=== PATIENT | female | born 1960 | race Caucasian/White ===

== ENCOUNTER 2020-03-24 05:52 | Emergency (ER) | payer BC, SELFPAY ==
--- NOTE | 2020-03-24 05:54 | ED.GENADUL_ITS ---
Discharge Plan Disposition Patient Disposition: HOME Condition: Good Discharge Details Clinical Impression: Multiple rib fractures, Contusion of pelvic region, Fall from horse Primary Care Provider: Melanie Abrams ED Provider: Raymond Mcgee [place]on Meds and New Rx's Prescriptions: New lidocaine 5 % adhesive patch,medicated 1 patch topical DAILY Qty: 15 RF: 0 ibuprofen 600 mg tablet 600 mg PO Q8H PRNQty: 15 RF: 0 Continued venlafaxine 75 MG tablet 150 mg PO QAM RF: 0 sumatriptan succinate 100 MG tablet 100 mg PO PRN PRNRF: 0 trazodone 100 MG tablet 75 mg PO HS RF: 0 levothyroxine [Synthroid] 50 MCG tablet 50 mcg PO DAILY RF: 0 polyethylene glycol 3350 [Miralax] 17 gram/dose Powder 17 g PO DAILY PRNRF: 0 lansoprazole 15 MG capsule,delayed release(DR/EC) 15 mg PO DAILY RF: 0 vitamin B complex 1 EACH capsule 1 ea PO DAILY RF: 0 Discharge Instructions Instructions: How to Use an Incentive Spirometer (ED), Rib Fracture (ED) Additional Instructions: You have 3 rib fractures on the right which should heal without consequences. Your biggest risk will be pneumonia. Be sure to use incentive spirometer 10 times every hour while awake. Lidoderm patch should be worn for 12 hours during the day and off at night. Alternate ibuprofen 600 mg with acetaminophen 1 g every 4 hours. Contact primary care if pain not controlled. Return to ED for increasing shortness of breath, fever, abdominal pain, neurologic changes. Referrals: Melanie Abrams [Primary Care Provider] - Medical Decision Making Patient status post fall from horse yesterday. Significant right chest pain and tenderness. No shortness of breath. Some right upper quadrant tenderness. Given normal heart rate and saturation doubt significant injury but possibility of capsular hematoma or liver contusion needs to be investigated. Will place IV and check trauma labs and obtain CT of chest abdomen pelvis. Spine is cleared clinically. GCS is 15 with no loss of consciousness and normal neurologic exam. 7:30 AM: Patient laboratory studies unremarkable. Urinalysis negative. CT scan of chest abdomen pelvis shows nondisplaced fractures of the fifth, sixth and seventh rib on the right. No contusion or pneumothorax. Soft tissue contusion right hip area. Findings discussed with the patient. Will attempt pain control with Lidoderm patch alternating with acetaminophen and ibuprofen. We will also teach her how to use incentive spirometer. If pain uncontrolled she will contact primary care for stronger medication if needed. We discussed risk of pneumonia and necessity for deep breathing. Return to ED for increasing shortness of breath, fever, mental status changes, other concerns. Lab Data Lab results reviewed: Yes I reviewed the patient's lab results. HPI General Mode of arrival: ambulatory . Date/Time Provider Initiated Documentation: 03/24/20 05:53 . Limitations to Documentation: no limitations . Information obtained by: patient and RN notes reviewed . HPI Narrative: Patient presenting with right-sided rib pain. Patient fell off horse yesterday. She was helmeted and did not have loss of consciousness. She landed on her right side and has mostly right lateral rib pain. She has difficulty taking a deep breath but does not necessarily feel short of breath. She has bruising on her right hip but is able to ambulate. She has nausea but no vomiting or abdominal pain. She has no hematuria. She has not slight headache but has chronic headaches but does not feel any different than a normal headache for her. She has no neurologic changes. She took Tylenol about 4 hours ago but is still in significant discomfort. Related Data Home Medications Medication Instructions Recorded Confirmed levothyroxine [Synthroid] 50 mcg PO DAILY 08/17/14 03/24/20 sumatriptan succinate 100 mg PO PRN PRN 08/17/14 03/24/20 trazodone 75 mg PO HS 08/17/14 03/24/20 venlafaxine 150 mg PO QAM 08/17/14 03/24/20 lansoprazole 15 mg PO DAILY 12/04/16 03/24/20 vitamin B complex 1 ea PO DAILY 12/04/16 03/24/20 ibuprofen 600 mg PO Q8H PRN #15 tab 03/24/20 lidocaine 1 patch TOPICAL DAILY #15 ea 03/24/20 polyethylene glycol 3350 [Miralax] 17 g PO DAILY PRN 03/24/20 03/24/20 Previous Rx's Medication Instructions Recorded ibuprofen 600 mg PO Q8H PRN #15 tab 03/24/20 lidocaine 1 patch TOPICAL DAILY #15 ea 03/24/20 Allergies Allergy/AdvReac Type Severity Reaction Status Date / Time Penicillins Allergy Intermediate Skin Rash Unverified 03/24/20 06:02 anesthesia-general AdvReac hard to Uncoded 03/24/20 06:02 wake up Review of Systems Narrative: As documented in HPI otherwise negative as below. Const: no fever, chills, weakness Resp: no cough, SOB CV: no diaphoresis, edema, syncope GI: no abdominal pain, vomiting, diarrhea Neuro: no numbness, focal weakness, confusion PFSH Medical History GERD (gastroesophageal reflux disease) Hypothyroid Migraine Surgical History S/P cholecystectomy S/P hysterectomy Social History Smoking/Tobacco Use Status: Never Drug use: Never Substance use type: does not use Do you feel safe at home: Yes Do you feel safe in your relationship?: Yes Exam Narrative Exam Narrative: Vitals: Afebrile. Elevated blood pressure otherwise normal vitals and normal O2 saturation. Const: WDWN female in NAD. HEENT: NC/AT. Normal facial exam. Eyes: PERRL and EOMI Neck: Supple. Trachea midline. No midline tenderness. Lungs: Normal respiratory effort. Lungs are clear. marked tenderness right chest wall. Cor: RRR without murmur/gallop. Good radial pulses. GI: Soft and ND. Tender RUQ. Back: No midline tenderness. Neuro: A+O x 3. Normal speech, mentation, gait. Cranial nerves II - XII grossly intact. No gross motor or sensory deficit. Ext: No C/C/E. No deformity or decreased ROM. Some tenderness right hip area.
[2020-03-24 05:56] VITALS: BP 147/90; PULSE 78; RESP 16; TEMP 36.5; O2SAT 99
--- NOTE | 2020-03-24 06:15 | DI.CT_ITS ---
EXAM: CT CHEST/ABD/PEL W TECHNIQUE: CT examination of the chest, abdomen, and pelvis was performed with bolus infusion of 100 cc of Omnipaque 350. COMPARISON: CT ABD PELVIS WITH CONTRAST from 12/04/2016 FINDINGS: There is no evidence of a thoracic vascular injury. The lungs are clear except for scattered linear radiodensities in dependent portions of the lungs consistent with atelectasis or scarring. No pneumo thorax or pleural effusion. No mediastinal hematoma. No adenopathy in the chest. Tracheobronchial theresa e appears intact. There are apparent nondisplaced fractures of the right 5th through 7th ribs anterolaterally. The liver, spleen, and pancreas appear normal. Gallbladder has been surgically removed. No biliary dilatation. Adrenals and kidneys are unremarkable with tiny apparent incidental bilateral renal cysts noted. No evidence of urinary tract injury or obstruction. No abdominal or pelvic vascular injury seen. No abdominal or pelvic adenopathy. No significant abdomi nal wall hernia or hematoma. No evidence of bowel injury. No fracture identified in the abdomen or pelvic region.. IMPRESSION: No evidence of acute visceral injury of the chest, abdomen, or pelvis. Nondisplaced right anterolateral 5th through 7th rib fractures noted. RADIATION DOSE DELIVERED: 1,213.41mGy.cm Total DLP 1,213.41mGy.cm Total DLP DATA REPOSITORY: All CT scans at this facility are submitted to the National Radiology Data Registry (NRDR) Dose Index Registry (DIR) with the [employer] ([employer]). RADIATION OPTIMIZATION: All CT scans at this facility use at least one of these dose optimization te chniques: automated exposure control; mA and/or kV adjustment per patient size (includes targeted exa ms where dose is matched to clinical indication); or iterative reconstruction.
[2020-03-24 06:33] LABS: Abs Immature Grans 0.01 10^3/uL (0.0-0.06); Absolute Basophil Count 0.03 10^3/uL (0.0-0.2); Absolute Eosinophil Count 0.17 10^3/uL (0.0-0.7); Absolute Lymphocyte Count 0.96 10^3/uL (1.2-3.4); Absolute Neutrophil Count 3.66 10^3/uL (1.2-6.7); Basophils % 0.6; Eosinophils % 3.1; HCT 42.9 % (36.0-46.0); HGB 14.2 g/dL (11.2-15.7); Immature Grans % 0.2; Lymphocytes % 17.7; MCH 29.9 pg (27.0-33.0); MCHC 33.1 % (32.0-36.0); MCV 90.3 fL (80-95); MPV 10.1 fL (8.0-11.0); Neutrophils % 67.4; Nucleated RBC 0 %; Platelet Count 203 10^3/uL (130-400); RBC 4.75 10^6/uL (3.93-5.22); RDW 12.8 % (11.7-14.6); RDW-SD 42.5 fL; WBC 5.43 10^3/uL (4.4-10.8)
[2020-03-24 06:48] LABS: ALT 48 U/L (14-59); AST 28 U/L (15-37); Albumin 3.6 g/dL (3.4-5.0); Alkaline Phosphatase 114 U/L (46-116); Anion Gap 7.3 mmol/L (3-11); BUN 16 mg/dL (7-18); Bilirubin, Total 0.3 mg/dL (0.2-1.0); CO2 27.7 mmol/L (21.0-32.0); Calcium 9.2 mg/dL (8.5-10.1); Chloride 104 mmol/L (98-107); Glucose 108 mg/dL (74-106); Potassium 3.9 mmol/L (3.5-5.1); Sodium 139 mmol/L (136-145); Total Protein 6.8 g/dL (6.4-8.2)
[2020-03-24] MEDS: Normal Saline - Diluent 50 ML VIAL IV (06:57)
[2020-03-24] MEDS: Omnipaque 350 MG/ML 100 ML BTL IJ (06:57)
[2020-03-24] MEDS: Normal Saline Flush 10 ML SYR IVP (06:58)
[2020-03-24 07:06] LABS: Bilirubin Negative (Negative); Blood Negative (Negative); Clarity Clear (Clear); Glucose Negative (Negative); Ketones Negative (Negative); Leukocyte Esterase Negative (Negative); Nitrite Negative (Negative); Specific Gravity 1.015 (1.005-1.025); Urobilinogen 0.2 EU/dL (Up TO 0.2); pH 7.5 (5-8)
[2020-03-24] MEDS: Lactated Ringers 1,000 ML 1000 ML IV (07:07)
--- NOTE | 2020-03-24 07:21 | DI.VRAD_ITS ---
PROCEDURE INFORMATION: Exam: CT Chest With Contrast Exam date and time: 03/24/2020 6:21 AM Age: 59 years old Clinical indication: Injury or trauma; Other: Fell off horse; Blunt trauma (contusions or hematomas); Injury date: 03/23/20; Injury details: Fell of a horse yesterday, R rib pain, ruq pain; Prior surgery; Surgery date: 6+ months; Surgery type: Hysterectomy cholecystectomy; Patient HX: Right sib pain and ruq pain TECHNIQUE: Imaging protocol: Computed tomography of the chest with intravenous contrast. Radiation optimization: All CT scans at this facility use at least one of these dose optimization techniques: automated exposure control; mA and/or kV adjustment per patient size (includes targeted exams where dose is matched to clinical indication); or iterative reconstruction. Contrast material: OMNIPAQUE 350; Contrast volume: 100 ml; Contrast route: INTRAVENOUS (IV); COMPARISON: CT ABD PELVIS WITH CONTRAST 12/04/2016 2:10 PM FINDINGS: Lungs: Mild bibasilar dependent and subsegmental atelectasis. No consolidative pneumonia or pulmonary edema. No contusion or laceration. Pleural space: No pleural effusions. No pneumothorax. Heart: Cardiac size normal. No pericardial effusion. No right heart strain. Mediastinal space: Patulous distal esophagus. Pulmonary arteries: No saddle embolus or large central emboli. Aorta: Aorta normal caliber without aneurysm, dissection or disruption. Lymph nodes: Unremarkable. No enlarged lymph nodes. Bones/joints: Nondisplaced fractures suspected lateral 5th, 6th and 7th ribs. No obviously displaced rib fractures on either side. No spinal fracture. No sternal fracture. Soft tissues: Unremarkable. IMPRESSION: 1. Nondisplaced fractures suspected lateral 5th, 6th and 7th ribs. 2. No associated pneumothorax, pulmonary contusion or pleural effusion. PROCEDURE INFORMATION: Exam: CT Abdomen And Pelvis With Contrast Exam date and time: 03/24/2020 6:21 AM Age: 59 years old Clinical indication: Injury or trauma; Other: Fell off horse; Blunt trauma (contusions or hematomas); Injury date: 03/23/20; Injury details: Fell of a horse yesterday, R rib pain, ruq pain; Prior surgery; Surgery date: 6+ months; Surgery type: Hysterectomy cholecystectomy; Patient HX: Right sib pain and ruq pain TECHNIQUE: Imaging protocol: Computed tomography of the abdomen and pelvis with intravenous contrast. Radiation optimization: All CT scans at this facility use at least one of these dose optimization techniques: automated exposure control; mA and/or kV adjustment per patient size (includes targeted exams where dose is matched to clinical indication); or iterative reconstruction. Contrast material: OMNIPAQUE 350; Contrast volume: 100 ml; Contrast route: INTRAVENOUS (IV); COMPARISON: CT ABD PELVIS WITH CONTRAST 12/04/2016 2:10 PM FINDINGS: Mediastinal space: Patulous distal esophagus. Liver: No enlargement or mass. No contusion or laceration. Gallbladder and bile ducts: Surgical clips from prior cholecystectomy. Pancreas: No enlargement. No mass. No ductal dilatation. No contusion or laceration. Spleen: Normal size. No mass. No contusion or laceration. Adrenals: No mass. No enlargement. No hemorrhage. Kidneys and ureters: No mass. No hydronephrosis. No contusion or laceration. No hydroureter or ureterolithiasis. Stomach and bowel: Large fecal load throughout the majority of the colon suggests constipation. No diverticulosis or diverticulitis. No colitis. Small bowel normal caliber without mechanical obstruction. No pneumatosis. Borderline gastric and proximal duodenal wall thickening, lack of distention versus gastritis/duodenitis. No outlet obstruction. Appendix: No evidence of appendicitis. Intraperitoneal space: No significant free fluid demonstrated. No free intraperitoneal air demonstrated. Vasculature: Aorta normal caliber with mild atherosclerotic calcification. No aneurysm, dissection or disruption. Soft tissue contusion lateral to the right iliac crest. Lymph nodes: No significant lymphadenopathy demonstrated. Urinary bladder: No wall thickening, mass or calculus. Reproductive: Hysterectomy. No adnexal masses or fluid collections. Bones/joints: No acute spinal fracture. Grade 1 spondylolisthesis L4 on 5 and L5 on S1 secondary to degenerative facet disease. Spondylolysis on the left at L5. No linear or depressed pelvic fracture. No hip fracture. No fracture of the sacrum or coccyx. Soft tissues: Unremarkable. IMPRESSION: 1. No significant posttraumatic abnormalities within the abdomen or pelvis. Specifically no solid organ, vascular, bowel or osseous injuries. 2. Soft tissue contusion lateral to the right iliac crest. 3. Additional nonemergent findings as described above. Dictated and Authenticated by: Rony Hodges MD. Ordering:ZEN Andrade MD
[2020-03-24 07:28] VITALS: BP 115/76; PULSE 85; RESP 20; TEMP 36.5; O2SAT 99
[2020-03-24] MEDS: Lidocaine 5% Patch 1 PATCH TP (07:47)
[2020-03-24] MEDS: Ketorolac 15 MG/ML VIAL IVP (07:47)
== END 2020-03-24 08:00 | disposition home or self-care (01) ==
PROVIDERS: Emergency Provider Emergency Medicine; PCP Family Medicine
DX: S22.41XA Multiple fractures of ribs, right side, initial encounter for closed fracture (principal); S70.01XA Contusion of right hip, initial encounter; V80.010A Animal-rider injured by fall from or being thrown from horse in noncollision accident, initial encounter; Y93.52 Activity, horseback riding
CPT/HCPCS: 36415; 74177; 80053; 96361; 96374; 99285; 71260; 81003; 85025; 99284; J1885; J3490

== ENCOUNTER 2022-02-06 14:03 | Outpatient (REF) | payer BC, SELFPAY ==
--- OUTSIDE RECORDS SUMMARY | 2022-02-06 14:10 | XMS_ITS | Encounter Summary ---
:1960 Author Organization [place] [address] Care Team Providers Name Role Phone Melanie Abrams MD Primary Care Provider Reason for Visit Auth/Cert Specialty Diagnoses / Procedures Referred By Contact Refer red To Contact Diagnoses Hiatal hernia Gastro-esophageal reflux disease without esophagitis eval for hiatal hernia worsening, H pylori, GERD not responding to PPI Kendy Sommer MD [facility] Procedures PRO UPPER GI ENDOSCOPY, DIAGNOSTIC PRO UPPER GI ENDOSCOPY, BIOPSY PRO UP GI ENDOSCOPY, REMV TUMOR, SNARE EGD, UPPER GI ENDOS[place] [address] Referral ID Status Reason Start Date Expiration Date Visits Requ ested Visits Authorized [id number] 1 1 Encounter Details Date Type Department Care Team Description 01/19/2022 Surgery Gastroenterology at [facility] Kendy Sommer, EGD, UPPER GI [facility] Vanessa [place] [address] [facility] [phone] [address] [place] [address] Social History Tobacco Use Types Packs/Day Years Used Date Never Smoker Smokeless Tobacco: Never Used Alcohol Use Standard Drinks/Week Comments Yes 1 (1 standard drink = 0.6 oz pure alcoho l) Physical Activity Answer Date Recorded On average, how many days per week do you engage in moderate to 2 days 05/25/2021 strenuous exercise (like walking fast, running, jogging, dancing, swimming, biking, or other activities that cause a light or heavy sweat)? On average, how many minutes do you engage in exercise at th is 40 min 05/25/2021 level? Financial Resource Strain Answer Date Recorded How hard is it for you to pay for the very basics like Not h gabriel at all 05/25/2021 food, housing, medical care, and heating? Food Insecurity Answer Date Recorded Within the past 12 months, you worried that your food would Never true 05/25/2021 run out before you got money to buy more. Within the past 12 months, the food you bought just didn't N ot asked last and you didn't have money to get more. Transportation Needs Answer Date Recorded In the past 12 months, has lack of transportation kept you f rom No 05/25/2021 medical appointments or from getting medications? In the past 12 months, has lack of transportation kept you f rom No 05/25/2021 meetings, work, or getting things needed for daily living? Housing Stability Answer Date Recorded In the last 12 months, was there a time when you were not ab le No 05/25/2021 to pay the mortgage or rent on time? In the last 12 months, how many places have you lived? 1 05/25/2021 In the last 12 months, was there a time when you did not hav e a No 05/25/[address] or slept in a assisted (including now)? Sex Assigned at Date Recorded Female 08/01/2020 8:27 AM EST documented as of this encounter Last Filed Vital Signs Vital Sign Reading Time Taken Comments Blood Pressure 146/90 01/19/2022 2:15 PM EDT Pulse 84 01/19/2022 2:15 PM EDT Temperature 36.2 ??C (97.2 ??F) 01/19/2022 1:39 PM EDT Respiratory Rate 12 01/19/2022 2:15 PM EDT Oxygen Saturation 99% 01/19/2022 2:15 PM EDT Inhaled Oxygen Concentration - - Weight 74.8 kg (165 lb) 01/19/2022 1:39 PM EDT Height 170.2 cm (5' 7) 01/19/2022 1:39 PM EDT Body Mass Index 25.84 01/19/2022 1:39 PM EDT documented in this encounter Discharge Instructions Discharge Otilia Preciado RN - 01/19/2022 2:35 PM EDT Upper GI Endoscopy: What to Expect at Home Your Recovery You will be able to go home after your doctor or nurse checks to make sure you are not having any problems. You may have to stay overnight if you had treatment during the test. You may have a sore throat for a day or two after the test. This care sheet gives you a general idea about what to expect after the test. How can you care for yourself at home? Activity Rest when you feel tired. You can do your normal activities when it feels okay to do so. Diet Follow your doctor's directions for eating. Unless your doctor has told you not to, drink plenty of fluids. This helps to replace the fluids that were lost during the prep. Do not drink alcohol. Medicines Your doctor will tell you if and when you can restart your medicines. He or she will also give you instructions about taking any new medicines. If you take blood thinners, such as warfarin (Coumadin), clopidogrel (Plavix), or aspirin, be sure to talk to your doctor. He or she will tell you if and when to start taking those medicines again. Make sure that you understand exactly what your doctor wants you to do. If polyps were removed or a biopsy was done during the test, your doctor may tell you not to take aspirin or other anti-inflammatory medicines for a few days. These include ibuprofen (Advil, Motrin) and naproxen (Aleve). If you have a sore throat the day after the procedure, use an rxsm-yjz-[id number] spray to numb your throat. Sucking on throat lozenges and gargling with warm salt water may also help relieve your symptoms. Other instructions For your safety, do not drive or operate machinery until the medicine wears off and you can think clearly. Your doctor may tell you not to drive or operate machinery until the day after your test. Do not sign legal documents or make major decisions until the medicine wears off and you can think clearly. The anesthesia can make it hard for you to fully understand what you are agreeing to. Additional Information for Sedation Patients For patients who received sedation: You may have received medications before and/or during your procedure which effects your judgement and reaction time. Do not drive, operate machinery, drink alcoholic beverages or make important decisions for 24 hours. Be careful on stairs as you may be unsteady on your feet. You may eat a regular diet as tolerated. Do not smoke if you are alone. IV site: Slight redness or tenderness is normal, you can use a warm compress if you would like. If tenderness and/or redness increase or if foul drainage occurs, please contact your Doctor. Please call [phone] before 8pm Mon-Fri with problems, questions or concerns. If you call after 8pm or on weekends, call the Hospital at [phone] and ask to speak to the Head Automatic Sawyer new vehicle sales consultant and the jig operator will contact that person for you. When should you call for help? Call 129 anytime you think you may need emergency care. For example, call if: You passed out (lost consciousness). You pass maroon or bloody stools. You have trouble breathing. Call your doctor now or seek immediate medical care if: You have pain that does not get better after you take pain medicine. You are sick to your stomach or cannot drink fluids. You have new or worse belly pain. You have blood in your stools. You have a fever. You cannot pass stools or gas. Watch closely for changes in your health, and be sure to contact your doctor if you have any problems. Where can you learn more? [facility] View your After Visit Summary and more online at [email or web address] If you would like to provide feedback about your hospital experience, please call the Office of Patient and Family Relations at . If you have received this After Visit Summary in error, please immediately return it in person to the department, or notify the [facility] Privacy Office by calling toll free at between the hours of 8AM and 5PM to arrange for our retrieval of the documents at no cost to you. Content Version: 12.2 ?? 7889-9923 1bib. Care instructions adapted under license by [facility]. If you have questions about a medical condition or this instruction, always ask your healthcare professional. 1[employer] disclaims any warranty or liability for your use of this information. documented in this encounter Medications at Time of Discharge Medication Sig Dispensed Refills Start Date End Date cholecalciferol, Vitamin Take by mouth. 0 D3, 50 mcg (2,000 unit) Capsule levothyroxine (Synthroid) Take 1 tablet by 90 tablet 3 11/19 50 mcg TabletIndications: mouth daily. Acquired hypothyroidism busPIRone (Buspar) 10 mg Take 2 tablets by 360 tablet 3 10/19 Tablet mouth 2 times daily. venlafaxine XR (Effexor-XR) Take 3 capsules by 270 capsule 3 05/25/2021 75 mg Capsule, Sust. mouth every Release 24 hrIndications: morning. Anxiety traZODone (Desyrel) 50 mg TAKE 1 AND 1/2 135 tablet 3 2020 TabletIndications: TABLETS BY MOUTH Insomnia, unspecified type EVERY NIGHT omeprazole (PriLOSEC) 40 mg Take 1 capsule by 30 capsule 3 0 12/23/2020 Capsule, Delayed mouth daily. Release(E.C.)Indications: Laryngopharyngeal reflux documented as of this encounter H&P Notes Kendy Sommer MD - 01/19/2022 2:09 PM EDT Patient Name: Korin Posada Patient Age: 61 y.o. Birthdate: 1960 Admit date: 01/19/2022 Attending Physician: Kendy Sommer MD Gastroenterology and Hepatology Pre-Procedure History and Physical Exam Procedure: EGD: Indication: GERD Patient Active Problem List Diagnosis Code ??? Major depressive disorder, recurrent episode F33.9 ??? Migraine without aura G43.009 ??? Anxiety F41.9 ??? Hypothyroidism E03.9 ??? Gastroesophageal reflux K21.9 ??? S/P arthroscopy of shoulder, right Dr. Hernandez. biceps tenotomy, DCE and SAD DOS: 07/12/2016 Z98.890 ??? Contusion of pelvic region S30.0XXA EXAM: HEENT: Airway examined, oropharynx clear Mallampati Score: II (soft palate, uvula, fauces visible) LUNGS: Clear to auscultation HEART: Regular rate and rhythm, normal S1, S2 ABDOMEN: Normal bowel sounds, soft, non tender, non distended, A/P Proceed with the planned endoscopic procedure. ASA 2 - Patient with mild systemic disease with no functional limitations Sedation Plan: moderate (conscious sedation) Risks and benefits of the procedure explained to the patient. Consent signed. documented in this encounter Plan of Treatment Upcoming Encounters Date Type Specialty Care Team Description 02/06/2023 Hospital Encounter Gastroenterology Cony Tavera MD [facility] GASTROENTEROLOGY DEPT. [place], [place] [address] (Wo rk) Scheduled Procedures Name Priority Associated Diagnoses Date/Time COLONOSCOPY, DIAGNOSTIC 10 yr surv documented as of this encounter Procedures Procedure Name Priority Date/Time Associated Diagnosis Comme nts EGD, UPPER GI 01/19/2022 2:12 PM eval for hiatal ENDOSCOPY EDT hernia worsening, H pylori, GERD not responding to PPI UPPER GI ENDOSCOPY Routine 01/19/2022 2:05 PM Res ults for this EDT procedure are i n the results section. documented in this encounter Results UPPER GI ENDOSCOPY (01/19/2022 2:05 PM EDT) Component Value Ref Test Analysis Performed At [facility] gist Range Method Time Signature UPPER GI [facility] ENDOSCOPY Endoscopy Procedure Date: 01/19/2022 2:05 PM ? Patient Name: Korin Posada ? Date of : 1960 ? Age: 61 ? Order #: [id number] ? Instrument Name: [id number] ? Procedure: ? Upper GI endoscopy Indications: ? Heartburn Providers: ? Kendy Sommer MD, Dallas Watkins ? AMANDA Ruiz, Abebe Rivero her Referring MD: ?Melanie Abrams MD Medicines: ? Midazolam 5 mg IV, Fentanyl 150 ? micrograms IV, Benzocaine spray Complications: ? No immediate complications. Procedure: ? Pre-Anesthesia Assessment: ? - Prior to the procedure, a History ? and Physical was performed , and ? patient medications and al lergies ? were reviewed. The patient 's ? tolerance of previous anes thesia ? was also reviewed. The ris ks and ? benefits of the procedure and the ? sedation options and risks were ? discussed with the patient . All ? questions were answered, a nd ? informed consent was obtai murray. ? Prior Anticoagulants: The patient ? has taken no anticoagulant or ? antiplatelet agents. ASA G rade ? Assessment: II - A patient with ? mild systemic disease. Aft er ? reviewing the risks and be nefits, ? the patient was deemed in ? satisfactory condition to undergo ? the procedure. ? The procedure, indications , ? benefits, risks and altern atives ? were explained to the rodrigo ent. ? Specifically discussed wer e ? potential complications in cluding, ? but not limited to, evelyne crabtree, ? perforation, infection, mi ssing a ? cancer, and adverse medica tion ? reactions. The Endoscope w as ? introduced through the jabari th, and ? advanced to the second par t of ? duodenum The upper GI endo scopy was ? accomplished without diffi culty. ? The patient tolerated the procedure ? well. ? Findings: ? Esophagogastric landmarks were identified: the Z-line ? was found at 36 cm, the upper extent of the gastric ? folds was found at 36 cm and the site of hiatal ? narrowing was found at 40 cm from the incisors. ? The examined esophagus was normal. ? A 4 cm hiatal hernia was present. ? The entire examined stomach was normal. ? The examined duodenum was normal. ? Moderate Sedation: ? I was present during the intraservice time as ? documented by the sedation RN. Impression: ?- Esophagogastric landmarks ? identified. ? - Normal esophagus. ? - 4 cm hiatal hernia. ? - Normal stomach. ? - Normal examined duodenum . ? - No specimens collected. Recommendation: ?- Refer to a chainstitch sewing machine operator. ? - Return to referring phys ician. ? Procedure Code(s): ? --- Professional --- ? 94497, Esophagogastroduode noscopy, ? flexible, transoral; diagn ostic, ? including collection of sp ecimen(s) ? by brushing or washing, wh en ? performed (separate proced ure) CPT copyright 2020 [employer]. All rights reserved. The codes documented in this report are preliminary and upon lawyer review may be revised to meet current compliance requirements. Attending Participation: ? I personally performed the entire procedure. ? Kendy Sommer MD Kendy Sommer MD 01/19/2022 2:28:55 PM This report has been signed electronically. Number of Addenda: 0 Note Initiated On: 01/19/2022 2:05 PM Specimen (Source) Anatomical Collection Method Collection Time Re ceived Time Location / / Volume Laterality 01/19/2022 2:05 PM EDT Melanie Abrams MD GENERAL SURGICAL ORDERABLES Performing Organization Address City/State/ZIP Code Phon e Number [employer]ATION documented in this encounter Visit Diagnoses Not on filedocumented in this encounter Administered Medications Inactive Administered Medications - up to 3 most recent administrations Medication Order MAR Action Action Date Dose Rate Site benzocaine (Hurricane One) 20% Given 01/19/2022 2:14 PM EDT 1 ea ch spray (restricted to irina-procedural use) ONCE PRN, Starting on Tue01/19/22 at 1442, Until Tue01/19/22 at 1712, Intra-Operative (Intra-Procedure) fentaNYL (pf) (50 mcg/mL) multi-dose Given 01/19/2022 2:23 PM ED T 25 mcg injection ONCE PRN, Starting on Tue01/19/22 at 1414, Until Tue01/19/22 at 1712, Intra-Operative (Intra-Procedure), Routine Given 01/19/2022 2:20 PM EDT 25 mcg Given 01/19/2022 2:17 PM EDT 50 mcg lactated ringers infusion New Bag 01/19/2022 1:52 PM EDT 100 mL/hr 100 mL/hr 100 mL/hr, Intravenous, CONTINUOUS, Starting on Tue01/19/22 at 1400, Until Tue01/19/22 at 1506, Endoscopy (Day of Procedure) midazolam (pf) (Versed) (1 mg/mL) multi-dose Given 01/19/2022 2: 23 PM EDT 1 mg injection ONCE PRN, Starting on Tue01/19/22 at 1414, Until Tue01/19/22 at 1712, Intra-Operative (Intra-Procedure), Routine Given 01/19/2022 2:20 PM EDT 1 mg Given 01/19/2022 2:17 PM EDT 1 mg documented in this encounter Active and Recently Administered Medications Times are shown in EDT. Continuous Medication Order 01/17/2022 01/18/2022 01/19/2022 lactated ringers infusion (CANCELED) 1352 (New Bag - Provider: Ara Aviles RN) 100 mL/hr, Intravenous, CONTINUOUS, Star ting on Tue01/19/22 at 1400, Until Tue01/19/22 at 1506, Endoscopy (Day of Procedure) PRN Medication Order 01/17/2022 01/18/2022 01/19/2022 benzocaine (Hurricane One) 20% spray (re stricted to irina-procedural use) (CANCELED) 1414 (Given - Provid er: Dallas Ruiz RN) ONCE PRN, Starting on Tue01/19/22 at 1442 , Until Tue01/19/22 at 1712, Intra- Operative (Intra-Procedure) fentaNYL (pf) (50 mcg/mL) multi-dose injection (CANCELED) 1414 (Given - Provider: Dallas Ruiz RN)1417 (Given - Provider: Dallas Ruiz RN)1420 (Given - Provider: Dallas Ruiz RN)1423 (Given - Provider: Dallas Ruiz RN) ONCE PRN, Starting on Tue01/19/22 at 1414 , Until Tue01/19/22 at 1712, Intra- Operative (Intra-Procedure), Routine midazolam (pf) (Versed) (1 mg/mL) multi-dose injection (CANCELED ) 1414 (Given - Provider: Dallas Ruiz RN)1417 (Given - Provider: Dallas Ruiz RN)1420 (Given - Provider: Dallas Ruiz RN)1423 (Given - Provider: Dallas Ruiz RN) ONCE PRN, Starting on Tue01/19/22 at 1414 , Until Tue01/19/22 at 1712, Intra- Operative (Intra-Procedure), Routine documented in this encounter Care Teams Commercial Illustrator Relationship Specialty Start Date End Date Melanie Abrams MD PCP - General 05/12/[address] [facility] [place] [address] documented as of this encounter
--- OUTSIDE RECORDS SUMMARY | 2022-02-06 14:10 | XMS_ITS | Encounter Summary ---
:1960 Author Organization [facility] [place] [address] Care Team Providers Name Role Phone Melanie Abrams MD Primary Care Provider Reason for Visit Reason Comments Medication Refill Encounter Details Date Type Department Care Team Description 01/17/2021 Refill Family Medicine at Melanie Johnson MD [facility] [address] [facility] [place] [address] [place] [address] [phone] (Wo rk) Social History Tobacco Use Types Packs/Day Years Used Date Never Smoker Smokeless Tobacco: Never Used Alcohol Use Standard Drinks/Week Comments Yes 0 (1 standard drink = 0.6 oz pure alcoho l) Rare 1-2x month Alcohol Habits Answer Date Recorded How often do you have a drink containing alcohol? Not asked How many drinks containing alcohol do you have on a Not aske d typical day when you are drinking? How often do you have six or more drinks on one Not asked occasion? Comment: Rare 1-2x month 12/10/2019 Physical Activity Answer Date Recorded On average, how many days per week do you engage in moderate to 2 days 05/25/2021 strenuous exercise (like walking fast, running, jogging, dancing, swimming, biking, or other activities that cause a light or heavy sweat)? On average, how many minutes do you engage in exercise at is 40 min 05/25/2021 level? Financial Resource [...] place to sleep or slept in a jail (including now)? Sex Assigned at Date Recorded Female 08/01/2020 8:27 AM EST documented as of this encounter Plan of Treatment Upcoming Encounters Date Type Specialty Care Team Description 02/06/2023 Hospital Encounter Gastroenterology Cony Tavera MD [facility] GASTROENTEROLOGY DEPT. [place], [place] [address] (Wo rk) Scheduled Procedures Name Priority Associated Diagnoses Date/Time COLONOSCOPY, DIAGNOSTIC 10 yr surv documented as of this encounter Visit Diagnoses Diagnosis Anxiety Anxiety state, unspecified documented in this encounter Care Teams Etl Informatica Architect Relationship Specialty Start Date End Date Melanie Abrams MD PCP - General 05/12/[address] [facility] [address] PRIMARY C[facility] [place], [place] [id number] documented as of this encounter
--- OUTSIDE RECORDS SUMMARY | 2022-02-06 14:10 | XMS_ITS | Encounter Summary ---
:1960 Author Organization [facility] [place] [address] Care Team Providers Name Role Phone Melanie Abrams MD Primary Care Provider Reason for Visit Reason Comments Medication Refill Encounter Details Date Type Department Care Team Description 01/28/2020 Refill Family Medicine at Melanie Abrams M oderate episode of [facility] recurrent major [address] [facility] [place] [address] [facility] [phone] [place] [address] (Wo rk) Social History Tobacco Use Types [...] place to sleep or slept in a retirement (including now)? Sex Assigned at Date Recorded Female 08/01/2020 8:27 AM EST documented as of this encounter Miscellaneous Notes Telephone Encounter - Denise Canela - 01/29/2020 10:52 AM EDT Sent Lab[employer] message documented in this encounter Plan of Treatment Upcoming Encounters Date Type Specialty Care Team Description 02/06/2023 Hospital Encounter Gastroenterology Cony Tavera MD [facility] GASTROENTEROLOGY DEPT. [place], [place] [address] (Wo rk) Scheduled Procedures Name Priority Associated Diagnoses Date/Time COLONOSCOPY, DIAGNOSTIC 10 yr surv documented as of this encounter Visit Diagnoses Diagnosis Moderate episode of recurrent major depr essive disorder documented in this encounter Care Teams Cleaning Custodian Relationship Specialty Start Date End Date Melanie Abrams MD PCP - General 05/12/[address] [facility] [place] [address] documented as of this encounter
--- OUTSIDE RECORDS SUMMARY | 2022-02-06 14:10 | XMS_ITS | Encounter Summary ---
:1960 Author Organization [facility] [address] Care Team Providers Name Role Phone Melanie Abrams MD Primary Care Provider Reason for Visit Reason Onset Date Comments Medication Refill 11/13/2021 Encounter Details Date Type Department Care Team Description 11/13/2021 Refill Family Medicine at Melanie Johnson MD [facility] [address] [facility] [place] [address] [place] [address] [phone] (Wo rk) Social History Tobacco Use Types [...] place to sleep or slept in a alf (including now)? Sex Assigned at Date Recorded Female 08/01/2020 8:27 AM EST documented as of this encounter Miscellaneous Notes Telephone Encounter - Ibis Cueva MA - 11/13/2021 11:43 AM EDT Prescription Refill Request Prescription(s) Requested: Requested Prescriptions Pending Prescriptions Disp Refills ??? busPIRone (Buspar) 10 mg Tablet 90 tablet 1 Sig: Take 1 tablet by mouth 2 times daily. Increase by 10 mg every 2-4 weeks to max 60 mg total daily Date of Encounter last in This Dept (If over a year and no apt scheduled send to secretaries to schedule): 10/08/2021 Next Encounter in This Dept: Visit date not found Date of Last Refill (for each medication): 10/13/2021 Medication category req. lab studies documented in this encounter Plan of Treatment Upcoming Encounters Date Type Specialty Care Team Description 02/06/2023 Hospital Encounter Gastroenterology Cony Tavera MD [facility] GASTROENTEROLOGY DEPT. [place], [place] [address] (Wo rk) Scheduled Procedures Name Priority Associated Diagnoses Date/Time COLONOSCOPY, DIAGNOSTIC 10 yr surv documented as of this encounter Visit Diagnoses Not on filedocumented in this encounter Care Teams Crop Farm Helper Relationship Specialty Start Date End Date Melanie Abrams MD PCP - General 05/12/[address] [facility] [address] [place] [address] documented as of this encounter
--- OUTSIDE RECORDS SUMMARY | 2022-02-06 14:10 | XMS_ITS | Encounter Summary ---
:1960 Author Organization [facility] [place] [address] Care Team Providers Name Role Phone Melanie Abrams MD Primary Care Provider Encounter Details Date Type Department Care Team Description 03/16/2020 Public Health Public [facility] [place]Note 2] [place] [address] Social History Tobacco Use Types Packs/Day Years [...] place to sleep or slept in a longterm (including now)? Sex Assigned at Date Recorded Female 08/01/2020 8:27 AM EST documented as of this encounter Plan of Treatment Upcoming Encounters Date Type Specialty Care Team Description 02/06/2023 Hospital Encounter Gastroenterology Cony aTvera MD [facility] GASTROENTEROLOGY DEPT. [place], [place] [address] (Wo rk) Scheduled Procedures Name Priority Associated Diagnoses Date/Time COLONOSCOPY, DIAGNOSTIC 10 yr surv documented as of this encounter Procedures Procedure Name Priority Date/Time Associated Diagnosis Comme nts COVID-19 PCR STAT 03/16/2020 1:08 PM COVID-19 ruled out Res ults for this EDT procedure are i n the results section . documented in this encounter Results COVID-19 PCR (03/16/2020 1:08 PM EDT) [facility] Method Time Signature SARS-CoV-2 Not Detected Not Detected [facility] Comment: This result should be interpreted in com bination with the clinical observations, patient history and epidem iological information in making a final diagnosis. For testing of asymptomatic i ndividuals, assay performance characteristics and clinical utility hav e not been evaluated. Testing for SARS-CoV-2 (Severe acute respiratory syn drome coronavirus 2, formerly known as 2019 novel coronavirus or 2019-nCoV) to aid in the diagnosis of COVID-19 is performed using the [employer] Elijah LAWRENCE S-CoV-2 Assay as authorized by the FDA Emergency Use Authorization (EUA). This EUA assay is intended for In-vitro Diagnostic (IVD) use with respiratory sp ecimens such as nasopharyngeal swabs collected from individuals during the ac leonel phase of infection. This assay is performed based on the instructions for use provided by [employer] and additional guidance provided by CDC and FDA. Testing is performed in the [facility]omics and [facility] y Laboratory within the Department of Pathology and Laboratory Medicine at [facility], certified under the Clinical Laboratory Improvement Amendments of 1988 (CLIA), 42 U.S.C. 263a, to perform high complexi ty tests. Assay performance has been verified according to clinical laborator y regulatory requirements for use with specimens collected from individuals venita pected of COVID-19. Test results are provided above. A result of ? Not Detected? indicates that the viral RNA target is not present above the limit of detect ion, but does not preclude SARS-CoV-2 infection. False negative results may oc cur if a specimen is improperly collected, transported or handled; if am plification inhibitors are present; or if inadequate numbers of viral particles are present in the specimen. When a diagnostic test is negative, the possibi lity of a false negative result should be considered in the context of a patien t? s recent exposures and the presence of clinical signs and symptoms consisten t with COVID-19. A result of ? Detected? indicates that RNA from SARS-CoV-2 was d etected and the patient is infected. As required or requested by public health a uthorities, positive specimens may be sent for additional testing. Positive an d negative predictive values for this test are highly dependent on disease pre valence. A result of ? Invalid? indicates that neither the viral RNA tar gets nor the internal control target was detected. An invalid result suggests the presence of inhibitors. Recollection and re-testing is recommend ed in the case of an invalid result. CDC COVID-19 criteria for testing on hum an specimens and clinical management guidance information are available at th e CDC Coronavirus Disease 2019 (COVID-19) webpage under ? Information for Healthcare Professionals? (https://www.cdc.gov/coronavirus/2019-nc ov/hcp/index.html) Additional information about this and ot her EUA tests can be found in provider and patient fact sheets at the following FDA website: https://www.fda.gov/medical-devices/iydaiblomyx-bgfmeki-2384-yvoac-71-yjhsbmecq- hsv-fhrvwpdvtjkbts-kfwzaln-devices/beaoi-wnbvlexghnz-dkwm SARS-Cov-2 RNA Source LICENSE ISSUER Swab [facility] Specimen (Source) Anatomical Collection Method Collection Time Re ceived Time Location / / Volume Laterality Nasopharyngeal swab 03/16/2020 1:08 03/16 (specimen) PM EDT 1:08 PM EDT Comment: Symptoms->Fever / Respiratory S ymptoms Resulting Agency Comment Spec In Lab Melanie Abrams MD MICROBIOLOGY - GENERAL ORDER ILDEFONSO Performing Organization Address City/State/[place] [address] documented in this encounter Visit Diagnoses Diagnosis COVID-19 ruled out documented in this encounter Care Teams Process Inspector Relationship Specialty Start Date End Date Melanie Abrams MD PCP - General 05/12/10 [facility] [address] [facility] [place] [address] documented as of this encounter
--- OUTSIDE RECORDS SUMMARY | 2022-02-06 14:10 | XMS_ITS | Encounter Summary ---
:1960 Author Organization [facility] [place] [address] Care Team Providers Name Role Phone Melanie Abrams MD Primary Care Provider Reason for Visit Auth/Cert Specialty Diagnoses / Procedures Referred By Contact Refer red To Contact Diagnoses Choledocholithiasis Choledocholithiasis Procedures PRO ERCP,DIAGNOSTIC PRO ANESTH, UGI ENDOSCOPY ERCP ERCP Referral ID Status Reason Start Date Expiration Date Visits Requ ested Visits Authorized [id number] 1 1 Encounter Details Date Type Department Care Team Description 12/10/2019 Anesthesia Event Gastroenterology at [facility] Tito Urias MD [facility] [address] [facility] Deidra Cid CRNA [facility] [address] [place] [address] Anesthesia Record Procedure Summary Procedure Name Responsible Anesthesia Start Anesthesia Stop Time Anesthesiologist Time ERCP Ttio Urias MD 12/10/19 1636 12/10/19 172 3 W/SPHINCTEROTOMY/PA PILLOTOMY (N/A Trunk) Events Date Time Event Comment 12/10/2019 1437 1636 AN Verify 1636 Start 1636 An Start Data 1640 An Induction 1643 An Intubation 1651 Anesthesia Ready 1723 Extubation/LMA Out 1723 an stop data 1723 Recovery or ICU Handoff Patient care was transferred to the destination unit staff after review of the patient's medica l history, current anesthetic/surgi zoie status and plan, according to the Provider Handoff Checklist. 1723 Stop Name Total Propofol 350 mg Succinylcholine 80 mg Propofol INF 463.98 mg lactated ringers infusion 0 mL Agents Name O2 Air N2O Blood No blood administrations on file. Lines, Drains, and Airways Type Details Placement Removal Incision 07/12/16; 0745; shoulder; 07/12/16 0745 by (arthroscopic punctures) Magali Bauer RN PIV 12/10/19; 1448; cephalic 12/10/19 1448 by 1853 by Kaley vein (lateral side of arm), Zahra Garcia RN Elizabeth R, RN right; cehn-blc-ojkltu catheter system; 22 gauge, 1 in length; Tr Levy RN; distraction, tolerated well, appears comfortable; 0; no longer indicated, removed per policy/procedure; 12/10/19; 185 ETT Mask Ventilation: Easy (1); 12/10/19 1652 by Megha eavns, 12/10/19 1723 by Bridgett, ETT Type: Cuffed; ETT Size: DOMINIC Marshall MD 7.5 mm; Mac Blade: 3; Notes: Asleep, Pre-O2, Stylette; Attempts: 1; Laryngoscopy Grade: 1; ETT Placement Verified By: Auscultation, Capnometry, Visual; Secured at Teeth: 21 cm; Inserted by: Jody ALFARO documented in this encounter Social History Tobacco Use Types Packs/Day Years [...] AM EST documented as of this encounter OR Notes Anesthesia Postprocedure Evaluation - Tito Urias MD - 12/10/2019 6:21 PM EDT Department of Anesthesiology Post-procedure Note Patient: Korin Posada Procedure Summary Date: 12/10/19 Room / Location: [facility] / [facility] Anesthesia Start: 163 Anesthesia Stop: 172 Procedures: ERCP W/SPHINCTEROTOMY/PAPILLOTOMY (N/A Trunk) ERCP W/REMOVAL CALCULI/DEBRIS FROM BILARY/PANCREATIC DUCT(S) Diagnosis: (Choledocholithiasis) Surgeon: Cedric Witt MD Responsible Provider: Tito Urias MD Anesthesia Type: MAC ASA Status: 3 All Anesthesia Providers: Anesthesiologist: Tito Urias MD WATER INSPECTOR: Deidra Gannon CRNA Vitals Value Taken Time BP 140/103 12/10/2019 6:00 PM Temp Pulse Resp 16 12/10/2019 5:50 PM SpO2 99 % 12/10/2019 6:00 PM Pain Level 0 12/10/2019 5:50 PM Vitals shown include unvalidated device data. Patient Location: PACU/[facility] Level of Consciousness: Awake and Alert Pain Management: Satisfactory Analgesia PONV: None Cardiovascular Status: At Baseline and Hemodynamically Stable Respiratory Status: At Baseline and Room Air Postoperative Fluid Status: Intravascular EUvolemia Possible Anesthetic Complications: NONE apparent at time of evaluation Final Primary Anesthesia Type: General (The anesthetic type performed was the same as planned.) Comments: TITO URIAS MD Anesthesia Preprocedure Evaluation - Tito Urias MD - 12/10/2019 2:35 PM EDT Pre-Anesthesia Evaluation for: Korin Posada a 59 y.o. female. Procedure(s): ERCP Patient Active Problem List Diagnosis ??? S/P arthroscopy of shoulder, right Dr. Hernandez. biceps tenotomy, DCE and SAD DOS: 07/12/2016 ??? Gastroesophageal reflux ??? Anxiety ??? Hypothyroidism ??? Migraine without aura, without mention of intractable migraine without mention of status migrainosus ??? Major depressive disorder, recurrent episode Past Medical History: Diagnosis Date ??? Arthritis ??? Depression ??? Hiatal hernia ??? Insomnia ??? Uterine fibroid Past Surgical History: Procedure Laterality Date ??? BREAST BIOPSY Right 2002 B9 needle bx FCD, calcs ??? CREATED BY INTERFACE cholecystectomy Procedure Date: 1996 ??? CREATED BY INTERFACE LAPAROSCOPY,TOT.HYST,UTERUS>250GM,ROBOT ASSIST / WIRA Procedure Date: 11/18/2009 ??? HYSTERECTOMY ??? PRO COLONOSCOPY, DIAGNOSTIC 02/06/2013 COLONOSCOPY, DIAGNOSTIC performed by Ashanti Tavera MD at [facility] ??? PRO SHLDR ARTHROSCOP, EXTEN DEBRIDE Right 07/12/2016 ARTHROSCOPY SHOULDER DEBRIDEMENT EXTENSIVE (WRVU 8.36) performed by Sukh Hernandez MD at [facility] ??? PRO SHLDR ARTHROSCOP, PART ACROMIOPLAS Right 07/12/2016 ARTHROSCOPY SHOULDER, SUBACROMIAL DECOMPRESSION (WRVU 3) performed by Jonas Hernandez MD at [facility] ??? PRO SHLDR ARTHROSCOP, SURG, DIS CLAVICULECTOMY Right 07/12/2016 ARTHROSCOPY SHOULDER, DISTAL CLAVICLE RESECTION (WRVU 8.98) performed by Jonas Hernandez MD at [facility] ??? PRO UNLISTED PROCEDURE ARTHROSCOPY Right 07/12/2016 ARTHROSCOPY, LONG HEAD BICEPS TENOTOMY (WRVU 12.47) performed by Sukh Hernandez MD at [facility] ??? PRO UPPER GI ENDOSCOPY, BIOPSY N/A 11/28/2017 EGD WITH BIOPSY (WRVU 2.49) performed by Mello Stanotn MD at [facility] Social History Tobacco Use ??? Smoking status: Never Smoker ??? Smokeless tobacco: Never Used Substance Use Topics ??? Alcohol use: Yes Comment: Rare Social History Substance and Sexual Activity Drug Use No Allergies Allergen Reactions ??? Oxycodone Rash Facial rash ??? Penicillins Hives ??? Vecuronium [place] Took a really long time to come out of the anesthesia. ??? Zolmitriptan Diarrhea and Nausea And Vomiting ??? Sumatriptan Hives, Diarrhea and Nausea Only STAT PEN ONLY! Pt had a reaction at the site of injection. Medications: MAR and/or home medications have been reviewed. Physical Exam: There were no vitals filed for this visit. There is no height or weight on file to calculate BMI. Airway Assessment: Mallampati: II TM distance: >3 FB Neck ROM: full Cardiovascular Assessment: Rhythm: regular Pulmonary Assessment: breath sounds clear to auscultation Dental Assessment: Misc Assessment: IV access: Peripheral line Anesthesia Plan: ASA 3 MAC, with a(n) intravenous induction ETT for ERCP Region - Other Informed Consent: Anesthetic plan and risks discussed with patient. Plan discussed with WATER INSPECTOR. PAT Clinic Note documented in this encounter Plan of Treatment Upcoming Encounters Date Type Specialty Care Team Description 02/06/2023 Hospital Encounter Gastroenterology Cony Tavera MD [facility] GASTROENTEROLOGY DEPT. [place], [place] [address] (Wo rk) Scheduled Procedures Name Priority Associated Diagnoses Date/Time COLONOSCOPY, DIAGNOSTIC 10 yr surv documented as of this encounter Visit Diagnoses Not on filedocumented in this encounter Administered Medications Inactive Administered Medications - up to 3 most recent administrations Medication Order MAR Action Action Date Dose Rate Site propofol (DIPRIVAN) 10 mg/mL bolus Given 12/10/2019 5:03 PM EDT 50 mg injection (Anesthesia) PRN, Starting on Tue12/10/19 at 1640, Until Tue12/10/19 at 1723, Anesthesia Intra-op Given 12/10/2019 4:49 PM EDT 100 mg Given 12/10/2019 4:40 PM EDT 200 mg propofol (DIPRIVAN) infusion New Bag 12/10/2019 4:50 PM 200 mcg/kg/min 84.4 mL/hr CONTINUOUS PRN, Starting on EDT Tue12/10/19 at 1650, Until Tue12/10/19 at 1723, Anesthesia Intra-op, Routine succinylcholine chloride (Quelicin) inje ction Given 12/10/2019 4:40 PM EDT 80 mg PRN, Starting on Tue12/10/19 at 1640, Until Tue12/10/19 at 1723, Anesthesia Intra-op, Routine documented in this encounter Care Teams Internal Communications Manager Relationship Specialty Start Date End Date Melanie Abrams MD PCP - General 05/12/10 [facility] [address] [place] [address] documented as of this encounter
--- OUTSIDE RECORDS SUMMARY | 2022-02-06 14:10 | XMS_ITS | Encounter Summary ---
:1960 Author Organization [facility] [place] [address] Care Team Providers Name Role Phone Melanie Abrams MD Primary Care Provider Reason for Visit Reason Onset Date Comments Referral 11/18/2020 Encounter Details Date Type Department Care Team Description 11/18/2020 Telephone Family Medicine at [facility] Mae Avila Referral [address] [place] [address] Social History Tobacco Use Types Packs/Day Years [...] place to sleep or slept in a penitentiary (including now)? Sex Assigned at Date Recorded Female 08/01/2020 8:27 AM EST documented as of this encounter Miscellaneous Notes Telephone Encounter - Dea Maldonado RN - 11/19/2020 8:45 AM EDT Caller: Korin Sanchezurn Patient identified by name and Chief complaint: chronic need to clear throat Onset: x~2months Description of symptoms: 'feels like something is stuck'. 1-2x/week she will have some difficulty swallowing. Denies any difficulty breathing. Takes pepcid on 'most mornings.' Pt requests appt next week Alleviating factors: none Pertinent hx: GERD, hiatal hernia Telehealth screen: [x] Established patient [] Has access to Internet smart phone or computer with camera [] Would need phone visit Plan: [] Will review with PCP/COS and call patient back [x] Appointment scheduled date:11/27 With: Ameya Patient reports any of the following NEW symptoms and is in need of urgent eval instruct to wear a mask [] Advised to seek urgent care [] Advised to seek emergent care [] Call 911. Home quarantine: Not indicated Home Care Instructions provided per: [x] [place] Telephone Triage Protocols for Nurses 6th edition. [] Orta: Pediatric Telephone protocols 16th edition Recommendations for worsening condition: Return zoie to clinic if symptoms worsen between now and appt Does the Patient agree and understand the instructions provided: yes Note routed to: ameya For review. Telephone Encounter - Mae Avila - 11/18/2020 4:17 PM EDT Patient is requesting a referral for what kind of services/treatment: ENT Reason for this referral request: Issues clearing throat/ swallowing Specific office or provider: [facility] Address/Phone/Fax: Has the patient been seen for this symptom: yes, just unsure which appointment she had discussed this with PCP in Who: Melanie Abrams MD When: n/a Caller and Relationship (if other than patient): patient Best time to call back: any Ok to leave a message: yes Ok to send my- message: yes documented in this encounter Plan of Treatment Upcoming Encounters Date Type Specialty Care Team Description 02/06/2023 Hospital Encounter Gastroenterology Cony Tavera MD [facility] GASTROENTEROLOGY DEPT. [place], [place] [address] (Wo rk) Scheduled Procedures Name Priority Associated Diagnoses Date/Time COLONOSCOPY, DIAGNOSTIC 10 yr surv documented as of this encounter Visit Diagnoses Not on filedocumented in this encounter Care Teams Examining Chair Assembler Relationship Specialty Start Date End Date Melanie Abrams MD PCP - General 05/12/[address] [facility] [address] [facility] [place] [address] documented as of this encounter
--- OUTSIDE RECORDS SUMMARY | 2022-02-06 14:10 | XMS_ITS | Encounter Summary ---
:1960 Author Organization [facility] [place] [address] Care Team Providers Name Role Phone Melanie Abrams MD Primary Care Provider Encounter Details Date Type Department Care Team Description 04/10/2020 [facility]phone [facility] Denise Byrd RN [address] [place] [address] Social History Tobacco Use Types Packs/Day Years [...] place to sleep or slept in a [place] (including now)? Sex Assigned at Date Recorded Female 08/01/2020 8:27 AM EST documented as of this encounter Miscellaneous Notes Telephone Encounter - Olga De Leon RN - 04/10/2020 9:26 AM EDT T/C to patient at work. Confirmed last name and . Was just sitting and typing on computer last night when she felt a pop. Since then she has experienced more of a sharp pain, feels like she is breathing more shallowly again but denies shortness of breath. No new visible swelling/bruising/discoloration. Feels like pain has worsened a bit since last night but attributes this to moving around more Taking tylenol for pain management - not really taking the edge off. After initial injury had been alternating tylenol and motrin - recommended patient return to that, also discussed splinting, OTC lidocaine patch. Patient agreeable to monitor at home - if pain worsens or persists, she will call for an appointment. Telephone Encounter - Lydia Farias - 04/10/2020 9:18 AM EDT Patient is calling the office back to speak with a nurse. Patient states that the call was dropped. Please call patient back on her work phone to discuss further. Telephone Encounter - Denise Byrd RN - 04/10/2020 9:08 AM EDT Patient called regarding rib pain. PSC hug up on patient as call attempted to transfer. Left three message on patient's identified VM asking her to call back three times documented in this encounter Plan of Treatment Upcoming Encounters Date Type Specialty Care Team Description 02/06/2023 Hospital Encounter Gastroenterology Cony Tavera MD [facility] GASTROENTEROLOGY DEPT. [place], [place] [address] (Wo rk) Scheduled Procedures Name Priority Associated Diagnoses Date/Time COLONOSCOPY, DIAGNOSTIC 10 yr surv documented as of this encounter Visit Diagnoses Not on filedocumented in this encounter Care Teams Case Specialist Relationship Specialty Start Date End Date Melanie Abrams MD PCP - General 05/12/[address] [facility] [address] [facility] [place] [address] documented as of this encounter
--- OUTSIDE RECORDS SUMMARY | 2022-02-06 14:10 | XMS_ITS | Encounter Summary ---
:1960 Author Organization [facility] [place] [address] Care Team Providers Name Role Phone Melanie Abrams MD Primary Care Provider Encounter Details Date Type Department Care Team Description 01/20/2021 Refill Family Medicine at Melanie Johnson MD [facility] [address] [facility] [place] [address] [place] [address] [phone] (Wo rk) Social History Tobacco Use Types [...] 02/06/2023 Hospital Encounter Gastroenterology Cony Tavera MD [facility] GASTROENTEROLOGY DEPT. [place], [place] [address] (Wo rk) Scheduled Procedures Name Priority Associated Diagnoses Date/Time COLONOSCOPY, DIAGNOSTIC 10 yr surv documented as of this encounter Visit Diagnoses Not on filedocumented in this encounter Care Teams Butting Saw Operator Relationship Specialty Start Date End Date Melanie Abrams MD PCP - General 05/12/10 [facility] [address] [facility] [place], [place] [id number] documented as of this encounter
--- OUTSIDE RECORDS SUMMARY | 2022-02-06 14:10 | XMS_ITS | Encounter Summary ---
:1960 Author Organization [facility] [place] [address] Care Team Providers Name Role Phone Melanie Abrams MD Primary Care Provider Reason for Visit Reason Onset Date Comments Medication Refill 01/17/2021 Encounter Details Date Type Department Care Team Description 01/17/2021 Refill Family Medicine at [facility] Melanie Saldana MD [facility] [address] [facility] [place] [address] [place] [address] [phone] (Wo rk) Social History Tobacco Use Types [...] place to sleep or slept in a fdc (including now)? Sex Assigned at Date Recorded Female 08/01/2020 8:27 AM EST documented as of this encounter Miscellaneous Notes Telephone Encounter - Meli Lozada, A - 01/20/2021 1:30 PM EDT Prescription Refill Request Prescription(s) Requested: Requested Prescriptions Pending Prescriptions Disp Refills ??? venlafaxine XR (Effexor-XR) 75 mg Capsule, Sust. Release 24 hr 270 capsule 3 Sig: Take 2 capsules by mouth every morning. Date of Last Encounter in This Dept: 11/27/2020 w/Rodrigo Reddy Jr., HECTOR Last Labs: Lab Results Component Value Date WBC 5.2 11/23/2019 HGB 14.9 11/23/2019 HCT 46.2 (H) 11/23/2019 PLATELET 247 11/23/2019 CHLPL 173 02/22/2020 TRIG 61 10/02/2012 HDL 63 02/22/2020 LDLCHOL 78 10/02/2012 ALT 118 (H) 11/23/2019 AST 51 (H) 11/23/2019 NA 137 12/05/2016 K 3.7 12/05/2016 CL 97 (L) 12/05/2016 CREATININE 0.79 12/05/2016 BUN 13 12/05/2016 CO2 24 12/05/2016 TSH 1.65 11/27/2020 GLUCFASTING 93 10/02/2012 Date of Last Refill: 01/14/21 #270 w/3RF Date of Next Encounter in This Dept: Visit date not found documented in this encounter Plan of Treatment Upcoming Encounters Date Type Specialty Care Team Description 02/06/2023 Hospital Encounter Gastroenterology Cony Tavera MD [facility] GASTROENTEROLOGY DEPT. [place], [place] [address] (Wo rk) Scheduled Procedures Name Priority Associated Diagnoses Date/Time COLONOSCOPY, DIAGNOSTIC 10 yr surv documented as of this encounter Visit Diagnoses Diagnosis Anxiety Anxiety state, unspecified documented in this encounter Care Teams Nutritional Services Host Relationship Specialty Start Date End Date Melanie Abrams MD PCP - General 05/12/[address] [facility] [address] [facility] [facility] [address] documented as of this encounter
--- OUTSIDE RECORDS SUMMARY | 2022-02-06 14:10 | XMS_ITS | Encounter Summary ---
:1960 Author Organization [facility] [place] [address] Care Team Providers Name Role Phone Melanie Abrams MD Primary Care Provider Reason for Visit Auth/Cert Specialty Diagnoses / Procedures Referred By Contact Refer red To Contact Diagnoses Choledocholithiasis Choledocholithiasis Procedures PRO ERCP,DIAGNOSTIC PRO ANESTH, UGI ENDOSCOPY ERCP ERCP Referral ID Status Reason Start Date Expiration Date Visits Requ ested Visits Authorized [id number] 1 1 Encounter Details Date Type Department Care Team Description 12/10/2019 Ancillary [place] [address] Social History Tobacco Use Types Packs/Day [...] Encounter Gastroenterology Cony Tavera MD [facility] GASTROENTEROLOGY DEPT. [place], [place] [address] (Wo rk) Scheduled Procedures Name Priority Associated Diagnoses Date/Time COLONOSCOPY, DIAGNOSTIC 10 yr surv documented as of this encounter Procedures Procedure Name Priority Date/Time Associated Diagnosis Comme nts XR ERCP Routine 12/10/2019 5:21 PM Results f or this EDT procedure are i n the results section . documented in this encounter Results XR ERCP (12/10/2019 5:21 PM EDT) Specimen (Source) Anatomical Location Collection Method / Collectio n Time Received Time / Laterality Volume Narrative [facility] - 12/10/2019 5:22 PM EDT See PACS for result report. Cedric Witt MD IMG FILM LIBRARY ORDERABLES Performing Organization Address City/State/ZIP Code Phon e Number [facility] DH [place], [place] documented in this encounter Visit Diagnoses Not on filedocumented in this encounter Care Teams Driller Portable Relationship Specialty Start Date End Date Melanie Abrams MD PCP - General 05/12/[address] [facility] [address] [facility] [place] [address] documented as of this encounter
--- OUTSIDE RECORDS SUMMARY | 2022-02-06 14:10 | XMS_ITS | Encounter Summary ---
:1960 Author Organization [facility] [place] [address] Care Team Providers Name Role Phone Melanie Abrams MD Primary Care Provider Reason for Visit Reason Comments Medication Refill Encounter Details Date Type Department Care Team Description 01/22/2021 Refill Family Medicine at Melanie Abrams M oderate episode of [facility] recurrent major [address] [facility] [place] [address] [facility] PRIMARY [phone] [place] [address] (Wo rk) Social History Tobacco Use Types [...] place to sleep or slept in a chcf (including now)? Sex Assigned at Date Recorded Female 08/01/2020 8:27 AM EST documented as of this encounter Miscellaneous Notes Telephone Encounter - Meli Lozada RMA - 01/23/2021 2:04 PM EDT Prescription Refill Request Prescription(s) Requested: Requested Prescriptions Pending Prescriptions Disp Refills ??? buPROPion XL (Wellbutrin XL) 150 mg Tablet Extended Release 24 hr [Pharmacy Med Name: BUPROPION XL 150MG TABLETS (24 H)] 90 tablet 3 Sig: TAKE ONE TABLET BY MOUTH EVERY MORNING Date of Last Encounter in This Dept: 11/27/2020 w/Rodrigo Reddy Jr. PA Last Labs: N/A Date of Last Refill: 01/29/20 #90 w/3RF Date of Next Encounter in This Dept: Visit date not found documented in this encounter Plan of Treatment Upcoming Encounters Date Type Specialty Care Team Description 02/06/2023 Hospital Encounter Gastroenterology Cony Tavera MD [facility] GASTROENTEROLOGY DEPT. 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
--- OUTSIDE RECORDS SUMMARY | 2022-02-06 14:10 | XMS_ITS | Encounter Summary ---
:1960 Author Organization [facility] [place] [address] Care Team Providers Name Role Phone Melanie Abrams MD Primary Care Provider Encounter Details Date Type Department Care Team Description 06/09/2021 Hospital Encounter Mammography/DXA at [facility] Encounter for [facility] MD [place] screening mammogram [facility] DR neoplasm of breast [facility] [id number] PRIMARY CARE [phone] [place] [id number] Social History Tobacco Use Types Packs/Day Years [...] place to sleep or slept in a residential (including now)? Sex Assigned at Date Recorded Female 08/01/2020 8:27 AM EST documented as of this encounter Medications at Time of Discharge Medication Sig Dispensed Refills Start Date End Date venlafaxine XR Take 3 capsules by 270 capsule 3 05/25/2021 (Effexor-XR) 75 mg mouth every morning. Capsule, Sust. Release 24 hrIndications: Anxiety traZODone (Desyrel) 50 TAKE 1 AND 1/2 135 tablet 3 1 mg TabletIndications: TABLETS BY MOUTH Insomnia, unspecified EVERY NIGHT type omeprazole (PriLOSEC) 40 Take 1 capsule by 30 capsule 3 11/2020 mg Capsule, Delayed mouth daily. Release(E.C.)Indications : Laryngopharyngeal reflux buPROPion XL (Wellbutrin TAKE ONE TABLET BY 90 tablet 3 11/202009/16/2021 XL) 150 mg Tablet MOUTH EVERY MORNING Extended Release 24 hrIndications: Moderate episode of recurrent major depressive disorder levothyroxine TAKE 1 TABLET BY 90 tablet 3 12/11/202012/13 (Synthroid) 50 mcg MOUTH DAILY FOR TabletIndications: HYPOTHYROIDISM Acquired hypothyroidism meclizine (Antivert) Take 2 tablets by 20 tablet 1 08/01/19 21 12/04/2021 12.5 mg mouth 3 times daily TabletIndications: as needed Intractable migraine (migraine). without aura and without status migrainosus cyproheptadine Take 1 tablet by 30 tablet 1 08/01/202011/18 (Periactin) 4 mg mouth 3 times daily TabletIndications: as needed Intractable migraine (migraine). without aura and without status migrainosus SUMAtriptan (Imitrex) Take 1 tablet by 10 tablet 11 02/22/20 20 12/04/2021 100 mg mouth 2 times daily TabletIndications: as needed for Migraine without aura Migraine. and without status migrainosus, not intractable famotidine (PEPCID) 20 Take 20 mg by mouth 0 12/04/2021 mg Tablet daily. fish oil-omega-3 fatty Take by mouth 3 0 12/04/2021 acids 300 mg Capsule times daily (after meals). documented as of this encounter Plan of Treatment Upcoming Encounters Date Type Specialty Care Team Description 02/06/2023 Hospital Encounter Gastroenterology Cony Tavera MD [facility] GASTROENTEROLOGY DEPT. [place], [place] [address] (Wo rk) Scheduled Procedures Name Priority Associated Diagnoses Date/Time COLONOSCOPY, DIAGNOSTIC 10 yr surv documented as of this encounter Procedures Procedure Name Priority Date/Time Associated Diagnosis Comme nts MAMMO SCREENING CAD Routine 06/09/2021 8:48 AM Encounter for R esults for this AND TAM BILATERAL EST screening mammogram pr ocedure are in for malignant the results neoplasm of breast section. documented in this encounter Results Mammo Screening Cad and Tam Bilateral (06/09/2021 8:48 AM EST) Anatomical Region Laterality Modality Breast Bilateral Mammography Specimen (Source) Anatomical Location Collection Method / Collectio n Time Received Time / Laterality Volume Narrative 06/09/2021 9:08 AM EST BILATERAL MAMMOGRAPHY REASON FOR EXAM: Screening TECHNIQUE: CC and MLO views were obtaine d of each breast using standard 2-D mammography as well as 3-D tomosynth esis. Computer aided detection was used. This is compared with prior images . FINDINGS: There are scattered areas of f ibroglandular density. There are no suspicious microcalcifications, hannah s, or areas of distortion. The pattern is stable. CONCLUSION: No mammographic evidence of malignancy. RECOMMENDATION: Regular screening mammograms starting be tween age 40 and 50 reduces the risk of from breast cancer. All screening tests have both risks and benefits. These risks and benefits should be assessed for each individual p atient through discussion with their provider to determine their prefer red breast cancer screening schedule. Women should report any breast changes t o a health care provider right away. Some women, because of their family hist ory, a genetic tendency, or other factors, should be screened with annual breast MRI as well as with mammograms. (The number of women who fal l into this category is very small). Patients and health care provide rs should discuss each patient? s history to decide if earlier screening a nd/or breast MRI are appropriate. Screening should continue as long as a chriss slaughter is in good health and is expected to live 10 years or longer. Screening mammography may not detect 10- 15% of breast cancers. A result letter has been sent to this pa elei by [facility]. BIRADS CATEGORY 1: NEGATIVE Electronically signed by: MARKUS CONTEH MD Melanie Abrams MD IMG MAMMO ORDERABLES documented in this encounter Visit Diagnoses Diagnosis Encounter for screening mammogram for ma lignant neoplasm of breast Other screening mammogram documented in this encounter Care Teams Hotel Office Manager Relationship Specialty Start Date End Date Melanie Abrams MD PCP - General 05/12/[address] [facility] [address] [place] [address] documented as of this encounter
--- OUTSIDE RECORDS SUMMARY | 2022-02-06 14:10 | XMS_ITS | Encounter Summary ---
:1960 Author Organization [facility] [place] [address] Care Team Providers Name Role Phone Melanie Abrams MD Primary Care Provider Encounter Details Date Type Department Care Team Description 01/19/2022 Orders Only Gastroenterology at [facility] Kendy Sommer MD [facility] [place] [address] [place], [place] [address] (Wo rk) Social History Tobacco Use Types [...] place to sleep or slept in a fci (including now)? Sex Assigned at Date Recorded Female 08/01/2020 8:27 AM EST documented as of this encounter Plan of Treatment Upcoming Encounters Date Type Specialty Care Team Description 02/06/2023 Hospital Encounter Gastroenterology Cony Tavera MD [facility] GASTROENTEROLOGY DEPT. [place] [phone] (Wo rk) Scheduled Procedures Name Priority Associated Diagnoses Date/Time COLONOSCOPY, DIAGNOSTIC 10 yr surv documented as of this encounter Visit Diagnoses Not on filedocumented in this encounter Care Teams Paper Mill Manager Relationship Specialty Start Date End Date Melanie Abrams MD PCP - General 05/12/[address] [facility] [address] [facility] [place] [address] documented as of this encounter
--- OUTSIDE RECORDS SUMMARY | 2022-02-06 14:10 | XMS_ITS | Encounter Summary ---
:1960 Author Organization [facility] [place] [address] Care Team Providers Name Role Phone Melanie Abrams MD Primary Care Provider Reason for Visit Reason Onset Date Comments Triage 07/31/2020 headaches Encounter Details Date Type Department Care Team Description 07/31/2020 Telephone Family Medicine at [facility] Jessica Rutherford Triage (headaches) [address] [place] [address] Social History Tobacco Use Types Packs/Day [...] this encounter Miscellaneous Notes Telephone Encounter - Jamarcus Medeiros RN - 08/01/2020 12:00 PM EST Reached out to patient Korin to discuss today's appointment. Patient identity confirmed by full name and . Patient states she was able to connect with Dr. Mckeon this morning who wrote her a couple scripts for medication to assist with her migraines. Patient had no further questions or concerns regarding care for this RN. Telephone Encounter - Jamarcus Medeiros RN - 08/01/2020 9:02 AM EST Attempted to reach out to patient Korin to let her know we need to switch patient's office visit to a telehealth visit and we recommend for patient to get a COVID Test. Left message on identified voicemail to call back. Telephone Encounter - Ponce Mckeon MD - 08/01/2020 8:56 AM EST Headache, nausea, dizziness is COVID until ruled out. Please schedule telehealth and direct her for COVID testing. Thanks Prateek Telephone Encounter - Jamarcus Medeiros RN - 07/31/2020 2:25 PM EST Chief Complaint: Headache Patient Korin Posada identified by full name and Onset: 07/10/20 Patient Report: Patient reports a dull aching headache behind eyes beginning on the 07/10/20. Patientalso reports intermittent dizziness and light nausea. Patient reports trying exederine and tylenol. Patient states she has been keeping herself well hydrated. Patient denies all urgent signs and symptoms at this time. HTI NEGATIVE. Appointment scheduled with Dr. Mckeon on 08/01/20 @ 1020. Patient reported understanding and agrees to plan of care. Patient had no further questions or concerns regardingcare for this RN. Plan of care []Emergency Patient denies sudden severe pain, worst headache so far, sudden onset of weakness, new unsteady gait, new numbness/tingling, confusion, new difficulty speaking or slurred speech, stiff neck and fever,purple or blood colored spots on skin, blurred or double vision, child with diabetes and high glucose []Medical Care with 2-4 hours Patient denies persistent vomiting, history of high BP, fever > 103F and unresponsive to fever reducing methods, eye pain with redness and decreased vision, recent tick bite and flulike symptoms, change in ability to walk, new onset severe persistent pain [x]Medical Care within 24 hours Persistent migraine unresponsive to normal migraine treatment, migraine intensity or characteristicsdifferent from previous migraines, persistent headache > 12 hours with no other symptoms, pain inthe temporal areas and age > 50 years []Home Care Instructions and Follow up if patient does not improve Congestion, fever and sore throat, muscle and joint aches, recent stressful events, history of allergies, dull and constant pain with tender and tight neck muscles, recently (stopped drinking coffee, eating chocolate, smoking), severe dieting and weight loss, dental problems []Home Care Instructions given to patient: Apply cool compress or ice pack with cloth barrier to forehead every 2 hours, rest in a quiet darkened room, take usual pain medication, try to identify triggers and keep a migraine/headache journal. Home Care Instructions provided per: [x] [place] Telephone Triage Protocols for Nurses / edition. [] Orta: Pediatric Telephone protocols edition Plan: [] Will review with PCP/COS and call patient back [x] Appointment scheduled date: 08/01/20 @ 1020 With: Linda NESBITT Patient reports any of the following NEW symptoms and is in need of urgent eval instruct to wear a mask [] Cough (non-productive) [] Shortness of breath or difficulty breathing [] Fatigue [] Fever/chills [] Muscle or body aches [] Sore throat [] Congestion or runny nose [] Headache [] New loss of sense of smell [] Nausea or vomiting [] Diarrhea [] Advised to seek urgent care [] Advised to seek emergent care [] Call 911. Patient is advised to seek care based upon the development of plan of care related signs and symptoms Does the Patient agree and understand the instructions provided: Yes Note routed to: Linda NESBITT For review. Telephone Encounter - Jessica Rutherford - 07/31/2020 2:15 PM EST Message: Patient states she has headaches for going on three weeks, some pressure with pain. Had covid test yesterday. Please call Ask caller their first and last name and relationship to the patient: self Best time to call back:any Ok to leave a message: y Ok to send my- message: n Offered Appointment: janusz FORD/Nurse/Bacon Stringer contacted via: Message: y Call: y Pager: n documented in this encounter Plan of Treatment Upcoming Encounters Date Type Specialty Care Team Description 02/06/2023 Hospital Encounter Gastroenterology Cony Taevra MD [facility] GASTROENTEROLOGY DEPT. [place], [place] [address] (Wo rk) Scheduled Procedures Name Priority Associated Diagnoses Date/Time COLONOSCOPY, DIAGNOSTIC 10 yr surv documented as of this encounter Visit Diagnoses Not on filedocumented in this encounter Care Teams Lockstitch Zipper Setter Relationship Specialty Start Date End Date Melanie Abrams MD PCP - General 05/12/[address] [facility] [address] [facility] [place] [address] documented as of this encounter
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
--- OUTSIDE RECORDS SUMMARY | 2022-02-06 14:10 | XMS_ITS | Encounter Summary ---
:1960 Author Organization [facility] Address [facility] [place] [address] Care Team Providers Name Role Phone Melanie Abrams MD Primary Care Provider Reason for Visit Reason Comments Annual Exam Encounter Details Date Type Department Care Team Description 05/25/2021 Office Visit Family Medicine at Melanie Abrams physical exam; Rahel Whaley MD Anxiety; [address] [facility] Depression, unspecified [place] [address] [facility] PRIMARY [phone] CARE [place], [place] [address] (Wo rk) Social History Tobacco [...] place to sleep or slept in a group home (including now)? Sex Assigned at Date Recorded Female 08/01/2020 8:27 AM EST documented as of this encounter Last Filed Vital Signs Vital Sign Reading Time Taken Comments Blood Pressure 150/88 05/25/2021 11:03 AM EST Pulse 89 05/25/2021 11:03 AM EST Temperature - - Respiratory Rate 16 05/25/2021 11:03 AM EST Oxygen Saturation 99% 05/25/2021 11:03 AM EST Inhaled Oxygen Concentration - - Weight 73.9 kg (163 lb) 05/25/2021 11:03 AM EST Height 168.2 cm (5' 6.22) 05/25/2021 11:03 AM EST Body Mass Index 26.13 05/25/2021 11:03 AM EST documented in this encounter Patient Instructions Patient InstructionsMelanie Abrams MD - 05/25/2021 11:20 AM EST Antacids - Lowest level is Tums Middle level is Pepcid High level is Prilosec, Prevacid, Protonix, Nexium documented in this encounter Progress Notes Melanie Abrams MD - 05/25/2021 11:20 AM EST Patient presents for annual health review. She reports that she is mostly okay. 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 She finds her self with headaches on many days. She has gained some weight. She is having more issues with reflux. Specific to the reflux, she had been seen in ENT to take a look at her airway and they suggested that she resume her omeprazole. She decided that Prevacid was similar to Pepcid and is now on Pepcid. She was unaware that the ears are different drugs in different drug categories. She has had some weight gain, though her weight is not above where she was 2 years ago. This is weight gain since pandemic however. She reports her headache to be not present in the mornings. She knows that she is tight in her neck.She has difficulty trying to relax to do things such as yoga. She believes that her venlafaxine is still working for her. She has been on a higher dose some yearsin the winter and is not opposed to trying a higher dose. Problem list surgeries family social history medications and allergies are reviewed and updated in her chart today as needed. CATCHER HELPER: Having hot flashes fairly frequently. Review of systems: All others negative. Objective: Patient Vitals for the past 24 hrs: Pulse Resp BP SpO2 05/25/21 1103 89 16 150/88 99 % Skin: No suspicious lesions. HEENT: TMs clear, nose and throat deferred due to COVID-19. Neck: No nodes or thyromegaly. Heart regular rate and rhythm. No murmurs. Breasts no masses nipple discharge oraxillary nodes. Lungs clear. Abdomen soft, nondistended, nontender. Entry Level Financial Analyst deferred. Extremities within normal limits. A/P: 1. Healthcare maintenance. She is up-to-date. Due to no family history of diabetes we decided to postpone the diabetes screening. 2. Anxiety and depression. We discussed that she may benefit from increasing her venlafaxine, which she will go ahead and do. Could also increase her bupropion but that would be more specific to depression rather than anxiety. We discussed the potential for a medication change, but decided against that for now. 3. Reflux. She will go back on a PPI. Discussed the difference between PPI and H2 zane. If still not controlling her symptoms, consider testing for H. pylori. 4. Headache. We discussed a posterior glide neck stretch. Follow-up is otherwise 1 year or as needed. documented in this encounter Plan of Treatment Upcoming Encounters Date Type Specialty Care Team Description 02/06/2023 Hospital Encounter Gastroenterology Cony Tavera MD [facility] GASTROENTEROLOGY DEPT. [place], [place] [address] (Wo rk) Scheduled Procedures Name Priority Associated Diagnoses Date/Time COLONOSCOPY, DIAGNOSTIC 10 yr surv documented as of this encounter Visit Diagnoses Diagnosis Annual physical exam Routine general medical examination at a health care facility Anxiety Anxiety state, unspecified Depression, unspecified depression type documented in this encounter Care Teams Buffing Machine Tender Relationship Specialty Start Date End Date Melanie Abrams MD PCP - General 05/12/[address] [facility] [address] [facility] [place] [address] documented as of this encounter
--- OUTSIDE RECORDS SUMMARY | 2022-02-06 14:10 | XMS_ITS | Encounter Summary ---
:1960 Author Organization [facility] [place] [address] Care Team Providers Name Role Phone Melanie Abrams MD Primary Care Provider Reason for Visit Reason Onset Date Comments Medication Refill 02/01/2020 Encounter Details Date Type Department Care Team Description 02/01/2020 Refill Family Medicine at Melanie Abrams M oderate episode of [facility] recurrent major [address] [facility] [place] [address] [facility] PRIMARY [phone] CARE [place] [address] (Wo rk) Social History Tobacco Use Types [...] 02/06/2023 Hospital Encounter Gastroenterology Cony Tavera MD [facility] DR GASTROENTEROLOGY DEPT. 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
--- OUTSIDE RECORDS SUMMARY | 2022-02-06 14:10 | XMS_ITS | Encounter Summary ---
:1960 Author Organization [facility] [place] [address] Care Team Providers Name Role Phone Melanie Abrams MD Primary Care Provider Reason for Visit Reason Comments Dysphagia Has had the feeling of havin g to clear throat for some time, recently has started having difficulty sw allowing. Has feeling that there is something always there. Denies Pain. Encounter Details Date Type Department Care Team Description 11/27/2020 Office Visit Family Medicine at [facility], Laryngoph aryngeal reflux; [facility] Rodrigo Javier Jr., Thyroid enlargement [address] [facility] [address] [place] [phone] [facility] [place] [address] Social History Tobacco Use Types Packs/Day Years [...] Sign Reading Time Taken Comments Blood Pressure 140/89 11/27/2020 8:05 AM EDT Pulse 91 11/27/2020 8:05 AM EDT Temperature - - Respiratory Rate 16 11/27/2020 8:05 AM EDT Oxygen Saturation 100% 11/27/2020 8:05 AM EDT Inhaled Oxygen Concentration - - Weight 71.3 kg (157 lb 3.2 oz) 11/27/2020 8:05 AM EDT Height 168.5 cm (5' 6.34) 11/27/2020 8:05 AM EDT Body Mass Index 25.11 11/27/2020 8:05 AM EDT documented in this encounter Patient Instructions Patient InstructionsSchaeRodrigo fernandes Jr., PA - 11/27/2020 8:00 AM EDT 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 Let us know in 2-4 weeks how it is going. Treatment may need to extend beyond this. Here are some dietary and lifestyle modifications to consider: Dietary modifications??--??Foods and beverages containing caffeine (coffee, tea, sodas, etc), alcohol, chocolate, and peppermints weaken the protective esophageal sphincters that normally hold stomach contents in the stomach and esophagus. There are caffeine-like substances within chocolates and peppermint that stimulate acid production and weaken the upper esophageal sphincter. It should be noted that decaffeinated teas and coffees still contain enough caffeine to cause problems with the sphincters. It is best to choose drinks that were never caffeinated. Most foods have a pH range between 2.5 and 6.0 [50]. Low acid foods, with a pH above 4.6, include meat, poultry, seafood, milk, and fresh vegetables (except tomatoes). Acid foods (pH <4.6) include most fruits (especially citrus), tomatoes, jams and jellies, barbecue sauces, and most salad dressings. Acid foods and spicy foods (hot mustards, valdez, hot peppers) directly irritate the throat lining and can cause inflammation. Pepsin is a stable molecule and can be reactivated whenever the pH drops into the proper zone. While many of these foods are otherwise healthy, they can exacerbate reflux at the level of the larynx and it is best to find less-acidic alternatives in patients with severe symptoms. Carbonated beverages should be avoided. Many contain caffeine and loosen the sphincters, causing stomach contents to come up with each burp. Carbonated drinks with alcohol have similar effects. Even noncaffeinated carbonated beverages such as seltzer water will cause belching and can lead to stomach acid and enzymes coming into the laryngopharynx with each burp. Behavior modifications??--??Common sense can limit the detrimental effects that LPR can have on the voice. Cigarette smoking (nicotine) stimulates acid production and should be avoided. The more the stomach is distended, the more chance there is that its contents will spill into the esophagus. When pressure is applied to the abdomen by bending over, performing exercise, lifting heavy objects, or singing, the probability of reflux increases dramatically. ?It is best to eat smaller meals throughout the day rather than large lunches and dinners. ?Vigorous exercise should be avoided for at least two hours after eating. Patients should also avoidoverdistending the stomach with fluids during or soon before exercise, but will need to ingest adequate fluids as appropriate for the exercise. ?Patients should avoid eating or drinking for three hours prior to going to sleep. Although LPR doesnot routinely occur supine, some patients (particularly those who eat closer to bedtime) may also benefit from raising the head of the bed to allow gravity to help prevent reflux of stomach contents. documented in this encounter Progress Notes Rodrigo Reddy Jr., PA - 11/27/2020 8:00 AM EDT Korin Posada is here for Chief Complaint Patient presents with ??? Dysphagia Has had the feeling of having to clear throat for some time, recently has started having difficultyswallowing. Has feeling that there is something always there. Denies Pain. Subjective Patient is here for c/o dysphagia. Throat clearing forever, feeling like something stuck in back of throat. Sometimes wakes at night feels lots of drainage and mucus is blocking airway. She states that thoat clearing is worst in the AMs, but folks at work have commented on it so thinks it persists despite her not being aware of frequency. Dysphagia is with solids only. Not with liquids. She tries to be mindful about bite size and thinking about her swallowing. Can cause panic if feeling that food is getting stuck. No regurgitation. Has hiatial hernia and acid reflux, takes pepcid QAM to combat this, feels that this controls her heartburn sx fairly well. Objective BP 140/89 (BP Location (NBP): Left arm, Patient Position: Sitting, BP Cuff Sizes: Adult (25-34 cm)) Pulse 91 Resp 16 Ht 168.5 cm (5' 6.34) Wt 71.3 kg (157 lb 3.2 oz) LMP 02/04/2010 SpO2 100% BMI 25.11 kg/m?? Physical Exam No acute distress, not ill-appearing, pleasant, sitting in chair comfortably. Awake, alert, oriented, no facial asymmetry, normal gait. Mouth - mucous membranes moist, pharynx normal without lesions, tonsils normal, dental hygiene good and tongue normal Neck - supple, no significant adenopathy, thyroid exam: thyroid enlarged, smooth, nontender, no nodules Lymphatics - no palpable lymphadenopathy Assessment/Plan Korin was seen today for dysphagia. Diagnoses and all orders for this visit: Laryngopharyngeal reflux Patient with sx c/w laryngopharyngeal reflux with well controlled heartburn sx on [id number] (pepcid). Trial of initiating PPI, patient recs for lifestyle management. RTC if not improved. Thyroid enlargement - TSH; Future; Expected date: 11/27/2020 Some sl enlargement of thyroid gland, obtaining TSH to ensure this is not causing some of patient sx. documented in this encounter Plan of Treatment Upcoming Encounters Date Type Specialty Care Team Description 02/06/2023 Hospital Encounter Gastroenterology Cony Tavera MD [facility] DR GASTROENTEROLOGY DEPT. [place], [place] [address] (Wo rk) Scheduled Procedures Name Priority Associated Diagnoses Date/Time COLONOSCOPY, DIAGNOSTIC 10 yr surv documented as of this encounter Procedures Procedure Name Priority Date/Time Associated Diagnosis Comme nts THYROID Routine 11/27/2020 8:40 AM Thyroid enlargement Re sults for this STIMULATING HORMONE, EDT procedu re are in SERUM the results section. documented in this encounter Results TSH (11/27/2020 8:40 AM EDT) athologist Signature TSH 1.65 0.27 - 4.20 [facility] mcIU/mL [facility] Specimen Anatomical Collection Method Collection Time Receive d Time (Source) Location / / Volume Laterality Blood 11/27/2020 8:40 AM EDT 11:05 AM EDT Resulting Agency Comment Spec In Lab Melanie Abrams MD CHEMISTRY ORDERABLES Performing Organization Address City/State/[place] [address] documented in this encounter Visit Diagnoses Diagnosis Laryngopharyngeal reflux Esophageal reflux Thyroid enlargement Goiter, unspecified documented in this encounter Care Teams Branch Sales And Service Representative Relationship Specialty Start Date End Date Melanie Abrams MD PCP - General 05/12/[address] [facility] [address] [place] [place] [address] documented as of this encounter
--- OUTSIDE RECORDS SUMMARY | 2022-02-06 14:10 | XMS_ITS | Encounter Summary ---
:1960 Author Organization [facility] [address] Care Team Providers Name Role Phone Melanie Abrams MD Primary Care Provider Reason for Referral Physical Therapy (Routine) - Closed Specialty Diagnoses / Procedures Referred By Contact Refer red To Contact Physical Therapy Diagnoses S/P arthroscopy of shoulder Chronic pain in right shoulder Melanie Abrams, Physical Therapy, Tavares NESBITT [facility] [address] [place], [place]ARE [address] [place] [address] Referral ID Status Reason Start Date Expiration Date Visits V isits Requested Authorized [id number] Closed Evaluate and 02/22/2020 08/20/2020 12 12 Treat PCP Updated and/or Approved Reason for Visit Reason Comments Annual Exam Encounter Details Date Type Department Care Team Description 02/22/2020 Office Visit Family Medicine at Melanie Abrams physical exam; Rahel Whaley MD Anxiety; [address] [facility] Hypothyroidism, unspecified type; [place], [place] S/P arthroscopy of shoulder, right Dr. Jina donahue. biceps tenotomy, DCE and SAD DOS: 07/12/2016; [id number] [facility] Chronic pain in right should er; [phone] CARE Insomnia, unspecified type; [place], [place] [address] Acquired hypothyroidism; [phone] (Wo rk) Migraine without aura and without status migrainosus, not intractable Social History Tobacco Use Types Packs/Day Years [...] place to sleep or slept in a prison (including now)? Sex Assigned at Date Recorded Female 08/01/2020 8:27 AM EST documented as of this encounter Last Filed Vital Signs Vital Sign Reading Time Taken Comments Blood Pressure 132/82 02/22/2020 3:07 PM EDT Pulse 83 02/22/2020 3:07 PM EDT Temperature 36.2 ??C (97.2 ??F) 02/22/2020 3:07 PM EDT Respiratory Rate 17 02/22/2020 3:07 PM EDT Oxygen Saturation 99% 02/22/2020 3:07 PM EDT Inhaled Oxygen Concentration - - Weight 71.7 kg (158 lb 2 oz) 02/22/2020 3:07 PM EDT Height 169.6 cm (5' 6.77) 02/22/2020 3:07 PM EDT Body Mass Index 24.94 02/22/2020 3:07 PM EDT documented in this encounter Progress Notes Melanie Abrams MD - 02/22/2020 3:20 PM EDT Patient presents for annual health review. School starts next week and that is the cause of concern for her. She believes that her school district has a good plan however. She has had some on and off dizziness and ear pressure. Initially she thought this is mostly on the right but was on the left yesterday. She does not consider herself as someone who has allergies in general. Her right surgical shoulder is sore. She gets some crepitus when she moves it around. She finds thisdisconcerting. Has tried some topicals. Has not returned to PT in the recent past. She is worried that she has dementia. She forgets names. She has trouble keeping a thought. She sometimes mixes words and has difficulty with word retrieval. She says she was evaluated by neurology at some point in the past and they said something about white matter on her MRI, she would like to review that again as well. Admits to being rather anxious about the start of school. She believes that her thyroid is correct. Some slight weight gain but not significant. Problem list surgeries family social history medications and allergies are reviewed and updated in her chart today as needed. MANAGER TITLE: No complaints. Review of systems: All others negative. O: Vitals as per chart. Skin: No suspicious lesions. HEENT: TMs clear, nose and throat deferred due to COVID-19. Neck: No nodes or thyromegaly. Heart regular rate and rhythm. No murmurs. Breasts no masses nipple discharge or axillary nodes. Lungs clear. Abdomen soft, nondistended, nontender. Renewable Energy Consultant deferred. Extremities within normal limits. A/P: 1. Healthcare maintenance. We will do a lipid panel today. She will get a flu shot when available. Otherwise up-to-date. 2. Anxiety likely accounts for her memory issues. We reviewed her MRI which showed no change [id number] and 2010, which is reassuring. She is not necessarily describing dementia so much as distractibility. We decided to increase her venlafaxine earlier this year than usual. She will let me know if she is having ongoing issues with anxiety. 3. Shoulder pain. Her crepitus does appear to be coming from the shoulder joint proper and not from the trapezius muscles. We agreed to have her return to PT. Referral is written. 4. Dizziness and ear pressure probably go together with some sinus congestion. She may benefit from an OTC nonsedating antihistamine, which was recommended today. 5. Hypothyroidism. We believe that her thyroid is correct, TSH is checked today. 6. Migraines were discussed. She has just come off having a headache for the last 3 weeks. She is relatively sparing however in her use of sumatriptan. Follow-up is otherwise 1 year or as needed. documented in this encounter Plan of Treatment Upcoming Encounters Date Type Specialty Care Team Description 02/06/2023 Hospital Encounter Gastroenterology Cony Tavera MD [facility] GASTROENTEROLOGY DEPT. [place], [place] [address] (Wo rk) Scheduled Procedures Name Priority Associated Diagnoses Date/Time COLONOSCOPY, DIAGNOSTIC 10 yr surv Scheduled Referrals Name Type Priority Associated Diagnoses Order S chedule Referral to Outpatient Referral Routine S/P arthroscopy of Or dered: Physical Therapy shoulder, right DrCortes 09/2019 Hernandez. biceps tenotomy, DCE and SAD DOS: 07/12/2016 Chronic pain in right shoulder documented as of this encounter Procedures Procedure Name Priority Date/Time Associated Diagnosis Comme nts HC THYROID Routine 02/22/2020 3:56 PM Hypothyroidism, Result s for this STIMULATING HORMONE, EDT unspecified type pro cedure are in SERUM the results section. HC CHOLESTEROL Routine 02/22/2020 3:56 PM Annual physical exam Results for this EDT procedure are i n the results section. documented in this encounter Results HDL/Cholesterol Profile (02/22/2020 3:56 PM EDT) athologist Signature Chol, Total 173 mg/dL [facility] Comment: Lower Risk: <200 mg/dL Average Risk: 200-239 mg/dL Higher Risk: >tl=530 mg/dL HDL 63 mg/dL [facility] Comment: Males: ?? Higher Risk: <40 mg/dL Females: ?? HIgher Risk: <50 mg/dL Chol/HDL Ratio 2.7 ratio [facility] Chol/HDL Interpretation See Note [facility] Comment: Lipid management should be guided by a p atient? s ASCVD risk, goals and preferences. ACC/AHA Guidelines recommend high intens ity statin if clinical ASCVD or LDL greater than or equal to 190 mg/dL. [email or web address] [email or web address]-TCN-[email or web address] Measure LDL if Total Cholesterol minus H DL Cholesterol is greater than 220 mg/dL. Adults aged 40-75 with LDL 70-189 mg/dL should have their 10 year ASCVD risk estimated with the ACC/AHA ASCVD risk es timator http://tools.acc.org/ZXZRX-Ebcv-Lmefuily r/ Statin should be discussed if risk great er than or equal to 7.5% in non-diabetics. With diabetes, moderate i ntensity statin is recommended if risk less than 7.5%, high intensity if risk g reater than or equal to 7.5%. Annual lipid monitoring on statins is no t necessary. Lifestyle modification is a critical com ponent of ASCVD risk reduction. Specimen Anatomical Collection Method Collection Time Receive d Time (Source) Location / / Volume Laterality Blood specimen 02/22/2020 3:56 PM 020 6:55 (specimen) EDT PM EDT Resulting Agency Comment Spec In Lab Melanie Abrams MD CHEMISTRY ORDERABLES Performing Organization Address City/State/[place] [address] TSH (02/22/2020 3:56 PM EDT) P athologist Signature TSH 1.67 0.27 - 4.20 [place] mcIU/mL [facility] Specimen Anatomical Collection Method Collection Time Receive d Time (Source) Location / / Volume Laterality Blood specimen 02/22/2020 3:56 PM 020 6:55 (specimen) EDT PM EDT Resulting Agency Comment Spec In Lab Melanie Abrams MD CHEMISTRY ORDERABLES Performing Organization Address City/[facility]/[place] [address] documented in this encounter Visit Diagnoses Diagnosis Annual physical exam Routine general medical examination at a health care facility Anxiety Anxiety state, unspecified Hypothyroidism, unspecified type S/P arthroscopy of shoulder, right Dr. Jina donahue. biceps tenotomy, DCE and SAD DOS: 07/12/2016 Other postprocedural status Chronic pain in right shoulder Pain in joint, shoulder region Insomnia, unspecified type Acquired hypothyroidism Unspecified hypothyroidism Migraine without aura and without status migrainosus, not intractable Migraine without aura, without mention o f intractable migraine without mention of status migrainosus documented in this encounter Care Teams School Business Administrator Relationship Specialty Start Date End Date Melanie Abrams MD PCP - General 05/12/10 [facility] [address] [place] [place] [address] documented as of this encounter
--- OUTSIDE RECORDS SUMMARY | 2022-02-06 14:10 | XMS_ITS | Encounter Summary ---
:1960 Author Organization [facility] [place] [address] Care Team Providers Name Role Phone Melanie Abrams MD Primary Care Provider Encounter Details Date Type Department Care Team Description 01/25/2020 Hospital Encounter Mammography/DXA at Angelic Abrams Encounter for [facility] MD [place] screening mammogram [facility] cancer [facility] [address] [place] [address] PRIMARY CARE [phone] [place] [address] Social History Tobacco Use Types Packs/Day Years [...] place to sleep or slept in a skilled nursing (including now)? Sex Assigned at Date Recorded Female 08/01/2020 8:27 AM EST documented as of this encounter Medications at Time of Discharge Medication Sig Dispensed Refills Start Date End Date venlafaxine XR Take 2 capsules by 270 capsule 3 11/26/2019 0 01/14/2021 (Effexor-XR) 75 mg mouth every morning. Capsule, Sust. Release 24 hrIndications: Anxiety traZODone (Desyrel) 50 Take 1.5 tablets by 45 tablet 11 08/201902/22/2020 mg TabletIndications: mouth nightly. Insomnia, unspecified type SUMAtriptan (IMITREX) Take 1 tablet by 12 tablet 11 04/13/20 19 02/22/2020 100 mg mouth 2 times daily TabletIndications: as needed for Migraine without aura Migraine. and without status migrainosus, not intractable levothyroxine Take 1 tablet by 90 tablet 3 04/13/201902/21 (SYNTHROID) 50 mcg mouth daily. TabletIndications: Indications: hypothyroidism hypothyroidism buPROPion (WELLBUTRIN Take 1 tablet by 90 tablet 3 02/10/20 19 01/29/2020 XL) 150 mg Tablet mouth every morning. Extended Release 24 hrIndications: Moderate episode of recurrent major depressive disorder famotidine (PEPCID) 20 Take 20 mg by mouth 0 12/04/2021 mg Tablet daily. fish oil-omega-3 fatty Take by mouth 3 times 0 12/04/2021 acids 300 mg Capsule daily (after meals). documented as of this encounter Plan of Treatment Upcoming Encounters Date Type Specialty Care Team Description 02/06/2023 Hospital Encounter Gastroenterology Cony Tavera MD [facility] ER DR GASTROENTEROLOGY DEPT. [place], [place] [address] (Wo rk) Scheduled Procedures Name Priority Associated Diagnoses Date/Time COLONOSCOPY, DIAGNOSTIC 10 yr surv documented as of this encounter Procedures Procedure Name Priority Date/Time Associated Diagnosis Comme nts MAMMO SCREENING CAD Routine 01/25/2020 7:23 AM Encounter for R esults for this AND TAM BILATERAL EDT screening mammogram pr ocedure are in for breast cancer the result s section. documented in this encounter Results Mammo Screening Cad and Tam Bilateral (01/25/2020 7:23 AM EDT) Anatomical Region Laterality Modality Breast Bilateral Mammography Specimen (Source) Anatomical Location Collection Method / Collectio n Time Received Time / Laterality Volume Narrative 01/25/2020 8:04 AM EDT BILATERAL MAMMOGRAPHY REASON FOR EXAM: Screening TECHNIQUE: CC and MLO views were obtaine d of each breast using standard 2-D mammography as well as 3-D tomosynth esis. Computer aided detection was used. This is compared with prior images . FINDINGS: ??The breasts are heterogeneou sly dense, which may obscure small masses. There are no suspicious microcal cifications, masses, or areas of distortion. The pattern is [...] letter has been sent to this pa tient by the [facility]. BIRADS CATEGORY 1: NEGATIVE Melanie Abrams MD IMG MAMMO ORDERABLES documented in this encounter Visit Diagnoses Diagnosis Encounter for screening mammogram for [facility] cancer documented in this encounter Care Teams Classifying Machine Operator Relationship Specialty Start Date End Date Melanie Abrams MD PCP - General 05/12/[address] [facility] [address] [place] [place] [address] documented as of this encounter
--- OUTSIDE RECORDS SUMMARY | 2022-02-06 14:10 | XMS_ITS | Encounter Summary ---
:1960 Author Organization [place] [address] Care Team Providers Name Role Phone Melanie Abrams MD Primary Care Provider Reason for Visit Reason Onset Date Comments Triage 06/25/2021 test Encounter Details Date Type Department Care Team Description 06/25/2021 Telephone Public Health at [facility] Rachel Evangelista wire border assembler (test) [place] [address] Social History Tobacco Use Types Packs/Day [...] place to sleep or slept in a mcc (including now)? Sex Assigned at Date Recorded Female 08/01/2020 8:27 AM EST documented as of this encounter Miscellaneous Notes Telephone Encounter - Rachel Arce RN - 06/25/2021 3:39 PM EST High Threat Infection Intake Questions Nurse Triage Assessment Review of Pertinent Systems & Pertinent positive/negative findings (e.g. Skin, Neurological, Respiratory, Cardiac, GI, , and Musculoskeletal): Yes Chief Complaint: Headache, When did your symptoms start? 06/24/21 Are symptoms within 48 hours of receiving Covid 19 Vaccine? No If yes, the following symptoms would be considered a side effect: Fatigue, Headache, Sore injection site, Chills, Muscle pain, Joint pain, Fever. Do not test for Covid 19 unless symptoms persist past 48 hours. People with any of these acute symptoms may have COVID-19: Detail of symptoms: Cough: No Shortness of Breath: No Fever: No New Loss of Taste or Smell: No Check all that apply: [x] Fatigue [] Muscle or Body Aches [x] Headache [] Sore Throat [] Congestion or runny nose [x] Nausea or vomiting [] Diarrhea Pediatrics: [] Retractions/belly breathing [] Skin/Lip color changes [] Wheezing [] Stridor [] Eating/Drinking normally [] Voiding normally Additional details: Is patient a household member of employee: No If yes, please state name of employee living with HH member: Have you been in contact with anyone suspected or confirmed to have COVID-19 in the past 14 days? Yes Plan/Disposition: If ordering test, ordering PCP: Wilfredo Arana Date, time and location of test: 06/28/21 0925 [place] If sending for testing ask the following: Have you been diagnosed with Covid 19 in the past 90 days? No Are you fully vaccinated for Covid 19? Yes Employed in healthcare: no Symptomatic as defined by CDC: yes Resides in congregate care setting: no : no Name of Triage Guideline/Protocol used: Utilized High Threat Infection Screening for Covid 19 Hotline as directed by incident [employer] and infectious disease based on CDC guidelines, [facility] of Health and Human Services, and [facility] policy. Patient/Responsible green party voices an understanding of advice: yes Patient/Responsible green party intends to comply with actions/disposition: yes TESTING CRITERIA: Asymptomatic patients: Criteria for testing- member of or healthcare worker at a long-term/mcc, detention facility or intermediate care facility (LTCF), and all first responders. Pre procedural patients requiring admission or determined high risk by provider. * patient/ employee returning to college/boarding school, returning to work requirement, or travel requirement. Exposure as determined by State, School, or Occupational Medicine at . Symptomatic Patients: People with COVID-19 have had a wide range of symptoms reported - ranging from mild symptoms to severe illness. Symptoms may appear 2-14 days after exposure to the virus. Consider testing if these symptoms cannot otherwise be explained. All Patients - If YES to exposure and NO to symptoms - Proceed with Quarantine Instructions. [facility], [facility], or Occupational Medicine may request testing. If NO to symptoms/exposure - Proceed with Nurse Triage - Proceed with appropriate instructions based on Triage protocol If YES to symptoms - Proceed with testing protocol - Proceed with Isolation instructions Name of Triage Guideline/Protocol used: Utilized High Threat Infection Screening for Covid 19 Hotline as directed by [employer] and infectious disease based on CDC guidelines, [place] Department of Health and Human Services, and [facility] policy. Important instructions for patient when scheduling for testing: -No dogs allowed in car unless in kennel or behind gated section, due to risk to the clinical staff. -Follow quarantine/isolation instructions (pamphlets available to hand out at testing location Education/Instructions: Isolation Instructions: 1. Stay home from work, school, and away from other public places. If you must go out, avoid using any kind of public transportation, ridesharing, or taxis. 2. Monitor your symptoms carefully. If your symptoms get worse, call your healthcare provider immediately. 3. Get rest and stay hydrated. 4. If you have a medical appointment, call the healthcare provider ahead of time and tell them that you have or may have COVID-19. 5. For medical emergencies, call 911 and notify the dispatch personnel that you have or may have COVID-19. 6. Cover your cough and sneezes. 7. Wash your hands often with soap and water for at least 20 seconds or clean your hands with an alcohol-based hand sr. strategic sourcing manager that contains at least 60% alcohol. 8. As much as possible, stay in a specific room and away from other people in your home. Also, you should use a separate bathroom, if available. If you need to be around other people in or outside of the home, wear a facemask. 9. Avoid sharing personal items with other people in your household, like dishes, towels, and bedding 10. Clean all surfaces that are touched often, like counters, tabletops, and doorknobs. Use household cleaning sprays or wipes according to the label instructions. 11. You can use acetaminophen or ibuprofen as directed for fever. Emergency Warning Signs: If you develop emergency warning signs for COVID-19 get medical attention immediately. Emergency warning signs include: ??? Difficulty breathing or shortness of breath ??? Persistent pain or pressure in the chest ??? New confusion or inability to arouse ??? Bluish lips or face This list is not all inclusive. Please consult your medical provider for any other symptoms that aresevere or concerning. Helpful definitions Close contact is described as: Being within approximately 6 feet (2 meters) of a COVID-19 case for a prolonged period of time; close contact can occur while caring for, living with, visiting, or sharing healthcare waiting area or room with a COVID-19 case. OR Having direct Contact with infectious secretions of a COVID-19 case (e.g., being coughed on) Fever Definition: 100.0 F or higher Additional information: ??? Recommend CDC website for helpful information on self-care and quarantine at home o https://www.cdc.gov/ and choose more information on Covid-19 *May test at [place] only. documented in this encounter Plan of Treatment Upcoming Encounters Date Type Specialty Care Team Description 02/06/2023 Hospital Encounter Gastroenterology Cony Tavera MD [facility] ER GASTROENTEROLOGY DEPT. [place], [place] [address] (Wo rk) Scheduled Procedures Name Priority Associated Diagnoses Date/Time COLONOSCOPY, DIAGNOSTIC 10 yr surv documented as of this encounter Visit Diagnoses Not on filedocumented in this encounter Care Teams Home Improvement Advisor Relationship Specialty Start Date End Date Melanie Abrams MD PCP - General 05/12/[address] [facility] [address] [place] [address] documented as of this encounter
--- OUTSIDE RECORDS SUMMARY | 2022-02-06 14:10 | XMS_ITS | Encounter Summary ---
:1960 Author Organization [facility] [place] [address] Care Team Providers Name Role Phone Melanie Abrams MD Primary Care Provider Reason for Visit Reason Onset Date Comments Public Health Screening 03/16/2020 triage Encounter Details Date Type Department Care Team Description 03/16/2020 Telephone Public Health Josy Quiroz [facility] Health Screening [facility] RN (triage) [place] [address] Social History Tobacco Use Types Packs/Day [...] place to sleep or slept in a senior living (including now)? Sex Assigned at Date Recorded Female 08/01/2020 8:27 AM EST documented as of this encounter Miscellaneous Notes Telephone Encounter - Josy Pettit RN - 03/16/2020 10:03 AM EDT High Threat Infection Intake Questions Nurse Triage Assessment Review of Pertinent Systems & Pertinent positive/negative findings (e.g. Skin, Neurological, Respiratory, Cardiac, GI, , and Musculoskeletal): When did your symptoms start? 03/15/2020 People with any of these acute symptoms may have COVID-19: Detail of symptoms: Cough: No Shortness of Breath: No Fever: No Check all that apply: [] Fatigue [x] Muscle or Body Aches [] Headache [x] New loss of taste or smell [] Sore Throat [] Congestion or runny nose [] Nausea or vomiting [] Diarrhea Pediatrics: [] Retractions/belly breathing [] Skin/Lip color changes [] Wheezing [] Stridor [] Eating/Drinking normally [] Voiding normally Employee or household member at [employer]? No If yes, please state whether employee or household member: Have you been in contact with anyone suspected or confirmed to have COVID-19 in the past 14 days? No Any travel in the past 14 days? No TESTING CRITERIA: Asymptomatic patients: Criteria for testing- member of or healthcare worker at a shelter/senior living, half-way facility or halfway care facility (LTCF), and all first responders. Pre procedural DH patients requiring admission or determined high risk by provider. * patient or employee returning to college/boarding school, airline travel requirement, or camp participation. Symptomatic Patients: People with COVID-19 have had a wide range of symptoms reported - ranging from mild symptoms to severe illness. Symptoms may appear 2-14 days after exposure to the virus. Consider testing if these symptoms cannot otherwise be explained. Plan/Disposition: If ordering test, ordering PCP: Melanie Abrams Date, time and location of test: 03/16/20 11:45 a [place] If sending for testing ask the following: First test for Covid-19: no If not first covid test: date of previous test, type of test (molecular, antigen, antibody, or unknown), and result of previous test: neg 01/02/20 [facility] Employed in healthcare: no Symptomatic as defined by CDC: yes Resides in congregate care setting: no : no Name of Triage Guideline/Protocol used: Utilized High Threat Infection Screening for Covid 19 Hotline as directed by incident command and infectious disease based on CDC guidelines, [place] Department of Health and Human Services, and [facility] policy. Patient/Responsible constitution party voices an understanding of advice: yes Patient/Responsible constitution party intends to comply with actions/disposition: yes All Patients - If YES to exposure and NO to symptoms - Proceed with Quarantine Instructions If NO to symptoms/exposure - Proceed with Nurse Triage - Proceed with appropriate instructions based on Triage protocol If YES to symptoms - Proceed with testing protocol - Proceed with Isolation instructions Important instructions for patient when scheduling for [...] clean your hands with an alcohol-based hand transonic engineer that contains at least 60% alcohol. 8. [...] more information on Covid-19 *May test at [place] only. documented in this encounter Plan of Treatment Upcoming Encounters Date Type Specialty Care Team Description 02/06/2023 Hospital Encounter Gastroenterology Cony Tavera MD [facility] ER GASTROENTEROLOGY DEPT. [place], [place] [address] (Wo rk) Scheduled Procedures Name Priority Associated Diagnoses Date/Time COLONOSCOPY, DIAGNOSTIC 10 yr surv documented as of this encounter Visit Diagnoses Not on filedocumented in this encounter Care Teams Rehab Nurse Relationship Specialty Start Date End Date Melanie Abrams MD PCP - General 05/12/[address] [facility] [address] [facility] [place] [address] documented as of this encounter
--- OUTSIDE RECORDS SUMMARY | 2022-02-06 14:10 | XMS_ITS | Encounter Summary ---
:1960 Author Organization [facility] [place] [address] Care Team Providers Name Role Phone Melanie Abrams MD Primary Care Provider Reason for Visit Reason Onset Date Comments Medication Refill 03/14/2021 Encounter Details Date Type Department Care Team Description 03/14/2021 [facility] [address] [place] [address] [facility] [place] [address] (Wo rk) Social History Tobacco Use Types [...] 02/06/2023 Hospital Encounter Gastroenterology Cony Tavera MD [facility] DR GASTROENTEROLOGY DEPT. [place], [place] [address] (Wo rk) Scheduled Procedures Name Priority Associated Diagnoses Date/Time COLONOSCOPY, DIAGNOSTIC 10 yr surv documented as of this encounter Visit Diagnoses Diagnosis Acquired hypothyroidism Unspecified hypothyroidism documented in this encounter Care Teams Hand Violin Maker Relationship Specialty Start Date End Date Melanie Abrams MD PCP - General 05/12/[address] [facility] [address] [place] [address] documented as of this encounter
--- OUTSIDE RECORDS SUMMARY | 2022-02-06 14:10 | XMS_ITS | Encounter Summary ---
:1960 Author Organization [facility] [place] [address] Care Team Providers Name Role Phone Melanie Abrams MD Primary Care Provider Reason for Visit Reason Onset Date Comments Medication Refill 12/13/2021 Encounter Details Date Type Department Care Team Description 12/13/2021 Refill [facility] [address] [place] [address] [facility] PRIMARY CARE [place] [address] (Wo rk) Social History Tobacco Use Types [...] place to sleep or slept in a long term (including now)? Sex Assigned at Date Recorded Female 08/01/2020 8:27 AM EST documented as of this encounter Miscellaneous Notes Telephone Encounter - Danica León RN - 12/14/2021 7:47 PM EDT Prescription Refill Request Prescription(s) Requested: Requested Prescriptions Pending Prescriptions Disp Refills ??? levothyroxine (Synthroid) 50 mcg Tablet 90 tablet 3 Date of Encounter last in This Dept (If over a year and no apt scheduled send to secretaries to schedule): 12/04/21 Next Encounter in This Dept: Visit date not found Date of Last Refill (for each medication): 12/11/20 Medication category req. lab studies Thyroid (yearly, pend if over a year) .LASTTSH Anti-hypertensive (yearly, pend if over a year) .LASTBMP Lab Results Component Value Date TSH 2.69 12/04/2021 documented in this encounter Plan of Treatment Upcoming Encounters Date Type Specialty Care Team Description 02/06/2023 Hospital Encounter Gastroenterology Cony Tavera MD [facility] ER GASTROENTEROLOGY DEPT. [place], [place] [address] (Wo rk) Scheduled Procedures Name Priority Associated Diagnoses Date/Time COLONOSCOPY, DIAGNOSTIC 10 yr surv documented as of this encounter Visit Diagnoses Diagnosis Acquired hypothyroidism Unspecified hypothyroidism documented in this encounter Care Teams Machine Printer Hose Relationship Specialty Start Date End Date Melanie Abrams MD PCP - General 05/12/10 [facility] [address] [facility] [place] [address] documented as of this encounter
--- OUTSIDE RECORDS SUMMARY | 2022-02-06 14:10 | XMS_ITS | Encounter Summary ---
:1960 Author Organization [facility] [place] [address] Care Team Providers Name Role Phone Melanie Abrams MD Primary Care Provider Reason for Visit Reason Comments Medication Refill Encounter Details Date Type Department Care Team Description 05/19/2021 Refill Family Medicine at Melanie Abrams I nsomnia, unspecified [address] type [address] [facility] [place] [address] [facility]IMARY [phone] [place] [phone] (Wo rk) Social History Tobacco Use Types [...] Telephone Encounter - Meli Lozada RMA - 05/20/2021 10:26 AM EST Prescription Refill Request Prescription(s) Requested: Requested Prescriptions Pending Prescriptions Disp Refills ??? traZODone (Desyrel) 50 mg Tablet [Pharmacy Med Name: TRAZODONE 50MG TABLETS] 135 tablet 3 Sig: TAKE 1 AND 1/2 TABLETS BY MOUTH EVERY NIGHT Date of Encounter last in This Dept (If over a year and no apt scheduled send to secretaries to schedule): 11/27/20 w/Rodrigo Reddy Jr., PA Next Encounter in This Dept: 05/25/2021 w/ pcp Date of Last Refill (for each medication): 02/22/20 #135 w/3RF documented in this encounter Plan of Treatment Upcoming Encounters Date Type Specialty Care Team Description 02/06/2023 Hospital Encounter Gastroenterology Cony Tavera MD [facility] DR GASTROENTEROLOGY DEPT. [place], [place] [address] (Wo rk) Scheduled Procedures Name Priority Associated Diagnoses Date/Time COLONOSCOPY, DIAGNOSTIC 10 yr surv documented as of this encounter Visit Diagnoses Diagnosis Insomnia, unspecified type documented in this encounter Care Teams College Specialist Relationship Specialty Start Date End Date Melanie Abrams MD PCP - General 05/12/[address] [facility] [address] [facility] [place] [address] documented as of this encounter
--- OUTSIDE RECORDS SUMMARY | 2022-02-06 14:10 | XMS_ITS | Encounter Summary ---
:1960 Author Organization [facility] [place] [address] Care Team Providers Name Role Phone Melanie Abrams MD Primary Care Provider Reason for Visit Reason Comments Medication Refill Encounter Details Date Type Department Care Team Description 12/10/2020 Refill Family Medicine at Melanie Abrams A cquired [facility] [address] [place] [address] [facility] PRIMARY CARE [place] [id number] (Wo rk) Social History Tobacco Use Types [...] for the very basics like Not h gabirel at all 05/25/2021 food, housing, medical care, [...] place to sleep or slept in a correction (including now)? Sex Assigned at Date Recorded Female 08/01/2020 8:27 AM EST documented as of this encounter Plan of Treatment Upcoming Encounters Date Type Specialty Care Team Description 02/06/2023 Hospital Encounter Gastroenterology Cony Tavera MD [facility] GASTROENTEROLOGY DEPT. [place], [place] [address] (Wo rk) Scheduled Procedures Name Priority Associated Diagnoses Date/Time COLONOSCOPY, DIAGNOSTIC 10 yr surv documented as of this encounter Visit Diagnoses Diagnosis Acquired hypothyroidism Unspecified hypothyroidism documented in this encounter Care Teams Can Slider Relationship Specialty Start Date End Date Melanie Abrams MD PCP - General 05/12/[address] [facility] [address] [place] [address] documented as of this encounter
--- OUTSIDE RECORDS SUMMARY | 2022-02-06 14:10 | XMS_ITS | Encounter Summary ---
:1960 Author Organization [facility] [place] [address] Care Team Providers Name Role Phone Melanie Abrams MD Primary Care Provider Reason for Visit Reason Onset Date Comments Medication Refill 08/16/2020 Encounter Details Date Type Department Care Team Description 08/16/2020 Refill Family Medicine at Melanie Abrams I nsomnia, unspecified [address] type [address] [facility] [place] [address] [facility] PRIMARY [phone] [place] [phone] (Wo rk) Social History Tobacco Use Types [...] Hospital Encounter Gastroenterology Cony Tavera MD [facility] DR GASTROENTEROLOGY DEPT. [place], [place] [address] (Wo rk) Scheduled Procedures Name Priority Associated Diagnoses Date/Time COLONOSCOPY, DIAGNOSTIC 10 yr surv documented as of this encounter Visit Diagnoses Diagnosis Insomnia, unspecified type documented in this encounter Care Teams Forestry Adviser Relationship Specialty Start Date End Date Melanie Abrams MD PCP - General 05/12/[address] [facility] [address] [facility] [place] [address] documented as of this encounter
--- OUTSIDE RECORDS SUMMARY | 2022-02-06 14:10 | XMS_ITS | Encounter Summary ---
:1960 Author Organization [facility] [place] [address] Care Team Providers Name Role Phone Melanie Abrams MD Primary Care Provider Encounter Details Date Type Department Care Team Description 03/16/2020 Telephone Family Medicine at Melanie Johnson MD [facility] [address] [facility] [place] [address] [place] [address] [phone] (Wo rk) Social History Tobacco Use Types [...] AM EST documented as of this encounter Progress Notes Melanie Abrams MD - 03/16/2020 8:54 AM EDT Patient called in marketing operations associate Tuesday morning with concern that she cannot smell. She made a number of dishes while cooking yesterday and cannot smell anything. She has concern regarding COVID-19. She has no other symptoms. She has no fever or shortness of breath. 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 Tried an antihistamine without result. Not particularly congested. Recommend that she be tested for COVID-19. She will call [facility] hotline and potentially the [facility]. She will stay home from work tomorrow and until she has test results. documented in this encounter Plan of Treatment Upcoming Encounters Date Type Specialty Care Team Description 02/06/2023 Hospital Encounter Gastroenterology Cony Tavera MD [facility] GASTROENTEROLOGY DEPT. [place], [place] [address] (Wo rk) Scheduled Procedures Name Priority Associated Diagnoses Date/Time COLONOSCOPY, DIAGNOSTIC 10 yr surv documented as of this encounter Visit Diagnoses Not on filedocumented in this encounter Care Teams Residential Sales Representative Relationship Specialty Start Date End Date Melanie Abrams MD PCP - General 05/12/[address] [facility] [address] [facility] [place] [address] documented as of this encounter
--- OUTSIDE RECORDS SUMMARY | 2022-02-06 14:10 | XMS_ITS | Encounter Summary ---
:1960 Author Organization [facility] [place] [address] Care Team Providers Name Role Phone Melanie Abrams MD Primary Care Provider Reason for Visit Reason Onset Date Comments Medication Refill 09/16/2021 Encounter Details Date Type Department Care Team Description 09/16/2021 Refill Family Medicine at Melanie Abrams M oderate episode of [facility] recurrent major [address] [facility] [place] [address] [facility] [phone] [place] [address] (Wo rk) Social History Tobacco Use Types [...] this encounter Miscellaneous Notes Telephone Encounter - Mae Chaidez CMA - 09/16/2021 11:38 AM EDT Prescription Refill Request Prescription(s) Requested: Requested Prescriptions Pending Prescriptions Disp Refills ??? buPROPion XL (Wellbutrin XL) 150 mg Tablet Extended Release 24 hr 180 tablet 0 Sig: Take 2 tablets by mouth every morning. Date of Encounter last in This Dept: 05/25/21 w/ PCP Next Encounter in This Dept: None Date of Last Refill: 01/23/21 #90 w/ 3 rf Has been increased documented in this encounter Plan of Treatment Upcoming Encounters Date Type Specialty Care Team Description 02/06/2023 Hospital Encounter Gastroenterology Cony Tavera MD [facility] DEPT. 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
--- OUTSIDE RECORDS SUMMARY | 2022-02-06 14:10 | XMS_ITS | Encounter Summary ---
:1960 Author Organization [facility] [place] [address] Care Team Providers Name Role Phone Melanie Abrams MD Primary Care Provider Reason for Visit Reason Onset Date Comments Other 08/01/2020 Encounter Details Date Type Department Care Team Description 08/01/2020 Telephone Family Medicine at [facility] Columba Hernandez Other [address] [place] [address] Social History Tobacco Use Types Packs/Day [...] Telephone Encounter - Dea Maldonado RN - 08/01/2020 4:01 PM EST Call to pt. Identified by name and . Reviewed M-Files. No interaction btwn Antivert and Periactin noted. Pt informed of same. Advised toalso check with her pharmacist. Pt plans to try these new meds as opposed to taking Imitrex today. Telephone Encounter - Columba Hernandez - 08/01/2020 3:34 PM EST Message: Patient called and asking if it's ok to take these medications at the same time. cyproheptadine (Periactin) 4 mg Tablet meclizine (Antivert) 12.5 mg Tablet Ask caller their first and last name and relationship to the patient: self Best time to call back: today Ok to leave a message: y Ok to send [facility] message: y Offered Appointment: n MA/Nurse/[place] contacted via: Message: y Call: n Pager: n documented in this encounter Plan of Treatment Upcoming Encounters Date Type Specialty Care Team Description 02/06/2023 Hospital Encounter Gastroenterology Cony Tavera MD [facility] DR GASTROENTEROLOGY DEPT. [place], [place] [address] (Wo rk) Scheduled Procedures Name Priority Associated Diagnoses Date/Time COLONOSCOPY, DIAGNOSTIC 10 yr surv documented as of this encounter Visit Diagnoses Not on filedocumented in this encounter Care Teams Operations Intelligence Superintendent Relationship Specialty Start Date End Date Melanie Abrams MD PCP - General 05/12/[address] [facility] [address] [facility] [place] [address] documented as of this encounter
--- OUTSIDE RECORDS SUMMARY | 2022-02-06 14:10 | XMS_ITS | Encounter Summary ---
:1960 Author Organization [facility] [address] Care Team Providers Name Role Phone Melanie Abrams MD Primary Care Provider Encounter Details Date Type Department Care Team Description 12/16/2021 Telephone G[facility]enterology [place] [facility] [place] [address] Social History Tobacco Use Types Packs/Day [...] this encounter Miscellaneous Notes Telephone Encounter - Jessica Gee - 12/16/2021 8:32 AM EDT Korin Posada [id number] Diagnosis/Indication: eval for hiatal hernia worsening, H pylori, GERD not responding to PPI 1. Have you ever had a/an Upper Endoscopy before? Yes: Date 11/28/2017 If yes, did you have any problems with the procedure? No What type of sedation was used: IV Conscious Sedation 2. Do you take any blood thinners or have you been diagnosed with a bleeding disorder that increasesyour risk of bleeding with procedures? No 3. Do you have a Pacemaker or Defibrillator device? No 4. Are you a diabetic? No 5. Do you have any Allergies to Eggs, Latex or Medications? Yes: E-DH 6. Do you take any Oral Iron Supplements (Including multi-vitamins)? No 7. Do you have a history of three or more abdominal surgeries? No 8. Have you had a problem with sedation or anesthesia? Yes troubles waking up 9. Do you use a c-pap machine or oxygen tank? Neither 10. Do you take prescription narcotic pain medications, including suboxone or methodone? No 11. Do you have a preference regarding the gender of your provider? No Preference 12. Is there any other information you would like to us to note for the provider and nursing team who will perform your case? Yes: review allergy list 13. Say to patient: You must have a responsible democrat who will drive you to your procedure, stay on campus for the entire duration of your procedure, and drive you home from your procedure? *Please Verify the height and weight, and adjust if height and/or weight have changed* Estimated body mass index is 25.69 kg/m?? as calculated from the following: Height as of 12/04/21: 170.2 cm (5' 7). Weight as of 12/04/21: 74.4 kg (164 lb). Age:61 y.o. documented in this encounter Plan of Treatment Upcoming Encounters Date Type Specialty Care Team Description 02/06/2023 Hospital Encounter Gastroenterology Cony Tavera MD [facility] DR GASTROENTEROLOGY DEPT. [place] [id number] (Wo rk) Scheduled Procedures Name Priority Associated Diagnoses Date/Time COLONOSCOPY, DIAGNOSTIC 10 yr surv documented as of this encounter Visit Diagnoses Not on filedocumented in this encounter Care Teams Auto Fleet Maintenance Manager Relationship Specialty Start Date End Date Melanie Abrams MD PCP - General 05/12/[address] [facility] [address] [facility] [place], [place] [id number] documented as of this encounter
--- OUTSIDE RECORDS SUMMARY | 2022-02-06 14:10 | XMS_ITS | Encounter Summary ---
:1960 Author Organization [facility] [place] [address] Care Team Providers Name Role Phone Melanie Abrams MD Primary Care Provider Reason for Visit Reason Comments Medication Refill Encounter Details Date Type Department Care Team Description [facility]/14[facility] [address] [facility] [place] [address] [place] [address] [phone] (Wo rk) Social History Tobacco Use Types [...] Telephone Encounter - Meli Lozada RMA - 01/14/2021 11:17 AM EDT Prescription Refill Request Prescription(s) Requested: Requested Prescriptions Pending Prescriptions Disp Refills ??? venlafaxine XR (Effexor-XR) 75 mg Capsule, Sust. Release 24 hr [Pharmacy Med Name: VENLAFAXINE ER 75MG CAPSULES] 270 capsule 3 Sig: TAKE 2 CAPSULES BY MOUTH EVERY MORNING Date of Last Encounter in This Dept: 11/27/2020 w/Rodrigo Reddy Jr., PA Last Labs: N/A Date of Last Refill: 11/26/19 #270 w/3RF Date of Next Encounter in This Dept: Visit date not found documented in this encounter Plan of Treatment Upcoming Encounters Date Type Specialty Care Team Description 02/06/2023 Hospital Encounter Gastroenterology Cony Tavera MD [facility] GASTROENTEROLOGY DEPT. [place], [place] [address] (Wo rk) Scheduled Procedures Name Priority Associated Diagnoses Date/Time COLONOSCOPY, DIAGNOSTIC 10 yr surv documented as of this encounter Visit Diagnoses Diagnosis Anxiety Anxiety state, unspecified documented in this encounter Care Teams Landscape Photographer Relationship Specialty Start Date End Date Melanie Abrams MD PCP - General 05/12/[address] [facility] [address] [facility] [place] [address] documented as of this encounter
--- OUTSIDE RECORDS SUMMARY | 2022-02-06 14:11 | XMS_ITS | Encounter Summary ---
:1960 Author Organization [facility] Address [address] [place] [address] Care Team Providers Name Role Phone Melanie Abrams MD Primary Care Provider Encounter Details Date Type Department Care Team Description 01/19/2018 Hospital Encounter [facility]amm[facility] [place] [facility] [place] Encounter for [facility] MD Judd screening mammogram Drive [facility] for breast cancer [facility] [phone] [facility] [phone] PRIMARY CARE [place], [place] [address] Social History Tobacco Use Types Packs/Day Years Used Date Never Smoker Smokeless Tobacco: Never Used Alcohol Use Standard Drinks/Week Comments Yes 0 (1 standard drink = 0.6 oz pure alcoho l) Rare Alcohol Habits Answer Date Recorded How often do you have a drink containing alcohol? Not asked How many drinks containing alcohol do you have on a typical Not asked day when you are drinking? How often do you have six or more drinks on one occasion? No t asked Comment: Rare 08/10/2011 Physical Activity Answer Date Recorded On average, [...] for the very basics like Not h gabrile at all 05/25/2021 food, housing, medical care, [...] place to sleep or slept in a care home (including now)? Sex Assigned at Date Recorded Female 08/01/2020 8:27 AM EST documented as of this encounter Medications at Time of Discharge Medication Sig Dispensed Refills Start Date End Date sucralfate (CARAFATE) 1 Take 1 tablet by 20 tablet 3 201709/11/2018 gram Tablet mouth 4 times daily as needed (epigastric pain). venlafaxine (EFFEXOR-XR) Take 1 capsule by 90 capsule 3 10/201706/07/2018 75 mg Capsule, Sust. mouth every Release 24 hrIndications: morning. Anxiety venlafaxine (EFFEXOR-XR) Take 1 capsule by 90 capsule 3 05/2106/07/2018 37.5 mg Capsule, Sust. mouth nightly. Release 24 hr magnesium citrate Solution Take by mouth. 0 11/27/2019 traZODone (DESYREL) 100 mg take 1 tablet by 90 tablet 3 05/08/2018 Tablet mouth every evening levothyroxine (SYNTHROID) Take 1 tablet by 90 tablet 3 04/2105/21/2018 50 mcg TabletIndications: mouth daily. Acquired hypothyroidism Patient needs labs drawn before next refill. SUMAtriptan (IMITREX) 100 Take 1 tablet by 12 tablet 11 02/1902/08/2018 mg TabletIndications: mouth 2 times Migraine without aura and daily as needed without status for Migraine. migrainosus, not intractable fish oil-omega-3 fatty Take by mouth 3 0 12/04/2021 acids 300 mg Capsule times daily (after meals). riboflavin, vitamin B2, Take by mouth 4 0 09/11/2018 100 mg Tablet times daily. lansoprazole (PREVACID Take 1 tablet by 90 tablet 3 015 09/11/2018 SOLUTAB) 15 mg mouth daily. Tablet,Rapid DR Alexi documented as of this encounter Plan of Treatment Upcoming Encounters Date Type Specialty Care Team Description 02/06/2023 Hospital Encounter Gastroenterology Cony Tavera MD [facility] GASTROENTER[facility]Y DEPT. [place], [place] [address] (Wo rk) Scheduled Procedures Name Priority Associated Diagnoses Date/Time COLONOSCOPY, DIAGNOSTIC 10 yr surv documented as of this encounter Procedures Procedure Name Priority Date/Time Associated Diagnosis Comme nts MAMMO SCREENING CAD Routine 01/19/2018 8:59 AM Encounter for R esults for this AND TAM BILATERAL EDT screening mammogram pr ocedure are in for breast cancer the result s section. documented in this encounter Results Mammo Screening Cad and Tam Bilateral (01/19/2018 8:59 AM EDT) Anatomical Region Laterality Modality Breast Bilateral Mammography Specimen (Source) Anatomical Location Collection Method / Collectio n Time Received Time / Laterality Volume Narrative 01/19/2018 9:36 AM EDT BILATERAL MAMMOGRAPHY REASON FOR EXAM: [...] CONCLUSION: No mammographic evidence of malignancy. RECOMMENDATION: The [employer] and The Society of Breast Imaging recommend annual screenin g beginning at age 40 for the general female population. Screening lucian uld continue as long as a woman is in good health and is expected to live 1 0 more years or longer. All women should be familiar with the known benefi ts, limitations, and potential harms linked to breast cancer screening. They should also know how their breasts normally look and feel and repor t any breast changes to a health care provider right away. Some women - b ecause of their family history, a genetic tendency, or certain other facto rs - should be screened with MRIs along with mammograms. (The number of wo men who fall into this category is very small.) The patient and health care provider should discuss the patient history and decide if earlier sc reening and breast MRI are appropriate. A result letter has been sent to this narda delgadillo by the [facility]. BIRADS CATEGORY 1: NEGATIVE Melanie Abrams MD IMG MAMMO ORDERABLES documented in this encounter Visit Diagnoses Diagnosis Encounter for screening mammogram for br east cancer documented in this encounter Care Teams Creative Services Writer Relationship Specialty Start Date End Date Melanie Abrams MD PCP - General 05/12/[address] [facility] [address] [place] [address] documented as of this encounter
--- OUTSIDE RECORDS SUMMARY | 2022-02-06 14:11 | XMS_ITS | Encounter Summary ---
:1960 Author Organization [facility] [place] [address] Care Team Providers Name Role Phone Melanie Abrams MD Primary Care Provider Encounter Details Date Type Department Care Team Description 10/10/2017 External Results Internal Medicine Yris Beyer Mandeep roesophageal reflux at [facility] M, SENIOR ACCOUNTANT CPA disease, esophagitis [address] [place] [phone] Social History Tobacco Use Types Packs/Day Years [...] Encounter Gastroenterology Cony Tavera MD [facility] GASTRO[facility] DEPT. [place], [place] [address] (Wo rk) Scheduled Procedures Name Priority Associated Diagnoses Date/Time COLONOSCOPY, DIAGNOSTIC 10 yr surv documented as of this encounter Procedures Procedure Name Priority Date/Time Associated Diagnosis Comme nts HELICOBACTER PYLORI Routine 10/05/2017 6:00 Gastroesophageal r eflux Results for this ANTIGEN STOOL PM EDT disease, esophagitis proced ure are in presence not specified the r esults section. documented in this encounter Results (ABNORMAL) Helicobacter pylori Antigen Stool (10/05/2017 6:00 PM EDT) [facility] gist Method Time Signature H pylori Stool negative EXTERNAL LAB Ag (External Lab) Specimen (Source) Anatomical Collection Method Collection Time Re ceived Time Location / / Volume Laterality Stool specimen 10/05/2017 6:00 PM (specimen) EDT Narrative This result has an attachment that is no t available. Melanie Abrams MD MICROBIOLOGY - GENERAL ORDER ILDEFONSO Performing Organization Address City/State/ZIP Code Phon e Number EXTERNAL FACILITY EXTERNAL LAB documented in this encounter Visit Diagnoses Diagnosis Gastroesophageal reflux disease, esophag itis presence not specified documented in this encounter Care Teams Deputy Sheriff Civil Division Relationship Specialty Start Date End Date Melanie Abrams MD PCP - General 05/12/[address] [facility] [address] [facility] [place] [address] documented as of this encounter
--- OUTSIDE RECORDS SUMMARY | 2022-02-06 14:11 | XMS_ITS | Encounter Summary ---
:1960 Author Organization [facility] [place] [address] Care Team Providers Name Role Phone Melanie Abrams MD Primary Care Provider Reason for Visit Reason Onset Date Comments Medication Problem 02/08/2018 Encounter Details Date Type Department Care Team Description 02/08/2018 [facility] [address] and without status [address] migrainosus, [place] [address] intractable [phone] Social History Tobacco Use Types Packs/Day Years [...] place to sleep or slept in a nursing home (including now)? Sex Assigned at Date Recorded Female 08/01/2020 8:27 AM EST documented as of this encounter Miscellaneous Notes Telephone Encounter - Susana Nunez - 02/08/2018 9:56 AM EDT Pharmacy or caller: [phone] Phone Number:[phone] Medication:SUMAtriptan (IMITREX) 100 mg Tablet Message: Beronica at the pharmacy is calling she states that Maryam Peters doesn't have a [place] license so they need to have someone else write this prescription documented in this encounter Plan of Treatment Upcoming Encounters Date Type Specialty Care Team Description 02/06/2023 Hospital Encounter Gastroenterology Cony Tavera MD [facility] GASTROENTEROLOGY DEPT. [place], [place] [address] (Wo rk) Scheduled Procedures Name Priority Associated Diagnoses Date/Time COLONOSCOPY, DIAGNOSTIC 10 yr surv documented as of this encounter Visit Diagnoses Diagnosis Migraine without aura and without status migrainosus, not intractable Migraine without aura, without mention o f intractable migraine without mention of status migrainosus documented in this encounter Care Teams Clinic Business Manager Relationship Specialty Start Date End Date Melanie Abrams MD PCP - General 05/12/10 [facility] [address] [facility] [place] [address] documented as of this encounter
--- OUTSIDE RECORDS SUMMARY | 2022-02-06 14:11 | XMS_ITS | Encounter Summary ---
:1960 Author Organization [facility] [address] Care Team Providers Name Role Phone Melanie Abrams MD Primary Care Provider Reason for Referral Diagnostic Test (Routine) - Closed Specialty Diagnoses / Procedures Referred By Contact Refer red To Contact Radiology Diagnoses RUQ abdominal pain Simon, Tana A, [facility] Rad Mri Procedures MRI Cholangiopancreatography [facility] [address] [place] GASTROENTEROLOGY [phone] [place] [address] Referral ID Status Reason Start Date Expiration Date Visits V isits Requested Authorized [id number] Closed Specialty 11/27/2019 05/24/2020 1 1 Service Requested Reason for Visit Diagnostic Test (Routine) - Closed Specialty Diagnoses / Procedures Referred By Contact Refer red To Contact Radiology Diagnoses RUQ abdominal pain SimonTana A, [facility] Rad Mri Procedures MRI Cholangiopancreatography [facility] [address] [place], [place] GASTROENTEROLOGY [phone] [place] [address] Referral ID Status Reason Start Date Expiration Date Visits V isits Requested Authorized [id number] Closed Specialty 11/27/2019 05/24/2020 1 1 Service Requested Encounter Details Date Type Department Care Team Description 11/28/2019 Hospital En[place] [facility] [place] Calderon abdominal pain [facility] MD Loc [place], [place] CENTER [phone] GASTROENTEROLOGY [phone] [place] [address] Social History Tobacco Use Types Packs/Day Years [...] Cony Tavera MD [facility] GASTROENTEROLOGY DEPT. [place], [place] 0375 (Wo rk) Scheduled Procedures Name Priority Associated Diagnoses Date/Time COLONOSCOPY, DIAGNOSTIC 10 yr surv documented as of this encounter Procedures Procedure Name Priority Date/Time Associated Comments Diagnosis MRI CHOLANGIOPANCREATOGRAPHY Routine 11/28/2019 7:12 RUQ abdom inal Results for AM EDT pain this procedure are in the results section. documented in this encounter Results MRI Cholangiopancreatography (11/28/2019 7:12 AM EDT) Anatomical Region Laterality Modality Magnetic Resonance Specimen (Source) Anatomical Location Collection Method / Collectio n Time Received Time / Laterality Volume Impressions 11/28/2019 11:37 AM EDT Choledocholithiasis. Very mild dilatation of the intra and extrahepatic ducts may indicate current or intermittent obs truction or alternatively postcholecystectomy ectasia. Recommend c orrelation with pattern of LFT abnormality. I have personally reviewed the image(s) and the resident's interpretation and agree with the findings, Hanna pemberton 11/28/2019 11:37 AM Thank you for letting us participate in the care of this patient. For questions regarding this report, please contact [facility] number below. ? Narrative 11/28/2019 11:37 AM EDT EXAMINATION: MRI CHOLANGIOPANCREATOGRAPHY CLINICAL HISTORY: RUQ pain, elevated LFT hx of agata-assess for choledocholithiasis TECHNIQUE: 3D-MRCP, axial and coronal 2D MRCP, axial T2 fast (turbo) spin-echo with fat saturation, axial 2D T1 weighte d in/out phase. 3D MIPS were created. COMPARISON: CT of abdomen and pelvis on 12/04/2016 FINDINGS: Liver: Normal size and signal intensity. Bile ducts: There is mild intrahepatic b iliary ductal dilation. The common hepatic duct measures 7 mm, and the comm on bile duct 10 mm. There is a 4 mm filling defect in the distal common bile duct at the level of the ampulla. A second questionable filling defect on e T2 axial images superior to this (series 4 image 27) is visualized on any additional pulse sequences, and may represent a flow void. Gallbladder: Status post cholecystectomy . A tubular shaped fluid signal intensity structure paralleling the comm on bile duct is likely a remnant cystic duct. Pancreas: Normal signal intensity. Pancreatic duct: Normal caliber and conf iguration. Spleen: Normal size and signal intensity . Adrenal glands: Normal. Kidneys: No collecting system dilatation or calculi. Several punctate T2 hyperintense left renal cortical lesions are too small to characterize but possibly cysts. No right renal lesions. Bowel and mesentery: No wall thickening. Mild colon distention. No inflammatory changes. Lymph nodes: No adenopathy. Osseous structures: No focal marrow sign al abnormality. Procedure Note Hanna Brito MD - 11/28/2019Formatt ing of this note might be different from the original. EXAMINATION: MRI CHOLANGIOPANCREATOGRAPH Y CLINICAL HISTORY: RUQ pain, elevated LFT hx of agata-assess for choledocholithiasis TECHNIQUE: 3D-MRCP, axial and coronal 2D MRCP, axial T2 fast (turbo) spin-echo with fat saturation, axial 2D T1 weighte d in/out phase. 3D MIPS were created. COMPARISON: CT of abdomen and pelvis on 12/04/2016 FINDINGS: Liver: Normal size and signal intensity. Bile ducts: There is mild intrahepatic b iliary ductal dilation. The common hepatic duct measures 7 mm, and the comm on bile duct 10 mm. There is a 4 mm filling defect in the distal common bile duct at the level of the ampulla. A second questionable filling defect on th e T2 axial images superior to this (series 4 image 27) is visualized on any additional pulse sequences, and may represent a flow void. Gallbladder: Status post cholecystectomy . A tubular shaped fluid signal intensity structure paralleling the comm on bile duct is likely a remnant cystic duct. Pancreas: Normal signal intensity. Pancreatic duct: Normal caliber and conf iguration. Spleen: Normal size and signal intensity . Adrenal glands: Normal. Kidneys: No collecting system dilatation or calculi. Several punctate T2 hyperintense left renal cortical lesions are too small to characterize but possibly cysts. No right renal lesions. Bowel and mesentery: No wall thickening. Mild colon distention. No inflammatory changes. Lymph nodes: No adenopathy. Osseous structures: No focal marrow sign al abnormality. IMPRESSION Choledocholithiasis. Very mild dilatatio n of the intra and extrahepatic ducts may indicate current or intermittent obs truction or alternatively postcholecystectomy ectasia. Recommend c orrelation with pattern of LFT abnormality. I have personally reviewed the image(s) and the resident's interpretation and agree with the findings, Hanna pemberton 11/28/2019 11:37 AM Thank you for letting us participate in the care of this patient. For questions regarding this report, please contact e number below. Ponce Calderon MD IMG MRI ORDERABLES documented in this encounter Visit Diagnoses Diagnosis RUQ abdominal pain Abdominal pain, right upper quadrant documented in this encounter Care Teams Strip Stamp Straightener Relationship Specialty Start Date End Date Melanie Abrams MD PCP - General 05/12/10 [facility] [address] [facility] [place] [address] documented as of this encounter
--- OUTSIDE RECORDS SUMMARY | 2022-02-06 14:11 | XMS_ITS | Encounter Summary ---
:1960 Author Organization [facility] [place] [address] Care Team Providers Name Role Phone Melanie Abrams MD Primary Care Provider Reason for Referral Diagnostic Test (Routine) - Closed Specialty Diagnoses / Procedures Referred By Contact Refer red To Contact Radiology Diagnoses RUQ abdominal pain Tana Montes, [facility] Rad Mri Procedures MRI Cholangiopancreatography [facility] [address] [place], [place] GASTR[place]ENTEROLOGY [phone] [place] [address] Referral ID Status Reason Start Date Expiration Date Visits V isits Requested Authorized [id number] Closed Specialty 11/27/2019 05/24/2020 1 1 Service Requested Reason for Visit Consultation (Routine) - Closed Specialty Diagnoses / Procedures Referred By Contact Refer red To Contact Gastroenterology Diagnoses Upper abdominal pain Peter Torres, ASP DEVELOPER [facility] [address] [place] [address] [place] [address] Referral ID Status Reason Start Date Expiration Date Visits V isits Requested Authorized [id number] Closed Specialty 11/23/2019 11/22/2020 1 1 Service Requested Encounter Details Date Type Department Care Team Description 11/27/2019 TH Visit Gastroenterology at [facility] Tana Montes abdominal pain (TeleHealth) [facility] [place] [phone] [facility] [phone] [place] [address] Social History Tobacco Use Types Packs/Day Years [...] place to sleep or slept in a detention (including now)? Sex Assigned at Date Recorded Female 08/01/2020 8:27 AM EST documented as of this encounter Progress Notes Tana Montes PA - 11/27/2019 2:30 PM EDT GASTROENTEROLOGY TELEHEALTH PROGRAM - NEW PATIENT VISIT Chief Complaint: Korin Posada is a 59 y.o. patient referred for consultation by Dr. Torres for RUQ abdominal pain History of Present Illness: 59 y.o. female with abdominal pain Ms. Posada is 'seen' in consultation for abdominal pain. Her pain has been occurring intermittently for 2 years typically located in her right upper quadrant or epigastrium, radiating to her back. Recently, her pain has been coming more frequent, occurring on a daily or twice per day basis. Her pain lasts upwards of 20 minutes No specific correlation between eating aside from chocolate or wine. She has since discontinued eating these foods but unfortunately continues to have pain. She endorses nausea but no vomiting. She has tried Pepcid AC without relief. No change in bowel pattern. Takes miralax on a regular basis given history of constipation. Typically moves bowels 1-2 times per day She does not take significant amounts of NSAIDs. Her PCP recently increased her PPI from 20 mg to 40mg this past Tuesday No classic heartburn or reflux. No regurgitation She is status post cholecystectomy many years ago for history of cholelithiasis. She feels her pain is similar to her gallbladder attacks. Labs in 2018 revealed normal transaminases. These were repeated on Tuesday revealing elevations of her AST, ALT and alkaline phosphatase. She does not consume alcohol. Review of systems: 14-point review of systems reviewed and negative except as above. Medications: Outpatient Medications Prior to Visit Medication Sig Dispense Refill ??? traZODone (Desyrel) 50 mg Tablet Take 1.5 tablets by mouth nightly. 45 tablet 11 ??? SUMAtriptan (IMITREX) 100 mg Tablet Take 1 tablet by mouth 2 times daily as needed for Migraine.12 tablet 11 ??? levothyroxine (SYNTHROID) 50 mcg Tablet Take 1 tablet by mouth daily. Indications: hypothyroidism 90 tablet 3 ??? buPROPion (WELLBUTRIN XL) 150 mg Tablet Extended Release 24 hr Take 1 tablet by mouth every morning. 90 tablet 3 ??? venlafaxine (EFFEXOR-XR) 75 mg Capsule, Sust. Release 24 hr Take 2 capsules by mouth every morning. 270 capsule 3 ??? famotidine (PEPCID) 20 mg Tablet Take 20 mg by mouth daily. ??? magnesium citrate Solution Take by mouth. ??? fish oil-omega-3 fatty acids 300 mg Capsule Take by mouth 3 times daily (after meals). No facility-administered medications prior to visit. Allergies: is allergic to oxycodone; penicillins; vecuronium bromide; zolmitriptan; and sumatriptan. Past Medical History: has a past medical history of Arthritis, Depression, Hiatal hernia, Insomnia, and Uterine fibroid. Past Surgical History: has a past surgical history that includes created by interface; created by interface; Colonoscopy, Diagnostic (65714) (02/06/2013); ldr Arthroscop, Part Acromioplas (04104) (Right, 07/12/2016); Shldr Arthroscop, Surg, Dis Claviculectomy (94527) (Right, 07/12/2016); Unlisted Procedure Arthroscopy (21135) (Right, 07/12/2016); Shldr Arthroscop, Exten Debride (05440) (Right, 07/12/2016); Upper Gi Endoscopy, Biopsy (95047) (N/A, 11/28/2017); Hysterectomy; and Breast biopsy (Right, 2002). Cholecystectomy, more than 10 years Family History: family history includes Breast Cancer in her paternal aunt and paternal grandmother;Heart Surgery in her mother; Hypertension in her brother and father; Myocardial Infarction in her maternal grandmother; Type 2 Diabetes in her mother and paternal grandfather. Social History: reports that she has never smoked. She has never used smokeless tobacco. She reportscurrent alcohol use. She reports that she does not use drugs. 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 - Normal esophagus. - Z-line irregular, 34 cm from the incisors. Biopsied. - Medium-sized hiatal hernia. - Gastritis. Biopsied. likely NSAID induced - Normal examined duodenum. Biopsied. 12/05/2016 Shingles inf 10/26/2017 11/23/2019 14:30 AST 225 (H) 19 51 (H) ALT 165 (H) 21 118 (H) Assessment/Plan: Ms. Posada is a 59 y.o. patient with epigastric/right upper quadrant abdominal pain typically radiating to her back. Symptoms have been occurring intermittently for several years but have recently worsened and has since become a daily occurrence. It is associated with nausea but no vomiting. She feelsher pain is similar to her gallbladder attacks. Repeat labs on Tuesday do reveal elevated transaminases. Previous labs, LFTs were normal. She did have transaminitis in 2016, however this was in the setting of shingles infection and antiviral treatment. Given location of pain and transaminitis, we discussed proceeding with MRCP to evaluate for choledocholithiasis. If evidence of choledocholithiasis we will arrange with an ERCP. I did discuss these procedures with her today. If MRCP is unrevealing, we will consider an EGD with impedance to help determine whether her symptoms are acid peptic. All of her questions today were answered I spent 30 minutes face to face with the patient. 30 minutes were spent on counseling and discussionas of the above during this telemedicine visit. 20 minutes were spend reviewing chart. The patient was located in [place] at the time of their visit. HECTOR [facility] [place] [phone] documented in this encounter Plan of Treatment Upcoming Encounters Date Type Specialty Care Team Description 02/06/2023 Hospital Encounter Gastroenterology Cony Tavera MD [facility] GASTROENTEROLOGY DEPT. [place]AMILA [place] 0375 (Wo rk) Scheduled Procedures Name Priority Associated Diagnoses Date/Time COLONOSCOPY, DIAGNOSTIC 10 yr surv documented as of this encounter Results MRI Cholangiopancreatography (11/28/2019 7:12 [...] For questions regarding this report, please contact [facility] number below. ? Narrative 11/28/2019 11:37 [...] interpretation and agree with the findings, Hanna epmberton 11/28/2019 11:37 AM Thank you for letting us participate in the care of this patient. For questions regarding this report, please contact e number below. Ponce Calderon MD IMG MRI ORDERABLES documented in this encounter Visit Diagnoses Diagnosis RUQ abdominal pain Abdominal pain, right upper quadrant RUQ abdominal pain Abdominal pain, right upper quadrant documented in this encounter Care Teams Event Set Up Specialist Relationship Specialty Start Date End Date Melanie Abrams MD PCP - General 05/12/[address] [facility] [address] [facility] [place] [address] documented as of this encounter
--- OUTSIDE RECORDS SUMMARY | 2022-02-06 14:11 | XMS_ITS | Encounter Summary ---
:1960 Author Organization [facility] [place] [address] Care Team Providers Name Role Phone Melanie Abrams MD Primary Care Provider Reason for Referral Diagnostic Test (Routine) - Closed Specialty Diagnoses / Procedures Referred By Contact Refer red To Contact Radiology Diagnoses Neck pain Melanie Abrams MD [facility] Rad Mri Procedures MRI Cervical Spine wo Contrast (Generic) [facility] [place] [address] [place] [address] Referral ID Status Reason Start Date Expiration Date Visits V isits Requested Authorized [id number] Closed Specialty 05/19/2017 07/17/2017 2 2 Service Requested Reason for Visit Reason Comments Right Shoulder Pain shoulder /neck pain Encounter Details Date Type Department Care Team Description 05/17/2017 Office Visit Orthopaedics at [facility] Melanie Abrams, Neck pain [facility] [place] [phone] [facility] [phone] [place], [place] [address] (Wo rk) Social History Tobacco Use Types [...] place to sleep or slept in a fpc (including now)? Sex Assigned at Date Recorded Female 08/01/2020 8:27 AM EST documented as of this encounter Last Filed Vital Signs Vital Sign Reading Time Taken Comments Blood Pressure 139/90 05/17/2017 12:54 PM EST Pulse 92 05/17/2017 12:54 PM EST Temperature - - Respiratory Rate - - Oxygen Saturation - - Inhaled Oxygen Concentration - - Weight 68 kg (150 lb) 05/17/2017 12:54 PM EST Height 170.2 cm (5' 7) 05/17/2017 12:54 PM EST Body Mass Index 23.49 05/17/2017 12:54 PM EST documented in this encounter Progress Notes Melanie Abrams MD - 05/17/2017 1:00 PM EST Patient returns now for her neck. She has been seeing PT for her right shoulder. She had surgery there in June. Her progress has been slow and the question has come up as to whether her neck could be a contributor to this. She has had neck pain for the past month or so. She has tried neck exercises, manipulation, and cervical traction and none of that has made enough of a difference. The pain radiates to her anterior shoulder and also to her posterior trapezius region. She still cannot do yoga. She is frustrated. She says that today her pain is a bit better than it has been over the last couple of days. O: Appears at her baseline. Her neck shows somewhat limited range of motion in all directions. She is symptomatic into the trapezius region if she looks up towards the left or tips towards the left. Neurologically, she is otherwise intact. A/P: Neck pain. Radiation to the trapezius region in activities that do not involve the trapezius is suggestive of a C3 distribution of cervical spine issues. Towards this end, we will pursue x-ray then MRI. I will follow up with her on MRI results when available for further discussion. Continue with neck program with her PT. documented in this encounter Plan of Treatment Upcoming Encounters Date Type Specialty Care Team Description 02/06/2023 Hospital Encounter Gastroenterology Cony Tavera MD [facility] GASTROENTEROLOGY DEPT. [place], [place] 0[address] (Wo rk) Scheduled Procedures Name Priority Associated Diagnoses Date/Time COLONOSCOPY, DIAGNOSTIC 10 yr surv documented as of this encounter Results MRI Cervical Spine wo Contrast (Generic) (05/25/2017 6:11 PM EST) Anatomical Region Laterality Modality C-spine Magnetic Resonance Specimen (Source) Anatomical Location Collection Method / Collectio n Time Received Time / Laterality Volume Impressions 05/25/2017 7:14 PM EST Mild changes of cervical spondylosis as above. Narrative 05/25/2017 7:14 PM EST EXAMINATION: MRI CERVICAL SPINE WO CONTRAST (GENERIC) CLINICAL HISTORY: R sided neck pain, C3 distribution, ? disc related TECHNIQUE: MR the cervical spine without contrast. COMPARISON: Plain films 05/09/2017 FINDINGS: Alignment of the cervical spin e is unremarkable. There is no focal, aggressive appearing marrow lesion. Visu alized posterior fossa structures, and the craniocervical junction are unremark able. Cervical cord signal is normal. Findings at specific levels: C2-C3: No central canal or foraminal grace nosis. There are mild facet degenerative changes. C3-C4: No central canal or foraminal grace nosis. C4-C5: Uncovertebral and facet degenerat evelyn changes produce minimal right foraminal narrowing. No central canal st enosis. C5-C6: There is slight disc bulging with mild central canal narrowing. There is right worse left uncovertebral arthropat hy with minimal right foraminal narrowing. C6-7: Mild disc bulging minimally indent s ventral thecal sac. There is no significant foraminal stenosis. C7-T1: No central canal or foraminal grace nosis. Procedure Note Syed Neff MD - 05/25/2017Format ting of this note might be different from the original. EXAMINATION: MRI CERVICAL SPINE WO CONTR AST (GENERIC) CLINICAL HISTORY: R sided neck pain, C3 distribution, ? disc related TECHNIQUE: MR the cervical spine without contrast. COMPARISON: Plain films 05/09/2017 FINDINGS: Alignment of the cervical spin e is unremarkable. There is no focal, aggressive appearing marrow lesion. Visu alized posterior fossa structures, and the craniocervical junction are unremark able. Cervical cord signal is normal. Findings at specific levels: C2-C3: No central canal or foraminal grace nosis. There are mild facet degenerative changes. C3-C4: No central canal or foraminal grace nosis. C4-C5: Uncovertebral and facet degenerat evelyn changes produce minimal right foraminal narrowing. No central canal st enosis. C5-C6: There is slight disc bulging with mild central canal narrowing. There is right worse left uncovertebral arthropat hy with minimal right foraminal narrowing. C6-7: Mild disc bulging minimally indent s ventral thecal sac. There is no significant foraminal stenosis. C7-T1: No central canal or foraminal grace nosis. IMPRESSION Mild changes of cervical spondylosis as above. Melanie Abrams MD [facility] [place] ORDERABLES XR Cervical Spine 2 Or 3 Views (05/17/2017 1:32 PM EST) Anatomical Region Laterality Modality C-spine N/A Digital Radiography Specimen (Source) Anatomical Location Collection Method / Collectio n Time Received Time / Laterality Volume Impressions 05/17/2017 2:10 PM EST Mild cervical spondylosis. Narrative 05/17/2017 2:10 PM EST EXAMINATION: XR CERVICAL SPINE 2 OR 3 VIEWS CLINICAL HISTORY: R sided neck pain, C3 distribution, ? disc related TECHNIQUE: AP and lateral views. COMPARISON: None FINDINGS: There is mild disc space height loss at C3-C4 and C4-C5 and to a lesser degree C5-C6 and C6-C7. There is minimal hemant listhesis of C7 on T1. There is straightening of cervical lordosis. No p revertebral soft tissue thickening is seen. Mild multilevel facet and uncovert ebral joint degenerative changes are noted. Procedure Note Jett Guerrero MD - 05/17/2017 EXAMINATION: XR CERVICAL SPINE 2 OR 3 EWS CLINICAL HISTORY: R sided neck pain, C3 distribution, ? disc related TECHNIQUE: AP and lateral views. COMPARISON: None FINDINGS: There is mild disc space height loss at C3-C4 and C4-C5 and to a lesser degree C5-C6 and C6-C7. There is minimal hemant listhesis of C7 on T1. There is straightening of cervical lordosis. No p revertebral soft tissue thickening is seen. Mild multilevel facet and uncovert ebral joint degenerative changes are noted. IMPRESSION Mild cervical spondylosis. Melanie Abrams MD [facility] [place] ORDERABLES documented in this encounter Visit Diagnoses Diagnosis Neck pain Cervicalgia Neck pain Cervicalgia Neck pain Cervicalgia documented in this encounter Care Teams Inclusion Manager Relationship Specialty Start Date End Date Melanie Abrams MD PCP - General 05/12/10 [facility] [address] [place] [address] documented as of this encounter
--- OUTSIDE RECORDS SUMMARY | 2022-02-06 14:11 | XMS_ITS | Encounter Summary ---
:1960 Author Organization [facility] [place] [address] Care Team Providers Name Role Phone Melanie Abrams MD Primary Care Provider Encounter Details Date Type Department Care Team Description 11/07/2018 Telephone Internal Medicine at [address] [place] [address] Social History Tobacco Use Types Packs/Day [...] place to sleep or slept in a mcfp (including now)? Sex Assigned at Date Recorded Female 08/01/2020 8:27 AM EST documented as of this encounter Miscellaneous Notes Telephone Encounter - Velia Riddle RN - 11/07/2018 10:21 AM EDT S: Accepted call from patient service center, verified full name and O: Patient advised to call after sending a myD-H message. Patients primary complaint is constipation. Patient reports her Effexor was recently increased and Wellbutrin added to regimen, patient endorses constipation began shortly after medication change. Patient discontinued Wellbutrin, thinking that was the cause of the constipation, no change in bowel habits since discontinuing. Patient reports sheis going, small amounts, every couple of days. Patient is currently following Weight Watchers, eating lot's of fruit, vegetables and a lot of water. Patient endorses she is passing flatus, does feel uncomfortable, no change in appetite. Patient also takes Miralax and Colace daily. Patient has tried smooth move tea in the past with minimal results. A/P: Will forward to PCP for review and advice. Patient requests a call back with an updated plan ofcare. Patient agrees with plan and verbalizes understanding of all information given. documented in this encounter Plan of Treatment Upcoming Encounters Date Type Specialty Care Team Description 02/06/2023 Hospital Encounter Gastroenterology Cony Tavera MD [facility] ER GASTROENTEROLOGY DEPT. [place], [place] [address] (Wo rk) Scheduled Procedures Name Priority Associated Diagnoses Date/Time COLONOSCOPY, DIAGNOSTIC 10 yr surv documented as of this encounter Visit Diagnoses Not on filedocumented in this encounter Care Teams Echocardiograph Tech Relationship Specialty Start Date End Date Melanie Abrams MD PCP - General 05/12/10 [facility] [address] [facility] [place] [address] documented as of this encounter
--- OUTSIDE RECORDS SUMMARY | 2022-02-06 14:11 | XMS_ITS | Encounter Summary ---
:1960 Author Organization [facility] [place] [address] Care Team Providers Name Role Phone Melanie Abrams MD Primary Care Provider Reason for Visit Reason Onset Date Comments Medication Refill 05/25/2019 Encounter Details Date Type Department Care Team Description 05/25/2019 [facility] [address] [place] [address] [facility]IMARY C[facility] [place] [address] (Wo rk) Social History Tobacco Use Types [...] place to sleep or slept in a long-term (including now)? Sex Assigned at Date Recorded Female 08/01/2020 8:27 AM EST documented as of this encounter Plan of Treatment Upcoming Encounters Date Type Specialty Care Team Description 02/06/2023 Hospital Encounter Gastroenterology Cony Tavera MD [facility] GASTROENTEROLOGY DEPT. [place], [place] [address] (Wo rk) Scheduled Procedures Name Priority Associated Diagnoses Date/Time COLONOSCOPY, DIAGNOSTIC 10 yr surv documented as of this encounter Visit Diagnoses Diagnosis Acquired hypothyroidism Unspecified hypothyroidism documented in this encounter Care Teams Biofuels Product Development Manager Relationship Specialty Start Date End Date Melanie Abrams MD PCP - General 05/12/[address] [facility] [address] [facility] [place], [place] [id number] documented as of this encounter
--- OUTSIDE RECORDS SUMMARY | 2022-02-06 14:11 | XMS_ITS | Encounter Summary ---
:1960 Author Organization [facility] Address [facility] [address] [place] [address] Care Team Providers Name Role Phone Melanie Abrams MD Primary Care Provider Reason for Visit Reason Comments Annual Exam pt would like to discuss her most recent eye exam. Pt would like flu shot today Encounter Details Date Type Department Care Team Description 04/13/2019 Office Visit Family Medicine at Melanie Abrams physical exam; Rahel Whaley MD Hypothyroidism, unspecified type; [address] [facility] Anxiety; [place], [place] Insomnia, unspecified type; [id number] Migraine without aura and wi thout status migrainosus, not intractable; [phone] PRIMARY CARE Acquired hypothyroidism [place], [place] [address] Social History Tobacco Use Types Packs/Day Years [...] Sign Reading Time Taken Comments Blood Pressure 127/75 04/13/2019 2:15 PM EDT Pulse 83 04/13/2019 2:15 PM EDT Temperature 36.6 ??C (97.9 ??F) 04/13/2019 2:15 PM EDT Respiratory Rate 20 04/13/2019 2:15 PM EDT Oxygen Saturation 99% 04/13/2019 2:15 PM EDT Inhaled Oxygen Concentration - - Weight 69.9 kg (154 lb 3.2 oz) 04/13/2019 2:15 PM EDT Height 169.4 cm (5' 6.69) 04/13/2019 2:15 PM EDT Body Mass Index 24.37 04/13/2019 2:15 PM EDT documented in this encounter Progress Notes Melanie Abrams MD - 04/13/2019 2:20 PM EDT Patient presents for annual health review. Reports that she has been basically well. She is pleased with the Effexor and Wellbutrin combination. She is currently taking only 1 Effexor per day, but she has enough that she can go back to 2 if the depression gets worse as the weather changes. She had a recent eye appointment where she told him about flashing lights. No specific things were found regarding her retina with the exception of concern regarding possible blood pressure or cholesterol issues given the blood vessel appearance in the retina. She was told to come here for further discussion. She believes that her thyroid is good. She has been losing weight with weight watchers. Problem list surgeries family and social history medications and allergies are reviewed and updated in her chart today as needed. [employer]: No complaints. Review of systems is otherwise negative. O: Vitals as per chart. Skin: No suspicious lesions. HEENT: TMs, nose, and throat clear. Neck: No nodes or thyromegaly. Heart regular rate and rhythm. No murmurs. Breasts no masses nipple discharge or axillary nodes. Lungs clear. Abdomen soft, nondistended, nontender. Transportation Escort deferred. Extremities within normal limits. A/P: 1. Healthcare maintenance. Flu shot today. She is otherwise up-to-date. 2. Hypothyroidism. Check TSH. 3. Anxiety. Doing well on current medication regimen. 4. Migraines were discussed. No other clear explanation for the flashing lights that she is describing as she does not have blood pressure or cholesterol issues. Medications were refilled as needed. Follow-up is otherwise 1 year or as needed. documented in this encounter Plan of Treatment Upcoming Encounters Date Type Specialty Care Team Description 02/06/2023 Hospital Encounter Gastroenterology Cony Tavera MD [facility] GASTROENTEROLOGY DEPT. [place], [place] [address] (Wo rk) Scheduled Procedures Name Priority Associated Diagnoses Date/Time COLONOSCOPY, DIAGNOSTIC 10 yr surv documented as of this encounter Procedures Procedure Name Priority Date/Time Associated Diagnosis Comme nts HC VENIPUNCTURE Routine 04/13/2019 3:06 PM Hypothyroidism, Res ults for this EDT unspecified type procedure a re in the results section. documented in this encounter Results TSH (04/13/2019 3:06 PM EDT) P athologist Signature TSH 2.24 0.27 - 4.20 [facility] mcIU/mL [facility] Specimen Anatomical Collection Method Collection Time Receive d Time (Source) Location / / Volume Laterality Blood specimen 04/13/2019 3:06 PM 019 4:37 (specimen) EDT PM EDT Resulting Agency Comment Spec In Lab Melanie Abrams MD CHEMISTRY ORDERABLES Performing Organization Address City/State/[place] [address] documented in this encounter Visit Diagnoses Diagnosis Annual physical exam Routine general medical examination at a health care facility Hypothyroidism, unspecified type Anxiety Anxiety state, unspecified Insomnia, unspecified type Migraine without aura and without status migrainosus, not intractable Migraine without aura, without mention o f intractable migraine without mention of status migrainosus Acquired hypothyroidism Unspecified hypothyroidism documented in this encounter Care Teams Brake Operator Relationship Specialty Start Date End Date Melanie Abrams MD PCP - General 05/12/10 [facility] [address] [place] [address] documented as of this encounter
--- OUTSIDE RECORDS SUMMARY | 2022-02-06 14:11 | XMS_ITS | Encounter Summary ---
:1960 Author Organization [facility] [place] [address] Care Team Providers Name Role Phone Melanie Abrams MD Primary Care Provider Reason for Visit Diagnostic Test (Routine) - Closed Specialty Diagnoses / Procedures Referred By Contact Refer red To Contact Radiology Diagnoses Neck pain Melanie Abrams MD [facility] Rad Mri Procedures MRI Cervical Spine wo Contrast (Generic) [place] [address] [place] [address] Referral ID Status Reason Start Date Expiration Date Visits V isits Requested Authorized [id number] Closed Specialty 05/19/2017 07/17/2017 2 2 Service Requested Encounter Details Date Type Department Care Team Description 05/25/2017 Hospital Encounter MRI at [facility] Melanie Abrams [facility] [place] [address] [place], [place] [address] (Wo rk) Social History Tobacco [...] Sig Dispensed Refills Start Date End Date magnesium citrate Solution Take by mouth. 0 [...] without status for Migraine. migrainosus, not intractable venlafaxine (EFFEXOR-XR) Take 1 capsule by 90 capsule 3 04/2006/07/2017 37.5 mg Capsule, Sust. mouth nightly. Release 24 hr venlafaxine (EFFEXOR-XR) Take 1 capsule by 90 capsule 3 04/2006/24/2017 75 mg Capsule, Sust. mouth every Release 24 hr morning. fish oil-omega-3 fatty Take by mouth 3 0 12/04/2021 acids 300 mg Capsule times daily (after meals). riboflavin, vitamin B2, Take by mouth 4 0 09/11/2018 100 mg Tablet times daily. lansoprazole (PREVACID Take 1 tablet by 90 tablet 3 015 09/11/2018 SOLUTAB) 15 mg mouth daily. Tablet,Rapid DissolveDR documented as of this encounter Plan of Treatment Upcoming Encounters Date Type Specialty Care Team Description 02/06/2023 Hospital Encounter Gastroenterology Cony Tavera MD [facility] ER GASTROENTEROLOGY DEPT. [place], [place] [address] (Wo rk) Scheduled Procedures Name Priority Associated Diagnoses Date/Time COLONOSCOPY, DIAGNOSTIC 10 yr surv documented as of this encounter Procedures Procedure Name Priority Date/Time Associated Diagnosis Comme nts MRI CERVICAL SPINE Routine 05/25/2017 6:11 PM Neck pain Res ults for this WO CONTRAST EST procedure are i n the results section. documented in this encounter Results MRI Cervical Spine wo [...] levels: C2-C3: No central canal or foraminal grcae nosis. There are mild facet degenerative changes. [...] cervical spondylosis as above. Melanie Abrams MD IMG MRI ORDERABLES documented in this encounter Visit Diagnoses Not on filedocumented in this encounter Care Teams Call Circuit Worker Relationship Specialty Start Date End Date Melanie Abrams MD PCP - General 05/12/[address] [facility] [address] [facility] [place] [address] documented as of this encounter
--- OUTSIDE RECORDS SUMMARY | 2022-02-06 14:11 | XMS_ITS | Encounter Summary ---
:1960 Author Organization [facility] [place] [address] Care Team Providers Name Role Phone Melanie Abrams MD Primary Care Provider Reason for Referral Consultation (Routine) - Closed Specialty Diagnoses / Procedures Referred By Contact Refer red To Contact Primary Care Diagnoses Moderate episode of recurrent major depressive disorder Anxiety Melanie Abrams MD [facility] Family Medicine [facility] [address] [place] [address] [place] [address] Referral ID Status Reason Start Date Expiration Date Visits V isits Requested Authorized [id number] Closed Specialty 09/11/2018 09/11/2019 1 1 Service Requested Reason for Visit Reason Comments Medication Change/management Encounter Details Date Type Department Care Team Description 09/11/2018 Office Visit Family Medicine at Melanie Abrams Mode rate episode of recurrent major depressive disorder; Rahel Whaley MD Anxiety [address] [place] [address] [facility] [phone] [place], [place] [address] (Wo rk) Social History Tobacco Use Types [...] Sign Reading Time Taken Comments Blood Pressure 128/80 09/11/2018 9:14 AM EDT Pulse 92 09/11/2018 9:14 AM EDT Temperature 36.2 ??C (97.2 ??F) 09/11/2018 9:14 AM EDT Respiratory Rate 18 09/11/2018 9:14 AM EDT Oxygen Saturation 98% 09/11/2018 9:14 AM EDT Inhaled Oxygen Concentration - - Weight 78.5 kg (173 lb) 09/11/2018 9:14 AM EDT Height 170.2 cm (5' 7) 09/11/2018 9:14 AM EDT Body Mass Index 27.1 09/11/2018 9:14 AM EDT documented in this encounter Patient Instructions Patient InstructionsMelanie Abrams MD - 09/11/2018 9:30 AM EDT Increase Effexor to 225 mg: Now go to 150 mg (2 of the 75's) Next week add a 37.5 The following week go to 225 mg (3 of the 75's) Add Wellbutrin now, could double in 1-2 weeks. documented in this encounter Progress Notes Melanie Abrams MD - 09/11/2018 9:30 AM EDT Patient presents for discussion of depression with anxiety. She is currently at 175 mg and 137.5 mg pill of her Effexor. She has been on this drug for quite some time and is wondering if it is time fora change. She was up to 225 mg on this at one point in the past. She also has a past history of Prozac and lithium which did not help. She has a history of several psych admissions, the last being in 1995. She feels that this recent exacerbation was triggered by her mother dying in June. She is seeing a therapist. She says that she is functioning at work and does not think that she needs to go on leave of absence, which she has done at least once in the past. However on the weekends, she may not evenget dressed or shower. She has no desire to go out or do anything except when she has to. Not suicidal. For the last 2 weeks she has had a headache which is worse when lying down, with some facial pain and pressure. This is not followed a URI. She wonders if this is related to her sinuses. O: She does not have sinus tenderness to percussion today. See chart, PHQ 9 score is 18, MIRZA score is 11. No suicidality. A/P: 1. Depression with anxiety. We decided to first stay with the drug that she currently is takingand gradually increase over the next couple weeks to 225 mg on Effexor. We will add Wellbutrin for the energizing effect and see how she does with that. Appointment was made for visit with 1 of our collaborative care psychiatrist for further discussion of other med options, should this not work well enough. She will call in if she wishes to make any changes in the interim. She will go the the ED if feeling unsafe. 2. Sinus pressure without infection was discussed. Use of humidity was discussed. This is a 25-minute office visit all of which time was spent counseling patient regarding her med choices for depression and anxiety. documented in this encounter Plan of Treatment Upcoming Encounters Date Type Specialty Care Team Description 02/06/2023 Hospital Encounter Gastroenterology Cony Tavera MD [facility] GASTROENTEROLOGY DEPT. [place], [place] [address] (Wo rk) Scheduled Procedures Name Priority Associated Diagnoses Date/Time COLONOSCOPY, DIAGNOSTIC 10 yr surv Scheduled Referrals Name Type Priority Associated Order Schedule Diagnoses Referral to Outpatient Referral Routine Moderate episode of O rdered: Collaborative Care recurrent major 2018 Psychiatrist (Primary depressive disorder Care Only) Anxiety documented as of this encounter Visit Diagnoses Diagnosis Moderate episode of recurrent major depr essive disorder Anxiety Anxiety state, unspecified documented in this encounter Care Teams Preschool Program Director Relationship Specialty Start Date End Date Melanie Abrams MD PCP - General 05/12/10 [facility] [address] [facility] [place] [address] documented as of this encounter
--- OUTSIDE RECORDS SUMMARY | 2022-02-06 14:11 | XMS_ITS | Encounter Summary ---
:1960 Author Organization [facility] [place] [address] Care Team Providers Name Role Phone Melanie Abrams MD Primary Care Provider Reason for Referral Consultation (Routine) - Closed Specialty Diagnoses / Procedures Referred By Contact Refer red To Contact Gastroenterology Diagnoses Epigastric abdominal pain Melanie Abrams, [facility] Endoscopy [address] [place] [address] [place] [address] Referral ID Status Reason Start Date Expiration Date Visits V isits Requested Authorized [id number] Closed Test Only 10/26/2017 10/26/2018 1 1 Reason for Visit Reason Comments Abdominal Pain Encounter Details Date Type Department Care Team Description 10/26/2017 Office Visit Family Medicine at Melanie Abrams astric abdominal [facility] MD Judd pain [address] [place] [address] [facility] [phone] [place], [place] [address] (Wo rk) Social History Tobacco Use Types [...] Sign Reading Time Taken Comments Blood Pressure 123/83 10/26/2017 7:58 AM EDT Pulse 84 10/26/2017 7:58 AM EDT Temperature 36.4 ??C (97.6 ??F) 10/26/2017 7:58 AM EDT Respiratory Rate 16 10/26/2017 7:58 AM EDT Oxygen Saturation 99% 10/26/2017 7:58 AM EDT Inhaled Oxygen Concentration - - Weight 74.1 kg (163 lb 6.4 oz) 10/26/2017 7:58 AM EDT Height 168.9 cm (5' 6.5) 10/26/2017 7:58 AM EDT Body Mass Index 25.98 10/26/2017 7:58 AM EDT documented in this encounter Patient Instructions Patient InstructionsMelanie Abrams MD - 10/26/2017 8:00 AM EDT Antacids - Lowest level is Tums, Rolaids Middle level is Zantac, Pepcid High level is Prilosec, Prevacid, Protonix, Nexium documented in this encounter Progress Notes Melanie Abrams MD - 10/26/2017 8:00 AM EDT Patient presents for discussion of ongoing epigastric pain. She stopped the Prevacid and is now using Tums only as she does not think that even her higher doses of Prevacid made much difference. The Carafate also did not make much difference and she has since discontinued. She says addition to epigastric pain she gets periodic nausea. That nausea is not correlated to food choice or how recently she may have eaten. She has stopped any alcohol. She does not seem to notice any difference in citrus or tomato. She comes in with ongoing concern. A CT scan done last year found question of pyloric ulcer which concerns her. She has recently testednegative for H. pylori. She comes in now for further discussion. Her last EGD was in 2002. O: There is some discomfort to palpation in the epigastrium. CT and chart were reviewed for recent results as well as old EGD results. A/P: Epigastric pain, not responding to usual care. We discussed possibilities for this. 1 of those possibilities could be that she has a low-grade gallstone pancreatitis. Decided to have her to LFTs as well as amylase and lipase. An etiology for this could be gallstones and we could consider pursuingultrasound, but she is status post cholecystectomy and it is unclear that that will be all that useful to pursue right now. She will go on to an H2 zane as she should be on something for acid control. If labs today are normal, we will pursue EGD, which was also ordered. Follow-up is based on results or as needed. documented in this encounter Plan of Treatment Upcoming Encounters Date Type Specialty Care Team Description 02/06/2023 Hospital Encounter Gastroenterology Cony Tavera MD [facility] GASTROENTEROLOGY DEPT. [place] [id number] (Wo rk) Scheduled Procedures Name Priority Associated Diagnoses Date/Time COLONOSCOPY, DIAGNOSTIC 10 yr surv Scheduled Referrals Name Type Priority Associated Order Schedule Diagnoses Referral to Outpatient Routine Epigastric Ordered: Gastroenterology Referral abdominal pain 8 documented as of this encounter Procedures Procedure Name Priority Date/Time Associated Diagnosis Comme nts LIPASE Routine 10/26/2017 8:38 AM Epigastric abdominal R esults for this EDT pain procedure are i n the results section. AMYLASE Routine 10/26/2017 8:38 AM Epigastric abdominal R esults for this EDT pain procedure are i n the results section. HEPATIC FUNCTION Routine 10/26/2017 8:38 AM Epigastric abdomin al Results for this PANEL EDT pain procedure are i n the results section. documented in this encounter Results Lipase (10/26/2017 8:38 AM EDT) P athologist Signature Lipase 35 0 - 60 [facility] LABORATORY Specimen Anatomical Collection Method Collection Time Receive d Time (Source) Location / / Volume Laterality Blood specimen 10/26/2017 8:38 AM 018 9:54 (specimen) EDT AM EDT Resulting Agency Comment Spec In Lab Melanie Abrams MD CHEMISTRY ORDERABLES Performing Organization Address City/State/[place] [address] Amylase (10/26/2017 8:38 AM EDT) P athologist Signature Amylase 50 28 - 100 [facility] LABORATORY Specimen Anatomical Collection Method Collection Time Receive d Time (Source) Location / / Volume Laterality Blood specimen 10/26/2017 8:38 AM 018 9:54 (specimen) EDT AM EDT Resulting Agency Comment Spec In Lab Melanie Abrams MD CHEMISTRY ORDERABLES Performing Organization Address City/State/[place] [address] Hepatic Function Panel (10/26/2017 8:38 AM EDT) P athologist Signature Total Protein 7.3 6.1 - 8.0 [facility] gm/dL [facility] Albumin 4.6 3.2 - 5.2 [facility] gm/dL [facility] AST 19 0 - 30 [facility] unit/L [facility] ALT 21 0 - 30 [facility] unit/L [facility] Alk Phos 74 40 - 104 [facility] unit/L [facility] Total 0.2 0.2 - 1.3 [facility] Bilirubin mg/dL [facility] Bili, Direct 0.1 0.0 - 0.3 [facility] mg/dL [facility] Specimen Anatomical Collection Method Collection Time Receive d Time (Source) Location / / Volume Laterality Blood specimen 10/26/2017 8:38 AM 018 9:54 (specimen) EDT AM EDT Resulting Agency Comment Spec In Lab Melanie Abrams MD CHEMISTRY ORDERABLES Performing Organization Address City/[facility]/[place] [address] documented in this encounter Visit Diagnoses Diagnosis Epigastric abdominal pain Abdominal pain, epigastric documented in this encounter Care Teams Molding Supervisor Relationship Specialty Start Date End Date Melanie Abrams MD PCP - General 05/12/[address] [facility] [address] [facility] [place] [address] documented as of this encounter
--- OUTSIDE RECORDS SUMMARY | 2022-02-06 14:11 | XMS_ITS | Encounter Summary ---
:1960 Author Organization [facility] [place] [address] Care Team Providers Name Role Phone Melanie Abrams MD Primary Care Provider Reason for Visit Reason Onset Date Comments Medication Refill 05/08/2018 Encounter Details Date Type Department Care Team Description 05/08/2018 Refill Family Medicine at Melanie Abrams I nsomnia, unspecified [facility] [address] type [address] [place] [address] [facility] [phone] [place] [id number] (Wo rk) Social History Tobacco Use Types [...] this encounter Miscellaneous Notes Telephone Encounter - Yvette Phelps V - 05/10/2018 8:15 AM EST Patient calling, states she is down to her last one. Please cormier. documented in this encounter Plan of Treatment Upcoming Encounters Date Type Specialty Care Team Description 02/06/2023 Hospital Encounter Gastroenterology Cony Tavera MD [facility] GASTROENTEROLOGY DEPT. [place], [place] [address] (Wo rk) Scheduled Procedures Name Priority Associated Diagnoses Date/Time COLONOSCOPY, DIAGNOSTIC 10 yr surv documented as of this encounter Visit Diagnoses Diagnosis Insomnia, unspecified type documented in this encounter Care Teams Planer Operator Relationship Specialty Start Date End Date Melanie Abrams MD PCP - General 05/12/[address] [facility] [address] [facility] [place] [address] documented as of this encounter
--- OUTSIDE RECORDS SUMMARY | 2022-02-06 14:11 | XMS_ITS | Encounter Summary ---
:1960 Author Organization [facility] [place] [address] Care Team Providers Name Role Phone Melanie Abrams MD Primary Care Provider Encounter Details Date Type Department Care Team Description 05/17/2017 Orders Only Orthopaedics at [facility] Melanie Abrams MD [facility] [place] [address] [place] [address] [place] [address] (Wo rk) Social History Tobacco Use Types [...] Tavera MD [facility] GASTROENTEROLOGY DEPT. [place], [place] [address] (Wo rk) Scheduled Procedures Name Priority Associated Diagnoses Date/Time COLONOSCOPY, DIAGNOSTIC 10 yr surv documented as of this encounter Visit Diagnoses Not on filedocumented in this encounter Care Teams Slack Line Yarder Relationship Specialty Start Date End Date Melanie Abrams MD PCP - General 05/12/10 [facility] [address] [facility]HEL [facility] [place], [place] [id number] documented as of this encounter
--- OUTSIDE RECORDS SUMMARY | 2022-02-06 14:11 | XMS_ITS | Encounter Summary ---
:1960 Author Organization [place] [address] Care Team Providers Name Role Phone Melanie Abrams MD Primary Care Provider Reason for Visit Reason Onset Date Comments Medication Refill 06/07/2018 Encounter Details Date Type Department Care Team Description 06/07/2018 Refill Internal Medicine at [facility] Melanie browne MD [facility] [address] [facility] [place] [address] [place] [address] [phone] (Wo rk) Social History Tobacco Use Types [...] this encounter Miscellaneous Notes Telephone Encounter - Carri Fair CMA - 06/07/2018 3:41 PM EST Requested Prescriptions Pending Prescriptions Disp Refills ??? venlafaxine (EFFEXOR-XR) 37.5 mg Capsule, Sust. Release 24 hr 90 capsule 3 Sig: Take 1 capsule by mouth nightly. ??? venlafaxine (EFFEXOR-XR) 75 mg Capsule, Sust. Release 24 hr 90 capsule 3 Sig: Take 1 capsule by mouth every morning. documented in this encounter Plan of Treatment Upcoming Encounters Date Type Specialty Care Team Description 02/06/2023 Hospital Encounter Gastroenterology Cony Tavera MD [facility] GASTROENTEROLOGY DEPT. [place], [place] [address] (Wo rk) Scheduled Procedures Name Priority Associated Diagnoses Date/Time COLONOSCOPY, DIAGNOSTIC 10 yr surv documented as of this encounter Visit Diagnoses Diagnosis Anxiety Anxiety state, unspecified documented in this encounter Care Teams Consumer Services Consultant Relationship Specialty Start Date End Date Melanie Abrams MD PCP - General 05/12/10 [facility] [address] [facility] [place] [address] documented as of this encounter
--- OUTSIDE RECORDS SUMMARY | 2022-02-06 14:11 | XMS_ITS | Encounter Summary ---
:1960 Author Organization [facility] [place] [address] Care Team Providers Name Role Phone Melanie Abrams MD Primary Care Provider Encounter Details Date Type Department Care Team Description 08/11/2017 External Results Internal Medicine at Carri Fair, Hypothyroidism, [facility] unspecified type [address] [place] [id number] Social History Tobacco Use Types Packs/Day Years [...] place to sleep or slept in a usp (including now)? Sex Assigned at Date Recorded Female 08/01/2020 8:27 AM EST documented as of this encounter Plan of Treatment Upcoming Encounters Date Type Specialty Care Team Description 02/06/2023 Hospital Encounter Gastroenterology Cony Tavera MD [facility] GASTROENTEROLOGY DEPT. [place], [place] [address] (Wo rk) Scheduled Procedures Name Priority Associated Diagnoses Date/Time COLONOSCOPY, DIAGNOSTIC 10 yr surv documented as of this encounter Procedures Procedure Name Priority Date/Time Associated Diagnosis Comme nts TSH Routine 08/09/2017 1:21 PM Hypothyroidism, Result s for this EST unspecified type procedure a re in the results section. documented in this encounter Results (ABNORMAL) TSH (08/09/2017 1:21 PM EST) P athologist Signature TSH 2.40 EXTERNAL LAB (External Lab) Specimen (Source) Anatomical Collection Method Collection Time Re ceived Time Location / / Volume Laterality Blood specimen 08/09/2017 1:21 PM (specimen) EST Narrative This result has an attachment that is no t available. Melanie Abrams MD CHEMISTRY ORDERABLES Performing Organization Address City/State/ZIP Code Phon e Number EXTERNAL FACILITY EXTERNAL LAB documented in this encounter Visit Diagnoses Diagnosis Hypothyroidism, unspecified type documented in this encounter Care Teams Smocker Relationship Specialty Start Date End Date Melanie Abrams MD PCP - General 05/12/[address] [facility] [address] [place] [address] documented as of this encounter
--- OUTSIDE RECORDS SUMMARY | 2022-02-06 14:11 | XMS_ITS | Encounter Summary ---
:1960 Author Organization [facility] [place] [address] Care Team Providers Name Role Phone Melanie Abrams MD Primary Care Provider Encounter Details Date Type Department Care Team Description 11/28/2017 Surgery Gastroenterology at [facility] Mello Stanton, EGD WITH BIOPSY ([facility] Vanessa begum MD [address]) [place] [address] [facility] [phone] GASTROENTEROLOGY [place] [address] Social History Tobacco Use Types Packs/Day Years [...] Sign Reading Time Taken Comments Blood Pressure 133/89 11/28/2017 9:55 AM EDT Pulse 72 11/28/2017 9:30 AM EDT Temperature - - Respiratory Rate 16 11/28/2017 9:55 AM EDT Oxygen Saturation 96% 11/28/2017 9:30 AM EDT Inhaled Oxygen Concentration - - Weight 72.6 kg (160 lb) 11/28/2017 8:45 AM EDT Height 170.2 cm (5' 7) 11/28/2017 8:45 AM EDT Body Mass Index 25.06 11/28/2017 8:45 AM EDT documented in this encounter Discharge Instructions Discharge Alexandrea Gutierrez RN - 11/28/2017 9:36 AM EDT UPPER GI ENDOSCOPY WHAT TO EXPECT AFTER THE PROCEDURE After the test you may feel a little more gassy or bloated than usual, this is normal. ACTIVITY Because of the sedation that you received Your judgement and reaction time are affected ?? Go home and rest quietly for the remainder of the day. You may resume your normal activities tomorrow. ?? Change from one position to the next slowly. You may lose your balance unexpectedly Be careful on stairs, as you may be unsteady on your feet. FOR THE NEXT 24 HRS ?? DO NOT DRIVE OR OPERATE ANY MACHINERY ?? DO NOT DRINK ALCOHOLIC BEVERAGES ?? DO NOT SIGN LEGAL DOCUMENTS ?? If you are a smoker: DO NOT SMOKE WHILE YOU ARE ALONE Diet ?? Start by eating small portions of foods that ordinarily will not upset your stomach. Be gentle with what you choose to start with. ?? Drink plenty of fluids ( unless otherwise told not to) Medications You may have a mild sore throat. Ice chips, popsicles, over the counter throat lozenges or spray may help numb your throat. This procedure should not cause a fever. IV SITE-- slight redness or tenderness is normal, you can use warm compresses if you get concerned.If the tenderness +/or redness increases or foul drainage and a red streak occurs, please contact your PCP immediately. WHEN SHOULD YOU CALL FOR HELP? Call 911 anytime you think that you need emergency care. For example, call if: You passed out (lost consciousness). You cough up blood. You vomit blood or what looks like coffee grounds. You pass maroon or very bloody stools. Call your healthcare provider or seek immediate medical attention if: You have trouble swallowing. You have belly pain. Your stools are black or tarlike or have streaks of blood. You are sick to your stomach or cannot keep fluids down. Watch closely for changes in your health, and be sure to contact your doctor IF Your throat still hurts after a day or two You do not get better as expected. Tuesday-Tuesday Same Day Endo [phone] 7a-8p Otherwise contact [phone] and ask to speak to the asbestos surveyor bromination equipment operator Follow-up care is a smith part of your treatment and safety. Be sure to make and go to all appointments, and call your doctor if you are having problems. Instructions have been reviewed and patient expresses understanding documented in this encounter Medications at Time [...] 015 09/11/2018 SOLUTAB) 15 mg mouth daily. Tablet,Lupe Truong DR documented as of this encounter H&P Notes Mello Stanton MD - 11/28/2017 8:39 AM EDT Gastroenterology and Hepatology Pre-Procedure History and Physical Exam Procedure: EGD: Indication: epigastreic pain r/o ulcer Patient Active Problem List Diagnosis Code ??? Major depressive disorder, recurrent episode, unspecified F33.9 ??? Migraine without aura, without mention of intractable migraine without mention of status migrainosus G43.009 ??? Anxiety F41.9 ??? Hypothyroidism E03.9 ??? Gastroesophageal reflux K21.9 ??? S/P arthroscopy of shoulder, right Dr. Hernandez. biceps tenotomy, DCE and SAD DOS: 07/12/2016 Z98.890 EXAM: HEENT: Airway examined, oropharynx clear Mallampati [...] Encounter Gastroenterology Cony Tavera MD [facility] GASTROENTEROLOGY DEPT. [place], [place] [address] (Wo rk) Scheduled Procedures Name Priority Associated Diagnoses Date/Time COLONOSCOPY, DIAGNOSTIC 10 yr surv documented as of this encounter Procedures Procedure Name Priority Date/Time Associated Diagnosis Comme nts SURGICAL PATHOLOGY Routine 11/28/2017 9:22 AM Res ults for this REPORT EDT procedure are i n the results section. SPECIMEN TO Routine 11/28/2017 9:22 AM Results f or this PATHOLOGY EDT procedure are i n the results section. SPECIMEN TO Routine 11/28/2017 9:22 AM Results f or this PATHOLOGY EDT procedure are i n the results section. SPECIMEN TO Routine 11/28/2017 9:22 AM Results f or this PATHOLOGY EDT procedure are i n the results section. EGD WITH BIOPSY 11/28/2017 8:58 AM dyspepsia / acid (WRVU 2.49) EDT reflux despite trial of PPI for 8 weeks UPPER GI ENDOSCOPY Routine 11/28/2017 8:38 AM Res ults for this EDT procedure are i n the results section. documented in this encounter Results Surgical Pathology Report (11/28/2017 9:22 AM EDT) Component Value Ref Test Analysis Performed At [facility] Method Time Signature Surgical [id number] ? Location: 4T; EA08; A [facility] Pathology [place] Report The signing pathologist has (i) examined the relevant preparation(s) for the [facility]ORIAL specimen(s) and (ii) rendered or confirmed the diagnosis(es) . HOSPITAL LABORATORY . ?Surgic al Pathology DIAGNOSIS A - Duodenum, biopsy: Duodenal mucosa within normal limits. B - Stomach, biopsy: Gastric antral mucosa with c hronic gastritis and features of reactive gastropathy. See discussion #1. C - Z line, biopsy: Reactive esophageal-gastric junctional mucosa negative for intestinal metaplasia. Electronically signed by: ??Venessa NESBITT PhD, Marvin Javier Verified: ??12/01/2017 ?Pathologist Performed at: ??-[facility] Dept. of Pathology, [place], [place] DISCUSSION 1. ??There is no immunohisto chemical evidence of H.pylori organisms. Special stain for bacteria (isabel) is also negative. ADDITIONAL STUDIES Immunohistochemistry Studies: Formalin-fixed, paraffin-emb edded tissue sections are studied using the polymer technique with appropriate positive and negative controls. ?These IHC studies provide the pathologist wit h adjunctive diagnostic information. Antibody specificity has been verified by testin g antibodies on a series of in-house tissues with known immunohistochemical perform ance characteristics. The clinical interpretation of any antibody positive stain ing or its absence is evaluated within the context of clinical presentation, morp hology, histopathological criteria and other diagnostic tests. Block ? Antibody ?Result (Positive /Negative) B1 ? H.pylori ? Negative CLINICAL INFORMATION Specimen Submitted: A - Duodenal bx 's-R/O celiac B - Stomach bx 's-r/o H. Pylori C - Z-line bx 's-R/O Liriano 's Clinical History and Diagnosis: 57-year-old female with epigastric pain, dyspepsia with antr al gastritis SPECIMEN PROCESSING A - Labeled/Fixative: Duodenal biopsy rule out celiac, forma connie. Quantity/Size: Fragments, 0.2-0.3 cm. Tissue Description: Soft, gutierres-pink tissue. Sections/Processing: (T2) B - Labeled/Fixative: Stomach biopsies rule out H. Pylori, f ormalin. . SPECIMEN PROCESSING Quantity/Size: Four, 0.2-0.4 cm. Tissue Description: Soft, gutierres-pink tissue. Sections/Processing: (T1) C - Labeled/Fixative: Z line biopsies rule out Liriano ?? 's , formalin. Quantity/Size: Two, 0.4 cm. Tissue Description: Soft, gutierres-pink tissue. Sections/Processing: (T1) ??pps Specimen (Source) Anatomical Collection Method Collection Time Re ceived Time Location / / Volume Laterality 11/28/2017 9:22 AM EDT Mello Stanton MD PATHOLOGY/CYTOLOGY ORDERABLE S Performing Organization Address [facility]/[place] [address] Specimen to Pathology (11/28/2017 9:22 AM EDT) Specimen Anatomical Collection Method Collection Time Receive d Time (Source) Location / / Volume Laterality AP Specimen 11/28/2017 9:22 AM 8 9:22 EDT AM EDT Narrative [facility] - 11/28/2017 9:22 AM EDT Specimen requisition ordered. ??Separate Pathology report to follow Mello Stanton MD PATHOLOGY/CYTOLOGY ORDERABLE S Performing Organization Address City/[facility]/[place] [address] Specimen to Pathology (11/28/2017 9:22 AM EDT) Specimen Anatomical Collection Method Collection Time Receive d Time (Source) Location / / Volume Laterality AP Specimen 11/28/2017 9:22 AM 8 9:22 EDT AM EDT Narrative [facility] - 11/28/2017 9:22 AM EDT Specimen requisition ordered. ??Separate Pathology report to follow Melol Stanton MD PATHOLOGY/CYTOLOGY ORDERABLE S Performing Organization Address [facility] [place] [address] Specimen to Pathology (11/28/2017 9:22 AM EDT) Specimen Anatomical Collection Method Collection Time Receive d Time (Source) Location / / Volume Laterality AP Specimen 11/28/2017 9:22 AM 8 9:22 EDT AM EDT Narrative [facility] - 11/28/2017 9:22 AM EDT Specimen requisition ordered. ??Separate Pathology report to follow Mello Stanton MD PATHOLOGY/CYTOLOGY ORDERABLE S Performing Organization Address City/State/[place] [address] UPPER GI ENDOSCOPY (11/28/2017 8:38 AM EDT) [facility] gist Method Time Signature UPPER GI [facility] ENDOSCOPY Endoscopy Procedure Date: 11/28/2017 8:38 AM ? Patient Name: Korin Posada ? Date of : 1960 ? Age: 57 ? Order #: [id number] ? Instrument Name: [id number] ? Procedure: ? Upper GI endoscopy Indications: ? Epigastric abdominal pain, r/o ulce r Providers: ? Mello Stanton MD, Paras de la torre, ? RN, Crow Ordonez MD: ?Melanie Abrams MD Medicines: ? Midazolam 3 mg IV, Fentanyl 150 ? micrograms IV Complications: ? No immediate complications. Procedure: ? The procedure, indications, benefi ts, ? risks and alternatives were e xplained ? to the patient. Specifically ? discussed were potential ? complications including, but not ? limited to, bleeding, perfora tion, ? infection, missing a cancer, and ? adverse medication reactions. The ? End[facility] thro [facility] the ? mouth, and advanced to the ird part ? of duodenum. The patient tole rated ? the procedure well. The upper GI ? endoscopy was accomplished wi out ? difficulty. The patient aung ated the ? procedure well. ? Findings: ? The examined esophagus was normal. ? The Z-line was irregular and was found 34 cm from the ? incisors. Biopsies were taken with a cold forceps for ? histology. ? A medium-sized hiatal hernia was present from 34-38 ? cm. ? Localized moderate inflammation characterized by ? adherent blood, erosions, erythema, friability and ? mucus was found in the gastric antrum. Biopsies were ? taken with a cold forceps for Helicobacter pylori ? testing. ? The examined duodenum was normal. Biopsies were taken ? with a cold forceps for histology. ? Moderate Sedation: ? I was present during the intraservice time as ? documented by the sedation RN. Impression: ?- Normal esophagus. ? - Z-line irregular, 34 cm fro m the ? incisors. Biopsied. ? - Medium-sized hiatal hernia. ? - Gastritis. Biopsied. likely NSAID ? induced ? - Normal examined duodenum. B iopsied. Recommendation: ?- Await pathology results. ? Attending Participation: ? I personally performed the entire procedure. ? Mello Stanton MD 11/28/2017 9:27:45 AM This report has been signed electronically. Number of Addenda: 0 Note Initiated On: 11/28/2017 8:38 AM Specimen (Source) Anatomical Collection Method Collection Time Re ceived Time Location / / Volume Laterality 11/28/2017 8:38 AM EDT Melanie Abrams MD GENERAL SURGICAL ORDERABLES Performing Organization Address City/State/ZIP Code Phon e Number [facility] documented in this encounter Visit Diagnoses Not on filedocumented in this encounter Administered Medications Inactive Administered Medications - up to 3 most recent administrations Medication Order MAR Action Action Date Dose Rate Site fentaNYL 50 mcg/mL multi-dose Given 11/28/2017 9:12 AM EDT 50 mc g injection ONCE PRN, Starting on Tue11/28/17 at 0908, Until Tue11/28/17 at 1215, Intra-Operative (Intra-Procedure), Routine Given 11/28/2017 9:08 AM EDT 50 mcg Given 11/28/2017 9:03 AM EDT 50 mcg lactated Ringers infusion New Bag 11/28/2017 8:51 AM EDT 100 mL/hr 100 mL/hr 100 mL/hr, Intravenous, CONTINUOUS, Starting on Tue11/28/17 at 0900, Until Tue11/28/17 at 1014, Endoscopy (Day of Procedure) midazolam (PF) (VERSED) 1 mg/mL multi-dose Given 11/28/2017 9:12 AM EDT 1 mg injection ONCE PRN, Starting on Tue11/28/17 at 0908, Until Tue11/28/17 at 1215, Intra-Operative (Intra-Procedure), Routine Given 11/28/2017 9:08 AM EDT 1 mg Given 11/28/2017 9:03 AM EDT 1 mg documented in this encounter Active and Recently Administered Medications Times are shown in EDT. Continuous Medication Order 11/26/2017 11/27/2017 11/28/2017 lactated Ringers infusion (CANCELED) 0851 (New Bag - Provider: Samantha Gamez RN) 100 mL/hr, at 100 mL/hr, Intravenous, CO NTINUOUS, Starting Tue11/28/17 at 0900, Until Tue11/28/17 at 1014, Endo (Day of Procedure) PRN Medication Order 11/26/2017 11/27/2017 11/28/2017 fentaNYL 50 mcg/mL multi-dose injection (CANCELED) 09 (Given - Provider: Paras Angeles, RN)907 (Given - Provider: Paras Angeles, RN)911 (Given - Provider: Paras Angeles, RN) ONCE PRN, Starting Tue11/28/17 at 0908, Until Tue11/28/17 at 1215, Intra- Operative (Intra-Procedure), Routine midazolam (PF) (VERSED) 1 mg/mL multi-dose injection (CANCELED) 902 (Given - Provider: Paras [place], RN)907 (Given - Provider: Paras [place], RN)911 (Given - Provider: Paras [place], RN) ONCE PRN, Starting Tue11/28/17 at 0908, Until Tue11/28/17 at 1215, Intra- Operative (Intra-Procedure), Routine documented in this encounter Care Teams Locomotive Firer Relationship Specialty Start Date End Date Melanie Abrams MD PCP - General 05/12/[address] [facility] [address] [facility] [place] [address] documented as of this encounter
--- OUTSIDE RECORDS SUMMARY | 2022-02-06 14:11 | XMS_ITS | Encounter Summary ---
:1960 Author Organization [facility] [place] [address] Care Team Providers Name Role Phone Melanie Abrams MD Primary Care Provider Encounter Details Date Type Department Care Team Description 11/28/2017 Hospital Encounter Gastroenterology at [facility] Mello Stanton, [facility] [place] [address] [facility] [phone] [place] [place], [place] [address] Social History Tobacco Use Types [...] documented in this encounter Discharge Instructions Discharge InstructionsAlexandrea Fuller RN - 11/28/2017 9:36 AM EDT UPPER [...] better as expected. Tuesday-Tuesday Same Day Endo [phone] Otherwise contact [phone] and ask to speak to the corporate claims examiner software applications engineer Follow-up care is a smith part of [...] Encounter Gastroenterology Cony Tavera MD [facility] ER DR GASTROENTEROLOGY DEPT. [place], [place] [address] (Wo rk) Scheduled Procedures Name [...] Component Value Ref Test Analysis Performed At [facility] Method Time Signature Surgical [id number] ? Location: 4T; EA08; [facility] Pathology [place] Report The signing pathologist has (i) examined [...] Marvin Javier Verified: ??12/01/2017 ?Pathologist Performed at: ??-[facility] Dept. of Pathology, [place], [place] DISCUSSION 1. ??There is no immunohisto [...] MD PATHOLOGY/CYTOLOGY ORDERABLE S Performing Organization Address [facility] [place] [address] Specimen to Pathology (11/28/2017 9:22 AM EDT) Specimen Anatomical Collection Method Collection Time Receive d Time (Source) Location / / Volume Laterality AP Specimen 11/28/2017 9:22 AM 8 9:22 EDT AM EDT Narrative [facility] - 11/28/2017 9:22 AM EDT Specimen requisition ordered. ??Separate Pathology report to follow Mello Stanton MD PATHOLOGY/CYTOLOGY ORDERABLE S Performing Organization Address City/[facility]/[place] [address] Specimen to Pathology (11/28/2017 9:22 AM EDT) Specimen Anatomical Collection Method Collection Time Receive d Time (Source) Location / / Volume Laterality AP Specimen 11/28/2017 9:22 AM 8 9:22 EDT AM EDT Narrative [facility] - 11/28/2017 9:22 AM EDT Specimen requisition ordered. ??Separate Pathology report to follow Mello Stanton MD PATHOLOGY/CYTOLOGY ORDERABLE S Performing Organization Address City/[facility]/[place] [address] Specimen to Pathology (11/28/2017 9:22 AM EDT) Specimen Anatomical Collection Method Collection Time Receive d Time (Source) Location / / Volume Laterality AP Specimen 11/28/2017 9:22 AM 8 9:22 EDT AM EDT Narrative [facility] - 11/28/2017 9:22 AM EDT Specimen requisition ordered. ??Separate Pathology report to follow Mello Stanton MD PATHOLOGY/CYTOLOGY ORDERABLE S Performing Organization Address City/State/ZIP Code Phon e Number [place] [phone] [facility] [address] UPPER GI ENDOSCOPY (11/28/2017 8:38 AM EDT) [facility] gist Method Time Signature UPPER GI [facility] ENDOSCOPY Endoscopy Procedure Date: 11/28/2017 8:38 AM ? Patient Name: Korin Posada ? Date of : 1960 ? Age: 57 ? Order #: [id number] ? Instrument Name: [id number] ? Procedure: ? Upper GI endoscopy Indications: ? Epigastric abdominal pain, r/o ulce r Providers: ? Mello Stanton MD, Paras de la torre, ? RN, Abhishek Owen, Crow Hamlin MD: ?Melanie Abrams MD Medicines: ? Midazolam [...] reactions. The ? Endoscope was introduced thro [facility] [place] the ? mouth, and advanced to the [...] MAR Action Action Date Dose Rate Site lactated Ringers infusion New Bag 11/28/2017 8:51 AM EDT 100 mL/hr 100 mL/hr 100 mL/hr, Intravenous, CONTINUOUS, Starting on Tue11/28/17 at 0900, Until Tue11/28/17 at 1014, Endoscopy (Day of Procedure) documented in this encounter Active and Recently [...] 11/28/2017 fentaNYL 50 mcg/mL multi-dose injection (CANCELED) 902 (Given - Provider: Paras Angeles RN)09 (Given - Provider: Paras Angeles, AMANDA)09 (Given - Provider: Paras Angeles, AMANDA) ONCE PRN, Starting Tue11/28/17 at 0908, Until Tue11/28/17 at 1215, Intra- Operative (Intra-Procedure), Routine midazolam (PF) (VERSED) 1 mg/mL multi-dose injection (CANCELED) 902 (Given - Provider: Paras Angeles RN)09 (Given - Provider: Paras Angeles, AMANDA)09 (Given - Provider: Paras Angeles, RN) ONCE PRN, Starting Tue11/28/17 at 0908, Until Tue11/28/17 at 1215, Intra- Operative (Intra-Procedure), Routine documented in this encounter Care Teams Tumbler Machine Operator Relationship Specialty Start Date End Date Melanie Abrams MD PCP - General 05/12/[address] [facility] [address] RAHEL MORELOS [facility] [place] [address] documented as of this encounter
--- OUTSIDE RECORDS SUMMARY | 2022-02-06 14:11 | XMS_ITS | Encounter Summary ---
:1960 Author Organization [facility] [place] [address] Care Team Providers Name Role Phone Melanie Abrams MD Primary Care Provider Encounter Details Date Type Department Care Team Description 10/14/2017 Telephone Family Medicine at Melanie Johnson MD [facility] [address] [facility] [place] [address] [place] [address] [phone] (Wo rk) Social History Tobacco Use Types [...] 02/06/2023 Hospital Encounter Gastroenterology Cony Tavera MD [facility] GASTROENTEROLOGY DEPT. [place], [place] [address] (Wo rk) Scheduled Procedures Name Priority Associated Diagnoses Date/Time COLONOSCOPY, DIAGNOSTIC 10 yr surv documented as of this encounter Visit Diagnoses Not on filedocumented in this encounter Care Teams Snowmaker Relationship Specialty Start Date End Date Melanie Abrams MD PCP - General 05/12/[address] [facility] [address] RAHEL MORELOS [place] [address] documented as of this encounter
--- OUTSIDE RECORDS SUMMARY | 2022-02-06 14:11 | XMS_ITS | Encounter Summary ---
:1960 Author Organization [facility] [place] [address] Care Team Providers Name Role Phone Melanie Abrams MD Primary Care Provider Reason for Visit Reason Onset Date Comments Reminder Appointment 11/27/2019 Encounter Details Date Type Department Care Team Description 11/27/2019 Telephone Gastroenterology at [facility] Lily Cabrera, Reminder Appointment [facility] [place] [address] GASTROENTEROLOG [phone] Y DEPT Social History Tobacco Use Types Packs/Day Years [...] this encounter Miscellaneous Notes Telephone Encounter - Lily Cabrera CMA - 11/27/2019 10:48 AM EDT Called patient to review medications and allergies for their upcoming gastroenterology Type of Appointment: Telehealth appointment. Reach Patient during MA Check: Yes Notes for the provider: Notes for the nurse: documented in this encounter Plan of Treatment Upcoming Encounters Date Type Specialty Care Team Description 02/06/2023 Hospital Encounter Gastroenterology Cony Tavera MD [facility] ER GASTROENTEROLOGY DEPT. [place], [place] [address] (Wo rk) Scheduled Procedures Name Priority Associated Diagnoses Date/Time COLONOSCOPY, DIAGNOSTIC 10 yr surv documented as of this encounter Visit Diagnoses Not on filedocumented in this encounter Care Teams Fermenter Relationship Specialty Start Date End Date Melanie Abrams MD PCP - General 05/12/[address] [facility] [address] RAHEL [place] [address] documented as of this encounter
--- OUTSIDE RECORDS SUMMARY | 2022-02-06 14:11 | XMS_ITS | Encounter Summary ---
:1960 Author Organization [facility] [place] [address] Care Team Providers Name Role Phone Melanie Abrams MD Primary Care Provider Encounter Details Date Type Department Care Team Description 05/17/2017 Hospital Encounter XRay at [facility] Melanie Abrams, Neck pain [address] [place] [address] [place] [address] [facility] [phone] DR RAHEL MORELOS [facility] CARE [place], [place] [address] (Wo rk) Social History Tobacco [...] Truong DR documented as of this encounter Plan of Treatment Upcoming Encounters Date Type Specialty Care Team Description 02/06/2023 Hospital Encounter Gastroenterology Cony Tavera MD [facility] ER DR GASTROENTEROLOGY DEPT. [place], [place] [address] (Wo rk) Scheduled Procedures Name Priority Associated Diagnoses Date/Time COLONOSCOPY, DIAGNOSTIC 10 yr surv documented as of this encounter Procedures Procedure Name Priority Date/Time Associated Diagnosis Comme nts XR CERVICAL SPINE 2 Routine 05/17/2017 1:32 PM Neck pain Re sults for this OR 3 VIEWS EST procedure are i n the results section. documented in this encounter Results XR Cervical Spine 2 Or 3 Views [...] IMPRESSION Mild cervical spondylosis. Melanie Abrams MD IMG DX ORDERABLES documented in this encounter Visit Diagnoses Diagnosis Neck pain Cervicalgia documented in this encounter Care Teams Water Plant Pump Operator Supervisor Relationship Specialty Start Date End Date Melanie Abrams MD PCP - General 05/12/10 [facility] [address] [place] [address] documented as of this encounter
--- OUTSIDE RECORDS SUMMARY | 2022-02-06 14:11 | XMS_ITS | Encounter Summary ---
:1960 Author Organization [facility] [place] [address] Care Team Providers Name Role Phone Melanie Abrams MD Primary Care Provider Reason for Visit Reason Onset Date Comments Medication Refill 11/26/2019 Encounter Details Date Type Department Care Team Description 11/26/2019 [facility] [address] [place] [address] [place] [address] [phone] (Wo rk) Social History Tobacco Use Types [...] Hospital Encounter Gastroenterology Cony Tavera MD [facility] GASTROENTEROLOGY DEPT. [place], [place] [address] (Wo rk) Scheduled Procedures Name Priority Associated Diagnoses Date/Time COLONOSCOPY, DIAGNOSTIC 10 yr surv documented as of this encounter Visit Diagnoses Diagnosis Anxiety Anxiety state, unspecified documented in this encounter Care Teams Bass Mechanism Maker Relationship Specialty Start Date End Date Melanie Abrams MD PCP - General 05/12/[address] [facility] [address] RAHEL [place] [address] documented as of this encounter
--- OUTSIDE RECORDS SUMMARY | 2022-02-06 14:11 | XMS_ITS | Encounter Summary ---
:1960 Author Organization [place] [address] Care Team Providers Name Role Phone Melanie Abrams MD Primary Care Provider Encounter Details Date Type Department Care Team Description 11/29/2019 Telephone Gastroenterology at [facility] [place] [address] Social History Tobacco Use Types Packs/Day [...] this encounter Miscellaneous Notes Telephone Encounter - Lela Barnes - 11/29/2019 2:12 PM EDT Korin Posada [id number] Diagnosis/Indication: Choledocholithiasis 1. Have you ever had a/an ERCP before? No If yes, did you have any problems with the procedure? No What type of sedation was used: None 2. Do you take any Blood Thinners? No 3. Do you have a Pacemaker or Defibrillator device? No 4. Are you a diabetic? No 5. Do you have any Allergies to Eggs, Latex or Medications? Yes: see edh 6. Do you take any Oral Iron Supplements (Including multi-vitamins)? No 7. Do you have a history of three or more abdominal surgeries? No 8. Have you had a problem with sedation or anesthesia? No 9. Do you have a c-pap machine or oxygen tank? Neither 10. Do you take prescription narcotic pain medications, including suboxone or methodone? No 11. Do you have a preference regarding the gender of your provider? No Preference 12. Is there any other information you would like to give us to aid in scheduling? No 13. Say to patient: You must have a responsible republican who will drive you to your procedure, stay on campus for the entire duration of your procedure, and drive you home from your procedure? Height: 5'7 Weight: 155 BMI: Age:59 y.o. documented in this encounter Plan of Treatment Upcoming Encounters Date Type Specialty Care Team Description 02/06/2023 Hospital Encounter Gastroenterology Cony Tavera MD [facility] DR GASTROENTEROLOGY DEPT. [place], [place] [address] (Wo rk) Scheduled Procedures Name Priority Associated Diagnoses Date/Time COLONOSCOPY, DIAGNOSTIC 10 yr surv documented as of this encounter Visit Diagnoses Not on filedocumented in this encounter Care Teams Pipe Buffer Relationship Specialty Start Date End Date Melanie Abrams MD PCP - General 05/12/[address] [facility] [address] RAHEL MOREL[place] [address] documented as of this encounter
--- OUTSIDE RECORDS SUMMARY | 2022-02-06 14:11 | XMS_ITS | Encounter Summary ---
:1960 Author Organization [facility] [place] [address] Care Team Providers Name Role Phone Melanie Abrams MD Primary Care Provider Reason for Visit Reason Comments Medication Refill Encounter Details Date Type Department Care Team Description 06/24/2017 [facility] [address] [facility] [place] [place] [address] [place] [address] [phone] (Wo rk) Social History Tobacco Use Types [...] 02/06/2023 Hospital Encounter Gastroenterology Cony Tavera MD [facility] ER GASTROENTEROLOGY DEPT. [place], [place] [address] (Wo rk) Scheduled Procedures Name Priority Associated Diagnoses Date/Time COLONOSCOPY, DIAGNOSTIC 10 yr surv documented as of this encounter Visit Diagnoses Not on filedocumented in this encounter Care Teams Pre Press Operator Relationship Specialty Start Date End Date Melanie Abrams MD PCP - General 05/12/[address] [facility] [address] RAHEL [place] [address] documented as of this encounter
--- OUTSIDE RECORDS SUMMARY | 2022-02-06 14:11 | XMS_ITS | Encounter Summary ---
:1960 Author Organization [facility] [place] [address] Care Team Providers Name Role Phone Melanie Abrams MD Primary Care Provider Reason for Referral Consultation (Routine) - Closed Specialty Diagnoses / Procedures Referred By Contact Refer red To Contact Gastroenterology Diagnoses Upper abdominal pain Peter Torres APRN [facility] [address] [place] [address] [place] [address] Referral ID Status Reason Start Date Expiration Date Visits V isits Requested Authorized [id number] Closed Specialty 11/23/2019 11/22/2020 1 1 Service Requested Reason for Visit Reason Comments Abdominal Pain Encounter Details Date Type Department Care Team Description 11/23/2019 Office Visit Family Medicine at Peter Torres, Maite hyroidism, unspecified type; [facility] RUSSEL Upper abdominal pain [address] [place] [address] [facility] [phone] [place], [place] [address] Social History Tobacco Use Types Packs/Day Years [...] Sign Reading Time Taken Comments Blood Pressure 125/78 11/23/2019 12:53 PM EDT Pulse 101 11/23/2019 12:53 PM EDT Temperature 36.3 ??C (97.3 ??F) 11/23/2019 12:53 PM EDT Respiratory Rate - - Oxygen Saturation 97% 11/23/2019 12:53 PM EDT Inhaled Oxygen Concentration - - Weight 70.2 kg (154 lb 12.8 oz) 11/23/2019 12:53 PM EDT Height 169.4 cm (5' 6.69) 11/23/2019 12:53 PM EDT Body Mass Index 24.47 11/23/2019 12:53 PM EDT documented in this encounter Progress Notes Peter Torres, SPEECH LANGUAGE PATHOLOGIST PRN - 11/23/2019 1:20 PM EDT Images from the original note were not included. Subjective: Patient ID: Korin Posada is a 59 y.o. female. Chief Complaint Patient presents with ??? Abdominal Pain Behavorial Health Responses 04/13/2019 PHQ-2 Score - Total PHQ-9 1 (Minimal Depression) HPI 59 year old female patient of Dr. Abrams Abdominal pain Patient reports experiencing frequent mid epigastric abdominal pain for the past 2 years. Focal mid epigastric pain occasionally radiates to the back last about 10 to 20 minutes in duration,patient is unable to find any correlation between food and the pain outside of consumption of chocolate or wine which exacerbate her symptoms. Patient reports she has stopped consuming these foods. She is tried a bland diet and continues to experience midepigastric pain. Last night she had a meal of chicken, rice, and peas with subsequent midepigastric pain for approximately 20 minutes, reports pain is much improved this morning. She endorses persistent nausea with her epigastric pain without vomiting. Nothing improves pain except for time. Has tried Pepcid 20 mg daily without relief reports taking medication correctly. At times she endorses difficulty swallowing, she denies choking on food or liquids stating sometimes it is just hard to swallow saliva without elaboration. Patient does not consume coffee, consumes 1 to 2 cups of tea per day Takes an occasional Excedrin as needed for headache She does not experience any change in bowel or bladder habits nor has she noticed any change to the consistency or characteristics of her stool. Normal bowel movements, no blood in stool. Review of Systems See HPI Objective: BP 125/78 Pulse (!) 101 Temp 36.3 ??C (97.3 ??F) Ht 169.4 cm (5' 6.69) Wt 70.2 kg (154 lb 12.8 oz) LMP 02/04/2010 SpO2 97% BMI 24.47 kg/m?? Physical Exam Constitutional: General: She is not in acute distress. Appearance: Normal appearance. She is not ill-appearing. HENT: Head: Normocephalic and atraumatic. Abdominal: General: Bowel sounds are increased. There is no distension or abdominal bruit. Palpations: Abdomen is soft. There is no hepatomegaly, splenomegaly, mass or pulsatile mass. Tenderness: There is abdominal tenderness in the epigastric area. There is no right CVA tenderness,left CVA tenderness, guarding or rebound. Positive signs include psoas sign. Negative signs include Jose's sign, Rovsing's sign, McBurney's sign and obturator sign. Hernia: No hernia is present. Neurological: Mental Status: She is alert. Psychiatric: Attention and Perception: Attention normal. Mood and Affect: Mood normal. Speech: Speech normal. Behavior: Behavior normal. Behavior is cooperative. Thought Content: Thought content normal. Judgment: Judgment normal. Assessment and Plan: 1. Hypothyroidism, unspecified type Order for annual PSA lab draw placed per patient's request - TSH; Future - TSH 2. Upper abdominal pain Persistent ascending mid epigastric pain with radiation to back for the past 2 years, 2018 upper endoscopy unremarkable outside of some gastritis likely to NSAID use. Patient has severely restricted her NSAID use since 2018. She continues to have pain and burning with eating despite PPI use, and is und erstandably frustrated with her symptoms. Physical exam was unremarkable. We discussed increasing her PPI from 20 mg to 40 mg once daily and a referral to gastroenterology for further work-up. Patient in agreement with plan all questions answered - Referral to Gastroenterology - Lipase; Future - Hepatic Function Panel; Future - CBC (with Diff); Future - CBC (with Diff) - Hepatic Function Panel - Lipase - Hemogram - Differential, Automated documented in this encounter Plan of Treatment Upcoming Encounters Date Type Specialty Care Team Description 02/06/2023 Hospital Encounter Gastroenterology Cony Tavera MD [facility] GASTROENTEROLOGY DEPT. [place], [place] [address] (Wo rk) Scheduled Procedures Name Priority Associated Diagnoses Date/Time COLONOSCOPY, DIAGNOSTIC 10 yr surv Scheduled Referrals Name Type Priority Associated Order Schedule Diagnoses Referral to Outpatient Routine Upper abdominal Ordered: Gastroenterology Referral pain 11/23/2019 documented as of this encounter Procedures Procedure Name Priority Date/Time Associated Diagnosis Comme nts HEMOGRAM Routine 11/23/2019 2:30 PM Upper abdominal pain R esults for this EDT procedure are i n the results section. DIFFERENTIAL, Routine 11/23/2019 2:30 PM Upper abdominal pain Results for this AUTOMATED EDT procedure are i n the results section. HC VENIPUNCTURE Routine 11/23/2019 2:30 PM Upper abdominal winifred n EDT HC THYROID Routine 11/23/2019 2:30 PM Hypothyroidism, Result s for this STIMULATING HORMONE, EDT unspecified type pro cedure are in SERUM the results section. HC LIPASE Routine 11/23/2019 2:30 PM Upper abdominal pain R esults for this EDT procedure are i n the results section. HEPATIC FUNCTION Routine 11/23/2019 2:30 PM Upper abdominal pa in Results for this PANEL EDT procedure are i n the results section. documented in this encounter Results Differential, Automated (11/23/2019 2:30 PM EDT) P athologist Signature Neutrophils % 55.6 % [facility] Neutr Abs (ANC) 2.88 1.70 - [facility] 6.10 [facility] x10(3)/[facility] LABORATORY Lymphocytes % 28.6 % [facility] Lymphocytes Abs 1.5 0.9 - 3.2 [facility] x10(3)/[facility] LABORATORY Monocytes % 10.0 % [facility] Monocyte Abs 0.5 0.3 - 0.9 [facility] x10(3)/[facility] LABORATORY Eosinophils % 4.8 % [facility] Eosinophils Abs 0.2 0.0 - 0.4 [facility] x10(3)/[facility] LABORATORY Basophils % 0.8 % [facility] Basophils Abs 0.0 0.0 - 0.1 [facility] x10(3)/[facility] LABORATORY Immature Gran % 0.20 % [facility] Comment: Immature granulocytes(IG's)percentage an d absolute count will include metamyelocytes, myelocytes, and promyelo cytes. Blood smears from CBCs yielding IG's will be scanned manually for concor dance. If this scan disagrees with the automated IG or if promyelocytes are not ed, a manual differential will be performed. Aleksandra Gran Abs 0.01 0.00 - 0.04 x10(3)/[facility]OR[facility] Specimen Anatomical Collection Method Collection Time Receive d Time (Source) Location / / Volume Laterality Blood specimen 11/23/2019 2:30 PM 020 3:29 (specimen) EDT PM EDT Resulting Agency Comment Spec In Lab Peter Torres SPEECH LANGUAGE PATHOLOGIST PRN HEMATOLOGY ORDERABLES Performing Organization Address City/State/ZIP Code Phon e Number [place] [phone] (ABNORMAL) Hemogram (11/23/2019 2:30 PM EDT) Analysis Performed At Patho logist Time Signature WBC 5.2 4.0 - 9.5 [facility] x10(3)/[facility] LABORATORY RBC 5.04 4.00 - [facility] 5.21 [facility] x10(6)/[facility] Hemoglobin 14.9 11.7 - [facility] 15.5 gm/dL [facility] Hematocrit 46.2 (H) 35.7 - [facility] 45.8 % [facility] MCV 91.7 82.6 - [facility] 94.4 [facility] LABORATORY MCH 29.6 27.1 - ERA NOAH 32.0 pg [facility] MCHC 32.3 31.7 - [facility] 35.0 gm/dL [facility] Platelets 247 145 - 357 [facility] x10(3)/[facility] LABORATORY RDWSD 45.4 37.0 - [facility] NOAH 46.0 [facility] RDWCV 13.3 11.5 - [facility] 14.1 % [facility] MPV 10.5 7.6 - 12.9 [facility] LABORATORY nRBC % Auto 0.0 % [facility] nRBC Abs Auto 0.000 0.000 - [facility] 0.000 [facility] x10(3)/[facility] LABORATORY Specimen Anatomical Collection Method Collection Time Receive d Time (Source) Location / / Volume Laterality Blood specimen 11/23/2019 2:30 PM 020 3:29 (specimen) EDT PM EDT Resulting Agency Comment Spec In Lab Peter [place] Brian GOODE HEMATOLOGY ORDERABLES Performing Organization Address City/[facility]/ZIP Code Phon e Number [address] TSH (11/23/2019 2:30 PM EDT) athologist Signature TSH 2.31 0.27 - 4.20 [facility] mcIU/mL [facility] Specimen Anatomical Collection Method Collection Time Receive d Time (Source) Location / / Volume Laterality Blood specimen 11/23/2019 2:30 PM 020 3:35 (specimen) EDT PM EDT Resulting Agency Comment Spec In Lab Peter Jareth Brian GOODE CHEMISTRY ORDERABLES Performing Organization Address City/[facility]/[place] [address] (ABNORMAL) Hepatic Function Panel (11/23/2019 2:30 PM EDT) athologist Signature Total Protein 7.7 6.1 - 8.0 [facility] NOAH gm/dL [facility] Albumin 4.8 3.2 - 5.2 [facility] NOAH gm/dL [facility] AST 51 (H) 0 - 30 [facility] NO[facility] unit/L [facility] ALT 118 (H) 0 - 30 [facility] NO[facility] unit/L [facility] Alk Phos 119 (H) 35 - 105 [facility] NOAH unit/L [facility] Total 0.2 0.2 - 1.3 ERA NOAH Bilirubin mg/dL [facility] Bili, Direct 0.1 0.0 - 0.3 [facility] NOAH mg/dL [facility] Specimen Anatomical Collection Method Collection Time Receive d Time (Source) Location / / Volume Laterality Blood specimen 11/23/2019 2:30 PM 020 3:35 (specimen) EDT PM EDT Resulting Agency Comment Spec In Lab Peter Torres APRN CHEMISTRY ORDERABLES Performing Organization Address City/[facility]/[place] [address] Lipase (11/23/2019 2:30 PM EDT) athologist Signature Lipase 34 0 - 60 [facility] unit/L [facility] Specimen Anatomical Collection Method Collection Time Receive d Time (Source) Location / / Volume Laterality Blood specimen 11/23/2019 2:30 PM 020 3:35 (specimen) EDT PM EDT Resulting Agency Comment Spec In Lab Peter Torres APRN CHEMISTRY ORDERABLES Performing Organization Address [facility] [place] [address] documented in this encounter Visit Diagnoses Diagnosis Hypothyroidism, unspecified type Upper abdominal pain Abdominal pain, other specified site documented in this encounter Care Teams Game Engineer Relationship Specialty Start Date End Date Melanie Abrams MD PCP - General 05/12/[address] [facility] [address] [facility] [place] [address] documented as of this encounter
--- OUTSIDE RECORDS SUMMARY | 2022-02-06 14:11 | XMS_ITS | Encounter Summary ---
:1960 Author Organization [facility] [place] [address] Care Team Providers Name Role Phone Melanie Abrams MD Primary Care Provider Reason for Referral Consultation (Urgent) - Closed Specialty Diagnoses / Procedures Referred By Contact Refer red To Contact Gastroenterology Diagnoses Choledocholithiasis Tana Montes PA [facility] Endoscopy 4t [facility] D [facility] [place] [address] [place] [address] Referral ID Status Reason Start Date Expiration Date Visits V isits Requested Authorized [id number] Closed Consult, 11/28/2019 11/27/2020 1 1 Test & Treat Encounter Details Date Type Department Care Team Description 11/28/2019 Telephone Gastroenterology at [facility] Tana Montes [facility] [place] [address] [facility] [phone] GASTROENTEROLOGY [place] [address] (Wo rk) Social History Tobacco Use Types [...] this encounter Miscellaneous Notes Telephone Encounter - Tana Montes PA - 11/28/2019 2:53 PM EDT Discussed MRCP findings with patient We discussed proceeding with ERCP. I did discuss this procedure with her including risks, benefits and alternatives documented in this encounter Plan of Treatment Upcoming Encounters Date Type Specialty Care Team Description 02/06/2023 Hospital Encounter Gastroenterology Cony Tavera MD [facility] GASTROENTEROLOGY DEPT. [place], [place] [address] (Wo rk) Scheduled Procedures Name Priority Associated Diagnoses Date/Time COLONOSCOPY, DIAGNOSTIC 10 yr surv Scheduled Referrals Name Type Priority Associated Diagnoses Order S chedule Referral to Outpatient Routine Choledocholithiasis Ordered: Gastroenterology Referral 11/28/2019 documented as of this encounter Visit Diagnoses Diagnosis Choledocholithiasis Calculus of bile duct without mention of cholecystitis or obstruction documented in this encounter Care Teams [place] Manager Relationship Specialty Start Date End Date Melanie Abrams MD PCP - General 05/12/[address] [facility] [address] [facility] [place] [address] documented as of this encounter
--- OUTSIDE RECORDS SUMMARY | 2022-02-06 14:11 | XMS_ITS | Encounter Summary ---
:1960 Author Organization [facility] [place] [address] Care Team Providers Name Role Phone Melanie Abrams MD Primary Care Provider Reason for Visit Reason Onset Date Comments Medication Refill 11/25/2019 Encounter Details Date Type Department Care Team Description 11/25/2019 [facility] [address] [place] [address] [place] [address] [phone] (Wo rk) Social History Tobacco Use Types [...] 02/06/2023 Hospital Encounter Gastroenterology Cony Tavera MD [facility] GASTROENTEROLOGY DEPT. [place], [place] [address] (Wo rk) Scheduled Procedures Name Priority Associated Diagnoses Date/Time COLONOSCOPY, DIAGNOSTIC 10 yr surv documented as of this encounter Visit Diagnoses Diagnosis Anxiety Anxiety state, unspecified documented in this encounter Care Teams Tunnel Elastic Operator Chainstitch Relationship Specialty Start Date End Date Melanie Abrams MD PCP - General 05/12/[address] [facility] [address] [facility] [place] [address] documented as of this encounter
--- OUTSIDE RECORDS SUMMARY | 2022-02-06 14:11 | XMS_ITS | Encounter Summary ---
:1960 Author Organization [facility] [place] [address] Care Team Providers Name Role Phone Melanie Abrams MD Primary Care Provider Reason for Visit Reason Comments Foot Pain bilateral, x6 months, after waking up can't walk from pain in the bottom of feet that radiates up leg Hip Pain right, x1 year Encounter Details Date Type Department Care Team Description 02/06/2018 Office Visit Family Medicine at Melanie Abrams in of gluteus medius of right lower extremity, initial encounter; Rahel Whaley MD Plantar fasciitis [address] [place] [address] [facility] PRIMARY [phone] [place], [place] [address] (Wo rk) Social History Tobacco [...] Sign Reading Time Taken Comments Blood Pressure 124/90 02/06/2018 8:47 AM EDT Pulse 91 02/06/2018 8:47 AM EDT Temperature 36.6 ??C (97.8 ??F) 02/06/2018 8:47 AM EDT Respiratory Rate - - Oxygen Saturation 98% 02/06/2018 8:47 AM EDT Inhaled Oxygen Concentration - - Weight 74 kg (163 lb 3.2 oz) 02/06/2018 8:47 AM EDT Height - - Body Mass Index 25.56 11/28/2017 8:45 AM EDT documented in this encounter Progress Notes Melanie Abrams MD - 02/06/2018 9:00 AM EDT Patient presents for pain in both feet for about 6 months. This is worse if she gets up at night andin the mornings. It is better when she moves, but as of late the left is still been there more of the time. She has pain which radiates up towards the knees in the lower legs bilaterally. No numbness or tingling. She has been having right lateral hip pain for the last 6 months or so as well. She thinks that she may do some limping when she is walking longer distances but she is not positive about that. Points to the lateral hip as the area of greatest pain. O: Appears at her baseline. She has no tenderness to palpation at the plantar fascia origin on either foot. Her dorsiflexion flexibility at the heels is normal. There is no tenderness in the lower leg on either side. The left hip is nontender. The right has trochanteric tenderness. She is able to hop and is able to weight-bear on one leg, but she is somewhat uncomfortable with hopping. A/P: 1. Lateral hip pain, consistent with gluteus medius strain. She was shown how to do clamshells and leg side kicks to try to improve her strength in that region. Discussed using a walking stick if she is starting to limp as limping will certainly make this worse. Offered PT but she will hold off on that for now. 2. Presumed plantar fasciitis was discussed. This is not a classic case and that she does not have tenderness to palpation, but I think that still is the most likely diagnosis. We discussed arch support insoles, which were provided to her today, and stretching. Refer to PT if failing to improve. We discussed that more likely than not the pain in the lower legs may be compensatory for both the hip andthe feet. We will see how this might improve with addressing the feet and the hip. If worsening, return for further discussion. documented in this encounter Plan of Treatment Upcoming Encounters Date Type Specialty Care Team Description 02/06/2023 Hospital Encounter Gastroenterology Cony Tavera MD [facility] GASTROENTEROLOGY DEPT. [place], [place] [address] (Wo rk) Scheduled Procedures Name Priority Associated Diagnoses Date/Time COLONOSCOPY, DIAGNOSTIC 10 yr surv documented as of this encounter Visit Diagnoses Diagnosis Strain of gluteus medius of right lower extremity, initial encounter Plantar fasciitis Plantar fascial fibromatosis documented in this encounter Care Teams Bone Grinder Relationship Specialty Start Date End Date Melanie Abrams MD PCP - General 05/12/[address] [facility] [address] [place] [address] documented as of this encounter
--- OUTSIDE RECORDS SUMMARY | 2022-02-06 14:11 | XMS_ITS | Encounter Summary ---
:1960 Author Organization [facility] [place] [address] Care Team Providers Name Role Phone Melanie Abrams MD Primary Care Provider Encounter Details Date Type Department Care Team Description 01/22/2019 Hospital Encounter Mammography/DXA at Angelic Abrams Visit for screening [facility] MD Jud[place] mammogram [facility] [address] [facility]ARE [phone] [place] [address] Social History Tobacco Use Types Packs/Day Years [...] Dispensed Refills Start Date End Date venlafaxine Take 2 capsules by 270 capsule 3 11/15/2018 06/0 12/2019 (EFFEXOR-XR) 75 mg mouth every morning. Capsule, Sust. Release 24 hrIndications: Anxiety buPROPion (WELLBUTRIN Take 1 tablet by 30 tablet 3 09/12/19 19 02/08/2019 XL) 150 mg Tablet mouth every morning. Extended Release 24 hr levothyroxine Take 1 tablet by 90 tablet 3 05/23/201804/13 (SYNTHROID) 50 mcg mouth daily. TabletIndications: Indications: hypothyroidism hypothyroidism traZODone (DESYREL) Take 1 tablet by 90 tablet 3 05/10/2018 04/13/2019 100 mg mouth nightly. TabletIndications: Insomnia, unspecified type SUMAtriptan (IMITREX) Take 1 tablet by 12 tablet 11 02/09/20 18 04/13/2019 100 mg mouth 2 times daily TabletIndications: as needed for Migraine without aura Migraine. and without status migrainosus, not intractable famotidine (PEPCID) 20 Take 20 mg by mouth 0 12/04/2021 mg Tablet daily. magnesium citrate Take by mouth. 0 02/2020 Solution fish oil-omega-3 fatty Take by mouth 3 times 0 12/04/2021 acids 300 mg Capsule daily (after meals). documented as of this encounter Plan of Treatment Upcoming Encounters Date Type Specialty Care Team Description 02/06/2023 Hospital Encounter Gastroenterology Cony Tavera MD [facility] GASTROENTEROLOGY DEPT. [place], [place] [address] (Wo rk) Scheduled Procedures Name Priority Associated Diagnoses Date/Time COLONOSCOPY, DIAGNOSTIC 10 yr surv documented as of this encounter Procedures Procedure Name Priority Date/Time Associated Diagnosis Comme nts MAMMO SCREENING CAD Routine 01/22/2019 8:34 AM Visit for wilberto serrano Results for this AND TAM BILATERAL EDT mammogram procedure are in the results section. documented in this encounter Results Mammo Screening Cad and Tam Bilateral (01/22/2019 8:34 AM EDT) Anatomical Region Laterality Modality Breast Bilateral Mammography Specimen (Source) Anatomical Location Collection Method / Collectio n Time Received Time / Laterality Volume Narrative 01/22/2019 9:02 AM EDT BILATERAL MAMMOGRAPHY REASON FOR EXAM: [...] CONCLUSION: No mammographic evidence of malignancy. RECOMMENDATION: Medical organizations ag ree that annual screening mammography beginning at age 40 saves th e most lives. The risks of screening are negligible compared to dyi ng from breast cancer or suffering from more aggressive treatment required when detected at a later stage. No woman is at low risk for breast cancer. Some women, because of their family history, a genetic tendency, or c ertain other factors, should be screened with breast MRI along with mamm ograms. (The number of women who fall into this category is very small). The patient and health care provider should discuss the patient hist ory and decide if earlier screening and breast MRI are appropriate . Screening should continue as long as a woman is in good health and is expected to live 10 years or longer. Screening mammography may not de tect 10-15% of breast cancers. Women should report any breast changes t o a health care provider right away. A result letter has been sent to this pa tient by the [facility]. BIRADS CATEGORY 1: NEGATIVE Melanie Abrams MD IMG MAMMO ORDERABLES documented in this encounter Visit Diagnoses Diagnosis Visit for screening mammogram Other screening mammogram documented in this encounter Care Teams Machine Fur Cleaner Relationship Specialty Start Date End Date Melanie Abrams MD PCP - General 05/12/[address] [facility] [address] [facility] [place] [address] documented as of this encounter
--- OUTSIDE RECORDS SUMMARY | 2022-02-06 14:11 | XMS_ITS | Encounter Summary ---
:1960 Author Organization [facility] [place] [address] Care Team Providers Name Role Phone Melanie Abrams MD Primary Care Provider Reason for Referral Diagnostic Test (Routine) - Closed Specialty Diagnoses / Procedures Referred By Contact Refer red To Contact Radiology Diagnoses Neck pain Melanie Abrams MD [facility] Rad Mri Procedures MRI Cervical Spine wo Contrast (Generic) [facility] [place] [address] [place] [address] Referral ID Status Reason Start Date Expiration Date Visits V isits Requested Authorized [id number] Closed Specialty 05/19/2017 07/17/2017 2 2 Service Requested Reason for Visit Diagnostic Test (Routine) - Closed Specialty Diagnoses / Procedures Referred By Contact Refer red To Contact Radiology Diagnoses Neck pain Melanie Abrams MD [facility] Rad Mri Procedures MRI Cervical Spine wo Contrast (Generic) [facility] [place] [address] [place] [address] Referral ID Status Reason Start Date Expiration Date Visits V isits Requested Authorized [id number] Closed Specialty 05/19/2017 07/17/2017 2 2 Service Requested Encounter Details Date Type Department Care Team Description 05/25/2017 Hospital Encounter MRI at [facility] Melanie Abrams, Neck pain [facility] [place] [address] [facility] PRIMARY CARE [place], [place] [address] (Wo rk) Social History Tobacco [...] 09/11/2018 SOLUTAB) 15 mg mouth daily. Tablet,Rapid Dissolve, documented as of this encounter Progress Notes Hannah De La Torre RN - 05/20/2017 9:57 AM EST MRI PRE-SEDATION ASSESSMENT NOTE NAME: Korin Posada AGE: 56 y.o. : 1960 [address] [facility] [address] Female [phone] (home) [phone] (work) No relevant phone numbers on file. Melanie Abrams MD No primary care provider on file. Allergies Allergen Reactions ??? Sumatriptan Hives, Diarrhea and Nausea Only STAT PEN ONLY! Pt had a reaction at the site of injection. ??? Oxycodone Rash Facial rash ??? Penicillins Hives ??? Vecuronium Chadwick Took a really long time to come out of the anesthesia. ??? Zolmitriptan Diarrhea and Nausea And Vomiting Date/Time of call: May 20, 2017/9:57 AM/ PREVIOUS MRI SCAN? yes HEIGHT: 5'7 WEIGHT: 150lb SCHEDULED SCAN: MRI cervical spine wo contrast (40 min, head first supine) SUBJECTIVE: Last MRI was difficult, claustrophobic CAN YOU LAY FLAT? yes AIRWAY ISSUES? no DO YOU HAVE ANY INVOLUNTARY MOVEMENTS? no DO YOU HAVE ANY PAIN? Yes, neck/shoulder pain DO YOU TAKE PAIN MED ON A DAILY BASIS? Sometimes Tylenol ASSESSMENT: Pt is appropriate for PO sedation, has used Valium in the past with good effect PLAN: Valium 5-10 mg PO per protocol Guidelines for MRI Pre-Procedures Laboratory Studies: GFR n/a Date of lab draw 1. Creatinine studies (GFR level needed) within 90 days of scan ??? 70 yo or older if they are getting contrast ??? 50 years and older if they are diabetic and getting contrast ( XXX ) You must have a milk wagon driver present when you check in. This patient has been informed that they require a milk wagon driver to drive them home after this procedure. In the absence of a milk wagon driver, IR will not be able to sedate for your scan. Pt verbalized understanding of these instructions during the pre-procedure education via phone. Yes Name of milk wagon driver: Bushra Phone number PRIOR SCAN DATE/S SEDATION TYPE SUCCESSFUL 10/20/10 MRI brain w/wo None noted 09/23/14 MRI wrist wo None noted 01/19/16 MRI right shoulder wo None noted 05/25/17 MRI Cervical Spine wo Contrast Valium 5 mg PO Revised 07/04/15 documented in this encounter Plan of Treatment Upcoming Encounters Date Type Specialty Care Team Description 02/06/2023 Hospital Encounter Gastroenterology Cony Tavera MD [facility] GASTRO[facility]OLOGY DEPT. [place], [place] [address] (Wo rk) [...] Neck pain Cervicalgia documented in this encounter Administered Medications Inactive Administered Medications - up to 3 most recent administrations Medication Order MAR Action Action Date Dose Rate Site diaZEPam (VALIUM) tablet 5 mg Given 05/25/2017 4:03 PM EST 5 mg 5 mg, Oral, EVERY 30 MIN PRN, 2 doses, Starting on Tue05/25/17 at 0902, Until Beba 05/26/17 at 0436, Anxiety, Angio/IR (Day of Procedure), Routine documented in this encounter Care Teams Sales Support Engineer Relationship Specialty Start Date End Date Melanie Abrams MD PCP - General 05/12/[address] [facility] [address] [facility] [place] [address] documented as of this encounter
--- OUTSIDE RECORDS SUMMARY | 2022-02-06 14:11 | XMS_ITS | Encounter Summary ---
:1960 Author Organization [facility] [place] [address] Care Team Providers Name Role Phone Melanie Abrams MD Primary Care Provider Reason for Visit Reason Onset Date Comments Medication Refill 06/07/2017 Encounter Details Date Type Department Care Team Description 06/07/2017 Refill Internal Medicine at [facility] Pauline [facility] [address] [place] [address] Social History Tobacco Use Types Packs/Day [...] place to sleep or slept in a custodial (including now)? Sex Assigned at Date Recorded Female 08/01/2020 8:27 AM EST documented as of this encounter Plan of Treatment Upcoming Encounters Date Type Specialty Care Team Description 02/06/2023 Hospital Encounter Gastroenterology Cony Tavera MD [facility] GASTROENTEROLOGY DEPT. [place], [place] [address] (Wo rk) Scheduled Procedures Name Priority Associated Diagnoses Date/Time COLONOSCOPY, DIAGNOSTIC 10 yr surv documented as of this encounter Visit Diagnoses Not on filedocumented in this encounter Care Teams Belt Machine Operator Relationship Specialty Start Date End Date Melanie Abrams MD PCP - General 05/12/[address] [facility] [address] [place] [place] [address] documented as of this encounter
--- OUTSIDE RECORDS SUMMARY | 2022-02-06 14:11 | XMS_ITS | Encounter Summary ---
:1960 Author Organization [facility] [place] [address] Care Team Providers Name Role Phone Melanie Abrams MD Primary Care Provider Reason for Visit Reason Onset Date Comments Medication Refill 02/08/2019 Encounter Details Date Type Department Care Team Description 02/08/2019 Refill Family Medicine at Melanie Abrams M oderate episode of [facility] recurrent major [address] [facility] [place] [address] [facility] PRIMARY [phone] [place] [address] (Wo rk) Social History Tobacco Use Types [...] this encounter Miscellaneous Notes Telephone Encounter - Tatiana Burgos CCMA - 02/09/2019 11:21 AM EDT Refill requested by patient. MAYRA(relevant): 11/15/18 (Psych) NOV: none scheduled. Requested Prescriptions Pending Prescriptions Disp Refills ??? buPROPion (WELLBUTRIN XL) 150 mg Tablet Extended Release 24 hr 90 tablet 3 Sig: Take 1 tablet by mouth every morning. documented in this encounter Plan of Treatment Upcoming Encounters Date Type Specialty Care Team Description 02/06/2023 Hospital Encounter Gastroenterology Cony Tavera MD [facility] GASTROENTEROLOG[facility] DEPT. 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
--- OUTSIDE RECORDS SUMMARY | 2022-02-06 14:11 | XMS_ITS | Encounter Summary ---
:1960 Author Organization [facility] [place] [address] Care Team Providers Name Role Phone Melanie Abrams MD Primary Care Provider Reason for Visit Reason Onset Date Comments Other 09/06/2017 Encounter Details Date Type Department Care Team Description 09/06/2017 Telephone Internal Medicine at Becky Mesa RN [address] [place] [address] Social History Tobacco Use Types Packs/Day [...] to sleep or slept in a senior care (including now)? Sex Assigned at Date Recorded Female 08/01/2020 8:27 AM EST documented as of this encounter Miscellaneous Notes Telephone Encounter - Velia Richardson - 09/09/2017 9:39 AM EDT Lab order faxed to [facility] at [phone]. Telephone Encounter - Stuart Centeno RN - 09/07/2017 3:13 PM EDT Patient informed that a new lab request for the H. Pylori specimen was prepared and sent to Dr. Abrams for her review. Patient informed that once approved the lab order would be electronically sent [facility]. Telephone Encounter - Larissa Jovel - 09/07/2017 2:46 PM EDT Pt returning call, I tried triage line with no answer. Please call pt at work [phone] ext [phone] untill about 4pm documented in this encounter Plan of Treatment Upcoming Encounters Date Type Specialty Care Team Description 02/06/2023 Hospital Encounter Gastroenterology Cony Tavera MD [facility] GASTROENTEROLOGY DEPT. [place], [place] [address] (Wo rk) Scheduled Procedures Name Priority Associated Diagnoses Date/Time COLONOSCOPY, DIAGNOSTIC 10 yr surv documented as of this encounter Visit Diagnoses Not on filedocumented in this encounter Care Teams Vision Care Associate Relationship Specialty Start Date End Date Melanie Abrams MD PCP - General 05/12/[address] [facility] [address] [facility] [place] [address] documented as of this encounter
--- OUTSIDE RECORDS SUMMARY | 2022-02-06 14:11 | XMS_ITS | Encounter Summary ---
:1960 Author Organization [facility] [place] [address] Care Team Providers Name Role Phone Melanie Abrams MD Primary Care Provider Reason for Visit Auth/Cert Specialty Diagnoses / Procedures Referred By Contact Refer red To Contact Diagnoses Choledocholithiasis Choledocholithiasis Procedures PRO ERCP,DIAGNOSTIC PRO ANESTH, UGI ENDOSCOPY ERCP ERCP Referral ID Status Reason Start Date Expiration Date Visits Requ ested Visits Authorized [id number] 1 1 Encounter Details Date Type Department Care Team Description 12/10/[address] [facility] Cedric Witt, ERCP [facility] Vanessa begum MD W/SPHINCTEROTOMY/[place] [phone] [facility] [phone] GASTROENTEROLOGY DEPT. [place], [place] [address] Social History Tobacco Use Types [...] Sign Reading Time Taken Comments Blood Pressure 144/97 12/10/2019 2:41 PM EDT Pulse 85 12/10/2019 2:41 PM EDT Temperature 36.8 ??C (98.2 ??F) 12/10/2019 2:41 PM EDT Respiratory Rate - - Oxygen Saturation 99% 12/10/2019 2:41 PM EDT Inhaled Oxygen Concentration - - Weight 70.3 kg (155 lb) 12/10/2019 2:41 PM EDT Height 170.2 cm (5' 7) 12/10/2019 2:41 PM EDT Body Mass Index 24.28 12/10/2019 2:41 PM EDT documented in this encounter Discharge Instructions Patient InstructionsCedric Witt MD - 12/10/2019 5:20 PM EDT Please see Recommendations in the Provation procedure report which is documented in the procedural note in E-DH. AttachmentsThe following attachments cannot be sent through Care Everywhere.ERCP (Endoscopic Retrograde Cholangiopancreatogram): Post-op ([place])documented in this encounter Medications at Time of [...] (after meals). documented as of this encounter H&P Notes Samanta Leggett - 12/10/2019 4:26 PM EDT Patient Name: Korin Posada Patient Age: 59 y.o. Birthdate: 1960 Admit date: 12/10/2019 Attending Physician: Cedric Witt MD Gastroenterology and Hepatology Pre-Procedure History and Physical Exam Procedure: ERCP: Indication: choledocholithiasis Patient Active Problem List Diagnosis Code ??? Major depressive disorder, recurrent episode F33.9 ??? Migraine without aura, without mention of intractable migraine without mention of status migrainosus G43.009 ??? Anxiety F41.9 ??? Hypothyroidism E03.9 ??? Gastroesophageal reflux K21.9 ??? S/P arthroscopy of shoulder, right Dr. Hernandez. biceps tenotomy, DCE and SAD DOS: 07/12/2016 Z98.890 EXAM: HEENT: Airway examined, oropharynx clear Mallampati Score: I (soft palate, uvula, fauces, tonsillar pillars visible) LUNGS: Clear to auscultation HEART: Regular rate and rhythm, normal S1, S2 ABDOMEN: Normal bowel sounds, soft, non tender, non distended, A/P Proceed with the planned endoscopic procedure. ASA 2 - Patient with mild systemic disease with no functional limitations Sedation Plan: anesthesia Risks and benefits of the procedure explained to the patient. Consent signed. Please see separate consult note for further details. Samanta Leggett MD Gastroenterology PGY-5 12/10/2019 4:26 PM Pager #[phone] documented in this encounter Miscellaneous Notes Op Note - Cedric Witt MD - 12/10/2019 5:[address] [facility] Operative Note Patient Name: Korin Posada : [id number] MR#: [id number] Case Date: 12/10/2019 Surgeon: Surgeon(s) and Role: * Cedric Witt MD - Primary Preoperative diagnosis: Choledocholithiasis Postoperative diagnosis: * No post-op diagnosis entered * Procedure(s) (LRB): ERCP W/SPHINCTEROTOMY/PAPILLOTOMY (N/A) ERCP W/REMOVAL CALCULI/DEBRIS FROM BILARY/PANCREATIC DUCT(S) Full procedure note is documented under the Procedure section of eDH. documented in this encounter Plan of Treatment Upcoming Encounters Date Type Specialty Care Team Description 02/06/2023 Hospital Encounter Gastroenterology Cony Tavera MD [facility] ER GASTROENTEROLOGY DEPT. [place], [place] [address] (Wo rk) Scheduled Procedures Name Priority Associated Diagnoses Date/Time COLONOSCOPY, DIAGNOSTIC 10 yr surv documented as of this encounter Procedures Procedure Name Priority Date/Time Associated Diagnosis Comme nts XR ERCP Routine 12/10/2019 5:21 PM Results f or this EDT procedure are i n the results section. ERCP W/REMOVAL 12/10/2019 4:35 PM Choledocholithiasis CALCULI/DEBRIS FROM EDT BILARY/PANCREATIC DUCT(S) ERCP 12/10/2019 4:35 PM Choledocholithiasis W/SPHINCTEROTOMY/PA EDT PILLOTOMY ERCP Routine 12/10/2019 4:17 PM Results f or this EDT procedure are i n the results section. documented in this encounter Results XR ERCP (12/10/2019 5:21 PM EDT) Specimen (Source) Anatomical Location Collection Method / Collectio n Time Received Time / Laterality Volume Narrative [facility] - 12/10/2019 5:22 PM EDT See PACS for result report. Cedric Witt MD IMG FILM LIBRARY ORDERABLES Performing Organization Address City/State/ZIP Code Phon e Number [place], [place] ERCP (12/10/2019 4:17 PM EDT) Component Value Ref Test Analysis Performed At [facility] Range Method Time Signature ERCP [facility] [place] Endoscopy Procedure Date: 12/10/2019 4:17 PM ? Patient Name: Korin Posada ? Date of : 1960 ? Age: 59 ? Order #: [id number] ? Instrument Name: [id number] ? Procedure: ? ERCP Indications: ? Abnormal MRCP, Evaluation and ? possible treatment of bile du ct ? stone(s) Providers: ? Cedric Witt MD, [facility] J. ? Romi Leggett Deanna ? Zuleyka Junior Referring MD: ?Melanie Abrams MD Medicines: ? General Anesthesia, Indomethacin 1 00 ? mg AR Complications: ? No immediate complications. Procedure: ? Pre-Anesthesia Assessment: ? - Prior to the procedure, a H istory ? and Physical was performed, a nd ? patient medications, allergie s and ? sensitivities were reviewed. The ? patient's tolerance of previo us ? anesthesia was reviewed. ? - The risks and benefits of t he ? procedure and the sedation op tions ? and risks were discussed with the ? patient. All questions were a nswered ? and informed consent was obta ined. ? - ASA Grade Assessment: II - A ? patient with mild systemic di sease. ? - General anesthesia under th e ? supervision of an anesthesiol ogist ? was determined to be medicall y ? necessary for this procedure based on ? complex procedure (ERCP, EUS) . ? The procedure, indications, b enefits, ? risks and alternatives were e xplained ? to the patient. Specifically ? discussed were potential ? complications including, but not ? limited to, bleeding, perfora tion, ? infection, pancreatitis, miss ing a ? cancer, and adverse medicatio n ? reactions.The Duodenoscope wa s ? introduced through the mouth, and ? advanced to the duodenum wher e it was ? used to inject contrast into and used ? to inject contrast into the b ile ? duct. The patient tolerated t he ? procedure well. ? Findings: ? A hydrogenation operator film of the abdomen was obtained. Surgical ? clips, consistent with a previous cholecystectomy, ? were seen in the area of the right upper quadrant of ? the abdomen. The esophagus was successfully intubated ? under direct vision. The scope was advanced to a ? normal major papilla in the descending duodenum ? without detailed examination of the pharynx, larynx ? and associated structures, and upper GI tract. The ? upper GI tract was grossly normal. The bile duct was ? deeply cannulated with the short-nosed traction ? sphincterotome and guidewire. Contrast was injected. ? I personally interpreted the bile duct images. There ? was brisk flow of contrast through the ducts. Image ? quality was excellent. Contrast extended to the ? hepatic ducts. Opacification of the entire biliary ? tree except for the gallbladder was successful. The ? maximum diameter of the ducts was 8 mm. The middle ? third of the main bile duct contained one stone, ? which was 6 mm in diameter. A 0.025 in Visiglide II ? wire was passed into the biliary tree. A 10 mm ? biliary sphincterotomy was made with a monofilament ? CleverCut [id number] sphincterotome using ERBE ? electrocautery. There was no post-sphincterotomy ? bleeding. The biliary tree was swept with an 11.5 mm ? balloon starting at the bifurcation. One stone was ? removed. No stones remained. The pancreatic duct was ? not accessed. ? Moderate Sedation: ? Not applicable - See Anesthesia documentation Impression: ?- Choledocholithiasis was found. ? Complete removal was accompli shed by ? biliary sphincterotomy and ba lloon ? extraction. Recommendation: ?- Observe patient's clinical course. ? - The attending physician kay nicole ? above was present for the ent erick ? procedure. ? Attending Participation: ? I was present and participated during the entire ? procedure, including non-smith portions. ? Cedric Witt MD 12/10/2019 5:19:43 PM This report has been signed electronically. Number of Addenda: 0 Note Initiated On: 12/10/2019 4:17 PM Specimen (Source) Anatomical Collection Method Collection Time Re ceived Time Location / / Volume Laterality 12/10/2019 4:17 PM EDT Melanie Abrams MD GENERAL SURGICAL ORDERABLES Performing Organization Address City/State/ZIP Code Phon e Number [place] documented in this encounter Visit Diagnoses Not on filedocumented in this encounter Administered Medications Inactive Administered Medications - up to 3 most recent administrations Medication Order MAR Action Action Date Dose Rate Site indomethacin (Indocin) suppository Given 12/10/2019 5:08 PM EDT 100 mg 100 mg 100 mg, Rectal, ONCE, 1 dose, On Tue12/10/19 at 1730, Endoscopy (Intra-Procedure), Routine lactated ringers infusion New Bag 12/10/2019 5:58 PM EDT 100 mL/hr 100 mL/hr 100 mL/hr, Intravenous, CONTINUOUS, Starting on Tue12/10/19 at 1500, Until Tue12/10/19 at 1854, Endoscopy (Day of Procedure) New Bag 12/10/2019 2:48 PM EDT 100 mL/hr 100 mL/hr documented in this encounter Active and Recently Administered Medications Times are shown in EDT. Scheduled Medication Order 12/08/2019 12/09/2019 12/10/2019 indomethacin (Indocin) suppository 100 mg (COMPLETED) 1708 (Given - Provider: Shu Junior RN)1730 (Due) 100 mg, Rectal, ONCE, 1 dose, On 11/19 at 1730, Endoscopy (Intra- Procedure), Routine Continuous Medication Order 12/08/2019 12/09/2019 12/10/2019 lactated ringers infusion (CANCELED) 1448 (New Bag - Provider: Zahra Garcia RN)1758 (New Bag - Provider: Gina Roche RN) 100 mL/hr, at 100 mL/hr, Intravenous, CO NTINUOUS, Starting Tue12/10/19 at 1500, Until Tue12/10/19 at 1854, Endo (Day of Procedure) documented in this encounter Care Teams Wood Boring Machine Operator Relationship Specialty Start Date End Date Melanie Abrams MD PCP - General 05/12/10 [facility] [place] [address] documented as of this encounter
--- OUTSIDE RECORDS SUMMARY | 2022-02-06 14:12 | XMS_ITS | Encounter Summary ---
:1960 Author Organization [facility] [place] [address] Care Team Providers Name Role Phone Melanie Abrams MD Primary Care Provider Reason for Visit Reason Comments Abdominal Pain dx at other ED with constipa tion Encounter Details Date Type Department Care Team Description 12/05/2016 Emergency Emergency Department Davis Pimentel MD Constipation, unspecified constipation t ype (Primary Dx); [facility] Pain; [facility] Transaminitis; [facility] Emergency Med icine Nausea and vomiting, intractability of v omiting not specified, [place] [address] [place], [place] [phone] (Work) [phone] Social History Tobacco Use Types Packs/Day Years [...] place to sleep or slept in a half-way (including now)? Sex Assigned at Date Recorded Female 08/01/2020 8:27 AM EST documented as of this encounter Last Filed Vital Signs Vital Sign Reading Time Taken Comments Blood Pressure 140/95 12/05/2016 10:24 PM EDT Pulse 90 12/05/2016 10:24 PM EDT Temperature 36.6 ??C (97.8 ??F) 12/05/2016 10:24 PM EDT Respiratory Rate 16 12/05/2016 10:24 PM EDT Oxygen Saturation 99% 12/05/2016 10:24 PM EDT Inhaled Oxygen Concentration - - Weight 65.8 kg (145 lb) 12/05/2016 5:16 PM EDT Height - - Body Mass Index 22.71 10/07/2016 9:57 AM EDT documented in this encounter Discharge Instructions Discharge InstructionsChastity Pimentel MD - 12/05/2016 10:14 PM EDT [facility] Constipation: Care Instructions Your Care Instructions Constipation means that you have a hard time passing stools (bowel movements). People pass stools from 3 times a day to once every 3 days. What is normal for you may be different. Constipation may occur with pain in the rectum and cramping. The pain may get worse when you try to pass stools. Sometimesthere are small amounts of bright red blood on toilet paper or the surface of stools. This is because of enlarged veins near the rectum (hemorrhoids). A few changes in your diet and lifestyle may help you avoid ongoing constipation. Your doctor may also prescribe medicine to help loosen your stool. Some medicines can cause constipation. These include pain medicines and antidepressants. Tell your doctor about all the medicines you take. Your doctor may want to make a medicine change to ease your symptoms. Follow-up care is a smith part of your treatment and safety. Be sure to make and go to all appointments, and call your doctor if you are having problems. It's also a good idea to know your test results and keep a list of the medicines you take. How can you care for yourself at home? ?? Drink plenty of fluids, enough so that your urine is light yellow or clear like water. If you have kidney, heart, or liver disease and have to limit fluids, talk with your doctor before you increasethe amount of fluids you drink. ?? Include high-fiber foods in your diet each day. These include fruits, vegetables, beans, and whole grains. ?? Get at least 30 minutes of exercise on most days of the week. Walking is a good choice. You also may want to do other activities, such as running, swimming, cycling, or playing tennis or team sports. ?? Take a fiber supplement, such as Citrucel or Metamucil, every day. Read and follow all instructions on the label. ?? Schedule time each day for a bowel movement. A daily routine may help. Take your time having yourbowel movement. ?? Support your feet with a small step stool when you sit on the toilet. This helps flex your hips and places your pelvis in a squatting position. ?? Your doctor may recommend an [id number]-[id number] laxative to relieve your constipation. Examples areMilk of Magnesia and MiraLax. Read and follow all instructions on the label. Do not use laxatives karen long-term basis. When should you call for help? Call your doctor now or seek immediate medical care if: ?? You have new or worse belly pain. ?? You have new or worse nausea or vomiting. ?? You have blood in your stools. Watch closely for changes in your health, and be sure to contact your doctor if: ?? Your constipation is getting worse. ?? You do not get better as expected. Where can you learn more? Visit our [employer] information library at [email or web address] You can also view health information on [employer], your personal patient account. Log in or sign up today. Enter P343 in the search box to learn more about Constipation: Care Instructions. ?? [id number] [employer]. Care instructions adapted under license by [facility]. This care instruction is for use with your licensed healthcare professional. If you have questionsabout a medical condition or this instruction, always ask your healthcare professional. [employer] disclaims any warranty or liability for your use of this information. Content Version: 11.0.665823; Current as of: November 14, 2015 documented in this encounter Medications at Time of Discharge Medication Sig Dispensed Refills Start Date End Date venlafaxine (EFFEXOR-XR) Take 1 capsule by 90 capsule 3 04/2006/07/2017 37.5 mg Capsule, Sust. mouth nightly. Release 24 hr venlafaxine (EFFEXOR-XR) Take 1 capsule by 90 capsule 3 04/2006/24/2017 75 mg Capsule, Sust. mouth every Release 24 hr morning. traZODone (DESYREL) 100 Take 1 tablet by 90 tablet 3 201505/13/2017 mg Tablet mouth nightly. levothyroxine (SYNTHROID) Take 1 tablet by 90 tablet 3 04/2005/16/2017 50 mcg TabletIndications: mouth daily. Acquired hypothyroidism Patient needs labs drawn before next refill. SUMAtriptan (IMITREX) 100 Take 1 tablet by 12 tablet 11 01/1803/11/2017 mg TabletIndications: mouth 2 times daily Migraine without aura and as needed for without status Migraine. migrainosus, not intractable fish oil-omega-3 fatty Take by mouth 3 0 12/04/2021 acids 300 mg Capsule times daily (after meals). riboflavin, vitamin B2, Take by mouth 4 0 09/11/2018 100 mg Tablet times daily. lansoprazole (PREVACID Take 1 tablet by 90 tablet 3 015 09/11/2018 SOLUTAB) 15 mg mouth daily. Tablet,Rapid Dissolve, DR magnesium oxide (MAG-OX) Take 400 mg by 0 05/04/2017 400 mg tablet mouth daily. Reported on 12/08/2016 documented as of this encounter ED Notes Magali Rendon RN - 12/05/2016 8:21 PM EDT Fleet enema given. Pt tolerated well. Verena Mccain RN - 12/05/2016 6:16 PM EDT Attempting to get results from yesterdays visit at [facility] sent to this facility Verena Mccain RN - 12/05/2016 5:47 PM EDT Pt seen by ED resident at this time Cristi Powers - 12/05/2016 5:39 PM EDT Korin Posada is an 56 y.o. female who presents to the ED with: Chief Complaint Patient presents with ??? Abdominal Pain dx at other ED with constipation I saw this patient 12/05/2016 at 1747. HPI Korin Posada is a 56 y.o. female with a PMHx of hypothyroidism who presents to the Emergency Department for abdominal pain. She describes an achy left sided abdominal pain starting about 7 days ago. No nausea at that time. This progressed to include right sided upper abdominal pain 2 days ago withassociated nausea. Pain was not worsened around meal time but she did decrease her portion size because of nausea. Korin went to [facility] ([facility]) yesterday where an abdominal CT demonstrated constipation for which she was given docusate and a bisacodyl suppository, producing one small hard bowel movement. Her pain only mildly improved so she called [facility] today and was r ecommended to start magnesium citrate which she vomited shortly after taking. She decided to come here for further evaluation. Denies ever having constipation or abdominal pain in the past. She is complaint on her levothyroxine, last TSH was normal 04/2016. She had a cholecystectomy 20 years ago. Onlyother abdominal surgery was a hysterectomy. Labs from OSH (12/04): K+: 3.4 (L) BUN: 8 (WNL) Cr: 0.73 (WNL) AST: 15 (WNL) ALT: 26 (WNL) Alkaline phosphatase: 85 (WNL) Lipase: 133 (WNL) Review of Systems: Review of Systems 10 systems reviewed and negative other than reported in HPI. Patient Vitals for the past 24 hrs: BP Temp Temp src Pulse Resp SpO2 Weight 12/05/16 2224 (!) 140/95 36.6 ??C (97.8 ??F) Oral 90 16 99 % - 12/05/16 2100 (!) 144/101 - - 91 - 98 % - 12/05/161999 - - - - - 99 % - 12/05/16 1716 (!) 155/101 36.4 ??C (97.5 ??F) Oral 97 - 97 % 65.8 kg (145 lb) Physical Exam: Physical Exam Constitutional: No distress. Cardiovascular: Regular rhythm. Exam reveals no gallop and no friction rub. No murmur heard. Tachycardic rate Pulmonary/Chest: No respiratory distress. She has no wheezes. She has no rales. Abdominal: Normal bowel sounds. No overt distension. Some tenderness to palpation without guarding involving right upper quadrant. Musculoskeletal: She exhibits no edema. Skin: Skin is warm and dry. No rash noted. She is not diaphoretic. No erythema. ED Course: - Patient was evaluated and discussed with Dr. Pimentel - Medications, allergies and past medical history reviewed - I reviewed the patients records: OP orthopedic surgery notes - Medications and fluids administered: ondansetron, sodium chloride 1L - I reviewed the patient's labwork: CBC, BMP, LFT, lipase, TSH - I reviewed the x-ray images (OSH): CXR with no acute cardiopulmonary process - I reviewed the CT images (OSH): constipation - I discussed the case with: Dr. Pimentel - Patient was seen and evaluated. Ondansetron and sodium chloride (1L bolus) administered. Labs drawn including CBC, BMP, LFT, lipase, and TSH. [facility] records obtained including CXR and CT films. 2nd read on films performed. Fleet enema administered with good results. Patient tolerated oral challenge prior to discharge. Assessment and Plan: Assessment: 56 y.o. female with hypothyroidism presenting with abdominal pain over the last 1 week with associated nausea over the last 2 days. She was diagnosed with constipation at [facility] but failed toimprove with suppository and oral laxative therapy. Outside imaging consistent with constipation on second read by [facility] radiologists. There is evidence of acute liver injury although etiology is unclear. This does not appear to be obstructive especially given her gallbladder was removed 20 years ago. There is mild ductal dilation on CT although this is commonly observed following cholecystectomy. Given improvement in patient's clinical appearance and subjective assessment following bowel output (post-fleet enema administration), she is safe for discharge today with close PCP follow-up. She agrees to see PCP within 3 days with repeat liver function testing and discussion regarding initiation of PPItherapy given potential pyloric ulcer on CT imaging. Return precautions were verbally discussed with the patient and written in discharge instructions, including fevers, shortness of breath, abdominal pain, nausea/vomiting, worsening abdominal pain, or other concerns. The patient expressed understanding that she could come back to the ED at any time andagreed to the follow-up plan. Plan: - Discharge to home - Continue home docusate, magnesium citrate daily (w/ PRN bisacodyl suppository) - Follow up with PCP within 3 days for follow-up - Recommend repeat liver function testing with PCP follow-up - Recommend further evaluation for possible pyloric ulcer (initiation of PPI TBD by PCP) - Return precautions clearly discussed Cristi Powers MD 12/05/2016 Cristi Powers MD Resident 12/05/16 2224 Associated attestation - Chastity Pimentel MD - 12/06/2016 12:01 AM EDT ED ATTENDING ATTESTATION The patient was seen in conjunction with the resident physician. I have independently performed the smith portions of the history and physical exam. I have personally reviewed nursing notes, vital signs,and diagnostic studies including labs, imaging studies and EKGs. I have discussed the details of the case with the resident and agree with the assessment and plan as described in the resident's note, unless stated otherwise in my separate note. 56 yo female with h/o cholecystectomy and hysterectomy presents with constipation and emesis, seen at [facility] yesterday for same symptoms and received lab work and CTAP which was only notable for constipation. She was discharged home with bowel regimen and now presents today with vomiting and generalized abdominal discomfort. No fever or other systemic symptoms. Clinically non-toxic appearing with mild hypertension and otherwise normal vitals. Exam notable for soft abdomen without focal tenderness. CT images obtained from [facility] which were read by Radiology and found to have no acute process but significant constipation and a possible pyloric ulcer. Labs notable for a transaminitis with normal bilis, renal function, wbc and electrolytes . Patient given enema with subsequent bowel movement and symptom relief. She tolerated oral intake and requested to be discharged home. I advised she continue withbowel regimen, follow up with PCP in 1-2 days for re-evaluation and repeat LFTs, provided return precautions for worsening symptoms or concerns. She expressed understanding and agreement with plan. documented in this encounter Miscellaneous Notes ED Triage - Hany Del Toro RN - 12/05/2016 5:19 PM EDT Pt was seen at [facility] dx with constipation pt has taken colace today had mag citrate and did vomit most of it up/ pt has not had any stool results/ last normal BM is unknown / denies urinary issues/ Pt is uncomfortable appearing denies fevers no guarding with ambulation documented in this encounter Plan of Treatment Upcoming Encounters Date Type Specialty Care Team Description 02/06/2023 Hospital Encounter Gastroenterology Cony Tavera MD [facility] GASTROENTEROLOGY DEPT. [place], [place] [address] (Wo rk) Scheduled Procedures Name Priority Associated Diagnoses Date/Time COLONOSCOPY, DIAGNOSTIC 10 yr surv documented as of this encounter Procedures Procedure Name Priority Date/Time Associated Diagnosis Comme nts REQUEST FOR 2ND STAT 12/05/2016 7:10 PM Result s for this READ CT ABDOMEN AND EDT procedur e are in PELVIS the results section. HEMOGRAM STAT 12/05/2016 6:10 PM Results f or this EDT procedure are i n the results section. DIFFERENTIAL, STAT 12/05/2016 6:10 PM Results for this AUTOMATED EDT procedure are i n the results section. BLUE TUBE HOLD STAT 12/05/2016 6:10 PM Results for this EDT procedure are i n the results section. CBC (WITH DIFF) STAT 12/05/2016 6:10 PM EDT TSH STAT 12/05/2016 6:10 PM Results f or this EDT procedure are i n the results section. LIPASE STAT 12/05/2016 6:10 PM Results f or this EDT procedure are i n the results section. HEPATIC FUNCTION STAT 12/05/2016 6:10 PM Resul ts for this PANEL EDT procedure are i n the results section. BASIC METABOLIC STAT 12/05/2016 6:10 PM Result s for this PANEL (NON-FASTING) EDT procedur e are in the results section. FILM LIBRARY STAT 12/04/2016 12:05 AM Pain Results for this STORAGE ONLY DX EDT procedure ar e in CHEST the results section. FILM LIBRARY STAT 12/04/2016 12:00 AM Pain Results for this STORAGE ONLY CT EDT procedure ar e in ABDOMEN AND PELVIS the resul ts section. documented in this encounter Results (ABNORMAL) Request For 2nd Read CT Abdomen & Pelvis (12/05/2016 7:10 PM EDT) Anatomical Region Laterality Modality Abdomen, Pelvis SO Specimen (Source) Anatomical Location Collection Method / Collectio n Time Received Time / Laterality Volume Impressions 12/05/2016 7:20 PM EDT Constipation. Findings raise the possibility of a pylo juan ulcer. Narrative 12/05/2016 7:20 PM EDT EXAMINATION: ??REQUEST FOR 2ND READ CT ABDOMEN AND PELVIS CLINICAL HISTORY: ??recurrent abd pain, emesis; What Modality is the exam? CT Scan; Body Part (please add comments as necessary): abdomen and pelvis; I believe a reinterpretation of this exam may alter care of Patient. Yes TECHNIQUE: Helical CT of the abdomen and pelvis was performed following the intravenous administration of contrast. 84 cc of Omnipaque 350 was given. Study performed December 04, 2016 at [facility] COMPARISON: ??None FINDINGS: Lower chest: Normal. Liver: Normal size and attenuation witho ut lesions. Bile ducts: Mild intra and extrahepatic biliary dilation which is not unexpected in the setting status post cholecystecto my. Gallbladder: Absent Pancreas: Normal attenuation without nichole dom dilatation. Spleen: Normal. Adrenals: Normal. Kidneys: Normal. ? Vasculature: Patent portal and hepatic v eins. Nonaneurysmal abdominal aorta with scant atherosclerotic calcification. Lymph Nodes: No enlarged lymph nodes. Bowel: Large bowel distended with formed fecal material throughout particularly in the right:. The distended cecum hangs into the low pelvis. No perienteric inflammatory change nor mural thickening . Prominent pylorus with air bubbles noted peripheral to the lumen. Peritoneum and mesentery: No ascites, fr ee air, or loculated fluid collection. No mesenteric inflammation. Abdominal wall: Normal. Urinary Bladder: Normal. Reproductive organs: Normal. Osseous structures: No suspicious lesion s. Resulting Agency Comment Unexpected Finding Procedure Note Selina Rodriguez MD - 12/05/2016 EXAMINATION: REQUEST FOR 2ND READ CT ABD OMEN AND PELVIS CLINICAL HISTORY: recurrent abd pain, em esis; What Modality is the exam? CT Scan; Body Part (please add comments as necessary): abdomen and pelvis; I believe a reinterpretation of this exam may alter care of Patient. Yes TECHNIQUE: Helical CT of the abdomen and pelvis was performed following the intravenous administration of contrast. 84 cc of Omnipaque 350 was given. Study performed December 04, 2016 at [facility] COMPARISON: None FINDINGS: Lower chest: Normal. Liver: Normal size and attenuation witho ut lesions. Bile ducts: Mild intra and extrahepatic biliary dilation which is not unexpected in the setting status post cholecystecto my. Gallbladder: Absent Pancreas: Normal attenuation without nichole dom dilatation. Spleen: Normal. Adrenals: Normal. Kidneys: Normal. Vasculature: Patent portal and hepatic v eins. Nonaneurysmal abdominal aorta with scant atherosclerotic calcification. Lymph Nodes: No enlarged lymph nodes. Bowel: Large bowel distended with formed fecal material throughout particularly in the right:. The distended cecum hangs into the low pelvis. No perienteric inflammatory change nor mural thickening . Prominent pylorus with air bubbles noted peripheral to the lumen. Peritoneum and mesentery: No ascites, fr ee air, or loculated fluid collection. No mesenteric inflammation. Abdominal wall: Normal. Urinary Bladder: Normal. Reproductive organs: Normal. Osseous structures: No suspicious lesion s. IMPRESSION Constipation. Findings raise the possibility of a pylo juan ulcer. Chastity Pimentel MD IMG OUTSIDE INTERPRETATION O RDERABLES Blue Tube HOLD (12/05/2016 6:10 PM EDT) athologist Signature Blue Hold Sample in [facility]. [facility] LABORATORY Specimen Anatomical Collection Method Collection Time Receive d Time (Source) Location / / Volume Laterality Blood specimen Venous Draw / 12/05/2016 6:10 PM 2016 6:15 (specimen) Unknown EDT PM EDT Chastity Pimentel MD HEMATOLOGY ORDERABLES Performing Organization Address City/State/[place] [address] (ABNORMAL) Differential, Automated (12/05/2016 6:10 PM EDT) [facility] gist Method Time Signature Neutrophils % 80.6 % [facility] Neutr Abs (ANC) 7.33 (H) 1.70 - [facility] 6.10 [facility] x10(3)/[facility] LABORATORY Lymphocytes % 9.8 % [facility] Lymphocytes Abs 0.9 0.9 - 3.2 [facility] x10(3)/[facility] LABORATORY Monocytes % 7.6 % [facility] Monocyte Abs 0.7 0.3 - 0.9 [facility] x10(3)/[facility] LABORATORY Eosinophils % 1.4 % [facility] Eosinophils Abs 0.1 0.0 - 0.4 [facility] x10(3)/[facility] LABORATORY Basophils % 0.3 % [facility] Basophils Abs 0.0 0.0 - 0.1 [facility] x10(3)/[facility] LABORATORY Immature Gran % 0.30 % [facility] Comment: Immature granulocytes(IG's)percentage an d absolute count will include metamyelocytes, myelocytes, and promyelo cytes. Blood smears from CBCs yielding IG's will be scanned manually for concor dance. If this scan disagrees with the automated IG or if promyelocytes are not ed, a manual differential will be performed. Aleksandra Gran Abs 0.03 0.00 - 0.04 x10(3)/[facility] LAB[facility] Specimen Anatomical Collection Method Collection Time Receive d Time (Source) Location / / Volume Laterality Blood specimen 12/05/2016 6:10 PM 017 6:14 (specimen) EDT PM EDT Resulting Agency Comment Spec In Lab Chastity Pimentel MD HEMATOLOGY ORDERABLES Performing Organization Address City/State/[place] [address] (ABNORMAL) Hemogram (12/05/2016 6:10 PM EDT) Analysis Performed At Patho logist Time Signature WBC 9.1 4.0 - 9.5 [facility] x10(3)/[facility] LABORATORY RBC 5.61 (H) 4.00 - [facility] 5.21 [facility] x10(6)/[facility] LABORATORY Hemoglobin 17.0 (H) 11.7 - [facility] 15.5 gm/dL [facility] Hematocrit 49.2 (H) 35.7 [facility] 45.[facility] % [facility] LABORATORY MCV 87.7 82.6 - [facility] 94.4 [facility] LABORATORY MCH 30.3 27.1 - [facility] 32.[address] [facility] LABORATORY MCHC 34.6 31.7 - [facility] 35.0 gm/dL [facility] LABORATORY Platelets 234 145 - 357 [facility] x10(3)/[facility] LABORATORY RDWSD 43.1 37.0 - [facility] [place] 46.0 [facility] LABORATORY RDWCV 13.2 11.5 - [facility] [place] 14.1 % [facility] LABORATORY MPV 10.3 7.6 - 12.9 [facility] LABORATORY nRBC % Auto 0.0 % [facility] LABOR[facility] nRBC Abs Auto 0.000 0.000 - [facility] 0.000 [facility] x10(3)/[facility] LABORATORY Specimen Anatomical Collection Method Collection Time Receive d Time (Source) Location / / Volume Laterality Blood specimen 12/05/2016 6:10 PM 017 6:14 (specimen) EDT PM EDT Resulting Agency Comment Spec In Lab Chastity Pimentel MD HEMATOLOGY ORDERABLES Performing Organization Address City/State/ZIP Code Phon e Number [address] TSH (12/05/2016 6:10 PM EDT) P athologist Signature TSH 3.66 0.27 - 4.20 [facility] mlU/ML [facility] LABORATORY Specimen Anatomical Collection Method Collection Time Receive d Time (Source) Location / / Volume Laterality Blood specimen 12/05/2016 6:10 PM 017 6:14 (specimen) EDT PM EDT Resulting Agency Comment Spec In Lab Chastity Pimentel MD CHEMISTRY ORDERABLES Performing Organization Address City/State/ZIP Code Phon e Number [address] Lipase (12/05/2016 6:10 PM EDT) P athologist Signature Lipase 33 0 - 60 [facility] unit/L [facility] LABORATORY Specimen Anatomical Collection Method Collection Time Receive d Time (Source) Location / / Volume Laterality Blood specimen 12/05/2016 6:10 PM 017 6:14 (specimen) EDT PM EDT Resulting Agency Comment Spec In Lab Chastity Pimentel MD CHEMISTRY ORDERABLES Performing Organization Address City/[facility]/ZIP Code Phon e Number [address] (ABNORMAL) Hepatic Function Panel (12/05/2016 6:10 PM EDT) athologist Signature Total Protein 7.6 6.1 - 8.0 [facility] NO[facility] gm/dL [facility] LABORATORY Albumin 4.4 3.2 - 5.2 [place] [facility] gm/dL [facility] AST 225 (H) 0 - 30 [facility]L [facility] ALT 165 (H) 0 - 30 [facility] unit/L [facility] Alk Phos 107 (H) 40 - 104 [facility]L [facility] Total 0.6 0.2 - 1.3 [facility] Bilirubin mg/dL [facility] Bili, Direct 0.2 0.0 - 0.3 [facility] mg/dL [facility] Specimen Anatomical Collection Method Collection Time Receive d Time (Source) Location / / Volume Laterality Blood specimen 12/05/2016 6:10 PM 017 6:14 (specimen) EDT PM EDT Resulting Agency Comment Spec In Lab Chastity Pimentel MD CHEMISTRY ORDERABLES Performing Organization Address City/[facility]/[place] [address] (ABNORMAL) Basic Metabolic Panel (non-fasting) (12/05/2016 6:10 PM EDT) athologist [facility] Glucose Lvl 134 65 - 199 [facility] mg/dL [facility] Comment: Diabetes: >=200 mg/dL plus symp toms BUN 13 8 - 18 mg/dL [facility] Creatinine 0.79 0.70 - 1.20 mg/dL [facility] Comment: Please note that the pediatric reference intervals supplied above were not validated at [facility]. Results from pediatri c patients should be interpreted in conjunction to the patient's age, height and muscle mass. Sodium 137 135 - 145 mmol/L [facility] Potassium 3.7 3.5 - 5.0 mmol/L [facility] Comment: Please note: ??Patients with WBC >100,00 0 may have falsely elevated Potassium levels. ??For accurate Potassium quantif ication in these patients send serum separator tube (gold top) for subsequent determinations. ??Contact the Clinical Chemistry Laboratory if there are any qu estions. Chloride 97 (L) 98 - 107 mmol/L [facility] CO2 24 22 - 31 mmol/L [facility] Anion Gap 16 (H) 5 - 15 mmol/L [facility] Calcium 9.9 8.5 - 10.5 mg/dL [facility] Estimated GFR >60 >=60 [facility] Comment: This estimated GFR (eGFR) value was calc ulated using the MDRD equation which has been validated on patients between t he ages of 18 and 70. The MDRD should not be used to assess kidney function in patients < 18 years of age or in patients with extremes of body mass, or in patients with acute kidney failure. This value should be multiplied by 1.2 f or patients. For further information please copy and past e the following links into your internet browser. http://Xymogen/DHnkdep http://Xymogen/DHnkf Specimen Anatomical Collection Method Collection Time Receive d Time (Source) Location / / Volume Laterality Blood specimen 12/05/2016 6:10 PM 017 6:14 (specimen) EDT PM EDT Resulting Agency Comment Spec In Lab Chastity Pimentel MD CHEMISTRY ORDERABLES Performing Organization Address City/State/[place] [address] Film Library- Storage Only DX Chest (12/04/2016 12:05 AM EDT) Specimen (Source) Anatomical Location Collection Method / Collectio n Time Received Time / Laterality Volume Narrative [facility] - 12/05/2016 6:50 PM EDT This exam is for storage only and is aut o-finalizing. Chastity Pimentel MD IM FILM LIBRARY ORDERABLES Performing Organization Address City/State/ZIP Code Phon e Number [place], [place] Film Library- Storage Only CT Abdomen & Pelvis (12/04/2016 12:00 AM EDT) Specimen (Source) Anatomical Location Collection Method / Collectio n Time Received Time / Laterality Volume Narrative [facility] - 12/05/2016 6:48 PM EDT This exam is for storage only and is aut o-finalizing. Chastity Pimentel MD IMG FILM LIBRARY ORDERABLES Performing Organization Address City/State/ZIP Code Phon e Number [place], [place] documented in this encounter Visit Diagnoses Diagnosis Constipation, unspecified constipation t ype - Primary Pain Generalized pain Transaminitis Nonspecific elevation of levels of trans aminase or lactic acid dehydrogenase (LDH) Nausea and vomiting, intractability of v omiting not specified, unspecified vomiting type documented in this encounter Administered Medications Inactive Administered Medications - up to 3 most recent administrations Medication Order MAR Action Action Date Dose Rate Site ondansetron (ZOFRAN) injection 4 mg Given 12/05/2016 6:13 PM EDT 4 mg 4 mg, Intravenous, ONCE, 1 dose, On 12/05/16 at 1757, Routine sodium chloride 0.9% 1,000 mL IV bolus Given 12/05/2016 6:13 PM EDT 4000 mL/hr at 4,000 mL/hr, Intravenous, ONCE, 1 dose, On 12/05/16 at 1757 documented in this encounter Active and Recently Administered Medications Times are shown in EDT. Scheduled Medication Order 12/03/2016 12/04/2016 12/05/2016 ondansetron (ZOFRAN) injection 4 mg (COMPLETED) 1812 (Given - Provider: Verena Mccain, AMANDA) 4 mg, Intravenous, ONCE, 1 dose, 12/05/16 at 1757, Routine sodium chloride 0.9% 1,000 mL IV bolus (COMPLETED) 1812 (Given - Provider: Verena Mccain, AMANDA) at 4,000 mL/hr, Intravenous, ONCE, 1 dose, 12/05/16 at 1757 documented in this encounter Care Teams Periodontal Assistant Relationship Specialty Start Date End Date Melanie Abrams MD PCP - General 05/12/[address] [facility] [place] [address] documented as of this encounter
--- OUTSIDE RECORDS SUMMARY | 2022-02-06 14:12 | XMS_ITS | Encounter Summary ---
:1960 Author Organization [facility] [place] [address] Care Team Providers Name Role Phone Keren Finley MD Primary Care Provider Reason for Visit Reason Onset Date Comments Medication Refill 05/13/2017 Encounter Details Date Type Department Care Team Description 05/16/2017 Telephone Family Medicine at [facility] Monik Jones CMA Medication Refill [address] [place] [address] Social History Tobacco Use Types Packs/Day [...] documented as of this encounter Miscellaneous Notes Addendum Note - Keren Finley MD - 05/16/2017 1:24 PM EST Addended by: KEREN FINLEY on: 05/16/2017 01:24 PM Modules accepted: Orders Addendum Note - Monik Jones CMA - 05/16/2017 1:06 PM EST Addended by: MONIK JONES on: 05/16/2017 01:06 PM Modules accepted: Orders Telephone Encounter - Monik Jones CMA - 05/16/2017 10:02 AM EST From: Korin Posada To: Keren Finley MD Sent: 05/13/2017 6:41 AM EST Subject: Medication Renewal Request Original authorizing provider: MD Korin ROSALES would like a refill of the following medications: traZODone (DESYREL) 100 mg Tablet [KEREN FINLEY MD] levothyroxine (SYNTHROID) 50 mcg Tablet [KEREN FINLEY MD] Preferred pharmacy: [facility]-[phone] Comment: documented in this encounter Plan of Treatment Upcoming Encounters Date Type Specialty Care Team Description 02/06/2023 Hospital Encounter Gastroenterology Cony Tavera MD [facility] DR GASTROENTEROLOGY DEPT. [place], [place] [address] (Wo rk) Scheduled Procedures Name Priority Associated Diagnoses Date/Time COLONOSCOPY, DIAGNOSTIC 10 yr surv documented as of this encounter Visit Diagnoses Diagnosis Acquired hypothyroidism Unspecified hypothyroidism documented in this encounter Care Teams Quality Measurement Specialist Relationship Specialty Start Date End Date Keren Finley MD PCP - General 05/12/10 [facility] [address] [facility] [place] [address] documented as of this encounter
--- OUTSIDE RECORDS SUMMARY | 2022-02-06 14:12 | XMS_ITS | Encounter Summary ---
:1960 Author Organization [facility] [place] [address] Care Team Providers Name Role Phone Melanie Abrams MD Primary Care Provider Reason for Referral Physical Therapy (Routine) - Closed Specialty Diagnoses / Procedures Referred By Contact Refer red To Contact Physical Therapy Diagnoses Mixed stress and urge urinary incontinence Harvey Mendoza Wilkins, Ke lly L, PT METHODS STUDY ANALYST [address] [place] [address] OBSTETRICS & Phone: [place] [address] Referral ID Status Reason Start Date Expiration Date Visits V isits Requested Authorized [id number] Closed Evaluate and 05/04/2017 10/31/2017 12 12 Treat Reason for Visit Reason Comments Urinary Incontinence Consultation (Routine) - Closed Specialty Diagnoses / Procedures Referred By Contact Refer red To Contact Obstetrics and Diagnoses Urinary incontinence, unspecified type Melanie Abrams, [facility] [employer] 5l Gynecology [facility] [address] [place] [address] Referral ID Status Reason Start Date Expiration Date Visits V isits Requested Authorized [id number] Closed Consult, 04/01/2017 04/01/2018 1 1 Test & Treat Encounter Details Date Type Department Care Team Description 05/04/2017 Office Visit Obstetrics and Pradeep, Jamal Bryan and urge Gynecology at [facility] METHODS STUDY ANALYST urinary incontinence [facility] [address] JAMILA Fried OBSTETRICS & [phone] GYNECOLOGY [phone] JAMILA FRIED [address] Social History Tobacco Use Types Packs/Day [...] Sign Reading Time Taken Comments Blood Pressure 160/92 05/04/2017 2:03 PM EST Pulse 84 05/04/2017 2:03 PM EST Temperature 36.8 ??C (98.3 ??F) 05/04/2017 2:03 PM EST Respiratory Rate - - Oxygen Saturation 98% 05/04/2017 2:03 PM EST Inhaled Oxygen Concentration - - Weight 70.3 kg (155 lb) 05/04/2017 2:03 PM EST Height 168.9 cm (5' 6.5) 05/04/2017 2:03 PM EST Body Mass Index 24.64 05/04/2017 2:03 PM EST documented in this encounter Progress Notes Harvey Mendoza, METHODS STUDY ANALYST - 05/04/2017 2:15 PM EST Female Pelvic Medicine and Reconstructive Surgery @ [facility] Patient Name: Korin Posada Patient Primary Care Provider: Melanie Abrams MD Patient Active Problem List Diagnosis Code ??? Major depressive disorder, recurrent episode, unspecified F33.9 ??? Migraine without aura, without mention of intractable migraine without mention of status migrainosus G43.009 ??? Anxiety F41.9 ??? Hypothyroidism E03.9 ??? Gastroesophageal reflux K21.9 ??? S/P arthroscopy of shoulder, right Dr. Hernandez. biceps tenotomy, DCE and SAD DOS: 07/12/2016 Z98.890 Chief Complaint: Mixed incontinence, urge is worst. History of Present Illness: Ms. Posada is a 56 y.o. old para 0 woman, seen at the kind request of Dr. Melanie Abrams. She presents for evaluation and assessment of mixed incontinence of Several years duration, urgency is getting worse. She has tried several things already after talking to Dr. Abrams. She is not interested in medications or surgery. Time was spent giving information r/t incontinence, causes, and treatment options. Goals for this visit 1. Information Urinary tract history Patient denies a history of recurrent urinary tract infection. Patient denies a history of pyelonephritis. Patient denies a history of urinary tract abnormality. Patient denies a history of nephrolithiasis. Patient denies a history of hematuria. Bladder irritants: Fluid intake:lots of water Caffeine intake: Decaf tea Cigarette smoking (packs, time, if quit when): nonsmoker Alcohol: rare Bladder Function Urinary incontinence: yes No. episodes: A few times a week Pad use (per day): Poise pads Pad type: As above Daytime voids: Every 1/2 -to hour Nocturia: 2 Previous urinary incontinence treatment (Medical/Behavioral/Surgical): Poise impressa, tampon. Storage symptoms x Urinary frequency Nocturia x Stress urinary incontinence - leakage with exertion, cough/sneeze xx Urge urinary incontinence - leakage preceded immediately by urge to void Noctural enuresis - NOT IN ASSOCIATION WITH URGE Continuous urinary leakage x Other: (e,g. giggle, intercourse-related) Bladder sensation Normal - aware of filling and increased sensation up to desire to void x Increased - feels an early and persistent need to void Reduced - aware of filling but NOT definite desire to void Absent - NO sensation of filling or need to void Non-specific - No specific bladder symptoms during filling or void Voiding symptoms x None Slow stream Spraying Intermittent stream - stop/start on > 1 occasion during void Straining - muscular effort to initiate, maintain OR improve stream Terminal dribble - prolonged final part of void Feeling of incomplete emptying Pelvic Organ Prolapse (POP) Any personally see or feel a vaginal bulge? no What precipitates prolapse or symptoms of prolapse? none Previous treatment for POP (physical therapy, pessary, surgery)?: none Bowel Function Fecal incontinence (yes/no): no Number of fecal incontinent episodes (day/week): none Number of bowel movements (day/week): Using Miralax - going more regular, but previous to this, seen in the ED in the summer for constipation. Defecatory Dysfunction: Symptom Presence Symptom Presence NONE Incomplete Emptying Straining Infrequent stools (<3 week) Splinting Abdominal discomfort Loose stools Defecatory urgency Hard stools At times Other Sexual Function Active?: yes Pain with intercourse?: no If yes, insertional/Deep? Desire to retain sexual function? yes Past Medical History: Diagnosis Date ??? Arthritis ??? Depression ??? Hiatal hernia ??? Insomnia ??? Uterine fibroid Past Surgical History: Procedure Laterality Date ??? BREAST BIOPSY Right 2002 B9 needle bx ??? CREATED BY INTERFACE cholecystectomy Procedure Date: 1996 ??? CREATED BY INTERFACE LAPAROSCOPY,TOT.HYST,UTERUS>250GM,ROBOT ASSIST / WIRA Procedure Date: 11/18/2009 ??? PRO COLONOSCOPY, DIAGNOSTIC 02/06/2013 COLONOSCOPY, DIAGNOSTIC performed by Ashanti Tavera MD at [facility] ENDOSCOPY ??? PRO SHLDR ARTHROSCOP, EXTEN DEBRIDE Right 07/12/2016 ARTHROSCOPY SHOULDER DEBRIDEMENT EXTENSIVE (WRVU 8.36) performed by Sukh Hernandez MD at [facility] OSC ??? PRO SHLDR ARTHROSCOP, PART ACROMIOPLAS Right 07/12/2016 ARTHROSCOPY SHOULDER, SUBACROMIAL DECOMPRESSION (WRVU 3) performed by Jonas Hernandez MD at [facility] ??? PRO SHLDR ARTHROSCOP, SURG, DIS CLAVICULECTOMY Right 07/12/2016 ARTHROSCOPY SHOULDER, DISTAL CLAVICLE RESECTION (WRVU 8.98) performed by Jonas Hernandez MD at [facility] ??? PRO UNLISTED PROCEDURE ARTHROSCOPY Right 07/12/2016 ARTHROSCOPY, LONG HEAD BICEPS TENOTOMY (WRVU 12.47) performed by Sukh Hernandez MD at [facility] Outpatient Prescriptions Marked as Taking for the 05/04/17 encounter (Office Visit) with Harvey Mendoza APRN Medication Sig Dispense Refill ??? SUMAtriptan (IMITREX) 100 mg Tablet Take 1 tablet by mouth 2 times daily as needed for Migraine.12 tablet 11 ??? venlafaxine (EFFEXOR-XR) 37.5 mg Capsule, Sust. Release 24 hr Take 1 capsule by mouth nightly. 90 capsule 3 ??? venlafaxine (EFFEXOR-XR) 75 mg Capsule, Sust. Release 24 hr Take 1 capsule by mouth every morning. 90 capsule 3 ??? traZODone (DESYREL) 100 mg Tablet Take 1 tablet by mouth nightly. 90 tablet 3 ??? levothyroxine (SYNTHROID) 50 mcg Tablet Take 1 tablet by mouth daily. Patient needs labs drawn before next refill. 90 tablet 3 ??? fish oil-omega-3 fatty acids 300 mg Capsule Take by mouth 3 times daily (after meals). ??? riboflavin, vitamin B2, 100 mg Tablet Take by mouth 4 times daily. ??? lansoprazole (PREVACID SOLUTAB) 15 mg Tablet,Rapid Dissolve, DR Take 1 tablet by mouth daily. 90tablet 3 Allergies Allergen Reactions ??? Sumatriptan Hives, Diarrhea and Nausea Only STAT PEN ONLY! Pt had a reaction at the site of injection. ??? Oxycodone Rash Facial rash ??? Penicillins Hives ??? Vecuronium [place] Took a really long time to come out of the anesthesia. ??? Zolmitriptan Diarrhea and Nausea And Vomiting Social History Social History ??? Marital status: Single Spouse name: N/A ??? Number of children: N/A ??? Years of education: N/A Occupational History ??? Not on file. Social History Main Topics ??? Smoking status: Never Smoker ??? Smokeless tobacco: Never Used ??? Alcohol use Yes Comment: Rare ??? Drug use: No ??? Sexual activity: Not on file Comment: Deferred Other Topics Concern ??? Not on file Social History Narrative FH fa - lymphoma, HTN mo - ? 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 EtOH - rare exercise - 3/week sometimes twice per day ROS: Review of all other systems negative except for those mentioned above or indicated below: System Symptom Presence Constitutional Weight Loss no Weight gain no Eyes History of glaucoma no ENT/Mouth Mouth sores/Dry mouth no Cardiovascular Chest pain no Leg swelling no Respiratory Wheezing no SOB no GI Nausea/vomiting no Abdominal pain no Skin/Breast Breast masses no Rash/ulcer no Musculoskeletal Muscle weakness no Trouble Walking no Neurological Dizziness/falling no Numbness no Psychiatric Depression yes Anxiety yes Endocrine Abnormal thirst no Hot flashes no Hematologic Frequent bruising no History of blood transfusions no Blood clots (DVT / PE) no Prior problems w/ anesthesia no Outside medical records reviewed: Data reviewed (images/urodynamic studies): To further delineate patient's urinary symptoms, a urine dip test and postvoid residual via bladder scanner were obtained. Results for orders placed or performed in visit on 05/04/17 POCT urine dipstick Result Value Ref Range POC Sp [place] WNL 1.002 - 1.030 POC pH, UA WNL 5.0 - 8.5 POC Leuk, UA Neg. Negative - Negative POC Nitrite, UA Neg. Negative - Negative POC Protein, UA Neg. Negative - Negative mg/dL POC Glucose, UA Norm. Normal - Normal mg/dL POC Ketone, UA Neg. Negative - Negative POC Urobil, UA Norm. 0.2 - 1.0 mg/dL POC Bili, UA Neg. Negative - Negative POC Blood, UA Neg. Negative - Negative afshan/uL Bladder Scanner Result Value Ref Range Bladder Scan (mL) 0 mL OBJECTIVE: LMP 02/04/2010 General: normal appearing female, pleasant mood, normal speech Skin: skin of abdomen/pelvis normal Gastrointestinal: no palpable masses/organomegaly, soft/nontender, no appreciable hernia Musculoskeletal: levator ani tone (0-5): 4, levator ani contraction (0-5): 4, 0 levator tenderness; lower extremity motor 5/5 bilaterally Pelvic: Cough stress test (empty supine): negative External Genitalia: Vulva, Wilkerson's and Bartholin glands normal, urethra without tenderness or mass Vagina: With Valsalva, the anterior vaginal wall comes 2 cm above the hymen, the posterior vagina wall comes1 cm above the hymen, and the cervix/apex comes 8 cm above the hymen Atrophic epithelium (yes/no)?: yes Discharge?: no Cervix: Surgically removed Bimanual (uterus/adnexa): surgically removed Rectovaginal: Enterocele: no Rectocele: yes POP Q Measurements: Aa -2 Ba -2 C -6 GH 2.5/3 PB 3/3 TVL 8 Ap -1 Bp -1 D Impression: Ms. Posada is a .56 y.o. woman with: ?? Mixed incontinence with urge dominating. ?? Stage 2 asymptomatic post hysterectomy prolapse/ rectocele. Recommendations: I reviewed the anatomy and physiology of bladder and pelvic floor. We discussed options for management including: Continued observation, pelvic floor exercises (supervised or unsupervised), pessary and/or surgery. Based on the patients expressed goals for management I have recommended the following: For her overactive bladder: ?? We discussed conservative treatments for overactive bladder include dietary changes, decreased caffeine intake, weight loss, timed voids, and urge suppression strategies. We also discussed pelvic floor muscles exercises (Kegel exercises). Written information was given. If treatment goals are not met with lifestyle and behavioral changes, medications may be considered. ?? She is open to a PT referral and bladder suppression strategies. A referral will be [facility] to [facility] ( [facility]) for PT. She is normal weight, and does not drink caffeine. She is not interested in medications at this time. For her stress urinary incontinence ?? We discussed the options of expectant management, pelvic floor muscle exercises, pelvic floor physical therapy, and surgery for treatment of stress urinary incontinence. We also discussed the use ofa large tampon with exercise or an incontinence dish pessary to reduce urine leakage. We discussed the surgery for stress urinary incontinence would involve a sling being placed at the level of the midurethra with permanent mesh material ?? She has already tried Poise Impressa product and a tampon with no real improvement in her stress incontinence. She is not interested in a pessary fitting at this time. She is not ready to consider asurgical intervention for this problem. I spent 50 minutes total with the patient, with 30 minutes of the time spent [id number] in discussing her diagnosis and reviewing options for treatment. ( ) ACOG or other informational pamphlets given to patient HARVEY MENDOZA APRN Division of Female Pelvic Medicine/Reconstructive Surgery CC: MD Melanie Ceja documented in this encounter Plan of Treatment Upcoming Encounters Date Type Specialty Care Team Description 02/06/2023 Hospital Encounter Gastroenterology Cony Tavera MD [facility] GASTROENTEROLOGY DEPT. [place], [place] [address] (Wo rk) Scheduled Procedures Name Priority Associated Diagnoses Date/Time COLONOSCOPY, DIAGNOSTIC 10 yr surv Scheduled Referrals Name Type Priority Associated Diagnoses Order S chedule Referral to Outpatient Referral Routine Mixed stress and urge Ordered: Physical Therapy urinary incontinence documented as of this encounter Procedures Procedure Name Priority Date/Time Associated Diagnosis Comme nts BLADDER SCANNER Routine 05/04/2017 Mixed stress and urge Res ults for this urinary incontinence procedu re are in the results section . POCT URINE DIPSTICK Routine 05/04/2017 Mixed stress and urge Results for this urinary incontinence procedu re are in the results section . documented in this encounter Results Bladder Scanner (05/04/2017) athologist Signature Bladder Scan 0 mL (mL) Harvey Mendoza APRN UROLOGY ORDERABLES POCT urine dipstick (05/04/2017) athologist Signature POC Sp [place] WNL 1.002 - 1.030 POC pH, UA WNL 5.0 - 8.5 POC Leuk, UA Neg. Negative - Negative POC Nitrite, Neg. Negative - UA Negative POC Protein, Neg. Negative - UA Negative mg/dL POC Glucose, Norm. Normal - UA Normal mg/dL POC Ketone, UA Neg. Negative - Negative POC Urobil, UA Norm. 0.2 - 1.0 mg/dL POC Bili, UA Neg. Negative - Negative POC Blood, UA Neg. Negative - Negative afshan/uL Harvey Mendoza APRN POINT OF CARE TEST ORDERABLE S documented in this encounter Visit Diagnoses Diagnosis Mixed stress and urge urinary incontinen ce Mixed incontinence urge and stress (male )(female) documented in this encounter Care Teams Manager Transition Relationship Specialty Start Date End Date Melanie Abrams MD PCP - General 05/12/[address] [facility] [address] [facility] [place] [phone] documented as of this encounter
--- OUTSIDE RECORDS SUMMARY | 2022-02-06 14:12 | XMS_ITS | Encounter Summary ---
:1960 Author Organization [facility] [place] [address] Care Team Providers Name Role Phone Melanie Abrams MD Primary Care Provider Encounter Details Date Type Department Care Team Description 12/07/2016 Telephone Family Medicine at [facility] Maricruz Mercedes RN [address] [place] [address] Social History Tobacco Use Types Packs/Day Years [...] this encounter Miscellaneous Notes Telephone Encounter - Maricruz Mercedes RN - 12/07/2016 8:47 AM EDT Korin calls today with concern of a fine rash upper abdomen. This is today in the aftermath of other events. It is not itchy and not on other body areas. She denies fever-just very fatigued. She was seen in the ED x2 this past weekend for right abdominal pain. She was seen Tuesday at [facility] and was found to have a lot of stool in her intestines-was given a suppository and advised to try mag citrate. Tuesday she was vomiting so went to [facility]. Has enema and did have a large BM. She has not moved her bowels since Tuesday and is not taking anything for the constipation. She stillhas some discomfort of the right side, though not as intense. She is eating a little, but not pushing. She is advised to add senna as directed on bottle, fluids advance diet including some fruit/dried fruit in small frequent meals. She has FU with PCP, will call sooner prn. documented in this encounter Plan of Treatment Upcoming Encounters Date Type Specialty Care Team Description 02/06/2023 Hospital Encounter Gastroenterology Cony Tavera MD [facility] ER GASTROENTEROLOGY DEPT. [place], [place] [address] (Wo rk) Scheduled Procedures Name Priority Associated Diagnoses Date/Time COLONOSCOPY, DIAGNOSTIC 10 yr surv documented as of this encounter Visit Diagnoses Not on filedocumented in this encounter Care Teams Roller Skater Relationship Specialty Start Date End Date Melanie Abrams MD PCP - General 05/12/10 [facility] [address] [place] [place] [address] documented as of this encounter
--- OUTSIDE RECORDS SUMMARY | 2022-02-06 14:12 | XMS_ITS | Encounter Summary ---
:1960 Author Organization [facility] [place] [address] Care Team Providers Name Role Phone Melanie Abrams MD Primary Care Provider Encounter Details Date Type Department Care Team Description 12/05/2016 Hospital Encounter [place] [address] Social History Tobacco Use Types Packs/Day [...] SOLUTAB) 15 mg mouth daily. Tablet,Rapid Dissolve, magnesium oxide (MAG-OX) Take 400 mg by 0 05/04/2017 400 mg tablet mouth daily. Reported on 12/08/2016 documented as of this encounter Plan of Treatment Upcoming Encounters Date Type Specialty Care Team Description 02/06/2023 Hospital Encounter Gastroenterology Cony Tavera MD [facility] ER GASTROENTEROLOGY DEPT. [place], [place] [address] (Wo rk) Scheduled Procedures Name Priority Associated Diagnoses Date/Time COLONOSCOPY, DIAGNOSTIC 10 yr surv documented as of this encounter Procedures Procedure Name Priority Date/Time Associated Diagnosis Comme nts REQUEST FOR 2ND STAT 12/05/2016 7:10 PM Result s for this READ CT ABDOMEN AND EDT procedur e are in PELVIS the results section. documented in this encounter [...] given. Study performed December 04, [address] [facility] COMPARISON: ??None FINDINGS: Lower chest: Normal. [...] given. Study performed December 04, [address] [facility] COMPARISON: None FINDINGS: Lower chest: Normal. [...] Pimentel MD IMG OUTSIDE INTERPRETATION O RDERABLES documented in this encounter Visit Diagnoses Not on filedocumented in this encounter Care Teams Bearingizer Relationship Specialty Start Date End Date Melanie Abrams MD PCP - General 05/12/10 [facility] DR RAHEL [facility] [address] documented as of this encounter
--- OUTSIDE RECORDS SUMMARY | 2022-02-06 14:12 | XMS_ITS | Encounter Summary ---
:1960 Author Organization [facility] [address] Care Team Providers Name Role Phone Melanie Abrams MD Primary Care Provider Reason for Visit Reason Comments Follow Up Surgery R shoulder scope DOS 07/12/16 Encounter Details Date Type Department Care Team Description 10/07/2016 Office Visit Orthopaedics at [facility] Jonas Hernandez, S/P arthroscopy of [facility] shoulder, right Dr. Monterroso [facility] [place] [address] [place] [address] tenotomy, DCE and SAD [phone] ORTHOPAEDIC DOS: 07/12/2016 SURGERY [place], [place] [address] Social History Tobacco Use Types [...] Sign Reading Time Taken Comments Blood Pressure 131/82 10/07/2016 9:57 AM EDT Pulse 85 10/07/2016 9:57 AM EDT Temperature - - Respiratory Rate - - Oxygen Saturation - - Inhaled Oxygen Concentration - - Weight 65.8 kg (145 lb) 10/07/2016 9:57 AM EDT stated Height 170.2 cm (5' 7) 10/07/2016 9:57 AM EDT staed Body Mass Index 22.71 10/07/2016 9:57 AM EDT documented in this encounter Progress Notes Aga Ferrer PA - 10/07/2016 10:05 AM EDT PATIENT NAME: Korin Posada AGE: 56 y.o. MR#: [id number] DATE OF VISIT: 10/07/2016 DATE OF SURGERY: 07/12/2016 PROCEDURE: Right shoulder MODIFIER BEACH CHAIR SCHLEIN ARTHROSCOPY SHOULDER, SUBACROMIAL DECOMPRESSION (WRVU 3) ARTHROSCOPY SHOULDER, DISTAL CLAVICLE RESECTION (WRVU 8.98) ARTHROSCOPY, LONG HEAD BICEPS TENOTOMY (WRVU 12.47) ARTHROSCOPY SHOULDER DEBRIDEMENT EXTENSIVE (WRVU 8.36) STAFF: Dr. Hernandez CHIEF COMPLAINT: follow up 3 months s/p above procedure HISTORY OF PRESENT ILLNESS: Ms. Posada is a 56 y.o. year old female who comes into clinic today for follow up regarding the right shoulder. She has now proximally 3 months out from her right shoulder arthroscopy. She still has some persistent anterior shoulder pain and limited range of motion. She is still going to physical therapy. She has been taking ehwj-[id number] strength Aleve twice daily. Shedenies having any fevers or chills. PHYSICAL EXAM: Ms. Posada is alert and oriented. She appears in no acute discomfort and is resting comfortably in the exam room. Inspection: No erythema, ecchymosis, or swelling. No evidence of infection. Palpation: She is nontender over the distal clavicle. She has some anterior shoulder pain over the glenohumeral joint as well as over the proximal biceps. She is not particularly point tender over the biceps muscle belly. ROM: She is able to perform active forward flexion initially to about 100??. With some assistance she was able to get to 150?? with pain at end range. Her active and passive external rotation is to 40??, internal rotation is to L5. Strength: She has 5/5 internal and external rotation strength, 5-/5 forward flexion, 4+/5 empty can with pain. Neurovascular: Normal motor function of the radial, median, ulnar, axillary and musculocutaneous nerves. Normal sensation along radial, median, ulnar, axillary, and lateral antebrachial cutaneous nervedistributions. Good hand perfusion. RADIOLOGICAL STUDIES: No new studies ASSESSMENT: 3 months s/p above procedure with persistent stiffness PLAN: Dr. Hernandez also evaluated and spoke with the patient at today's visit. She is somewhat frustrated with her persistent symptoms. She does have some residual shoulder stiffness consistent with early adhesive capsulitis. She may find that with continued oral anti-inflammatories and therapy her symptoms will improve over the next few months. She may want to increase her naproxen dose to 500 mg twice daily. We also discussed that a fluoroscopy guided glenohumeral cortisone injection would be an option. She would like to continue with anti- inflammatories for a few more weeks, but if she would like toschedule an injection she can call and we can set this up at radiology at any point. She will returnfor follow up in 3 months to recheck her motion. The patient understands to contact us if they have any other questions or concerns. The above documentation was completed using [employer] voice recognition software. documented in this encounter Plan of Treatment Upcoming Encounters Date Type Specialty Care Team Description 02/06/2023 Hospital Encounter Gastroenterology Cony Tavera MD [facility] DR GASTROENTEROLOGY DEPT. [place], [place] [address] (Wo rk) Scheduled Procedures Name Priority Associated Diagnoses Date/Time COLONOSCOPY, DIAGNOSTIC 10 yr surv documented as of this encounter Visit Diagnoses Diagnosis S/P arthroscopy of shoulder, right Dr. Jina donahue. biceps tenotomy, DCE and SAD DOS: 07/12/2016 Other postprocedural status documented in this encounter Care Teams Aviation Maintenance Technician Relationship Specialty Start Date End Date Melanie Abrams MD PCP - General 05/12/[address] [facility] [address] [facility]HEL [place] [address] documented as of this encounter
--- OUTSIDE RECORDS SUMMARY | 2022-02-06 14:12 | XMS_ITS | Encounter Summary ---
:1960 Author Organization [facility] [place] [address] Care Team Providers Name Role Phone Melanie Abrams MD Primary Care Provider Reason for Visit Reason Onset Date Comments Post Procedure Call 08/12/2016 Encounter Details Date Type Department Care Team Description 08/12/2016 Telephone [place]edics [place] [facility] Jonas Hernandez MD Post Procedure Call [facility] [place] [address] ORTHOPAEDIC SURG [place] [id number] (Wo rk) Social History Tobacco Use Types [...] this encounter Miscellaneous Notes Telephone Encounter - Ajay King - 08/12/2016 2:29 PM EST Patient is calling to cancel his/hers hospital check/pre-op/surgery appointments with Dr. Hernandez please call them back at [phone] Thank you Secretaries - Please DO NOT cancel the appointment. documented in this encounter Plan of Treatment Upcoming Encounters Date Type Specialty Care Team Description 02/06/2023 Hospital Encounter Gastroenterology Cony Tavera MD [facility] GASTROENTEROLOGY DEPT. [place], [place] [address] (Wo rk) Scheduled Procedures Name Priority Associated Diagnoses Date/Time COLONOSCOPY, DIAGNOSTIC 10 yr surv documented as of this encounter Visit Diagnoses Not on filedocumented in this encounter Care Teams Senior Media Buyer Relationship Specialty Start Date End Date Melanie Abrams MD PCP - General 05/12/[address] [facility] [address] RAHEL MOREL[facility]ARE [place] [phone] documented as of this encounter
--- OUTSIDE RECORDS SUMMARY | 2022-02-06 14:12 | XMS_ITS | Encounter Summary ---
:1960 Author Organization [facility] [place] [address] Care Team Providers Name Role Phone Melanie Abrams MD Primary Care Provider Reason for Visit Reason Onset Date Comments Medication Refill 05/04/2016 Encounter Details Date Type Department Care Team Description 05/04/2016 Refill Family Medicine at [facility] Sean Kmuar, LOGAN [address] [place] [address] Social History Tobacco Use Types Packs/Day [...] place to sleep or slept in a intermediate (including now)? Sex Assigned at Date Recorded Female 08/01/2020 8:27 AM EST documented as of this encounter Plan of Treatment Upcoming Encounters Date Type Specialty Care Team Description 02/06/2023 Hospital Encounter Gastroenterology Cony Tavera MD [facility] ER GASTROENTEROLOGY DEPT. [place], [place] [address] (Wo rk) Scheduled Procedures Name Priority Associated Diagnoses Date/Time COLONOSCOPY, DIAGNOSTIC 10 yr surv documented as of this encounter Visit Diagnoses Not on filedocumented in this encounter Care Teams Progress Developer Relationship Specialty Start Date End Date Melanie Abrams MD PCP - General 05/12/10 [facility] DR RAHEL [place] [address] documented as of this encounter
--- OUTSIDE RECORDS SUMMARY | 2022-02-06 14:12 | XMS_ITS | Encounter Summary ---
:1960 Author Organization [facility] [place] [address] Care Team Providers Name Role Phone Melanie Abrams MD Primary Care Provider Reason for Visit Reason Comments Right Shoulder Pain Encounter Details Date Type Department Care Team Description 01/27/2016 Office Visit Orthopaedics [place] [facility] [place]anie Abrams joint arthropathy [facility] [place] [address] [facility] PRIMARY CARE [place] [address] Social History Tobacco Use Types Packs/Day Years [...] place to sleep or slept in a halfway (including now)? Sex Assigned at Date Recorded Female 08/01/2020 8:27 AM EST documented as of this encounter Progress Notes Melanie Abrams MD - 01/27/2016 3:30 PM EDT Here for discussion of MRI results and likely right AC joint injection. She continues to have the same pain in this right shoulder, which has been going on for two years. She does have some pain with cross body flexion, though she describes it as an ache not a dramatic pain. Shoulder is not otherwise examined. MRI was reviewed with her as well as plain films. This shows a bulky AC joint. I reviewed with her how that could cause supraspinatus impingement, though it is not dramatic. No significant rotator cuff tear. No biceps tendinitis was found on the MRI. A/P: AC joint arthropathy. She also has some rotator cuff findings, but I think it would be reasonable to proceed first with injection of the AC joint before we consider possible subacromial injection or surgical intervention. Should the AC joint injection work nicely, she will call back for surgical referral to talk about acromioplasty. If it does not work well, we may proceed to subacromial injection. This is all discussed in detail. See injection note below. Followup is based on progress or p.r.n. A time-out was conducted just before the start of the procedure to verify the correct patient and procedure, procedure location, and all relevant critical information. Procedure Note: Using standard sterile technique, the right AC joint was identified and injected with 0.5 mL Kenalog-10 mixed with 0.5 mL 1% lidocaine. This was well-tolerated, and fullness with cross body flexion post injection confirmedaccurate location of injection. documented in this encounter Plan of Treatment Upcoming Encounters Date Type Specialty Care Team Description 02/06/2023 Hospital Encounter Gastroenterology Cony Tavera MD [facility] GASTROENTEROLOGY DEPT. [place], [place] [address] (Wo rk) Scheduled Procedures Name Priority Associated Diagnoses Date/Time COLONOSCOPY, DIAGNOSTIC 10 yr surv documented as of this encounter Visit Diagnoses Diagnosis AC joint arthropathy Unspecified disorder of shoulder joint documented in this encounter Administered Medications Inactive Administered Medications - up to 3 most recent administrations Medication Order MAR Action Action Date Dose Rate Site lidocaine (XYLOCAINE) 10 mg/mL (1 %) Given 01/27/2016 3:44 PM ED T 5 mg injection 5 mg 5 mg, Intra-articular, ONCE, 1 dose, On Tue01/27/16 at 1600, Routine triamcinolone acetonide (KENALOG) injection 5 Given 01/27/20 3:44 PM EDT 5 mg mg 5 mg, Intra-articular, ONCE, 1 dose, On Tue01/27/16 at 1600, Routine documented in this encounter Care Teams Reaming Machine Tender Relationship Specialty Start Date End Date Melanie Abrams MD PCP - General 05/12/[address] [facility] [address] [facility] [address] documented as of this encounter
--- OUTSIDE RECORDS SUMMARY | 2022-02-06 14:12 | XMS_ITS | Encounter Summary ---
:1960 Author Organization [facility] [place] [address] Care Team Providers Name Role Phone Melanie Abrams MD Primary Care Provider Reason for Visit Auth/Cert Specialty Diagnoses / Procedures Referred By Contact Refer red To Contact Diagnoses rotator cuff tear Procedures PRO SHLDR ARTHROSCOP, SURG, W ROTAT CUFF REPR ARTHROSCOPY SHOULDER, ROTATOR CUFF REPAIR Referral ID Status Reason Start Date Expiration Date Visits Requ ested Visits Authorized [id number] 1 1 Encounter Details Date Type Department Care Team Description 07/12/2016 Surgery Outpatient Surgery Prashanth Hernandez MD [facility] ORTHOPAEDIC [address] [id number] [phone] Social History Tobacco Use Types Packs/Day Years [...] Sign Reading Time Taken Comments Blood Pressure 139/82 07/12/2016 9:15 AM EST Pulse 82 07/12/2016 9:15 AM EST Temperature 36.5 ??C (97.7 ??F) 07/12/2016 8:57 AM EST Respiratory Rate 16 07/12/2016 9:15 AM EST Oxygen Saturation 98% 07/12/2016 9:15 AM EST Inhaled Oxygen Concentration - - Weight 66.7 kg (147 lb) 07/12/2016 6:29 AM EST Height 170.2 cm (5' 7) 07/12/2016 6:29 AM EST Body Mass Index 23.02 07/12/2016 6:29 AM EST documented in this encounter Discharge Instructions Discharge InstructionsSunita Munguia RN - 07/12/2016 9:00 AM EST Images from the original note were not included. At 07:00 am you received 1000 mg of acetaminophen- Your next dose should not be taken before 8 hourshave passed. Next dose not before- 3:00pm today You should not take more than a total of 3000 mg of acetaminophen in a 24 hour period. Moderate Sedation You may have received medication before and/or during your procedure, which affects your judgement and reaction time. Do not drive, operate machinery, drink alcoholic beverages, or make any legal decisions for 24 hours. Be careful on stairs, as you may be unsteady on your feet. You may eat a regular diet as tolerated. IV site -- slight redness, or tenderness is normal, you can use a warm compress. If tenderness and redness increases or foul drainage occurs, please contact your M. D. Questions or problems after 5pm or on a weekend: Call the [facility] stencil machine operator and ask for the physician on callcovering for your doctor. Upper Extremity Nerve Block Nerve blocks affect many types of nerves. The affected nerves control movement, pain, and normal sensation. This causes feelings such as: ?? Weakness ?? Numbness ?? Tingling ?? Heaviness ?? A feeling that your arm has fallen asleep. A nerve block can last from about 2 to 48 hours, depending on the medications used. Usually the weakness wears off first, then you will feel a numb or tingly sensation. Finally, the pain may come back.This can happen in any order. If you had a shoulder block, you may have other symptoms such as: 1. Mild shortness of breath 2. A hoarse voice 3. Blurry vision 4. Unequal pupils 5. Drooping of your face on the same side as the nerve block. These are common and expected side effects of this type of nerve block. Symptoms usually go away within 12 hours. If these symptoms do not go away, please call the Anesthesiology Department at . If you have severe or prolonged shortness of breath, please go to the nearest emergency department. If you continue to feel the effects of the nerve block for longer than 48 hours, please call the Anesthesiology department at . Pain Medication If needed, your surgeon will give you a prescription for pain medication. Start taking this medication before the nerve block wears off. Nerve blocks sometimes wear off during the night. It is a good idea to take your pain medicine as prescribed before going to sleep so you won't wake up with pain. The idea is to have pain medicine in your body before the nerve block wears off. To help prevent nausea, eat something before taking the pain medicine. Once a nerve block starts to wear off, it is usually completely gone within 60 minutes. It is important to have pain medicine in your system before the block wears off completely. Helpful tips to protect the part of your body that is numb. After a nerve block, you cannot feel pain, pressure, or extremes in temperature. Because your arm isnumb, it is more at risk for injury. Therefore.... ?? While you are awake, try to change positions of your arm often. This will help you avoid putting too much pressure on the limb for long periods of time. ?? While sleeping, pad the blocked limb with pillows to avoid placing too much pressure on the limb. ?? If you have a cast or a tight dressing, check the color of your fingers every couple of hours. Call your doctor if any look discolored. ?? If you had a shoulder, arm, or hand nerve block, you may go home with a sling. The sling will help to keep your arm in the ideal position. Wear the sling at all times until feeling returns. If you do not have a sling, watch the position of the blocked arm to make sure it is in a safe location. ?? Ask your family or support people to help with the above hints. QUESTIONS? Please call the Anesthesiology department at with concerns or after hours and ask for the anesthesiologist gambling box person. [facility] Learning About Deep Vein Thrombosis What is deep vein thrombosis? A deep vein thrombosis (DVT) is a blood clot in certain veins of the legs, pelvis, or arms. The clot is usually in the legs. DVT may damage the vein and cause the area to ache, swell, and change color. DVT also can lead to sores. DVT in these veins needs to be treated because the clots can get bigger, break loose, and travel through the bloodstream to the lungs. A blood clot in a lung can cause . Blood clots can form in the veins when you are not active for a long period of time. For example, they can form if you need to stay in bed because of a health problem or must sit for a long time on an airplane or in a car. Surgery or an injury can damage your blood vessels and cause a clot to form. Cancer also can cause DVT. And some people have blood that clots too easily, which is a problem that may run in families. A risk factor is something that makes you more likely to develop a disease. Here are some major risk factors for DVT: You have surgery. You have to stay in bed for more than 3 days (such as in the hospital). Your blood is likely to clot because of an injury, cancer, or inherited condition. Here are some minor risk factors for DVT: You take control hormones. You are . You are in a car or airplane for a long trip. What are the symptoms? Symptoms of DVT may include: Swelling in the affected area. Redness and warmth in the affected area. Pain or tenderness. You may have pain only when you touch the affected area or when you stand or walk. If your doctor thinks you may have DVT, you will probably have an ultrasound test. You may have other tests as well. How can you prevent DVT? Exercise your lower leg muscles to help blood flow in your legs. Point your toes up toward your headso the calves of your legs are stretched, then relax and repeat. This is a good exercise to do when you are sitting for long periods of time. Get out of bed as soon as you can after an illness or surgery. If you need to stay in bed, do the leg exercise noted above every hour when you are awake. Use special stockings called compression stockings. These stockings are tight at the feet with a gradually looser fit on the leg. Many doctors recommend that you wear compression stockings during a journey longer than 8 hours. Take breaks when you are on long trips. Stop the car and walk around. On long airplane flights, walkup and down the aisle hourly, flex and point your feet every 20 minutes while sitting, and drink plenty of water. Take blood-thinning medicines before and after some types of surgery if your doctor recommends it. Blood thinners also may be used if you are likely to develop clots. How is DVT treated? Treatment for DVT usually involves taking blood thinners. These medicines are given through a vein (intravenously, or IV) or as a pill. You will have blood tests often so your doctor can see how well the blood thinners are working. Your doctor also may suggest that you prop up or elevate your leg when possible, take walks, and wear compression stockings. These measures may help reduce the pain and swelling that can happen with DVT. Follow-up care is a smith part of your treatment and safety. Be sure to make and go to all appointments, and call your doctor if you are having problems. It's also a good idea to know your test results and keep a list of the medicines you take. Where can you learn more? Visit our health information library at [email or web address]. You can also view health information on [employer], your personal patient account. Log in or sign up today. Enter X941 in the search box to learn more about Learning About Deep Vein Thrombosis. ?? [id number] [employer]. Care instructions adapted under license by [facility]. This care instruction is for use with your licensed healthcare professional. If you have questionsabout a medical condition or this instruction, always ask your healthcare professional. [employer] disclaims any warranty or liability for your use of this information. Content Version: 8.9.10408; Last Revised: August 05, 2009 Patient InstructionsAshish Simental - 07/12/2016 8:58 AM EST Discharge Instructions for Arthroscopic Shoulder Surgery Dressing: Your dressing should will be removed 48-72 hours after your surgery. Some leaking of fluidor blood may occur on the dressing and this is expected. Excessive drainage or bleeding is not expected and you should contact our office. Keep the incisions covered with clean dressings until you stopdraining. Once you stop draining you do not need a bandage, but you should keep the steri strips in place until your next visit. Showering: You may shower after your initial dressing is removed, but you should not soak or scrub hard over the area. It is ok for the steri strips to get wet at this point. Do not submerge (bath tub,hot tub, swimming pool, etc.) the incision sites for at least 4 weeks after surgery. Sling: At the completion of your shoulder surgery, your arm will be placed in a sling for comfort and immobilization. You should wear the sling time signal wirer except to perform elbow and wrist exercises, change clothes and bathe. Pain: On discharge your first line medication for pain in Tylenol - unless you are unable to take Tylenol, you should take 1,000mg every 8 hours. The Tylenol will help limit the amount of narcotic painmedication you require. You may also take an cico-mpm-niwxscc NSAID such as Advil, Ibuprofen, Motrin or Aleve. Take as directed on the package instructions. You will also receive a prescription for narcotic pain medications. Take the pain medication as directed, if you have any problems contact the office. The medication may cause nausea and constipation. An over the counter stool softener can help prevent constipation. If you have significant nausea, we can provide a prescription for an anti-nausea medication. The application of an ice pack/cryocuff to the shoulder, as much as possible in the first 72 hours will help decrease swelling and discomfort. You may continue to use ice/cryocuff after this if you find it helpful. Anticoagulation: Please take one baby strength aspirin (81mg) twice daily for 2 weeks to help prevent blood clot formation. Activities: Starting on the evening follow surgery, you should perform elbow range of motion exercises and wrist range of motion exercises to avoid stiffness. Perform 10 cycles of full extension to full flexion of your elbow and wrist 4 times a day unless otherwise instructed, you may remove your arm from the sling to perform these exercises, but your arm should remain at your side and your shoulder should remain still. Driving: You cannot drive while in a sling or on narcotic pain medications. Physical Therapy: You should schedule your 1st appointment with PT to start as soon as possible. Follow-up Appointment: You will be given a return appointment, usually for 1-2 weeks following surgery. At this visit your incisions will be checked and your exercise program advanced. documented in this encounter Medications at Time of Discharge Medication Sig Dispensed Refills Start Date End Date oxyCODONE (ROXICODONE) 5 Take 1-2 tablets by 40 tablet 0 07/13/2016 mg Tablet mouth every 4 hours as needed for Pain. venlafaxine (EFFEXOR-XR) Take 1 capsule by 90 [...] on 12/08/2016 documented as of this encounter Progress Notes Sunita Munguia RN - 07/12/2016 11:42 AM EST Pt attempted to ambulate to bathroom and felt very light headed. Pt back to bed for short rest with HOB elevated at 45 degrees. Sunita Munguia RN - 07/12/2016 11:26 AM EST Patient feels better denies feeling light headed and ambulated to bathroom and car for discharge with one assist. Pt ready for discharge. Sunita Munguia RN - 07/12/2016 10:31 AM EST Discharge instructions and medications reviewed with patient and friend Tony . All questions answered and written copy sent home with patient. Use of immobilizer and ice pac demonstrated , Bushra took photos of immobilizer in place to share with patient. documented in this encounter H&P Notes Jonas Hernandez MD - 07/12/2016 7:14 AM EST The patient's history has been reviewed and physical exam completed and there has been interval change requiring a change in the procedural plan. Those changes are that she has had increasing pain in the acromioclavicular joint and it is currently very tender. She discussed this with Dr. Abrams as well. She has had an injection into the AC joint in the past with reasonable, but incomplete, pain relief. She would like to have the distal clavicle excision added to the operative plan. We will plan for arthroscopic distal clavicle excision as well. Source Note - Jonas Hernandez MD - 07/12/2016 7:13 AM EST Patient Name: Korin Posada Patient Age: 55 y.o. Birthdate: 1960 Admit date: 07/12/2016 Attending Physician: Jonas Hernandez MD See scanned document for pre-procedural H&P completed by Dr. Abrams. Jonas Hernandez MD - 07/12/2016 7:13 AM EST Patient Name: Korin Posada Patient Age: 55 y.o. Birthdate: 1960 Admit date: 07/12/2016 Attending Physician: Jonas Hernandez MD See scanned document for pre-procedural H&P completed by Dr. Abrams. documented in this encounter Miscellaneous Notes Op Note - Jonas Hernandez MD - 07/12/2016 8:49 AM EST [facility] [place] Operative Note Patient Name: Korin Posada : [id number] MR#: [id number] Case Date: 07/12/2016 Surgeon: Surgeon(s) and Role: * Jonas Hernandez MD - Primary * Ashish Simental MD - Resident-Pediatric Dietician Preoperative diagnosis: rotator cuff tear Postoperative diagnosis: Rotator cuff repair Procedure(s): MODIFIER BEACH CHAIR SCHLEIN ARTHROSCOPY SHOULDER, SUBACROMIAL DECOMPRESSION (WRVU 3) ARTHROSCOPY SHOULDER, DISTAL CLAVICLE RESECTION (WRVU 8.98) ARTHROSCOPY, LONG HEAD BICEPS TENOTOMY (WRVU 12.47) ARTHROSCOPY SHOULDER DEBRIDEMENT EXTENSIVE (WRVU 8.36) Anesthesia: Regional Estimated Blood Loss: * No values recorded between 07/12/2016 7:56 AM and 07/12/2016 8:45 AM * Specimens removed during surgery: None Drains: Surgical Closure: Primary Closure - closure of ALL tissue levels during the original surgery regardless of wires, wickes, drains, or other devices extruding through the incision Disposition: awakened from anesthesia, extubated and taken to the recovery room in a stable condition, having suffered no apparent untoward event. Condition: doing well without problems (Please see the Surgical Encounter Summary for any Implant and Specimen details pertinent to this patient.) HPI/Surgical Indications: 55-year-old female with chronic shoulder pain not resposive to conservative treatment. She had pain relief with injections, but it was transient. This included pain relief with a acromioclavicular joint injection. She specifically requested distal clavicle excision today in the pre- operative holding area, so this was added to the paper consent. She did understand that arthroscopy does not always result in complete resolution of symptoms. She also understood that she would require extensive physical therapy. Procedure Description: Anesthesia: Awake regional Complications: None apparent Implants Used: none Pre-operative Evaluation: The patient was identified in the preoperative holding area. After confirming that the right shoulder was the correct site of surgery with both the patient and the informed consent, a green ohogamiut was placed on the operative shoulder. The plan was reviewed with the patient and all questions were answered. The patient was then taken to the operating room. The patient was placed in the beachchair position taking care to pad all pressure points and support the head and neck in a neutral and comfortableposition. A time-out was called and all present agreed on the correct patient, correct site of surgery, and correct procedure. Antibiotics were administered prior to incision. Examination under anesthesia: The shoulder was examined under anesthesia. Range of motion was 170 passive forward elevation, 60 passive external rotation at the side. Instability examination revealed no anterior, posterior, or inferior instability. Description of Operation: The shoulder was prepped and draped in a standard sterile fashion, utilizing copious chlorhexidine scrub, alcohol, and Chloraprep. Chloraprep was allowed to dry and then two sterile U-drapes and a large extremity drape were applied. Diagnostic arthroscopy commenced through a standard posterior portal, inferior and medial to the posterolateral corner of the acromion. The working portal was created just lateral to the coracoid process and was placed intra-articularly through the triangle between the long head of the biceps, subscapularis, and the glenoid rim. Findings were as follows: Arthroscopic findings: Articular surfaces: Humeral head articular surface: intact Glenoid articular surface: intact Biceps and labrum: Long head biceps tendon: intact Biceps anchor: Unstable type II SLAP tear Anterior/inferior labrum: frayed, debrided Posterior labrum: Frayed, debrided Axillary pouch: No loose bodies Rotator cuff (articular side): Subscapularis tendon: intact Supraspinatus tendon: Intact with a minimal are full-thickness tear, no more than 2 mm of exposed tuberosity after debridement Infraspinatus tendon: intact Teres minor tendon: intact Rotator interval: normal Subacromial Space: Subacromial space: Moderate bursitis Anterior acromion: Type II acromion Bursal side of rotator cuff: intact Narrative: Based on these findings,we began with an extensive debridement of the glenohumeral joint. This included debridement of areas of synovitis, debridement of the anterior, posterior, and superior labrum, debridement of the partial- thickness supraspinatus tear, and limited chondroplasty of the superior glenoid adjacent to the SLAP tear. Due to the unstable and per the patient's preference, we elected to proceed with long head biceps tenotomy. This was performed with arthroscopic scissors. The blunt trocar was then inserted into the subacromial space from the posterior portal. Bursal tissue was gently swept free of the acromion from posterior to anterior. The scope was then inserted intothe subacromial space also from the posterior portal. The bursa was moderately inflamed. A spinal needle was inserted from a point sagittally aligned with the posterior aspect of the acromioclavicular joint. It was confirmed to be at the appropriate angle and a small incision was made to create the lateral portal. Using a combination of cautery and shaver, a thorough bursectomy was performed. This included anterior, lateral, and posterior gutters. The coracoacromial ligament was identified. It was subperiosteally elevated off of the acromion from posterior to anterior. It was then divided anteriorly, but not resected. The anterior acromial spur was noted. Using a high-speed bur from the lateral portal, the anterior acromioplasty was performed. Care was taken not to remove an excessive amount of bone. It was confirmed from both the posterior and lateral viewing portal at the acromioplasty was smooth. The bursal side of the rotator cuff was inspected from both the posterior and lateral viewing portal. The rotator cuff was intact. Using cautery, the inferior capsule of the acromioclavicular joint was resected. The acromioclavicular joint was viewed from the posterior portal in the anterior portal was utilized to perform the resection. A high-speed bur was brought in from the anterior portal. Initially, a portion of the medial acromion was resected. The distal clavicle was excised beginning anteriorly and inferiorly and progressing posteriorly and superiorly. The superior aspect of the distal clavicle was meticulously resectedtaking care to avoid damage to the overlying superior capsule of the acromioclavicular joint. In addition all attempts were made to avoid damage to the posterior capsule of the acromioclavicular joint. Sufficient bone was resected to create a 1 cm joint space. The capsule was confirmed to be intact. At the completion of the case, portals were closed with buried 3-0 Monocryl suture. A sterile dressing was applied and the arm was gently placed into a shoulder immobilizer and cryo-cuff. All counts were correct at the completion of the case. Postoperative Plan: Postoperative plan will be the standard arthroscopic subacromial decompression physical therapy protocol, beginning this week. No restrictions are necessary. Infection Bundle used? N/A Attestation: Case Date: 07/12/2016 I was present and I participated during the entire procedure (does not need to include opening and closing). JONAS HERNANDEZ MD 07/12/2016 documented in this encounter Plan of Treatment Upcoming Encounters Date Type Specialty Care Team Description 02/06/2023 Hospital Encounter Gastroenterology Cony Tavera MD [address] [facility] [address] GASTROENTEROLOGY DEPT. [place], [place] [address] (Wo rk) Scheduled Procedures Name Priority Associated Diagnoses Date/Time COLONOSCOPY, DIAGNOSTIC 10 yr surv documented as of this encounter Procedures Procedure Name Priority Date/Time Associated Diagnosis Comme nts ARTHROSCOPY, LONG HEAD Routine 07/12/2016 8:35 AM Right should er pain, BICEPS TENOTOMY EST unspecified chronicity ARTHROSCOPY Routine 07/12/2016 8:35 AM Right shoulder pain, SHOULDER,SUBACROMIAL EST unspecified chronici ty DECOMPRESSION ARTHROSCOPY SHOULDER, Routine 07/12/2016 8:35 AM Right shoulde r pain, DISTAL CLAVICLE RESECTION EST unspecified chr onicity ARTHROSCOPY SHOULDER Routine 07/12/2016 8:35 AM Right shoulder pain, DEBRIDEMENT EXTENSIVE EST unspecified chronic ity ARTHROSCOPY SHOULDER 07/12/2016 7:29 AM Right shoulder pain, DEBRIDEMENT EXTENSIVE EST unspecified chronic ity (WRVU 8.36) ARTHROSCOPY, LONG HEAD 07/12/2016 7:29 AM Right should er pain, BICEPS TENOTOMY (WRVU EST unspecified chronic ity 12.47) ARTHROSCOPY SHOULDER, 07/12/2016 7:29 AM Right shoulde r pain, DISTAL CLAVICLE RESECTION EST unspecified chr onicity (WRVU 8.98) ARTHROSCOPY SHOULDER, 07/12/2016 7:29 AM Right shoulde r pain, SUBACROMIAL DECOMPRESSION EST unspecified chr onicity (WRVU 3) MODIFIER BEACH CHAIR 07/12/2016 7:29 AM Right shoulder pain, SCHLEIN EST unspecified chronicity documented in this encounter Visit Diagnoses Diagnosis Right shoulder pain, unspecified chronic ity Right shoulder pain, unspecified chronic ity documented in this encounter Administered Medications Inactive Administered Medications - up to 3 most recent administrations Medication Order MAR Action Action Date Dose Rate Site acetaminophen (TYLENOL) tablet Given 07/12/2016 6:45 AM EST 1,00 0 mg 1,000 mg 1,000 mg, Oral, ONCE, 1 dose, On Tue07/11/16 at 2045, Maximum dose of acetaminophen is 4000 mg from all sources in 24 hours., Routine BUpivacaine-EPINEPHrine 0.25 %-1:200,000 Given 07/12/2016 7:58 A M EST 10 mLs injection ONCE PRN, Starting on Tue07/12/16 at 0758, Until Tue07/12/16 at 1346, Intra-Operative (Intra-Procedure), Routine EPINEPHrine (ADRENALIN) injection Given 07/12/2016 7:58 AM EST 1 mg ONCE PRN, Starting on Tue07/12/16 at 0758, Until Tue07/12/16 at 1346, Intra-Operative (Intra-Procedure), Routine fentaNYL 50mcg/mL injection 25 mcg, Intravenous, EVERY 5 MIN PRN, St arting on Tue07/11/16 at 2015, Until Tue07/12/16 at 1346, Pain, block sedation, Routine gabapentin (NEURONTIN) capsule 600 mg Given 07/12/2016 6:45 AM EST 600 mg 600 mg, Oral, ONCE, 1 dose, On Tue07/11/16 at 2045, Routine lactated ringers infusion 1,000 New Bag 07/12/2016 6:50 AM EST 1,000 mLs 100 mL/hr mL 1,000 mL, at 100 mL/hr, Intravenous, CONTINUOUS, Starting on Tue07/12/16 at 0645, Until Tue07/12/16 at 1031, Day of Surgery (Day of Procedure) lidocaine (XYLOCAINE) 10 mg/mL (1 %) injection Given 0 07/12/2016 8:18 AM EST 4 mLs 3 mg 3 mg (0.3 mL), Subcutaneous, ONCE PRN, 1 dose, Starting on Tue07/12/16 at 0616, Until Tue07/12/16 at 0818, for discomfort with PIV insertion, Day of Surgery (Day of Procedure), Routine midazolam (PF) (VERSED) 1 mg/mL injectio n 1 mg Given 07/12/2016 6:59 AM EST 1 mg 1 mg, Intravenous, EVERY 5 MIN PRN, Starting on 07/11/16 at 2015, Until Tue07/12/16 at 1346, block, Routine Given 07/12/2016 6:54 AM EST 1 mg documented in this encounter Active and Recently Administered Medications Times are shown in EST. Scheduled Medication Order 07/10/2016 07/11/2016 07/12/2016 acetaminophen (TYLENOL) tablet 1,000 mg 0930 (Due) 1,000 mg, Oral, EVERY 8 HOURS SCHEDULED, First dose on Tue07/12/16 at 0930, Until Discontinued, Maximum total acetaminophen dose 4 grams per 24 hours., Recovery (Recovery-Hospital Unit), Routine acetaminophen (TYLENOL) tablet 1,000 mg (COMPLETED) 0645 (Given - Provider: Sunita Munguia RN) 1,000 mg, Oral, ONCE, 1 dose, [place] 7 at 2044, Maximum dose of acetaminophen is 4000 mg from all sources in 24 hours., Routine clindamycin (CLEOCIN) 600mg in dextrose 5% 50mL 0930 (Due) 600 mg, Intravenous, ONCE, 1 dose, [facility] at 0930, Administer over 20 Minutes, Indication for (Active or Suspected): Prophylaxis gabapentin (NEURONTIN) capsule 600 mg (COMPLETED) 0645 (Given - Provider: Sunita Munguia RN) 600 mg, Oral, ONCE, 1 dose, [place] 07/11/16 at 2045, Routine Continuous Medication Order 07/10/2016 07/11/2016 07/12/2016 lactated ringers infusion 1,000 mL 0650 (New Bag - Provider: Sunita Munguia RN)0856 (Stopped - Provider: Phylicia Fontenot CRNA) 1,000 mL, at 100 mL/hr, Intravenous, CON TINUOUS, Starting Tue07/12/16 at 0645, Until Tue07/12/16 at 1031, Day of Surgery (Day of Procedure) PRN Medication Order 07/10/2016 07/11/2016 07/12/2016 BUpivacaine-EPINEPHrine 0.25 %-1:200,000 injection (CANCELED) 0758 (Given - Provider: Jonas Hernandez MD - Comment: Right shoulder) ONCE PRN, Starting Tue07/12/16 at 0758, Until Tue07/12/16 at 1346, Intra- Operative (Intra-Procedure), Routine EPINEPHrine (ADRENALIN) injection (CANCELED) 0758 (Given - Provider: Jonas Hernandez MD - Comment: 1 mg of Epinephrine 1:1000 in 3L Normal saline) ONCE PRN, Starting Tue07/12/16 at 0758, Until Tue07/12/16 at 1346, Intra- Operative (Intra-Procedure), Routine fentaNYL 50mcg/mL injection 25 mcg, Intravenous, EVERY 5 MIN PRN, St verona Myers 07/11/16 at 2014, Until Tue07/12/16 at 1346, Pain, block sedation, Routine lidocaine (XYLOCAINE) 10 mg/mL (1 %) injection 3 mg (COMPLETED) 0818 (Given - Provider: Jonas Hernandez MD - Comment: Right shoulder) 3 mg (0.3 mL), Subcutaneous, ONCE PRN, 1 dose, Starting Tue07/12/16 at 0616, Until Discontinued, for discomfort with PIV insertion, Day of Surgery (Day of Procedure), Routine midazolam (PF) (VERSED) 1 mg/mL injection 1 mg 0654 (Given - Provider: Sunita Munguia, RN)0659 (Given - Provider: Sunita Munguia, RN) 1 mg, Intravenous, EVERY 5 MIN PRN, Juan Pablo Myers 07/11/16 at 2014, Until Tue07/12/16 at 1346, block, Routine sodium chloride 0.9 % flush 5-20 mL 5-20 mL, Intravenous, EVERY 1 MIN PRN, S tarting Tue07/12/16 at 0616, Until Tue07/12/16 at 1031, flush, Flush pertains to all indwelling lines. Flush per protocol found in the job aid using the link prov ided on this medication record., Day of Surgery (Day of Procedur e), Routine No Frequency Medication Order 07/10/2016 07/11/2016 07/12/2016 clindamycin (CLEOCIN) 600 mg/50 mL infusion (COMPLETED) 2759 (Given - Provider: Phylicia Fontenot CRNA) 1 dose, Starting 07/12/16 at 0713, Un til Tue07/12/16 at 1914, SUNITA MUNGUIA: cabinet override documented in this encounter Care Teams Data Analysis Manager Relationship Specialty Start Date End Date Melanie Abrams MD PCP - General 05/12/[address] [facility] [address] [place] [address] documented as of this encounter
--- OUTSIDE RECORDS SUMMARY | 2022-02-06 14:12 | XMS_ITS | Encounter Summary ---
:1960 Author Organization [facility] [place] [address] Care Team Providers Name Role Phone Melanie Abrams MD Primary Care Provider Reason for Visit Reason Onset Date Comments Bumped Appointment 03/05/2016 Encounter Details Date Type Department Care Team Description 03/05/2016 Telephone Orthopaedics at [facility] Jonas Hernandez [place] [address] ORTHOPAEDIC SURG [place] [address] (Wo rk) Social History Tobacco Use Types [...] this encounter Miscellaneous Notes Telephone Encounter - Syed Stokes - 03/08/2016 4:29 PM EDT Patient called back and was scheduled Telephone Encounter - Yanni Fernandez - 03/08/2016 4:04 PM EDT LMOM #2 to call to reschedule bumped 04/[address] Hernandez's clinic Telephone Encounter - Octavia Fontenot - 03/05/2016 12:53 PM EDT Patient's appointment was bumped. Left message #1 for them to call back and reschedule. NXR R SHOULDER PAIN documented in this encounter Plan of Treatment Upcoming Encounters Date Type Specialty Care Team Description 02/06/2023 Hospital Encounter Gastroenterology Cony Tavera MD [facility] GASTROENTEROLOGY DEPT. [place], [place] [address] (Wo rk) Scheduled Procedures Name Priority Associated Diagnoses Date/Time COLONOSCOPY, DIAGNOSTIC 10 yr surv documented as of this encounter Visit Diagnoses Not on filedocumented in this encounter Care Teams Paper Colorer Relationship Specialty Start Date End Date Melanie Abrams MD PCP - General 05/12/[address] [facility] [address] [place] [address] documented as of this encounter
--- OUTSIDE RECORDS SUMMARY | 2022-02-06 14:12 | XMS_ITS | Encounter Summary ---
:1960 Author Organization [facility] [place] [address] Care Team Providers Name Role Phone Melanie Abrams MD Primary Care Provider Encounter Details Date Type Department Care Team Description 12/12/2015 Hospital Encounter XRay at [facility] Melanie Abrams Low back pain, [address] [facility] [address] Judd MD non-specific [facility] [id number] KIT CARSON [phone] [facility] PRIMARY CARE [place], [place] [address] Social History Tobacco Use Types [...] Sig Dispensed Refills Start Date End Date riboflavin, vitamin B2, Take by mouth 4 0 09/11/2018 100 mg Tablet times daily. venlafaxine (EFFEXOR-XR) Take 1 capsule by 90 capsule 3 08/1905/03/2016 37.5 mg Capsule, Sust. mouth daily. Take Release 24 hr with Effexor XR 75 mg for a total dose of 112.5 mg. venlafaxine (EFFEXOR-XR) Take 1 capsule by 90 capsule 3 08/1905/03/2016 75 mg Capsule, Sust. mouth daily. Take Release 24 hr with Effexor XR 37.5 mg for a total daily dose of 112.5 mg. traZODone (DESYREL) 100 Take 1 tablet by 90 tablet 3 201505/03/2016 mg Tablet mouth nightly. levothyroxine (SYNTHROID) Take 1 tablet by 90 tablet 3 04/2005/03/2016 50 mcg TabletIndications: mouth daily. Acquired hypothyroidism Patient needs labs drawn before next refill. SUMAtriptan (IMITREX) 100 Take 1 tablet by 12 tablet 11 12/1901/28/2016 mg Tablet mouth 2 times daily as needed for Migraine. lansoprazole (PREVACID Take 1 tablet by 90 [...] MD [facility] GASTROENTER[facility] DEPT. [place], [place] [address] (Wo rk) Scheduled Procedures Name Priority Associated Diagnoses Date/Time COLONOSCOPY, DIAGNOSTIC 10 yr surv documented as of this encounter Procedures Procedure Name Priority Date/Time Associated Diagnosis Comme nts XR LUMBAR SPINE 2 Routine 12/12/2015 9:24 AM Low back pain, Re sults for this OR 3 VIEWS EDT non-specific procedure are i n the results section. documented in this encounter Results XR Lumbar Spine 2 Or 3 Views (GENERIC) (12/12/2015 9:24 AM EDT) Anatomical Region Laterality Modality L-spine N/A Digital Radiography Specimen (Source) Anatomical Location Collection Method / Collectio n Time Received Time / Laterality Volume Impressions 12/12/2015 9:43 AM EDT 1. 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 For confirmation, particularly pr ior to any future lumbar surgery, thoracic spine radiographs suggested. 2. ??No acute osseous abnormality. No sp ondylolysis identified on these 2 views; no oblique views provided for more compl ete evaluation. 3. ??Mild degenerative disc disease L5-S 1. 4. ??Minimal anterolisthesis of L5 on S1 , likely secondary to underlying facet arthropathy. 5. ??Incidental large fecal load, compat ible with constipation in the appropriate clinical setting. Narrative 12/12/2015 9:43 AM EDT EXAMINATION: XR LUMBAR SPINE 2 OR 3 VIEWS CLINICAL HISTORY: low back pain, PT ques tions spondylolysis TECHNIQUE: Standing AP and lateral radio graphs of the lumbar spine. COMPARISON: Right upper quadrant abdomin al ultrasound 08/15/2002. FINDINGS: Transitional lumbar sacral anatomy with apparent lumbarization of S1. For the purpose of numbering, the most craniad n onrib bearing lumbar vertebrae is labeled as L1. Vertebral body height is maintained. There is mild intervertebral disc space narrowing at L5-lumbarized S1 segment. Remaining intervertebral disc spaces appear maintained. Facet arthropa thy is noted at the lower lumbar levels. There is very minimal anterolisthesis of L5 on S1. On these 2 views, no spondylolysis is appreciated. Pedicles a ppear intact. Surgical clips are seen in the right upp er quadrant consistent with known cholecystectomy. Incidental note is made of a large amount of stool throughout the visualized colon. Procedure Note Meredith Vanegas MD - 12/12/2015Formatt ing of this note might be different from the original. EXAMINATION: XR LUMBAR SPINE 2 OR 3 VIEW S CLINICAL HISTORY: low back pain, PT ques tions spondylolysis TECHNIQUE: Standing AP and lateral radio graphs of the lumbar spine. COMPARISON: Right upper quadrant abdomin al ultrasound 08/15/2002. FINDINGS: Transitional lumbar sacral anatomy with apparent lumbarization of S1. For the purpose of numbering, the most craniad n onrib bearing lumbar vertebrae is labeled as L1. Vertebral body height is maintained. There is mild intervertebral disc space narrowing at L5-lumbarized S1 segment. Remaining intervertebral disc spaces appear maintained. Facet arthropa thy is noted at the lower lumbar levels. There is very minimal anterolisthesis of L5 on S1. On these 2 views, no spondylolysis is appreciated. Pedicles a ppear intact. Surgical clips are seen in the right upp er quadrant consistent with known cholecystectomy. Incidental note is made of a large amount of stool throughout the visualized colon. IMPRESSION 1. 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 For confirmation, particularly pr ior to any future lumbar surgery, thoracic spine radiographs suggested. 2. No acute osseous abnormality. No spon dylolysis identified on these 2 views; no oblique views provided for more compl ete evaluation. 3. Mild degenerative disc disease L5-S1. 4. Minimal anterolisthesis of L5 on S1, likely secondary to underlying facet arthropathy. 5. Incidental large fecal load, compatib le with constipation in the appropriate clinical setting. Melanie Abrams MD IMG DX ORDERABLES documented in this encounter Visit Diagnoses Diagnosis Low back pain, non-specific documented in this encounter Care Teams Help Aid Relationship Specialty Start Date End Date Melanie Abrams MD PCP - General 05/12/[address] [facility] [address] [facility] [place] [address] documented as of this encounter
--- OUTSIDE RECORDS SUMMARY | 2022-02-06 14:12 | XMS_ITS | Encounter Summary ---
:1960 Author Organization [facility] [place] [address] Care Team Providers Name Role Phone Melanie Abrams MD Primary Care Provider Reason for Visit Reason Comments Pre-op Exam Encounter Details Date Type Department Care Team Description 07/09/2016 Office Visit Family Medicine at Melanie Abrams shoulder pain, unspecified chronicity; Rahel Whaley MD Preop general physical exam [address] [place] [address] [facility] [phone] [facility] [place] [address] (Wo rk) Social History Tobacco Use Types [...] Sign Reading Time Taken Comments Blood Pressure 132/78 07/09/2016 1:53 PM EST Pulse 96 07/09/2016 1:53 PM EST Temperature 36.4 ??C (97.6 ??F) 07/09/2016 1:53 PM EST Respiratory Rate 15 07/09/2016 1:53 PM EST Oxygen Saturation 99% 07/09/2016 1:53 PM EST Inhaled Oxygen Concentration - - Weight 67 kg (147 lb 12.8 oz) 07/09/2016 1:53 PM EST Height 169.4 cm (5' 6.69) 07/09/2016 1:53 PM EST Body Mass Index 23.36 07/09/2016 1:53 PM EST documented in this encounter Progress Notes Melanie Abrams MD - 07/09/2016 2:00 PM EST Here for preop for right shoulder surgery to be done July 12. She reports that she had trouble coming out of anesthesia with a long time in recovery when she had her hysterectomy. That medication has been added to her allergy list. She has been told that this surgery would be done under regional anesthesia, however. She much prefers that approach. This surgery is to be done on the AC joint and shoulder. She has seen both me and Dr. Hernandez regarding it. She is to the point that she would like to proceed with surgery regarding this. She has a minor URI. No fevers. She has been otherwise well. No personal or family history of significant cardiovascular disease. She has no chest pain, shortness of breath, or other cardiac symptoms. She has not been otherwise ill. Problem list, surgery, social history, medications and allergies are reviewed and updated today. Review of systems is otherwise negative. O: Vitals as per chart. Tympanic membranes, nose and throat clear. Neck no nodes. Lungs clear. Heart regular rate and rhythm, no murmurs. Shoulder was not examined today. A/P: Preop for right shoulder surgery. Patient is cleared for surgery as planned. Lower than usual threshold, however, for her to be treated over this weekend with antibiotics should she develop fever and presumed sinusitis. In addition, she will discuss her past anesthesia experience with Anesthesia when they interview her preop. Followup is based on symptoms otherwise or p.r.n. documented in this encounter Plan of Treatment Upcoming Encounters Date Type Specialty Care Team Description 02/06/2023 Hospital Encounter Gastroenterology Cony Tavera MD [facility] DR GASTROENTEROLOGY DEPT. [place], [place] [address] (Wo rk) Scheduled Procedures Name Priority Associated Diagnoses Date/Time COLONOSCOPY, DIAGNOSTIC 10 yr surv documented as of this encounter Visit Diagnoses Diagnosis Right shoulder pain, unspecified chronic ity Preop general physical exam Other specified pre-operative examinatio n documented in this encounter Care Teams Generation Technician Relationship Specialty Start Date End Date Melanie Abrams MD PCP - General 05/12/[address] [facility] [address] [facility] [place] [address] documented as of this encounter
--- OUTSIDE RECORDS SUMMARY | 2022-02-06 14:12 | XMS_ITS | Encounter Summary ---
:1960 Author Organization [place] [address] Care Team Providers Name Role Phone Melanie Abrams MD Primary Care Provider Reason for Visit Reason Onset Date Comments Medication Problem 07/13/2016 Encounter Details Date Type Department Care Team Description 07/13/2016 Refill Orthopaedics at [facility] Jonas Hernandez MD [facility] [place] [address] ORTHOPAEDIC SURGERY [phone] [place] [id number] (Wo rk) Social History Tobacco Use Types [...] this encounter Miscellaneous Notes Telephone Encounter - Sommer Garcia RN - 07/13/2016 2:14 PM EST Spoke with patient who indicates she still has facial flushing ,no associated symptoms. The last time she took the oxycodone was at 9:30 this morning. Her shoulder feels fine. Case Date: 07/12/2016 ?? Surgeon: Surgeon(s) and Role: * Jonas Hernandez MD - Primary * Ashish Simental MD - Resident-Ball Ender ?? Preoperative diagnosis: rotator cuff tear ?? Postoperative diagnosis: Rotator cuff repair ?? Procedure(s): MODIFIER BEACH CHAIR [facility] ARTHROSCOPY SHOULDER, SUBACROMIAL DECOMPRESSION (WRVU 3) ARTHROSCOPY SHOULDER, DISTAL CLAVICLE RESECTION (WRVU 8.98) ARTHROSCOPY, LONG HEAD BICEPS TENOTOMY (WRVU 12.47) ARTHROSCOPY SHOULDER DEBRIDEMENT EXTENSIVE (WRVU 8.36) Postoperative plan will be the standard arthroscopic subacromial decompression physical therapy protocol, beginning this week. No restrictions are necessary. Patient will take tylenol only and update us as need be. Reviewed post op plan with her as noted above. She is comfortable with this plan ? Telephone Encounter - Columba Coates RMA - 07/13/2016 12:13 PM EST Korin calls today concerned that she is having a reaction to the Oxycodone. She firsts reports that her face is flush and it is not going away. She has read the Reactions and flushing is mentioned. Batsheva also reports that it states if you are taking anti-depressants And migraine meds they could causea reaction as well. Batsheva takes both of these. She has not had to take any migraine medication but has been taking her Effexor. I let Batsheva know that I would reach out to and once I have heard back we would be in touch. She can be reached at [phone]. documented in this encounter Plan of Treatment Upcoming Encounters Date Type Specialty Care Team Description 02/06/2023 Hospital Encounter Gastroenterology Cony Tavera MD [facility] GASTROENTEROLOGY DEPT. [place], [place] [address] (Wo rk) Scheduled Procedures Name Priority Associated Diagnoses Date/Time COLONOSCOPY, DIAGNOSTIC 10 yr surv documented as of this encounter Visit Diagnoses Not on filedocumented in this encounter Care Teams Time Broker Relationship Specialty Start Date End Date Melanie Abrams MD PCP - General 05/12/[address] [facility] [address] [facility] [place] [address] documented as of this encounter
--- OUTSIDE RECORDS SUMMARY | 2022-02-06 14:12 | XMS_ITS | Encounter Summary ---
:1960 Author Organization [facility] [place] [address] Care Team Providers Name Role Phone Melanie Abrams MD Primary Care Provider Reason for Visit Reason Onset Date Comments Triage 12/08/2016 Encounter Details Date Type Department Care Team Description 12/08/2016 Telephone Family Medicine at [facility] Keshawn Noble Triage [address] [place] [address] Social History Tobacco Use Types Packs/Day [...] Telephone Encounter - Dea Maldonado RN - 12/08/2016 8:33 AM EDT Caller: Korin Patient identified by name and Chief Complaint: rash Onset: approx 4days Objective/Assessment (pain scale): states she has a 'band across mid chest, along ribs. Rash is reddened and has developed blisters. Feels painful, burning sensation. She has appt scheduled for ED f/u tomorrow. Appt changed to today Alleviating Factors: none Pertinent History: x Plan: Will Discuss with PCP/COS and then call patient back. _x___Appointment Scheduled Date: 12/08 With: Aliza Call 911 Advised to seek Emergent Care Advised to seek Urgent [facility] Care Instructions provided per: Oswaldo Telephone Triage Protocols for Nurses /5th edition page(s): Marivel NESBITT Pediatric Telephone Protocol for Nurses 15th edition page (s): Does the Patient agree and understand the instructions provided: yes Note routed to: Aliza For review. Telephone Encounter - Keshawn Noble - 12/08/2016 8:13 AM EDT Message: Patient requesting to speak to a nurse. She called yesterday in regards to a rash that she has on her upper abdomen. This morning the rash is spreading, blisters and is painful. Please call back. Caller and relationship (if other than patient-full name): Self Best time to call back: any Ok to leave a message: [yes] Nurse contacted via: Message: x documented in this encounter Plan of Treatment Upcoming Encounters Date Type Specialty Care Team Description 02/06/2023 Hospital Encounter Gastroenterology Cony Tavera MD [facility] DR GASTROENTEROLOGY DEPT. [place], [place] [address] (Wo rk) Scheduled Procedures Name Priority Associated Diagnoses Date/Time COLONOSCOPY, DIAGNOSTIC 10 yr surv documented as of this encounter Visit Diagnoses Not on filedocumented in this encounter Care Teams Dam Tender Assistant Relationship Specialty Start Date End Date Melanie Abrams MD PCP - General 05/12/[address] [facility] [address] [facility] [place] [address] documented as of this encounter
--- OUTSIDE RECORDS SUMMARY | 2022-02-06 14:12 | XMS_ITS | Encounter Summary ---
:1960 Author Organization [facility] [place] [address] Care Team Providers Name Role Phone Melanie Abrams MD Primary Care Provider Reason for Visit Reason Comments Right Shoulder Pain Encounter Details Date Type Department Care Team Description 01/06/2017 Office Visit Orthopaedics at [facility] Jonas Hernandez, S/[place] arthroscopy of [facility] shoulder, right Dr. Monterroso [facility] [place] [address] [place] [address] tenotomy, DCE and SAD [phone] ORTHOPAEDIC DOS: 07/12/2016 SURGERY [place] [address] Social History Tobacco Use Types Packs/Day Years [...] Sign Reading Time Taken Comments Blood Pressure 132/89 01/06/2017 9:34 AM EDT Pulse 77 01/06/2017 9:34 AM EDT Temperature - - Respiratory Rate - - Oxygen Saturation - - Inhaled Oxygen Concentration - - Weight 65.8 kg (145 lb) 01/06/2017 9:34 AM EDT Height 170.2 cm (5' 7) 01/06/2017 9:34 AM EDT Body Mass Index 22.71 01/06/2017 9:34 AM EDT documented in this encounter Progress Notes Alexandrea Isidro APRN - 01/06/2017 9:45 AM EDT Subjective: Chief Complaint: 6 months post op check Pertinent Surgical History: Surgical Date: 07/12/2016 ?? Surgeon: Jonas Hernandez MD - Procedure(s): ARTHROSCOPY SHOULDER, SUBACROMIAL DECOMPRESSION ARTHROSCOPY SHOULDER, DISTAL CLAVICLE RESECTION ARTHROSCOPY, LONG HEAD BICEPS TENOTOMY ARTHROSCOPY SHOULDER DEBRIDEMENT EXTENSIVE ?? HPI: The patient is 56 y.o. and is several months s/p above surgery. At her last appointment, she was quite stiff and pain was an issue. However, With continued PT, She feels that she is turning the cornerwith both. ROM has improved over the horizontal plane and pain is manageable. No interval falls or injuries. No incisional complaints. No fevers or chills. No systemic or constitutional complaints. No other health condition changes. Patient's medications, allergies, past medical, surgical, social and family histories were reviewed and updated as appropriate. ROS: Denies fever, chills, nausea, vomiting, vision change, shortness of breath, chest pain, vision changes, headaches, bowel or bladder problem, ear, nose, sinus problem, neuro or psychiatric, or endocrine disorder not addressed above. Objective: Vitals: 01/06/17 0934 BP: 132/89 BP Location (NBP): Left arm Patient Position: Sitting BP Cuff Sizes: Adult (25-34 cm) Pulse: 77 Weight: 65.8 kg (145 lb) Height: 170.2 cm (5' 7) Body mass index is 22.71 kg/(m^2). General : alert, appears stated age, cooperative, no distress and well developed, well-nourished Incision: Reportedly healed. No significant drainage, no dehiscence, no significant erythema Tenderness: mild at the proximal biceps Forward Flexion: Tolerates gentle AAFF to about 140 Degrees Soft end point External Rotation: Tolerates gentle AAER to about 60 degrees Soft end point RTC strength 5/5 in all planes of motion. There is unrestricted a/prom of the right elbow, wrist, hand and fingers. Hand is sensate, well perfused, distal pulses are 2+ and equal. Arthroscopic findings: Articular surfaces: Humeral head articular surface: intact Glenoid articular surface: intact ?? Biceps and labrum: Long head biceps tendon: intact Biceps anchor: Unstable type II SLAP tear Anterior/inferior labrum: frayed, debrided Posterior labrum: Frayed, debrided Axillary pouch: No loose bodies ?? Rotator cuff (articular side): Subscapularis tendon: intact Supraspinatus tendon: Intact with a minimal are full-thickness tear, no more than 2 mm of exposed tuberosity after debridement Infraspinatus tendon: intact Teres minor tendon: intact Rotator interval: normal ?? Subacromial Space: Subacromial space: Moderate bursitis Anterior acromion: Type II acromion Bursal side of rotator cuff: intact Assessment: 56 year old Female who is approximately 6 months status post right shoulder arthroscopy for above surgical procedure. She feels that she is turning the corner with functional ROM and decreased pain. Plan: We discussed Korin's progress. She has done well with ROM and functional ROM. Things should continue to improve. We can certainly f/u prn, yet I did ask her to call us if things do not continue to progress or if she feels that she is going backwards. She is comfortable with this approach. It may take a full calendar year before we see the full extent of her recovery. Pt agrees, questions solicited/answered, will return as scheduled and as needed for concerns or questions. Pt understands they may also call us prn for above. F/u plan: PRN. Sooner as needed. documented in this encounter Plan of Treatment Upcoming Encounters Date Type Specialty Care Team Description 02/06/2023 Hospital Encounter Gastroenterology Cony Tavera MD [facility] DR GASTROENTEROLOGY DEPT. [place], [place] [address] (Wo rk) Scheduled Procedures Name Priority Associated Diagnoses Date/Time COLONOSCOPY, DIAGNOSTIC 10 yr surv documented as of this encounter Visit Diagnoses Diagnosis S/P arthroscopy of shoulder, right Dr. Jina donahue. biceps tenotomy, DCE and SAD DOS: 07/12/2016 Other postprocedural status documented in this encounter Care Teams Outpatient Pharmacy Manager Relationship Specialty Start Date End Date Melanie Abrams MD PCP - General 05/12/[address] [facility] [address] [facility] [place] [address] documented as of this encounter
--- OUTSIDE RECORDS SUMMARY | 2022-02-06 14:12 | XMS_ITS | Encounter Summary ---
:1960 Author Organization [facility] [place] [address] Care Team Providers Name Role Phone Melanie Abrams MD Primary Care Provider Reason for Visit Auth/Cert Specialty Diagnoses / Procedures Referred By Contact Refer red To Contact Diagnoses rotator cuff tear Procedures PRO SHLDR ARTHROSCOP, SURG, W ROTAT CUFF REPR ARTHROSCOPY SHOULDER, ROTATOR CUFF REPAIR Referral ID Status Reason Start Date Expiration Date Visits Requ ested Visits Authorized [id number] 1 1 Encounter Details Date Type Department Care Team Description 07/12/2016 Anesthesia Event Outpatient [facility], Yeni Mendez MD [facility] [place] [address] [place] Arabella Abrams MD [facility] [place] [address] [place] [address] Anesthesia Record Procedure Summary Procedure Name Responsible Anesthesia Start Anesthesia Stop Time Anesthesiologist Time [facility] 07/12/16 0727 07/12/16 0856 CHAIR SCHROEDER (N/A Shoulder) Events Date Time Event Comment 07/12/2016 0648 0727 Start 0730 AN Verify 0730 An Start Data 0735 an joao now 0737 Anesthesia Ready 0756 Skin Incision 0850 an stop data Pt awake, alert and conversant. Monitors off to transfer to b ed and recovery room. 0856 Stop 0859 Recovery or ICU Handoff Patient care was transferred to the destination unit staff after review of the patient's medica l history, current anesthetic/surgi zoie status and plan, according to the Provider Handoff Checklist. Name Total Midazolam 2 mg fentaNYL 10 mcg IV Lidocaine 20 mg Propofol INF 118.59 mg clindamycin (CLEOCIN) 600 mg/50 mL infusion 600 mg Ondansetron 4 mg ePHEDrine 5 mg lactated ringers infusion 1,000 mL 700 mL Agents Name O2 Air N2O Blood No blood administrations on file. Lines, Drains, and Airways Type Details Placement Removal Incision 07/12/16; 0745; shoulder; 07/12/16 0745 by (arthroscopic punctures) Magali Bauer RN PIV 02/06/13; 0930; 10/03/17 02/06/13 0930 by Brian, 10/03/17 0921 by [facility], (Auto removal via utility); Magali Armando RN User [id number] (Auto removal via utility) PIV 07/12/16; 0650; basilic vein 07/12/16 0650 by tler, 07/12/16 1010 by (medial side of arm), left; Sunita Templeton RN Butl er, Sunita Templeton RN [id number]-[id number] catheter system; 20 gauge, 1 in length; D. Friend; intradermal injection, distraction, tolerated well; no longer indicated, removed per policy/procedure, catheter/device intact; 07/12/16; 1010 documented in this encounter Social History Tobacco [...] encounter OR Notes Anesthesia Postprocedure Evaluation - Sites, Yeni Mendez MD - 07/12/2016 9:28 AM EST [facility] [place] of Anesthesiology Post-procedure Note Patient: Korin Posada Procedure Summary Date Anesthesia Start Anesthesia Stop Room / Location 07/12/16 0727 0856 [facility] OR / [facility] Procedure Diagnosis Surgeon Responsible Provider MODIFIER FRANK SCHROEDER (N/A Shoulder); ARTHROSCOPY SHOULDER, SUBACROMIAL DECOMPRESSION (WRVU 3) (Right Shoulder); ARTHROSCOPY SHOULDER, DISTAL CLAVICLE RESECTION (WRVU 8.98) (Right Shoulder); ARTHROSCOPY, LONG HEAD BICEPS TENOTOMY (WRVU 12.47) (Right Shoulder); ARTHROSCOPY SHOULDER DEBRIDEMENT EXTENSIVE (WRVU 8.36) (Right Shoulder) Right shoulder pain, unspecified chronicity (Rotator cuff repair) Jonas Hernandez MD Sites, Brian D, MD All Anesthesia Providers: Anesthesiologist: Yeni Pham MD LACQUER MIXER: Phylicia Fontenot CRNA Last (1hr) Vitals: BP 137/78 (07/12/16856) Temp 36.5 ??C (97.7 ??F) (07/12/16856) Pulse 83 (07/12/16856) Resp 16 (07/12/16856) SpO2 99 % (07/12/16856) Patient Location: PACU/[facility] Level of Consciousness: Awake and Alert Pain Management: Satisfactory Analgesia PONV: None Cardiovascular Status: At Baseline Respiratory Status: At Baseline Postoperative Fluid Status: Intravascular EUvolemia Possible Anesthetic Complications: NONE apparent at time of evaluation Final Primary Anesthesia Type: Regional (The anesthetic type performed was the same as planned.) Comments: I have evaluated the patient in the postoperative period. The time of my evaluation may not match the note time. The patient has no major complaints and there are no serious complications evident. Anesthesia Procedure Notes - Jaylen Guzman Marcell - 07/12/2016 7:27 AM ESTAssociated Order(s): ANESTHESIA BLOCK Procedure: Anesthesia Block Block: Primary Anesthetic, interscalene nerve block Start time: 07/12/2016 6:57 AM End time: 07/12/2016 7:04 AM Patient Location: Block Room Indication/Prep Position: supine Prep: chlorhexidine, patient draped, mask, cap, sterile gloves, hand hygeine Laterality: right Skin Medication lidocaine 1% 4 ml Injection Information Ultrasound Guidance: live and in-plane Ultrasound guidance was used to identify the targeted neuronal structure. Ultrasound was also used to identify needle positon and to identify surrounding tissue (bone, muscle, and blood vessels) to prevent inadvertent intraneural or intravascular needle placement and injection. The spread of local anesthetic was confirmed with live ultrasound imaging. Injection technique:single-shot Needle Length: 5 cm Gauge: 22 Needle Type: [id number]-[id number] Medication injection made incrementally with aspirations. Nerve infiltration solution through a needle Ropivicaine 0.5% 25 mL Additional Notes No complications or paresthesias, tolerated procedure well. Intermittent aspiration negative Resident: JAYLEN GUZMAN Second Resident: Fellow: Attending Physician: YENI PHAM ~~~~~~~~~~~~~~~~~~~~~~~~~~~~~~~~~~~~~~~~~~~~~~~~~~~~~~~~~~~~ Anesthesia Preprocedure Evaluation - Jaylen Guzman - 07/11/2016 8:16 PM EST Pre-Anesthesia Evaluation for: Korin Poasda a 55 y.o. female. Procedure(s): ARTHROSCOPY SHOULDER, ROTATOR CUFF REPAIR (WRVU 15.59) [facility] Patient Active Problem List Diagnosis ??? Gastroesophageal reflux ??? Pain in right shoulder ??? Anxiety ??? Hypothyroidism ??? Migraine without aura, without mention of intractable migraine without mention of status migrainosus ??? Major depressive disorder, recurrent episode, unspecified Past Medical History Diagnosis Date ??? Arthritis ??? Depression ??? Hiatal hernia ??? Insomnia ??? Uterine fibroid Past Surgical History Procedure Laterality Date ??? Created by interface cholecystectomy Procedure Date: 1996 ??? Created by interface LAPAROSCOPY,[email or web address],UTERUS>[email or web address],ROBOT ASSIST / WIRA Procedure Date: 11/18/2009 ??? Pro colonoscopy, diagnostic 02/06/2013 COLONOSCOPY, DIAGNOSTIC performed by Ashanti Tavera MD at [facility] ENDOSCOPY ??? Breast biopsy Right 2002 B9 needle bx Social History Substance Use Topics ??? Smoking status: Never Smoker ??? Smokeless tobacco: Never Used ??? Alcohol use Yes Comment: Rare History Drug Use No Allergies Allergen Reactions ??? Sumatriptan Hives, Diarrhea and Nausea Only STAT PEN ONLY! Pt had a reaction at the site of injection. ??? Penicillins Hives ??? Vecuronium [place] Took a really long time to come out of the anesthesia. ??? Zolmitriptan Diarrhea and Nausea And Vomiting Medications: MAR and/or home medications have been reviewed. Physical Exam: There were no vitals filed for this visit. There is no height or weight on file to calculate BMI. Airway Assessment: Mallampati: II TM distance: >3 FB Neck ROM: full Cardiovascular Assessment: Rhythm: regular Pulmonary Assessment: breath sounds clear to auscultation Dental Assessment: Misc Assessment: IV access: Peripheral line Anesthesia Plan: ASA 2 regional, with a(n) intravenous induction 55yo female with hx GERD, migraines, depression/anxiety, hypothyroidism - presenting for R shoulder arthroscopy for rotator cuff tear. Baseline SBP: 130s NPO status: appropriate Cardiopulmonary : no known disease, >4 METS without difficulty Anesthesia hx: took long time to come out of anesthesia, no other adverse events No numbness or paresthesias in operative extremity Plan: interscalene block with MAC, GA backup Informed consent regarding risks pertaining to both nerve block and general anesthesia explained; consent obtained Pool Installer I have seen and examined the patient. I have reviewed the medical record and pertinent laboratory information. I have noted the major medical issues to include mild reflux. I have reviewed risks from minor to major as outlined in the anesthesia consent form. I have highlighted risks related to airway m anagement, regional anesthesiology, beach chair positioning, and perioperative opioid therapy. She is aware that our care model is based on a team and I will likely perform her anesthetic with the assistance of either a LACQUER MIXER or resident physician. A resident physician means a physician who is intraining to be an anesthesiologist. The patient acknowledged these risks and would like to proceed with the anesthesia plan. Region - Other Informed Consent: Anesthetic plan and risks discussed with patient. Plan discussed with LACQUER MIXER and resident. PAT Staff Note documented in this encounter Plan of Treatment Upcoming Encounters Date Type Specialty Care Team Description 02/06/2023 Hospital Encounter Gastroenterology Cony Tavera MD [facility] GASTROENTEROLOGY DEPT. [place], [place] [address] (Wo rk) Scheduled Procedures Name Priority Associated Diagnoses Date/Time COLONOSCOPY, DIAGNOSTIC 10 yr surv documented as of this encounter Procedures Procedure Name Priority Date/Time Associated Diagnosis Comme nts ANESTHESIA BLOCK Routine 08/24/2016 10:12 AM Resu lts for this EST procedure are i n the results section. documented in this encounter Results Anesthesia Block (08/24/2016 10:12 AM EST) Narrative Yeni Pham MD - 08/24/2016 10:12 AM EST Jaylen Guzman, DO ? 07/12/2016 ??7:28 AM Procedure: ??Anesthesia Block Block: Primary Anesthetic, interscalene nerve block Start time: 07/12/2016 6:57 AM End time: 07/12/2016 7:04 AM ?? Patient Location: Block Room ?? Indication/Prep Position: supine Prep: chlorhexidine, patient draped, mas k, cap, sterile gloves, hand hygeine Laterality: right Skin Medication lidocaine 1% 4 ml Injection Information Ultrasound Guidance: live and in-plane ?Ultrasound guidance was used to id entify the targeted neuronal structure. ??Ultrasound was also used to identify needle positon and to identify surrounding tissue (bone, muscl e, and blood vessels) to prevent inadvertent intraneural or intravascular needle placement and injection. ?? The spread of local anesthetic was confi rmed with live ultrasound imaging. Injection technique:single-shot Needle Length: 5 cm Gauge: 22 Needle Type: [id number]-fitmj Medication injection made incrementally with aspirations. Nerve infiltration solution through a ne edle Ropivicaine 0.5% 25 mL Additional Notes No complications or paresthesias, tolera corey procedure well. Intermittent aspiration negative Resident: ? RADHA GUZMAN Second Resident: ? Fellow: ? Attending Physician: ??YENI PHAM ?? ~~~~~~~~~~~~~~~~~~~~~~~~~~~~~~~~~~~~~~~~ ~~~~~~~~~~~~~~~~~~~~ Yeni Pham MD [employer]FT[employer] documented in this encounter Visit Diagnoses Not on filedocumented in this encounter Administered Medications Inactive Administered Medications - up to 3 most recent administrations Medication Order MAR Action Action Date Dose Rate Site clindamycin (CLEOCIN) 600 mg/50 mL Given 07/12/2016 7:37 AM EST 600 mg infusion 1 dose, Starting on 07/12/16 at 0713, Until Tue07/12/16 at 0737, SUNITA MUNGUIA: cabinet override ePHEDrine 5 mg/mL multi-dose injection Given 07/12/2016 8:10 AM EST 5 mg PRN, Starting on Tue07/12/16 at 0810, Until Tue07/12/16 at 0859, Anesthesia Intra-op, Routine fentaNYL 50 mcg/mL multi-dose injection Given 07/12/2016 8:23 AM EST 10 mcg PRN, Starting on Tue07/12/16 at 0823, Until Tue07/12/16 at 0859, Pain, Anesthesia Intra-op, Routine lidocaine (PF) (XYLOCAINE) 100 mg/5 mL (2 %) Given 7 7:39 AM EST 20 mg injection PRN, Starting on Tue07/12/16 at 0739, Until Tue07/12/16 at 0859, Anesthesia Intra-op, Routine midazolam (PF) (VERSED) 1 mg/mL multi-dose Given 07/12/2016 7:58 AM EST 1 mg injection PRN, Starting on Tue07/12/16 at 0745, Until Tue07/12/16 at 0859, Sleep, Anesthesia Intra-op, Routine Given 07/12/2016 7:45 AM EST 1 mg ondansetron (ZOFRAN) injection Given 07/12/2016 7:49 AM EST 4 mg PRN, Starting on Tue07/12/16 at 0749, Until Tue07/12/16 at 0859, Nausea, Anesthesia Intra-op, Routine propofol (DIPRIVAN) infusion New Bag 07/12/2016 7:39 AM 30 mcg/kg/min 12.1 mL/hr CONTINUOUS PRN, Starting on EST Tue07/12/16 at 0739, Until Tue07/12/16 at 0859, Anesthesia Intra-op, Routine documented in this encounter Care Teams [employer] Principal Relationship Specialty Start Date End Date Melanie Abrams MD PCP - General 05/12/[address] [facility] [address] [facility] [place] [address] documented as of this encounter
--- OUTSIDE RECORDS SUMMARY | 2022-02-06 14:12 | XMS_ITS | Encounter Summary ---
:1960 Author Organization [facility] [place] [address] Care Team Providers Name Role Phone Melanie Abrams MD Primary Care Provider Encounter Details Date Type Department Care Team Description 07/13/2016 Orders Only Orthopaedics at [facility] Sommer Garcia, [place] [address] Social History Tobacco Use Types Packs/Day [...] Hospital Encounter Gastroenterology Cony Tavera MD [facility] GASTROENTEROLOGY DEPT. [place], [place] [address] (Wo rk) Scheduled Procedures Name Priority Associated Diagnoses Date/Time COLONOSCOPY, DIAGNOSTIC 10 yr surv documented as of this encounter Visit Diagnoses Not on filedocumented in this encounter Care Teams Creative Technologist Relationship Specialty Start Date End Date Melanie Abrams MD PCP - General 05/12/[address] [facility] [address] [facility] [place] [address] documented as of this encounter
--- OUTSIDE RECORDS SUMMARY | 2022-02-06 14:12 | XMS_ITS | Encounter Summary ---
:1960 Author Organization [facility] [place] [address] Care Team Providers Name Role Phone Melanie Abrams MD Primary Care Provider Reason for Visit Reason Comments Medication Refill Encounter Details Date Type Department Care Team Description 01/23/2016 Refill Neurology at [facility] Danii Isidro APRN Headache(784.0) [facility] D shy [facility] [place] [address] NEUROLOGY DEPT. [phone] [place], [place] [address] (Wo rk) Social History Tobacco [...] encounter Miscellaneous Notes Telephone Encounter - Tana Bess RN - 01/23/2016 3:50 PM EDT Images from the original note were not included. Called patient Received: Today ? Jh Camejo Jessica M, RN ? Called patient, she does not wish to schedule appointment, states that she will contact her PCP office for refills. Thanks! ~Jh~ ? Previous Messages ?? ----- Message ----- ? From: Tana Bess RN ? Sent: 01/23/2016 ?? 3:44 PM ? To: Jh Camejo Patient needs to schedule one year follow up - was due in September Needs to schedule for refills documented in this encounter Plan of Treatment Upcoming Encounters Date Type Specialty Care Team Description 02/06/2023 Hospital Encounter Gastroenterology Cony Tavera MD [facility] GASTROENTEROLOGY DEPT. [place], [place] [address] (Wo rk) Scheduled Procedures Name Priority Associated Diagnoses Date/Time COLONOSCOPY, DIAGNOSTIC 10 yr surv documented as of this encounter Visit Diagnoses Diagnosis Headache(784.0) Headache documented in this encounter Care Teams Blending Tank Tender Helper Relationship Specialty Start Date End Date Melanie Abrams MD PCP - General 05/12/10 [facility] [address] [place] [address] documented as of this encounter
--- OUTSIDE RECORDS SUMMARY | 2022-02-06 14:12 | XMS_ITS | Encounter Summary ---
:1960 Author Organization [facility] Address [address] [place] [address] Care Team Providers Name Role Phone Melanie Abrams MD Primary Care Provider Reason for Visit Reason Comments Constipation rash on back Encounter Details Date Type Department Care Team Description 12/08/2016 Office Visit [facility] Melanie Abrams [facility] Constipation, unspecified constipation t ype; [address] [facility] [place]normal [place] [address] [facility] [phone] PRIMARY [facility] [place] [address] Social History Tobacco Use Types Packs/Day Years [...] Sign Reading Time Taken Comments Blood Pressure 145/90 12/08/2016 11:11 AM EDT Pulse 91 12/08/2016 11:11 AM EDT Temperature 36.5 ??C (97.7 ??F) 12/08/2016 11:11 AM EDT Respiratory Rate - - Oxygen Saturation 98% 12/08/2016 11:11 AM EDT Inhaled Oxygen Concentration - - Weight 64.9 kg (143 lb) 12/08/2016 11:11 AM EDT Height 170.2 cm (5' 7.01) 12/08/2016 11:11 AM EDT Body Mass Index 22.39 12/08/2016 11:11 AM EDT documented in this encounter Progress Notes Melanie Abrams MD - 12/08/2016 11:30 AM EDT Patient was originally scheduled for ED followup tomorrow regarding her constipation, for which she was seen on December 05. However, she developed a dermatomal distribution of blisters on an erythematous base in her right chest wall, which she first noticed yesterday. She had her appointment moved to today. She has not had shingles before that is aware of. She does not recall having had chickenpox, but assumes that she did. She has been having a lot of trouble with her shoulder. She has been making some progress recently with PT in [facility]. However, in the struggle with the shoulder, she has been using a lot of Tylenol and Aleve. She had recently switched to more Aleve. This was because of presumed inflammation. She tried some oxycodone early on after her shoulder surgery, but she really did not like how that made her feel. She has not thrown it away, but she is not using it. She was seen in the ED at [facility], and the CT scan was done showing significant constipation. The treatment they gave her was not particularly effective, and she ended up in the ED here the next day with similar symptoms. She had good results from an enema, but it was presumed that that was likely not enough to clear her out. She has questions about what to use besides that. Not having any further abdominal pain or vomiting however. Also discovered at the ED was a significant bump in her liver function tests. She says that she was taking only 2 Tylenol twice daily. They also discovered the possibility of a pyloric ulcer. She has not been having upper abdominal pain or dark stools. O: Appears at her baseline, but there is a dermatomal distribution of blisters on an erythematous base seen in her right chest wall. This does not pass the midline. No further exam. Chart was otherwise reviewed in terms of her CT scan and labs from the other day. A/P: 1. Herpes zoster. She needs to start on an antiviral without delay, as her best chance of it being particularly affective for her is if she starts today. She is aware of that. We decided to try topical lidocaine for pain relief. She could take some of her unused oxycodone if she was particularly bothered. Follow up for that if she has ongoing concerns. 2. Constipation. Advised that she continue on treatment for this as a single enema is not likely to relieve constipation, which was seen all the way over to the right side on her CT. MiraLax is recommended. She could use this indefinitely if she wishes. 3. Abnormal liver function tests were discussed. We will repeat those today. Unlikely that her current level of Tylenol use was the major contributor to that. Unclear etiology otherwise. No significant recent likely infections. Could be passed common bile duct stone. 5. Question of ulcer. She will go off of the Aleve. She may use Tylenol up to 3 to 4000 mg daily, depending on what we see on her liver function test results. Followup is based on symptoms or p.r.n. documented in this encounter Plan of Treatment Upcoming Encounters Date Type Specialty Care Team Description 02/06/2023 Hospital Encounter Gastroenterology Cony Tavera MD [facility] ER GASTROENTEROLOGY DEPT. [place], [place] [address] (Wo rk) Scheduled Procedures Name Priority Associated Diagnoses Date/Time COLONOSCOPY, DIAGNOSTIC 10 yr surv documented as of this encounter Procedures Procedure Name Priority Date/Time Associated Diagnosis Comme nts HEPATIC FUNCTION Routine 12/08/2016 12:14 PM Abnormal liver Re sults for this PANEL EDT function tests procedure are in the results section. documented in this encounter Results (ABNORMAL) Hepatic Function Panel (12/08/2016 12:14 PM EDT) P athologist Signature Total Protein 8.1 (H) 6.1 - 8.0 [facility] gm/dL [facility] Albumin 4.6 3.2 - 5.2 [facility] gm/dL [facility] AST 20 0 - 30 [facility] unit/L [facility] Comment: result rechecked-SV ALT 114 (H) 0 - 30 unit/L [facility] Alk Phos 112 (H) 40 - 104 unit/L [facility] Total Bilirubin 0.3 0.2 - 1.3 mg/dL [facility] Bili, Direct 0.1 0.0 - 0.3 mg/dL [facility] Specimen Anatomical Collection Method Collection Time Receive d Time (Source) Location / / Volume Laterality Blood specimen 12/08/2016 12:14 7 1:30 (specimen) PM EDT PM EDT Resulting Agency Comment Spec In Lab Melanie Abrams MD CHEMISTRY ORDERABLES Performing Organization Address City/State/ZIP [place] [address] documented in this encounter Visit Diagnoses Diagnosis Herpes zoster without complication Herpes zoster without mention of complic ation Constipation, unspecified constipation t ype Abnormal liver function tests Other abnormal blood chemistry documented in this encounter Care Teams Tar Roofer Relationship Specialty Start Date End Date Melanie Abrams MD PCP - General 05/12/10 [facility] [address] [place] [address] documented as of this encounter
--- OUTSIDE RECORDS SUMMARY | 2022-02-06 14:12 | XMS_ITS | Encounter Summary ---
:1960 Author Organization [facility] [place] [address] Care Team Providers Name Role Phone Melanie Abrams MD Primary Care Provider Encounter Details Date Type Department Care Team Description 01/16/2016 Hospital Encounter XRay at [facility] Melanie Abrams Biceps tendinitis, [address] [place] [address] Dr Judd MD [facility] [address] [facility] [phone] [facility] PRIMARY CARE [place], [place] [address] Social History Tobacco Use Types Packs/Day Years [...] Sig Dispensed Refills Start Date End Date fish oil-omega-3 fatty Take by mouth 3 [...] SOLUTAB) 15 mg mouth daily. Tablet,Rapid DissolveDR magnesium oxide (MAG-OX) Take 400 mg by 0 05/04/2017 400 mg tablet mouth daily. Reported on 12/08/2016 documented as of this encounter Plan of Treatment Upcoming Encounters Date Type Specialty Care Team Description 02/06/2023 Hospital Encounter Gastroenterology Cony Tavera MD [facility] DE[facility]. [place], [place] [address] (Wo rk) Scheduled Procedures Name Priority Associated Diagnoses Date/Time COLONOSCOPY, DIAGNOSTIC 10 yr surv documented as of this encounter Procedures Procedure Name Priority Date/Time Associated Diagnosis Comme nts XR SHOULDER RIGHT Routine 01/16/2016 9:55 AM Biceps tendinitis , Results for this EDT right procedure are i n the results section. documented in this encounter Results XR Shoulder Right (GENERIC) (01/16/2016 9:55 AM EDT) Anatomical Region Laterality Modality Shoulder Right Digital Radiography Specimen (Source) Anatomical Location Collection Method / Collectio n Time Received Time / Laterality Volume Impressions 01/16/2016 9:59 AM EDT Mild AC arthropathy. Otherwise normal. Narrative 01/16/2016 9:59 AM EDT EXAMINATION: XR SHOULDER RIGHT CLINICAL HISTORY: chronic biceps tendini tis TECHNIQUE: 4 views of RIGHT shoulder COMPARISON: None. FINDINGS: No fracture, dislocation, or other traum atic finding is seen. The glenohumeral joint is well-preserved. No soft tissue calcification is seen. Incidentally noted is mild AC arthropathy. Procedure Note Rodrigo Dove MD - 01/16/2016Formatt ing of this note might be different from the original. EXAMINATION: XR SHOULDER RIGHT CLINICAL HISTORY: chronic biceps tendini tis TECHNIQUE: 4 views of RIGHT shoulder COMPARISON: None. FINDINGS: No fracture, dislocation, or other traum atic finding is seen. The glenohumeral joint is well-preserved. No soft tissue calcification is seen. Incidentally noted is mild AC arthropathy. IMPRESSION Mild AC arthropathy. Otherwise normal. Melanie Abrams MD IMG DX ORDERABLES documented in this encounter Visit Diagnoses Diagnosis Biceps tendinitis, right documented in this encounter Care Teams Purchasing And Claims Supervisor Relationship Specialty Start Date End Date Melanie Abrams MD PCP - General 05/12/[address] [facility] [address] RAHEL [place] [address] documented as of this encounter
--- OUTSIDE RECORDS SUMMARY | 2022-02-06 14:12 | XMS_ITS | Encounter Summary ---
:1960 Author Organization [facility] [place] [address] Care Team Providers Name Role Phone Melanie Abrams MD Primary Care Provider Reason for Referral Diagnostic Test (Routine) - Closed Specialty Diagnoses / Procedures Referred By Contact Refer red To Contact Radiology Diagnoses Biceps tendinitis, right Melanie Abrams MD [facility] Rad Mri Procedures MRI Shoulder Right WO Contrast (GENERIC) [facility] [place] [address] [place] [address] Referral ID Status Reason Start Date Expiration Date Visits V isits Requested Authorized [id number] Closed Specialty 01/16/2016 03/15/2016 1 1 Service Requested Reason for Visit Diagnostic Test (Routine) - Closed Specialty Diagnoses / Procedures Referred By Contact Refer red To Contact Radiology Diagnoses Biceps tendinitis, right Melanie Abrams MD [facility] Rad Mri Procedures MRI Shoulder Right WO Contrast (GENERIC) [facility] [place] [address] [place] [address] Referral ID Status Reason Start Date Expiration Date Visits V isits Requested Authorized [id number] Closed Specialty 01/16/2016 03/15/2016 1 1 Service Requested Encounter Details Date Type Department Care Team Description 01/19/2016 Hospital Encounter MRI at [facility] Fredyhaley Melanie Biceps tendinitis, [facility] [place] [facility] MD [address] [place], [place] CENTER [address] [phone] PRIMARY CARE [place], [place] [address] Social History Tobacco Use Types [...] 15 mg mouth daily. Tablet,Rapid DR Alexi magnesium oxide (MAG-OX) Take 400 mg by 0 05/04/2017 400 mg tablet mouth daily. Reported on 12/08/2016 documented as of this encounter Plan of Treatment Upcoming Encounters Date Type Specialty Care Team Description 02/06/2023 Hospital Encounter Gastroenterology Cony Tavera MD [facility] ER GASTROENTEROLOGY DEPT. [place], [place] [address] (Wo rk) Scheduled Procedures Name Priority Associated Diagnoses Date/Time COLONOSCOPY, DIAGNOSTIC 10 yr surv documented as of this encounter Procedures Procedure Name Priority Date/Time Associated Diagnosis Comme nts MRI SHOULDER RIGHT Routine 01/19/2016 8:57 PM Biceps tendiniti s, Results for this WO CONTRAST EDT right procedure are i n the results section. documented in this encounter Results MRI Shoulder Right WO Contrast (GENERIC) (01/19/2016 8:57 PM EDT) Anatomical Region Laterality Modality Shoulder Right Magnetic Resonance Specimen (Source) Anatomical Location Collection Method / Collectio n Time Received Time / Laterality Volume Impressions 01/20/2016 8:08 AM EDT 1. ??Unremarkable MRI appearance of the long head of the biceps tendon, without significant thickening or tendon sheath fluid. 2. ??Gestational tearing and partial-thi ckness undersurface tearing of the infraspinatus and supraspinatus tendons. No tendon retraction or muscle atrophy. 3. ??Moderate to marked degenerative hyp ertrophy of the AC joint. Narrative 01/20/2016 8:08 AM EDT EXAMINATION: MRI SHOULDER RIGHT WO CONTRAST CLINICAL HISTORY: chronic biceps tendini tis, not responsive to injection, ? surgical candidate TECHNIQUE: MRI of the right shorter was performed without intravenous contrast. COMPARISON: Attention is directed to the right shoulder radiographs dated 01/16/2016. FINDINGS: Glenohumeral joint: There is no fracture or bone marrow edema. ??The alignment is normal. A subchondral cyst is noted in t he posterior superior glenoid. No focal cartilage defect is discerned. There is small glenohumeral joint fluid. Acromioclavicular joint: The acromion maravilla s a flat configuration. The acromioclavicular joint demonstrates mod erate to marked degenerative hypertrophy with impingement on the underlying supra spinatus. Rotator cuff and bursae: There is inters titial tearing and partial-thickness undersurface tearing of the supraspinatu s and infraspinatus tendons. The teres minor and subscapularis tendons are inta ct. There is no tendon retraction. There is no muscle atrophy. There is trace sub acromial/subdeltoid bursal fluid. Biceps tendon and glenoid labrum: The bi ceps tendon is normal in appearance, without significant thickening or tendon sheath fluid. There are degenerative changes of the labrum. Procedure Note Michelle Gandhi MD - 01/20/2016Formatting o f this note might be different from the original. EXAMINATION: MRI SHOULDER RIGHT WO CONTR AST CLINICAL HISTORY: chronic biceps tendini tis, not responsive to injection, ? surgical candidate TECHNIQUE: MRI of the right shorter was performed without intravenous contrast. COMPARISON: Attention is directed to the right shoulder radiographs dated 01/16/2016. FINDINGS: Glenohumeral joint: There is no fracture or bone marrow edema. The alignment is normal. A subchondral cyst is noted in t he posterior superior glenoid. No focal cartilage defect is discerned. There is small glenohumeral joint fluid. Acromioclavicular joint: The acromion maravilla s a flat configuration. The acromioclavicular joint demonstrates mod erate to marked degenerative hypertrophy with impingement on the underlying supra spinatus. Rotator cuff and bursae: There is inters titial tearing and partial-thickness undersurface tearing of the supraspinatu s and infraspinatus tendons. The teres minor and subscapularis tendons are inta ct. There is no tendon retraction. There is no muscle atrophy. There is trace sub acromial/subdeltoid bursal fluid. Biceps tendon and glenoid labrum: The bi ceps tendon is normal in appearance, without significant thickening or tendon sheath fluid. There are degenerative changes of the labrum. IMPRESSION 1. Unremarkable MRI appearance of the lo ng head of the biceps tendon, without significant thickening or tendon sheath fluid. 2. Gestational tearing and partial-thick ness undersurface tearing of the infraspinatus and supraspinatus tendons. No tendon retraction or muscle atrophy. 3. Moderate to marked degenerative hyper trophy of the AC joint. Melanie Abrams MD IMG MRI ORDERABLES documented in this encounter Visit Diagnoses Diagnosis Biceps tendinitis, right documented in this encounter Care Teams Link Knitting Machine Operator Relationship Specialty Start Date End Date Melanie Abrams MD PCP - General 05/12/[address] [facility] [address] RAHEL [facility] [address] documented as of this encounter
--- OUTSIDE RECORDS SUMMARY | 2022-02-06 14:12 | XMS_ITS | Encounter Summary ---
:1960 Author Organization [facility] [place] [address] Care Team Providers Name Role Phone Keren Finley MD Primary Care Provider Reason for Visit Reason Onset Date Comments Medication Refill 03/11/2017 Encounter Details Date Type Department Care Team Description 03/11/2017 Refill Family Medicine at [facility], Yris Templeton Migr seferino without aura [address] INFORMATION SECURITY OFFICER and without status [address] migrainosus, [place] [address] intractable [phone] Social History Tobacco Use Types Packs/Day Years [...] this encounter Miscellaneous Notes Telephone Encounter - Yris Beyer CMA - 03/11/2017 9:39 AM EDT Requested Prescriptions Pending Prescriptions Disp Refills ??? SUMAtriptan (IMITREX) 100 mg Tablet 12 tablet 11 Sig: Take 1 tablet by mouth 2 times daily as needed for Migraine. Telephone Encounter - Yris eByer CMA - 03/11/2017 9:37 AM EDT From: Korin Posada To: Keren Finley MD Sent: 03/11/2017 5:25 AM EDT Subject: Medication Renewal Request Original authorizing provider: MD Korin ROSALES would like a refill of the following medications: SUMAtriptan (IMITREX) 100 mg Tablet [KEREN FINLEY MD] Preferred pharmacy: [facility] [place] [address] Comment: documented in this encounter Plan of Treatment Upcoming Encounters Date Type Specialty Care Team Description 02/06/2023 Hospital Encounter Gastroenterology Cony Tavera MD [facility] GASTROENTEROLOGY DEPT. [place], [place] [address] (Wo rk) Scheduled Procedures Name Priority Associated Diagnoses Date/Time COLONOSCOPY, DIAGNOSTIC 10 yr surv documented as of this encounter Visit Diagnoses Diagnosis Migraine without aura and without status migrainosus, not intractable Migraine without aura, without mention o f intractable migraine without mention of status migrainosus documented in this encounter Care Teams High Climber Relationship Specialty Start Date End Date Keren Finley MD PCP - General 05/12/[address] [facility] [address] [place] [address] documented as of this encounter
--- OUTSIDE RECORDS SUMMARY | 2022-02-06 14:12 | XMS_ITS | Encounter Summary ---
:1960 Author Organization [facility] [place] [address] Care Team Providers Name Role Phone Melanie Abrams MD Primary Care Provider Reason for Visit Reason Onset Date Comments Prior Authorization 05/03/2016 Encounter Details Date Type Department Care Team Description 05/03/2016 Telephone Family Medicine at Melanie Abrams P rior Authorization [facility] Yasmine NESBITT [address] [facility] [place] [address] [facility] [phone] [place] [address] (Wo rk) Social History Tobacco Use Types [...] Notes Telephone Encounter - Velia Richardson - 05/03/2016 12:15 PM EST Medication: Venlafaxine HCL ER 37.5 mg cap Insurance Company: [employer] Phone: Fax: Pharmacist Comments: Insurance would prefer to pay for 1 in the evening and a 75 mg cap in the morning, need 2 new scripts or needs a pa for this qty. documented in this encounter Plan of Treatment Upcoming Encounters Date Type Specialty Care Team Description 02/06/2023 Hospital Encounter Gastroenterology Cony Tavera MD [facility] ER GASTROENTEROLOGY DEPT. [place], [place] [address] (Wo rk) Scheduled Procedures Name Priority Associated Diagnoses Date/Time COLONOSCOPY, DIAGNOSTIC 10 yr surv documented as of this encounter Visit Diagnoses Not on filedocumented in this encounter Care Teams Remote Sensing Research Scientist Relationship Specialty Start Date End Date Melanie Abrams MD PCP - General 05/12/[address] [facility] [address] RAHEL MOREL[facility] [place] [facility] [place] [address] documented as of this encounter
--- OUTSIDE RECORDS SUMMARY | 2022-02-06 14:12 | XMS_ITS | Encounter Summary ---
:1960 Author Organization [facility] [address] Care Team Providers Name Role Phone Melanie Abrams MD Primary Care Provider Reason for Referral Physical Therapy (Routine) - Specialty Diagnoses / Procedures Referred By Contact Refer red To Contact Physical Therapy Diagnoses S/P arthroscopy of shoulder Alexandrea Isidro APRN [facility] [place] [address] Referral ID Status Reason Start Date Expiration Date Visits V isits Requested Authorized [id number] Evaluate and 07/21/2016 01/17/2017 24 24 Treat Reason for Visit Reason Comments Right Shoulder Pain Encounter Details Date Type Department Care Team Description 07/21/2016 Office Visit Orthopaedics at [facility] [place] Alexandrea Isidro, S/P arthroscopy of [facility] COUNTY COMMISSIONER shoulder, right Dr. Loc Hernandez. DOS: 07/12/2016 [place] [address] [place] [address] (Primary Dx) [phone] ORTHOPAEDIC SURGERY [place], [place] [address] Social History Tobacco Use Types [...] Sign Reading Time Taken Comments Blood Pressure 151/100 07/21/2016 8:00 AM EST Pulse 81 07/21/2016 8:00 AM EST Temperature - - Respiratory Rate - - Oxygen Saturation - - Inhaled Oxygen Concentration - - Weight 64.9 kg (143 lb) 07/21/2016 8:00 AM EST Height 170.2 cm (5' 7) 07/21/2016 8:00 AM EST Body Mass Index 22.4 07/21/2016 8:00 AM EST documented in this encounter Progress Notes Minna Isidrooraeddie Whaley, COUNTY COMMISSIONER - 07/21/2016 8:00 AM EST Subjective: Chief Complaint: First global post op for right shoulder arthroscopy Pertinent Surgical History: Surgical Date: 07/12/2016 ?? Surgeon: * Jonas Hernandez MD - Procedure(s): MODIFIER BEACH CHAIR SCHLEIN ARTHROSCOPY SHOULDER, SUBACROMIAL DECOMPRESSION ARTHROSCOPY SHOULDER, DISTAL CLAVICLE RESECTION ARTHROSCOPY, LONG HEAD BICEPS TENOTOMY ARTHROSCOPY SHOULDER DEBRIDEMENT EXTENSIVE ?? HPI: The patient is 56 y.o. and is now 9 days post right shoulder arthroscopy. Pain is controlled with current analgesics. Medication(s) being used: acetaminophen. The patient denies fever, wound drainage,increasing redness, pus, increasing pain, increasing swelling. Post op problems reported: + facial rash or flushing with oxycodone which has resolved with discontinuation of narcotics. She is usingTylenol PRN for pain. The patient has been continuing the 4 quadrant stretching program with her PT avoiding strengthening at this time. No interval falls, injuries or infections. No systemic or constitutional complaints. No numbness or tingling distal to the surgical incision. Her appetite is good, No constipation. Sleeping is ok on the couch. She is interested in returning to work earlier and is here for an earlier expected appointment to discuss RTW status. Patient's medications, allergies, past medical, surgical, social and family histories were reviewed and updated as appropriate. ROS: Denies fever, chills, nausea, vomiting, vision change, shortness of breath, chest pain, vision changes, headaches, bowel or bladder problem, ear, nose, sinus problem, neuro or psychiatric, or endocrine disorder not addressed above. Objective: Vitals: 07/21/16 0800 BP: (!) 151/100 BP Location (NBP): Left arm Patient Position: Sitting BP Cuff Sizes: Adult (25-34 cm) Pulse: 81 Weight: 64.9 kg (143 lb) Height: 170.2 cm (5' 7) Body mass index is 22.4 kg/(m^2). General : alert, appears stated age, cooperative, no distress and well developed, well-nourished Sutures: Sutures out. Incision: healing well, no significant drainage, no dehiscence, no significant erythema Tenderness: mild Forward Flexion: Tolerates gentle AAFF to about 70 degrees External Rotation: Tolerates gentle AAER to about 30 degrees There is unrestricted a/prom of the right elbow, wrist, hand and fingers. Neurologic examination ofthe upper extremity is intact with normal motor function of the radial, median, ulnar, axillary and musculocutaneous nerves. Sensory function is intact in the radial, median, ulnar, axillary, and lateral antebrachial cutaneous nerve distributions. The hand was well perfused. Radial pulses are 2+ and equal bilateral. Arthroscopic findings: Articular surfaces: Humeral head articular [...] Assessment: 56 year old Female who is 9 days Status post right shoulder arthroscopy for above surgical procedure. Doing well postoperatively. No obvious complications noted. Plan: I reviewed my findings in the office today with the op report and arthroscopic pictures and clinical exam. At this time, The focus is to work on ROM and avoidance of heavy lifting. Cool packs and acetaminophen prn for pain no greater than 3 grams per day. Ok to incorporate oral NSAID's prn at this time. She may shower now with padding dry the incisions yet avoidance of submersion/bathing to protect the incisions until fully healed. 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 Pt agrees, questions solicited/answered, will return as scheduled and as needed for concerns or questions. Pt understands they may also call us prn for above. F/u ~4 weeks. No x-rays. Sooner prn. documented in this encounter Plan of Treatment Upcoming Encounters Date Type Specialty Care Team Description 02/06/2023 Hospital Encounter Gastroenterology Cony Tavera MD [facility] GASTROENTEROLOGY DEPT. [place], [place] [address] (Wo rk) Scheduled Procedures Name Priority Associated Diagnoses Date/Time COLONOSCOPY, DIAGNOSTIC 10 yr surv Scheduled Referrals Name Type Priority Associated Diagnoses Order S chedule Referral to Outpatient Referral Routine S/P arthroscopy of Or dered: Physical Therapy shoulder, right 06/2016 Mary. DOS: 07/12/2016 documented as of this encounter Visit Diagnoses Diagnosis S/P arthroscopy of shoulder, right Dr. Jina donahue. DOS: 07/12/2016 - Primary Other postprocedural status documented in this encounter Care Teams Cooker Cleaner Relationship Specialty Start Date End Date Melanie Abrams MD PCP - General 05/12/[address] [facility] [address] [facility] [place] [address] documented as of this encounter
--- OUTSIDE RECORDS SUMMARY | 2022-02-06 14:12 | XMS_ITS | Encounter Summary ---
:1960 Author Organization [facility] [place] [address] Care Team Providers Name Role Phone Melanie Abrams MD Primary Care Provider Encounter Details Date Type Department Care Team Description 01/16/2016 Orders Only Orthopaedics at [facility] [place] [address] Social History Tobacco Use Types Packs/Day [...] 02/06/2023 Hospital Encounter Gastroenterology Cony Tavera MD [facility] GASTROENTEROLOGY DEPT. [place], [place] [address] (Wo rk) Scheduled Procedures Name Priority Associated Diagnoses Date/Time COLONOSCOPY, DIAGNOSTIC 10 yr surv documented as of this encounter Visit Diagnoses Not on filedocumented in this encounter Care Teams Learning Support Assistant Relationship Specialty Start Date End Date Melanie Abrams MD PCP - General 05/12/[address] [facility] [address] [facility] [place] [address] documented as of this encounter
--- OUTSIDE RECORDS SUMMARY | 2022-02-06 14:12 | XMS_ITS | Encounter Summary ---
:1960 Author Organization [facility] [place] [address] Care Team Providers Name Role Phone Melanie Abrams MD Primary Care Provider Reason for Visit Auth/Cert Specialty Diagnoses / Procedures Referred By Contact Refer red To Contact Diagnoses rotator cuff tear Procedures PRO SHLDR ARTHROSCOP, SURG, W ROTAT CUFF REPR ARTHROSCOPY SHOULDER, ROTATOR CUFF REPAIR Referral ID Status Reason Start Date Expiration Date Visits Requ ested Visits Authorized [id number] 1 1 Encounter Details Date Type Department Care Team Description 07/12/2016 Hospital Encounter Outpatient Surgery Christopher Hernandez, Right shoulder pain, Center Kendy NESBITT unspecified [facility] [address] [place] [address] [phone] Social History Tobacco Use Types Packs/Day Years [...] Sign Reading Time Taken Comments Blood Pressure 149/82 07/12/2016 9:30 AM EST Pulse 88 07/12/2016 9:30 AM EST Temperature 36.5 ??C (97.7 ??F) 07/12/2016 8:57 AM EST Respiratory Rate 16 07/12/2016 9:30 AM EST Oxygen Saturation 99% 07/12/2016 9:30 AM EST Inhaled Oxygen Concentration - - [...] 5pm or on a weekend: Call the [facility] pig machine crane operator and ask for the physician on [...] after hours and ask for the anesthesiologist customer solutions supervisor. [facility] Learning About Deep Vein Thrombosis What [...] more? Visit our health information library at [email or web address]. You can also view health information on [employer], your personal patient account. Log in or sign up today. Enter X941 in the search box to learn more about Learning About Deep Vein Thrombosis. ?? [id number] [employer]. Care instructions adapted under license by [facility]. This care instruction is for use with your licensed healthcare professional. If you have questionsabout a medical condition or this instruction, always ask your healthcare professional. [employer] disclaims any warranty or liability for your use of this information. Content Version: 8.9.19753; Last Revised: August 05, 2009 Patient InstructionsAshish [...] immobilization. You should wear the sling time checker except to perform elbow and wrist exercises, change clothes and bathe. Pain: On discharge your first line medication for pain in Tylenol - unless you are unable to take Tylenol, you should take 1,000mg every 8 hours. The Tylenol will help limit the amount of narcotic painmedication you require. You may also take an ywzx-vhe-emlifrn NSAID such as Advil, Ibuprofen, Motrin or [...] patient. documented in this encounter H&P Notes Christopher Hernandez MD - 07/12/2016 7:14 AM EST [...] clavicle excision as well. Source Note - Christopher Hernandez MD - 07/12/2016 7:13 AM EST Patient Name: Korin Posada Patient Age: 55 y.o. Birthdate: 1960 Admit date: 07/12/2016 Attending Physician: Christopher Hernandez MD See scanned document for pre-procedural H&P completed by Dr. Abrams. Christopher Hernandez MD - 07/12/2016 7:13 AM EST Patient Name: Korin Posada Patient Age: 55 y.o. Birthdate: 1960 Admit date: 07/12/2016 Attending Physician: Christopher Hernandez MD See scanned document for pre-procedural H&P completed by Dr. Abrams. documented in this encounter Miscellaneous Notes Op Note - Christopher Hernandez MD - 07/12/2016 8:49 AM EST [facility] [place] Operative Note Patient Name: Korin Posada : [id number] MR#: [id number] Case Date: 07/12/2016 Surgeon: Surgeon(s) and Role: * Christopher Hernandez MD - Primary * Ashish Simental MD - Resident-Seat Trimmer Preoperative diagnosis: rotator cuff tear Postoperative diagnosis: [...] patient and the informed consent, a green [place] was placed on the operative shoulder. The [...] not need to include opening and closing). CHRISTOPHER HERNANDEZ MD 07/12/2016 documented in this encounter Plan of Treatment Upcoming Encounters Date Type Specialty Care Team Description 02/06/2023 Hospital Encounter Gastroenterology Cony Tavera MD [facility] DR GASTROENTEROLOGY DEPT. [place], [place] [address] (Wo rk) Scheduled Procedures Name [...] Diagnosis Right shoulder pain, unspecified chronic ity documented [...] from all sources in 24 hours., Routine fentaNYL 50mcg/mL injection 25 mcg, Intravenous, EVERY 5 MIN PRN, St arting on Tue07/11/16 at 2014, Until Tue07/12/16 at 1346, Pain, [...] 1031, Day of Surgery (Day of Procedure) midazolam (PF) (VERSED) 1 mg/mL injectio n 1 mg Given 07/12/2016 6:59 AM EST 1 mg 1 mg, Intravenous, EVERY 5 MIN PRN, Starting on Tue07/11/16 at 2014, Until Tue07/12/16 at 1346, block, Routine Given [...] mg (COMPLETED) 0645 (Given - Provider: Sunita Munguia, AMANDA) 1,000 mg, Oral, ONCE, 1 dose, Sun 7 at 2045, Maximum dose of acetaminophen is 4000 mg from all sources in 24 hours., Routine clindamycin (CLEOCIN) 600mg in dextrose 5% 50mL 0930 (Due) 600 mg, Intravenous, ONCE, 1 dose, Mon at 0930, Administer over 20 Minutes, Indication for (Active or Suspected): Prophylaxis gabapentin (NEURONTIN) capsule 600 mg (COMPLETED) 0645 (Given - Provider: Sunita Munguia, AMANDA) 600 mg, Oral, ONCE, 1 dose, 07/11/16 at 2045, Routine Continuous Medication Order 07/10/2016 07/11/2016 07/12/2016 lactated ringers infusion 1,000 mL 0650 (New Bag - Provider: Sunita Munguia, AMANDA)0856 (Stopped - Provider: Phylicia Fontenot CRNA) 1,000 mL, at 100 mL/hr, Intravenous, CON TINUOUS, Starting Tue07/12/16 at 0645, Until Tue07/12/16 at 1031, Day of Surgery (Day of Procedure) PRN Medication Order 07/10/2016 07/11/2016 07/12/2016 BUpivacaine-EPINEPHrine 0.25 %-1:200,000 injection (CANCELED) 0758 (Given - Provider: Christopher Hernandez MD - Comment: Right shoulder) ONCE PRN, Starting Tue07/12/16 at 0758, Until Tue07/12/16 at 1346, Intra- Operative (Intra-Procedure), Routine EPINEPHrine (ADRENALIN) injection (CANCELED) 0758 (Given - Provider: Christopher Hernandez MD - Comment: 1 mg of Epinephrine 1:1000 in 3L Normal saline) ONCE PRN, Starting Tue07/12/16 at 0758, Until Tue07/12/16 at 1346, Intra- Operative (Intra-Procedure), Routine fentaNYL 50mcg/mL injection 25 mcg, Intravenous, EVERY 5 MIN PRN, St [place] 07/11/16 at 2014, Until 07/12/16 at 1346, Pain, block sedation, Routine lidocaine (XYLOCAINE) 10 mg/mL (1 %) injection 3 mg (COMPLETED) 0818 (Given - Provider: Christopher Hernandez MD - Comment: Right shoulder) 3 mg (0.3 mL), Subcutaneous, ONCE PRN, 1 dose, Starting Tue07/12/16 at 0616, Until Discontinued, for discomfort with PIV insertion, Day of Surgery (Day of Procedure), Routine midazolam (PF) (VERSED) 1 mg/mL injection 1 mg 0654 (Given - Provider: Sunita Munguia, RN)0659 (Given - Provider: Sunita Munguia, RN) 1 mg, Intravenous, EVERY 5 MIN PRN, Juan Pablo bradley 07/11/16 at 2014, Until 07/12/16 at 1346, block, Routine sodium chloride 0.9 % flush 5-20 mL 5-20 mL, Intravenous, EVERY 1 MIN PRN, S tarting 07/12/16 at 0616, Until 07/12/16 at 1031, flush, Flush pertains to all indwelling lines. Flush per protocol found in the job aid using the link prov ided on this medication record., Day of Surgery (Day of Procedur e), Routine No Frequency Medication Order 07/10/2016 07/11/2016 07/12/2016 clindamycin (CLEOCIN) 600 mg/50 mL infusion (COMPLETED) 07 (Given - Provider: Phylicia Fontenot CRNA) 1 dose, Starting Tue07/12/16 at 0713, Un til Tue07/12/16 at 1914, SUNITA MUNGUIA: cabinet override documented in this encounter Care Teams Employment Specialist/Program Manager Relationship Specialty Start Date End Date Melanie Abrams MD PCP - General 05/12/[address] [facility] [address] RAHEL MORELOS [facility] [place] [address] documented as of this encounter
--- OUTSIDE RECORDS SUMMARY | 2022-02-06 14:12 | XMS_ITS | Encounter Summary ---
:1960 Author Organization [facility] [place] [address] Care Team Providers Name Role Phone Melanie Abrams MD Primary Care Provider Reason for Visit Reason Onset Date Comments Appointment 11/03/2016 Encounter Details Date Type Department Care Team Description 11/03/2016 Telephone [place] [facility]as Hernandez MD Appointment [facility] [place] [address] ORTHOPAEDIC SURGERY [phone] [place] [id number] (Wo rk) Social History Tobacco Use Types [...] this encounter Miscellaneous Notes Telephone Encounter - Octavia Fontenot - 11/05/2016 7:53 AM EDT Patient scheduled Telephone Encounter - Yanni Fernandez - 11/03/2016 3:48 PM EDT Per My message below: LMOM #1 to call to schedule injection under fluoro right shoulder-order in eDH ----- Message from Dulce Galarza RN sent at 11/03/2016 ??3:45 PM EDT ----- ?----- Message from Korin Posada to Jonas Hernandez MD sent at 11/03/2016 ??2:07 PM ----- ? Mu shoulder is not improving. When I saw you last you gave me the option of having a cortisone shot. ? Would you please schedule that for me? Thanks, ? Ally ? Call Documentation ? Dulce Galarza, RN at 11/03/2016 ??3:44 PM ? Status: Signed ? Patient's request for injection appointment of the Right shoulder has been reviewed by Clinical Support. ?? Is it too soon for patient to have this injection? No ?? Date of last injection? N/A ?? Is this a synvisc/orthovisc injection? no ?? Enter [employer] Prior Auth if Synvisc or Orthovisc injection. ?? Does this injection need to be scheduled in radiology under fluoro? yes ?? Have orders been placed? yes ?? Injection within 3 months prior to joint arthroplasty or arthroscopy is associated with increased rates of postoperative infection: this includes, hip, knee, and shoulder documented in this encounter Plan of Treatment Upcoming Encounters Date Type Specialty Care Team Description 02/06/2023 Hospital Encounter Gastroenterology Cony Tavera MD [facility] GASTROENTEROLOGY DEPT. [place], [place] [address] (Wo rk) Scheduled Procedures Name Priority Associated Diagnoses Date/Time COLONOSCOPY, DIAGNOSTIC 10 yr surv documented as of this encounter Visit Diagnoses Not on filedocumented in this encounter Care Teams Senior Policy Associate Relationship Specialty Start Date End Date Melanie Abrams MD PCP - General 05/12/[address] [facility] [address] [facility] [place] [address] documented as of this encounter
--- OUTSIDE RECORDS SUMMARY | 2022-02-06 14:12 | XMS_ITS | Encounter Summary ---
:1960 Author Organization [facility] [place] [address] Care Team Providers Name Role Phone Melanie Abrams MD Primary Care Provider Reason for Referral Physical Therapy (Routine) - Specialty Diagnoses / Procedures Referred By Contact Refer red To Contact Physical Therapy Diagnoses Right shoulder pain, unspecified chronicity Impingement syndrome of shoulder, right Arthralgia of right acromioclavicular joint Alexandrea Isidro, CLINICAL ASSESSMENT MANAGER [facility] [place] [address] Referral ID Status Reason Start Date Expiration Date Visits V isits Requested Authorized [id number] Evaluate and 02/12/2016 08/10/2016 12 12 Treat Reason for Visit Reason Comments Right Shoulder Pain Consultation (Routine) - Closed Specialty Diagnoses / Procedures Referred By Contact Refer red To Contact Orthopaedics Diagnoses AC joint arthropathy RIGHT SHOULDER PAIN Melanie Abrams, [facility] [address] [place] [address] [facility] Phone: [place] [address] Referral ID Status Reason Start Date Expiration Date Visits V isits Requested Authorized [id number] Closed Specialty 02/04/2016 02/03/2017 1 1 Service Requested Encounter Details Date Type Department Care Team Description 02/12/2016 Office Visit Orthopaedics at [facility] Hernandez, Impingement syndrome of shou lder, right (Primary Dx); [facility] Jonas Right shoulder pain, unspecified chronic ity; [facility] Arthralgia of right acromioc lavicular joint [place], [place] CENTER [address] ORTHOPAEDIC [phone] [place] [address] Social History Tobacco Use Types Packs/Day Years [...] Sign Reading Time Taken Comments Blood Pressure 143/98 02/12/2016 3:02 PM EDT Pulse 75 02/12/2016 3:02 PM EDT Temperature - - Respiratory Rate - - Oxygen Saturation - - Inhaled Oxygen Concentration - - Weight 71.7 kg (158 lb) 02/12/2016 3:02 PM EDT stated Height 170.2 cm (5' 7) 02/12/2016 3:02 PM EDT stated Body Mass Index 24.75 02/12/2016 3:02 PM EDT documented in this encounter Progress Notes Alexandrea Isidro, CLINICAL ASSESSMENT MANAGER - 02/12/2016 3:15 PM EDT This patient was seen in consultation today at the request of Dr. Abrams. Reason for Consultation: right shoulder pain. Duration: Several months. STAFF: Dr. Hernandez. History of Present Condition: Korin Posada is a pleasant 55 y.o. year-old female who visits the Orthopaedic clinic alone today with a history of right shoulder pain. The pain has been present for several months and is exacerbated by overhead activity. Her pain was originally at the proximal bicepsregion that responded well to PT. She did have a GH cortisone injection with no relief of subacromial pain and AC joint pain. Recently, She did have an AC joint cortisone injection by Dr. Abrams with good effect for AC joint pain for about a week. She has been taking oral NSAID's for the pain and hasundergone 2 rounds of formal PT to address this pain. No history of right shoulder Fx, dislocation or surgery. No neck pain or radiculopathy. No numbness or tingling of the right upper extremity. 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 Her health has been stable otherwise and she is here for definitive management. Past Medical History: Active Ambulatory Problems Diagnosis Date Noted ??? Major depressive disorder, recurrent episode, unspecified ??? CIS - GERD ??? Migraine without aura, without mention of intractable migraine without mention of status migrainosus 09/11/2010 ??? HTN (hypertension) 11/30/2010 ??? Anxiety 11/30/2010 ??? Hypothyroidism 11/30/2010 ??? Pain in left wrist 10/07/2014 ??? Pain in right shoulder 02/12/2016 Resolved Ambulatory Problems Diagnosis Date Noted ??? CIS - eating disorder 06/20/1991 Past Medical History Diagnosis Date ??? Arthritis ??? Depression ??? Hiatal hernia ??? Insomnia ??? Uterine fibroid Past Surgical History Past Surgical History Procedure Laterality Date ??? Created by interface cholecystectomy Procedure Date: 1996 ??? Created by interface [email or web address],ROBOT ASSIST / WIRA Procedure Date: 11/18/2009 ??? Pro colonoscopy, diagnostic 02/06/2013 COLONOSCOPY, DIAGNOSTIC performed by Ashanti Tavera MD at [facility] ??? 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 History Smoking Status ??? Never Smoker Smokeless Tobacco ??? Never Used History Alcohol Use ??? Yes Comment: Rare Family History - her family history is pertinent for Family History Problem Relation Age of Onset ??? Heart Surgery Mother aortic surgery ??? Type 2 Diabetes Mother ??? Myocardial Infarction Maternal Grandmother ??? Hypertension Father ??? Hypertension Brother ??? Type 2 Diabetes Paternal Grandfather ??? Breast Cancer Paternal Aunt ??? Breast Cancer Paternal Grandmother . Review of Systems: A thirteen-system review was negative for any positive findings except for Denies fever, chills, nausea, vomiting, vision change, shortness of breath, chest pain, vision changes, headaches, bowel or bladder problem, ear, nose, sinus problem, neuro or psychiatric, or endocrine disorder not addressed above. Physical Examination: Vitals: BP Readings from Last 1 Encounters: 02/12/16 (!) 143/98 Pulse Readings from Last 1 Encounters: 02/12/16 75 Height: 170.2 cm (5' 7) (stated) Weight - Scale: 71.7 kg (158 lb) (stated) Body mass index is 24.75 kg/(m^2). Constitutional- she is alert and oriented to person, place, time, and situation. she is in no apparent distress. Ears, nose, mouth, throat - her head is Normocephalic, without obvious abnormality, atraumatic Integumentary - in general her skin shows normal coloration and turgor, no rashes, no suspicious skin lesions noted. Psychiatric - her affect was Appropriate. Musculoskeletal examination: Motor exam shows 5/5 strength in lateral deltoid muscles of the upper extremity. C-spine negative Spurling's. Posture is symmetric. No gross deformities. + TTP at the AC joint. NO proximal biceps TTP. ?? Shoulder motion Active Passive Strength ?? Abduction 180 180 5/5 ?? Flexion 180 180 5/5 ?? Internal rotation T5 T5 5/5 ?? External rotation 70 70 5/5 ?? Special Tests ?? Rotator cuff tests: ?? Queen' test - Positive ?? Neer's test - Positive ?? Empty can test - Positive ?? Garth's test - N/A ?? Labrum tests ?? O'mikhail's test - Negative ?? Biceps tests ?? Speed's test - Negative ?? Yergason's test - Negative ?? AC joint tests ?? AC joint tenderness - Positive ?? Cross-arm test - Positive Imaging Studies: Plain radiographs - mild to moderate AC joint arthropathy. No fracture or dislocation. No osseous orlytic lesions. MRI - + partial RTC tear, moderate AC joint arthropathy. CT - none Impression & Plan: 55 y.o. year-old female with based upon history, physical exam, and imaging studies appears to haveRight shoulder symptomatic AC joint arthropathy, + RTC impingement with a partial RTC tear. Dr Hernandez looked in on the patient and agrees with above. Treatment options and risks/benefits discussed from least to most invasive. Patient understands options. At this time, We can consider a right shoulder subacromial cortisone injection for both a diagnostic and therapeutic modality and she would like to proceed. See procedure below. We do recommend a 4-6 week course of oral NSAID's on a scheduled and therapeutic dosing along with another round of formal PT. Cool packs and acetaminophen prn for pain no greater than 3 grams per day. Pt agrees, questions solicited/answered, will return as scheduled and as needed for concerns or questions. Pt understands they may also call us prn for above. F/u plan : Dr. Hernandez. 6-8 weeks. No x-rays. Sooner prn. Procedure: Right shoulder subacromial cortisone injection Prior to beginning conversation was held regarding the risks and benefits of cortisone injection. A timeout was held confirming the correct side and medication. After which using appropriate sterile technique, with betadine and methyl chloride spray was used to anesthetize the skin. This was followed by injection of 4 ml of 1 % Lidocaine plain, and 40 mg of Kenalog. The patient tolerated this procedure well. Please copy this note to: Melanie Abrams MD [facility] [address] [place] [address] documented in this encounter Plan of Treatment Upcoming Encounters Date Type Specialty Care Team Description 02/06/2023 Hospital Encounter Gastroenterology Cony Tavera MD [facility] GASTROENTEROLOGY DEPT. [place], [place] [address] (Wo rk) Scheduled Procedures Name Priority Associated Diagnoses Date/Time COLONOSCOPY, DIAGNOSTIC 10 yr surv Scheduled Referrals Name Type Priority Associated Diagnoses Order S chedule Referral to Outpatient Routine Right shoulder pain, Ordered : Physical Therapy Referral unspecified chr onicity 02/12/2016 Impingement syndrome of shoulder, right Arthralgia of right acromioclavicular joint documented as of this encounter Visit Diagnoses Diagnosis Impingement syndrome of shoulder, right - Primary Right shoulder pain, unspecified chronic ity Arthralgia of right acromioclavicular shanta int Pain in joint, shoulder region documented in this encounter Administered Medications Inactive Administered Medications - up to 3 most recent administrations Medication Order MAR Action Action Date Dose Rate Site lidocaine (XYLOCAINE) 20 mg/mL (2 Given 02/12/2016 3:51 PM EDT 8 0 mg %) injection 80 mg 80 mg, Subdermal, ONCE, 1 dose, On Beba 02/12/16 at 1615, In-Office injection into the subacromial space of the shoulder., Routine triamcinolone acetonide (KENALOG-40) injection Given 0 02/12/2016 3:51 PM EDT 40 mg 40 mg 40 mg, Intra-articular, ONCE, 1 dose, On Beba 02/12/16 at 1615, Routine documented in this encounter Care Teams Fruit Thinner Relationship Specialty Start Date End Date Melanie Abrams MD PCP - General 05/12/[address] [facility] [address] [place] [address] documented as of this encounter
--- OUTSIDE RECORDS SUMMARY | 2022-02-06 14:12 | XMS_ITS | Encounter Summary ---
:1960 Author Organization [facility] Address [address] [place] [address] Care Team Providers Name Role Phone Melanie Abrams MD Primary Care Provider Encounter Details Date Type Department Care Team Description 01/13/2016 Hospital Encounter Mammography at [facility] [place] [place] Melanie Abrams Encounter for [facility] MD Judd screening mammogram Drive [facility] for breast cancer [facility] [address] [phone] PRIMARY CARE [place], [place] [address] Social History Tobacco Use Types [...] MD [facility] DE[facility]. [place], [place] [address] (Wo rk) Scheduled Procedures Name Priority Associated Diagnoses Date/Time COLONOSCOPY, DIAGNOSTIC 10 yr surv documented as of this encounter Procedures Procedure Name Priority Date/Time Associated Diagnosis Comme nts MAMMO SCREENING CAD Routine 01/13/2016 3:17 PM Encounter for R esults for this AND TAM BILATERAL EDT screening mammogram pr ocedure are in for breast cancer the result s section. documented in this encounter Results Mammo Screen CAD and Tam Bilat (Generic) (01/13/2016 3:17 PM EDT) Anatomical Region Laterality Modality Breast Bilateral Mammography Specimen (Source) Anatomical Location Collection Method / Collectio n Time Received Time / Laterality Volume Narrative 01/14/2016 7:59 AM EDT BILATERAL MAMMOGRAPHY REASON FOR EXAM: [...] No mammographic evidence of malignancy. RECOMMENDATION: The [employer] and The Society of [...] letter has been sent to this pa elie by the [facility]. BIRADS CATEGORY 1: NEGATIVE Melanie Abrams MD IMG MAMMO ORDERABLES documented in this encounter Visit Diagnoses Diagnosis Encounter for screening mammogram for br east cancer documented in this encounter Care Teams Music Intern Relationship Specialty Start Date End Date Melanie Abrams MD PCP - General 05/12/[address] [facility] [address] [facility] [place] [address] documented as of this encounter
--- OUTSIDE RECORDS SUMMARY | 2022-02-06 14:12 | XMS_ITS | Encounter Summary ---
:1960 Author Organization [facility] [place] [address] Care Team Providers Name Role Phone Melanie Abrams MD Primary Care Provider Reason for Visit Reason Onset Date Comments Other 12/10/2015 Encounter Details Date Type Department Care Team Description 12/10/2015 Telephone Family Medicine at [facility] [address] Maryam Esteban Other [address] [place] [address] Social History Tobacco Use Types Packs/Day [...] Telephone Encounter - Dea Maldonado RN - 12/11/2015 11:18 AM EDT Spoke with JORGE Dennis. She is questioning spondylolisthesis. Requests low back xray, prepped and pended for provider review. Telephone Encounter - Dea Maldonado RN - 12/10/2015 4:41 PM EDT Call to PTJeannie is not in office. Will call back in am. Telephone Encounter - Maryam Esteban - 12/10/2015 3:44 PM EDT Message: The patient called stating she has been seeing a physical therapist for her back. The physical therapist is requesting that the patient get an Xray of her back to determine if she might have spondy. She goes to [facility] which [facility] of [facility] and she sees physical therapist Jeannie. They can be reached at # [phone]. Caller and relationship (if other than patient-full name): patient Best time to call back: any Ok to leave a message: [yes] Ok to send my- message: [yes] Offered Appointment: no Nurse contacted via: Message: yes Call: no Pager: no documented in this encounter Plan of Treatment Upcoming Encounters Date Type Specialty Care Team Description 02/06/2023 Hospital Encounter Gastroenterology Cony Tavera MD [facility] GASTROENTEROLOGY DEPT. [place], [place] [address] (Wo rk) Scheduled Procedures Name Priority Associated Diagnoses Date/Time COLONOSCOPY, DIAGNOSTIC 10 yr surv documented as of this encounter Results XR Lumbar Spine 2 [...] Visit Diagnoses Diagnosis Low back pain, non-specific Low back pain, non-specific documented in this encounter Care Teams Heavy Equipment Diesel Mechanic Relationship Specialty Start Date End Date Melanie Abrams MD PCP - General 05/12/[address] [facility] [address] [facility] [place] [address] documented as of this encounter
--- OUTSIDE RECORDS SUMMARY | 2022-02-06 14:12 | XMS_ITS | Encounter Summary ---
:1960 Author Organization [facility] [place] [address] Care Team Providers Name Role Phone Melanie Abrams MD Primary Care Provider Encounter Details Date Type Department Care Team Description 12/04/2016 Hospital Encounter [place] [address] Social History Tobacco Use Types Packs/Day [...] MD [facility] GASTROENTEROLOGY DEPT. [place], [place] [address] (Wo rk) Scheduled Procedures Name Priority Associated Diagnoses Date/Time COLONOSCOPY, DIAGNOSTIC 10 yr surv documented as of this encounter Procedures Procedure Name Priority Date/Time Associated Diagnosis Comme nts FILM LIBRARY STAT 12/04/2016 12:00 AM Pain Results for this STORAGE ONLY CT EDT procedure ar e in ABDOMEN AND PELVIS the resul ts section. documented in this encounter Results Film Library- Storage Only CT Abdomen & Pelvis (12/04/2016 12:00 AM EDT) Specimen (Source) Anatomical Location Collection Method / Collectio n Time Received Time / Laterality Volume Narrative RAD - 12/05/2016 6:48 PM EDT This exam is for storage only and is aut o-finalizing. Chastity Pimentel MD IMG FILM LIBRARY ORDERABLES Performing Organization Address City/State/ZIP Code Phon e Number [place], [place] documented in this encounter Visit Diagnoses Not on filedocumented in this encounter Care Teams Igniter Capper Relationship Specialty Start Date End Date Melanie Abrams MD PCP - General 05/12/[address] [facility] [address] RAHEL [place] [address] documented as of this encounter
--- OUTSIDE RECORDS SUMMARY | 2022-02-06 14:12 | XMS_ITS | Encounter Summary ---
:1960 Author Organization [facility] [place] [address] Care Team Providers Name Role Phone Melanie Abrams MD Primary Care Provider Encounter Details Date Type Department Care Team Description 12/04/2016 Hospital Encounter [place] [address] Social History Tobacco Use Types Packs/Day [...] Cony Tavera MD [facility] GASTROENTEROLOGY DEPT. [place], [place] [address] (Wo rk) Scheduled Procedures Name Priority Associated Diagnoses Date/Time COLONOSCOPY, DIAGNOSTIC 10 yr surv documented as of this encounter Procedures Procedure Name Priority Date/Time Associated Diagnosis Comme nts FILM LIBRARY STAT 12/04/2016 12:05 AM Pain Results for this STORAGE ONLY DX EDT procedure ar e in CHEST the results section. documented in this encounter Results Film Library- Storage Only DX Chest (12/04/2016 12:05 AM EDT) Specimen (Source) Anatomical Location Collection Method / Collectio n Time Received Time / Laterality Volume Narrative RAD - 12/05/2016 6:50 PM EDT This exam is for storage only and is aut o-finalizing. Chastity Pimentel MD IMG FILM LIBRARY ORDERABLES Performing Organization Address City/State/ZIP Code Phon e Number [place], [place] documented in this encounter Visit Diagnoses Not on filedocumented in this encounter Care Teams Program Clinician Relationship Specialty Start Date End Date Melanie Abrams MD PCP - General 05/12/[address] [facility] [address] [place] [address] documented as of this encounter
--- OUTSIDE RECORDS SUMMARY | 2022-02-06 14:12 | XMS_ITS | Encounter Summary ---
:1960 Author Organization [facility] [place] [address] Care Team Providers Name Role Phone Melanie Abrams MD Primary Care Provider Encounter Details Date Type Department Care Team Description 11/08/2016 Hospital Encounter XRay at [facility] Jonas Hernandez, Pain in joint of [address] [facility] [address] [place] right shoulder [facility] [address] [place] [phone] [place] [address] Social History Tobacco Use Types Packs/Day Years [...] Encounter Gastroenterology Cony Tavera MD [facility] GASTROENTEROLOGY DEPT. [place], [place] [address] (Wo rk) Scheduled Procedures Name Priority Associated Diagnoses Date/Time COLONOSCOPY, DIAGNOSTIC 10 yr surv documented as of this encounter Procedures Procedure Name Priority Date/Time Associated Diagnosis Comme nts XR FLUORO INJECTION Routine 11/08/2016 3:02 PM Pain in joint o f Results for this DRAINAGE JOINT LG EDT right shoulder procedur e are in RIGHT the results section. documented in this encounter Results XR Fluoro Guided Joint Injection Large Right (11/08/2016 3:02 PM EDT) Anatomical Region Laterality Modality Right Radio Fluoroscopy Specimen (Source) Anatomical Location Collection Method / Collectio n Time Received Time / Laterality Volume Impressions 11/08/2016 4:35 PM EDT Uneventful right glenohumeral joint injection under fluoroscopy. Resident/Fellow: None Attending: Dr. Fatemeh Caceres Procedure performed by IVÁN Bartholomew RN Narrative 11/08/2016 4:35 PM EDT HISTORY: GH OA RIGHT SHOULDER JOINT INJECTION UNDER FLU OROSCOPY TECHNIQUE: After an extensive conversati on with the patient regarding risks and benefits, oral and written consent were obtained. ??A pre- procedural time-out was performed as per [facility] protocol. The patient was placed supine on the flu oroscopic table. ??The skin overlying the right shoulder was prepped and draped in the usual aseptic manner. 1% Lidocaine was used to achieve local anesthesia. Un soumya fluoroscopic guidance, 22 gauge needle was advanced into the joint space . ??Small amount of air was injected to document needle placement. ??A mixture o f Ropivacaine and triamcinolone acetonide was injected. All needles removed at end of procedure. FINDINGS: 1. ??Small amount of injected air in the right glenohumeral joint space. 2. ??PAIN SCORE: ??Before: 2-310 ??After: 06/29 3. Fluoroscopy time: 0.12 minutes 4. Medications: ??Lidocaine 1% - <5 ml, for subcutaneou s anesthesia ??Ropivacaine HCL ??0.5% - 3 ml ??Triamciolone Acetonide ??- 40 mg COMPLICATIONS: ??None immediate. POST-PROCEDURE CARE: Information regardi ng monitor of infection, post- procedural pain and management of steroi d flare were reviewed with patient. Procedure Note Haydee Camejo, HOSPITAL FELLOW - 11/08/2016Forma tting of this note might be different from the original. HISTORY: GH OA RIGHT SHOULDER JOINT INJECTION UNDER FLU OROSCOPY TECHNIQUE: After an extensive conversati on with the patient regarding risks and benefits, oral and written consent were obtained. A pre- procedural time-out was performed as per [facility] protocol. The patient was placed supine on the flu oroscopic table. The skin overlying the right shoulder was prepped and draped in the usual aseptic manner. 1% Lidocaine was used to achieve local anesthesia. Un soumya fluoroscopic guidance, 22 gauge needle was advanced into the joint space . Small amount of air was injected to document needle placement. A mixture of Ropivacaine and triamcinolone acetonide was injected. All needles removed at end of procedure. FINDINGS: 1. Small amount of injected air in the r ight glenohumeral joint space. 2. PAIN SCORE: Before: 2-3/10 After: 06/29 3. Fluoroscopy time: 0.12 minutes 4. Medications: Lidocaine 1% - <5 ml, for subcutaneous anesthesia Ropivacaine HCL 0.5% - 3 ml Triamciolone Acetonide - 40 mg COMPLICATIONS: None immediate. POST-PROCEDURE CARE: Information regardi ng monitor of infection, post- procedural pain and management of steroi d flare were reviewed with patient. IMPRESSION Uneventful right glenohumeral joint inje ction under fluoroscopy. Resident/Fellow: None Attending: Dr. Fatemeh Caceres Procedure performed by IVÁN Bartholomew RN ManuelBeatriceAl Hernandez MD IMG FLUORO ORDERABLES documented in this encounter Visit Diagnoses Diagnosis Pain in joint of right shoulder Pain in joint, shoulder region documented in this encounter Administered Medications Inactive Administered Medications - up to 3 most recent administrations Medication Order MAR Action Action Date Dose Rate Site ROpivacaine (PF) 5 mg/mL Given 11/08/2016 3:00 PM 04- Shoulder (Right) (0.5 %) 4 mL with EDT triamcinolone acetonide 40 mg injection Intra-articular, ONCE, 1 dose, On 11/08/16 at 1500 documented in this encounter Care Teams Asian Art Curator Relationship Specialty Start Date End Date Melanie Abrams MD PCP - General 05/12/[address] [facility] [address] RAHEL MOREL[facility] [place] [address] documented as of this encounter
--- OUTSIDE RECORDS SUMMARY | 2022-02-06 14:12 | XMS_ITS | Encounter Summary ---
:1960 Author Organization [facility] [place] [address] Care Team Providers Name Role Phone Melanie Abrams MD Primary Care Provider Reason for Referral Diagnostic Test (Routine) - Closed Specialty Diagnoses / Procedures Referred By Contact Refer red To Contact Radiology Diagnoses Biceps tendinitis, right Melanie Abrams MD [facility] Rad Mri Procedures MRI Shoulder Right WO Contrast (GENERIC) [facility] [place] [address] [place] [address] Referral ID Status Reason Start Date Expiration Date Visits V isits Requested Authorized [id number] Closed Specialty 01/16/2016 03/15/2016 1 1 Service Requested Reason for Visit Reason Comments Right Shoulder Pain pain worsened since October Encounter Details Date Type Department Care Team Description 01/16/2016 Office Visit Orthopaedics at [facility] Melanie Abrams Biceps tendinitis, [facility] [place] [address] [place], [place] [address] Social History Tobacco Use Types [...] Sign Reading Time Taken Comments Blood Pressure 142/93 01/16/2016 9:03 AM EDT Pulse 86 01/16/2016 9:03 AM EDT Temperature - - Respiratory Rate - - Oxygen Saturation - - Inhaled Oxygen Concentration - - Weight 72.6 kg (160 lb) 01/16/2016 9:03 AM EDT verbal Height 170.2 cm (5' 7) 01/16/2016 9:03 AM EDT verbal Body Mass Index 25.06 01/16/2016 9:03 AM EDT documented in this encounter Progress Notes Melanie Abrams MD - 01/16/2016 9:00 AM EDT Patient returns regarding her right shoulder. The injection done on November 06 did not really make any difference. She is frustrated and is interested in possibly taking this in a surgical direction. She has continued to work with a PT. She has now added a personal service representative who she is working with for the past 3 weeks. She is able to do TRX with a inside sales trainer and able to kayak. However, she has really not had this improve, and it has been 2 years. New now is there is some forearm numbness and tingling. This is on occasion. O: Appears well. Her right shoulder has normal range of motion in all directions including internal rotation. Strength in all directions is preserved with a slight diminished lift-off test. All of her tenderness corresponds to the biceps groove, and most of her pain is elicited with testing of the long head of the biceps. A/P: Persistent biceps tendinitis. This did not respond to injection. She may be someone who is a candidate for a biceps tenodesis. We will proceed in that direction with x-rays today, then MRI. I will follow up with her on the MRI results when available. Unclear as to why there is numbness and tingling at the forearm without the hand. This may require further investigation, but we will hold off on that for now. documented in this encounter Plan of Treatment Upcoming Encounters Date Type Specialty Care Team Description 02/06/2023 Hospital Encounter Gastroenterology Cony Tavera MD [facility] GASTROENTEROLOGY DEPT. [place], [place] [address] (Wo rk) Scheduled Procedures Name Priority Associated Diagnoses Date/Time COLONOSCOPY, DIAGNOSTIC 10 yr surv documented as of this encounter Results MRI Shoulder Right WO [...] of the AC joint. Melanie Abrams MD [facility] MRI ORDERABLES XR Shoulder Right (GENERIC) (01/16/2016 9:55 AM [...] encounter Visit Diagnoses Diagnosis Biceps tendinitis, right Biceps tendinitis, right Biceps tendinitis, right documented in this encounter Care Teams Janitorial Maintenance Worker Relationship Specialty Start Date End Date Melanie Abrams MD PCP - General 05/12/[address] [facility] [address] [facility] [place] [address] documented as of this encounter
--- OUTSIDE RECORDS SUMMARY | 2022-02-06 14:12 | XMS_ITS | Encounter Summary ---
:1960 Author Organization [facility] [place] [address] Care Team Providers Name Role Phone Melanie Abrams MD Primary Care Provider Reason for Visit Reason Comments Medication Refill Encounter Details Date Type Department Care Team Description 05/13/2017 Refill Family Medicine at [facility] Melanie Saldana MD [facility] [address] [facility] [place] [address] [place] [address] [phone] (Wo rk) Social History Tobacco Use Types [...] this encounter Miscellaneous Notes Telephone Encounter - Romi Jeffries MA - 05/13/2017 8:42 AM EST Requested Prescriptions Pending Prescriptions Disp Refills ??? traZODone (DESYREL) 100 mg Tablet [Pharmacy Med Name: TRAZODONE 100 MG TABLET] 90 tablet 3 Sig: take 1 tablet by mouth every evening documented in this encounter Plan of Treatment Upcoming Encounters Date Type Specialty Care Team Description 02/06/2023 Hospital Encounter Gastroenterology Cony Tavera MD [facility] GASTROENTEROLOGY DEPT. [place], [place] [address] (Wo rk) Scheduled Procedures Name Priority Associated Diagnoses Date/Time COLONOSCOPY, DIAGNOSTIC 10 yr surv documented as of this encounter Visit Diagnoses Not on filedocumented in this encounter Care Teams Sterile Technician Relationship Specialty Start Date End Date Melanie Abrams MD PCP - General 05/12/10 [facility] [address] [place] [address] documented as of this encounter
--- OUTSIDE RECORDS SUMMARY | 2022-02-06 14:12 | XMS_ITS | Encounter Summary ---
:1960 Author Organization [facility] Address [facility] [place] [address] Care Team Providers Name Role Phone Melanie Abrams MD Primary Care Provider Reason for Visit Reason Comments Annual Exam Encounter Details Date Type Department Care Team Description 05/03/2016 Office Visit Family Medicine at Melanie Abrams physical exam; Rahel Whaley MD Stress incontinence, female; [address] [facility] [place] [address] [phone] PRIMARY CARE [place], [place] [address] Social History Tobacco Use Types [...] Sign Reading Time Taken Comments Blood Pressure 128/84 05/03/2016 7:52 AM EST Pulse 66 05/03/2016 7:52 AM EST Temperature 36.8 ??C (98.3 ??F) 05/03/2016 7:52 AM EST Respiratory Rate 14 05/03/2016 7:52 AM EST Oxygen Saturation 99% 05/03/2016 7:52 AM EST Inhaled Oxygen Concentration - - Weight 68.8 kg (151 lb 9.6 oz) 05/03/2016 7:52 AM EST Height 169.4 cm (5' 6.69) 05/03/2016 7:52 AM EST Body Mass Index 23.96 05/03/2016 7:52 AM EST documented in this encounter Progress Notes Chasity Huizar MA - 05/03/2016 8:00 AM EST *LOGAN Previsit* Confirm last name/ . [X] Are there any medications that need to be updated on your list? Check Pharmacy [X] Are any refills needed? levothyroxine, effexor, trazodone Have you seen a provider outside of [facility] if so, do you have any information from the visits i.e. Immunizations, mammo, colo, pap etc. MA check scanned documents to see if records are there. n/a Do you have any concerns for the visit? (List most important first, provider may not be able to address all of them) Bladder control Review Education. [X] Review family history (heart disease, stroke, diabetes or major cancers, record if none) and social history. [X] Check health maintenance and the chart, pend any labs necessary for the visit (K/Cr, TSH, A1C etc). If advance directives is not done on health maintenance, do they have paperwork done at home?... If not is there proper paperwork in the room for the provider to give to the patient? Flu shot Melanie Corona MD - 05/03/2016 8:00 AM EST S: Here for annual health review. She is still seeing PT regarding her shoulder. She sees Dr. Hernandez in the near future. She has had another injection and another course of PT since her briefly successful AC joint injection. Still not able to do the things that she would like to do. Depression-santana, she is not currently seeing anyone. She has lost some weight on purpose but this has started to trigger some eating disorder thoughts, which bothers her. Looking for someone in her area currently for help with this. However, she has had a nice decrease in her blood pressure with decrease in weight. Her main concern today is that of bladder leakage. She leaks when she lifts, jogs, or coughs or sneezes. She thinks this is worse in the past year. She is status post hysterectomy. She is doing Kegel exercises. Problem list, surgeries, family and social history, medications and allergies are reviewed and updated in her chart today as needed. SENIOR PROFESSIONAL SERVICES CONSULTANT: Probably post-menopausal. She is having occasional hot flashes. Review of systems is otherwise negative. O: Vitals as per chart. Skin: No suspicious lesions. HEENT: TMs, nose and throat clear. Neck: No nodes or thyromegaly. Heart: Regular rate and rhythm. No murmurs. Lungs: Clear. Breasts: No masses, nipple discharge or axillary nodes. Abdomen: Soft, nondistended, nontender. SENIOR PROFESSIONAL SERVICES CONSULTANT: Deferred. Extremities within normal limits. Shoulder is not examined today in detail. A/P: 1. Health maintenance. Flu shot today. Otherwise, up to date. Declines mammogram until next summer. 2. Shoulder pain. She sees Dr. Hernandez in the near future. Asked her to inquire about acromioplasty to see if she would be a candidate for that. 3. Depression. Strongly encouraged her to look for someone else on general area, as her last provider has left or retired. Venlafaxine is continued at current dose. 4. Bladder control issues. She will try a super plus tampon and see if that can work as a pessary. Otherwise, consider referral to Urogynecology for further Discussion. Discussed meds, pessary and surgery as other options. Followup is otherwise 1 year or p.r.n. documented in this encounter Plan of Treatment Upcoming Encounters Date Type Specialty Care Team Description 02/06/2023 Hospital Encounter Gastroenterology Cony Tavera MD [facility] ER GASTROENTEROLOGY DEPT. [place], [place] [address] (Wo rk) Scheduled Procedures Name Priority Associated Diagnoses Date/Time COLONOSCOPY, DIAGNOSTIC 10 yr surv documented as of this encounter Procedures Procedure Name Priority Date/Time Associated Diagnosis Comme nts TSH Routine 05/03/2016 8:41 AM Acquired hypothyroidis m Results for this EST procedure are i n the results section. documented in this encounter Results TSH (05/03/2016 8:41 AM EST) athologist Signature TSH 1.88 0.27 - 4.20 ERA ZAMORA mcIU/mL [facility] Specimen Anatomical Collection Method Collection Time Receive d Time (Source) Location / / Volume Laterality Blood specimen 05/03/2016 8:41 AM 016 9:29 (specimen) EST AM EST Resulting Agency Comment Spec In Lab Melanie Abrams MD CHEMISTRY ORDERABLES Performing Organization Address City/State/[place] [address] documented in this encounter Visit Diagnoses Diagnosis Annual physical exam Routine general medical examination at a health care facility Stress incontinence, female Female stress incontinence Acquired hypothyroidism Unspecified hypothyroidism documented in this encounter Care Teams Tankage Supervisor Relationship Specialty Start Date End Date Melanie Abrams MD PCP - General 05/12/[address] [facility] [address] [place] [place] [address] documented as of this encounter
--- OUTSIDE RECORDS SUMMARY | 2022-02-06 14:13 | XMS_ITS | Encounter Summary ---
:1960 Author Organization [place] [address] Care Team Providers Name Role Phone Melanie Abrams MD Primary Care Provider Reason for Visit Reason Comments Medication Refill Encounter Details Date Type Department Care Team Description 01/11/2015 Refill Neurology at [facility] Danii Isidro APRN [facility] [place] [address] NEUROLOGY DEPT. [phone] [place], [place] [address] (Wo rk) Social History Tobacco [...] Cony Tavera MD [facility] GASTROENTEROLOGY DEPT. [place], [place] [address] (Wo rk) Scheduled Procedures Name Priority Associated Diagnoses Date/Time COLONOSCOPY, DIAGNOSTIC 10 yr surv documented as of this encounter Visit Diagnoses Not on filedocumented in this encounter Care Teams Stamping Machine Operator Relationship Specialty Start Date End Date Melanie Abrams MD PCP - General 05/12/[address] [facility] [address] RAHEL [place] [address] documented as of this encounter
--- OUTSIDE RECORDS SUMMARY | 2022-02-06 14:13 | XMS_ITS | Encounter Summary ---
:1960 Author Organization [facility] [place] [address] Care Team Providers Name Role Phone Melanie Abrams MD Primary Care Provider Reason for Referral Consultation (Routine) - Closed Specialty Diagnoses / Procedures Referred By Contact Refer red To Contact Gastroenterology Diagnoses Preventative health [facility] [address] [place] [address] [place] [address] Referral ID Status Reason Start Date Expiration Date Visits V isits Requested Authorized [id number] Closed Test Only 01/09/2013 07/08/2013 1 1 Encounter Details Date Type Department Care Team Description 01/09/2013 Orders Only Family Medicine at Melanie Abrams entative [facility] MD [place] care (Primary Dx) [address] [place] [address] [facility] [phone] [place], [place] [address] (Wo rk) Social History Tobacco Use Types Packs/Day Years Used Date Never Smoker Smokeless Tobacco: Never Used Alcohol Use Standard Drinks/Week Comments No 0 (1 standard drink = 0.6 oz [...] Encounter Gastroenterology Cony Tavera MD [facility] ER GASTROENTEROLOGY DEPT. [place], [place] [address] (Wo rk) Scheduled Procedures Name Priority Associated Diagnoses Date/Time COLONOSCOPY, DIAGNOSTIC 10 yr surv Scheduled Referrals Name Type Priority Associated Order Schedule Diagnoses Referral to Outpatient Routine Preventative health Ordered: Gastroenterology Referral care 01/09/2013 documented as of this encounter Visit Diagnoses Diagnosis Preventative health care - Primary Routine general medical examination at a health care facility documented in this encounter Care Teams Office Machine Technician Relationship Specialty Start Date End Date Melanie Abrams MD PCP - General 05/12/[address] [facility] [address] [facility]INN[facility] [place] [address] documented as of this encounter
--- OUTSIDE RECORDS SUMMARY | 2022-02-06 14:13 | XMS_ITS | Encounter Summary ---
:1960 Author Organization [place] [address] Care Team Providers Name Role Phone Melanie Abrams MD Primary Care Provider Reason for Visit Reason Comments Medication Refill Encounter Details Date Type Department Care Team Description 10/09/2012 Refill Neurology at [facility] Danii Isidro APRN [place] [facility] [place] [address] NEUROLOGY DEPT. [phone] [place], [place] [address] (Wo rk) Social History Tobacco [...] this encounter Miscellaneous Notes Telephone Encounter - Liv Murrieta - 10/13/2012 10:25 AM EDT Patient called to report that she has checked with pharmacy, and they have never received script from 10/02. Pharmacy still has old script from last year, and they will need a new script sent over. Please resend to pharmacy. documented in this encounter Plan of Treatment Upcoming Encounters Date Type Specialty Care Team Description 02/06/2023 Hospital Encounter Gastroenterology Cony Tavera MD [facility] GASTROENTEROLOGY DEPT. [place], [place] [address] (Wo rk) Scheduled Procedures Name Priority Associated Diagnoses Date/Time COLONOSCOPY, DIAGNOSTIC 10 yr surv documented as of this encounter Visit Diagnoses Not on filedocumented in this encounter Care Teams Crop Farm Workers Relationship Specialty Start Date End Date Melanie Abrams MD PCP - General 05/12/[address] [facility] [address] RAHEL MORELOS [facility] [place] [phone] documented as of this encounter
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
--- OUTSIDE RECORDS SUMMARY | 2022-02-06 14:13 | XMS_ITS | Encounter Summary ---
:1960 Author Organization [facility] [place] [address] Care Team Providers Name Role Phone Melanie Abrams MD Primary Care Provider Encounter Details Date Type Department Care Team Description 11/21/2014 Follow-Up Occupational Therapy at [facility], DR MAU hilliard in left wrist [facility] Melanie Abrams MD [facility] [place] [address] [address] Viki Covarrubias, OT [facility]YSICAL MEDICINE & REHABIL[facility] [address] [phone] Social History Tobacco Use Types Packs/Day [...] documented as of this encounter Progress Notes Viki Wang, OT - 11/21/2014 4:04 PM EDT OCCUPATIONAL THERAPY PROGRESS NOTE VISIT NUMBER: 5 EVALUATION PERFORMED: 10.07.14 REFERRAL SOURCE: Dr. Aliza MD DIAGNOSIS: 1. Pain in left wrist DATE OF INJURY: 08.10.14 DATE OF SURGERY: N/A NEXT MD FOLLOW UP: PRN TOTAL TREATMENT TIME: 28 Minutes TIMED CODE TREATMENT TIME: 16 min therapeutic exercise 9 min ultrasound CURRENT HISTORY: Korin Posada is a 54 y.o. year old female who fell ice skating on an outstretched hand in July. Korin Posada was seen by Dr. Aliza MD for 2 x-rays and an MRI, all unremarkable and referred to Occupational Therapy for evaluation and treatment. Patient presents today alone. Mechanism of Injury: Patient sustained her injury from fall on ice . Current symptoms/ functional impairments: Patient presents with pain, swelling and stiffness Tender across dorsal CMCs of 2nd and 3rd digits Pain with resisted digit extension, wrist extension and radial devation No pain with digit and wrist flexion, rotation, ulnar deviation, or thumb extension OCCUPATION AND ACTIVITIES Work status: usual work. 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 HAND DOMINANCE: Right PAIN: At Rest: 0/10 With Activity: 1/10 2/10 aching, stiffness ACTIVE RANGE OF MOTION: Measured in degrees of active motion with goniometer Right Left Left 5.21.15 Left 6.4.15 Wrist Extension/Flexion 71/75 39/25 61/49 65/60 Ulnar/Radial Deviation 25/20 18/16 18/25 20/22 Pronation/Supination 90/88 88/88 90/88 90/88 Composite Extension/Flexion 65/40 39/22 52/37 51/40 TREATMENT TODAY: Ultrasound (93549) (100%, 3.3 MHz, .6 W/cm2, 7 minutes) with additional 2 minutes of set-up time, used for soft tissue preparation prior to treatment activities applied today to the dorsal wrist. Soft tissue massage, retrograde massage Dowel and string for active digit and wrist motion Velcro board for light resisted motion Therapeutic exercise 15 minutes: Active and active assisted wrist motion in all planes Reviewed HEP and symptoms ASSESSMENT: Korin Posada presents today with functional limitations due to left wrist pain. She is continuing to make gains with motion with her HEP. She is tolerating increasingly difficult yoga poses. She will continue with HEP and be seen for final recheck in 3 weeks. Korin Posada is able to demonstrate home exercises with written instructions provided. Korin Posada has excellent potential for gains with therapy with identified needs for skilled therapy for treatment of left wrist pain. Licensing Representative Goals (to be met by discharge): Date Goal Met: 1.) Korin Posada will complete activities of daily living independently at a 10/10 level. Goal Status: 2.) Korin Posada will be able to resume all occupational roles independently without restriction. Goal Status: Short Term Goals (to be met by 3 weeks): Date Goal Met: Korin Posada will be independent with home exercise program with 100% compliance. Goal Status: met Korin Posada will gain 10 degrees of wrist flexion to be able to drive at 8/10. Goal Status: met Korin Posaad will have decreased pain with activity to 3/10 to be able to complete yoga at 3/10. Goal Status: met PLAN: Korin Posada will be seen for follow up in 3 weeks as she progresses to HEP Ultrasound, Iontophoresis, Iontopatch, Electrical Stimulation and Combination Ultra/estim (X) Korin Posada participated in the evaluation, collaborated on treatment goals, and agrees to the treatment plan . documented in this encounter Plan of Treatment Upcoming Encounters Date Type Specialty Care Team Description 02/06/2023 Hospital Encounter Gastroenterology Cony Tavera MD [facility] DR GASTROENTEROLOGY DEPT. [place], [place] [address] (Wo rk) Scheduled Procedures Name Priority Associated Diagnoses Date/Time COLONOSCOPY, DIAGNOSTIC 10 yr surv documented as of this encounter Visit Diagnoses Diagnosis Pain in left wrist Pain in joint, forearm documented in this encounter Care Teams Hotel Casino Floorperson Relationship Specialty Start Date End Date Melanie Abrams MD PCP - General 05/12/[address] [facility] [address] [facility] [place] [address] documented as of this encounter
--- OUTSIDE RECORDS SUMMARY | 2022-02-06 14:13 | XMS_ITS | Encounter Summary ---
:1960 Author Organization [facility] [place] [address] Care Team Providers Name Role Phone Melanie Abrams MD Primary Care Provider Encounter Details Date Type Department Care Team Description 10/09/2014 Follow-Up Occupational Therapy at Viki Wang OT Pain in left wrist [address] [facility] [address] [place] [address] PHYSICAL MEDICINE & [phone] [place] [address] Social History Tobacco Use Types Packs/Day Years [...] encounter Progress Notes Viki Wang, OT - 10/11/2014 2:58 PM EDT OCCUPATIONAL THERAPY PROGRESS NOTE VISIT NUMBER: 2 EVALUATION PERFORMED: 10.07.14 REFERRAL SOURCE: Dr. Aliza MD DIAGNOSIS: 1. Pain in left wrist DATE OF INJURY: 08.10.14 DATE OF SURGERY: N/A NEXT MD FOLLOW UP: PRN TOTAL TREATMENT TIME: 25 Minutes TIMED CODE TREATMENT TIME: 12 there ex CURRENT HISTORY: Korin Posada is a 54 [...] with digit and wrist flexion, rotation, ulnar deviation OCCUPATION AND ACTIVITIES Work status: usual work. 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 HAND DOMINANCE: Right PAIN: At Rest: 0/10 With Activity: 2-3/10 sharp TREATMENT TODAY: Therapeutic exercise 12 minutes: Reviewed HEP and symptoms Adjusted splint for comfort Iontophoresis (51998): Skin prepped with alcohol swab, applied Iontophoresis 40 mA/min @ 4.0 mA with2.0 cc of 0.4% dexamethasone sodium phosphate utilized for reduction of pain and inflammation, applied today to the dorsal wrist. ASSESSMENT: Korin Posada presents today with functional limitations due to left wrist pain. She reports that the stretches feel good and appear to be helping. She also reports that she hasn't really noticed any pain with splint in place, but she is only wearing it during the day as needed with activity. I recieved a referral for iontophoresis from her MD and applied this today with one small water blister. She may benefit from ultrasound for heat and soft tissue work as her tenderness decreases.Korin Posada is able to demonstrate home exercises with written instructions provided. Korin Valadez has excellent potential for gains with therapy with identified needs for skilled therapy for t reatment of left wrist pain. Vehicle And Equipment Cleaner Goals (to be met by discharge): Date [...] exercise program with 100% compliance. Goal Status: Korin Posada will gain 10 degrees of wrist flexion to be able to drive at 8/10. Goal Status: Korin Posada will have decreased pain with activity to 3/10 to be able to complete yoga at 3/10. Goal Status: PLAN: Korin Posada will attempt to find a place closer to home. If not, she will benefit from therapy 2 x week to address goals listed above. Modalities to include: Ultrasound, Iontophoresis, Iontopatch, Electrical Stimulation and Combination Ultra/estim (X) Korin Posada participated in the evaluation, collaborated on treatment goals, and agrees to the treatment plan . Viki Wang OT - 10/09/2014 2:55 PM EDT OCCUPATIONAL THERAPY PROGRESS NOTE VISIT NUMBER: 2 EVALUATION PERFORMED: 10.07.14 REFERRAL SOURCE: Dr. Aliza MD DIAGNOSIS: 1. Pain in left wrist DATE OF INJURY: 08.10.14 DATE OF SURGERY: N/A NEXT MD FOLLOW UP: PRN TOTAL TREATMENT TIME: 25 Minutes TIMED CODE TREATMENT TIME: 12 there ex CURRENT HISTORY: Korin Posada is a 54 [...] pain, swelling and stiffness Tender across dorsal MCPS of 2nd and 3rd digits Pain with resisted digit extension, wrist extension and radial devation No pain with digit and wrist flexion, rotation, ulnar deviation OCCUPATION AND ACTIVITIES Work status: usual work. 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 HAND DOMINANCE: Right PAIN: At Rest: 0/10 With Activity: 2-3/10 sharp TREATMENT TODAY: Therapeutic exercise 12 minutes: Reviewed HEP and symptoms Adjusted splint for comfort Iontophoresis (09359): Skin prepped with alcohol swab, applied Iontophoresis 40 mA/min @ 4.0 mA with2.0 cc of 0.4% dexamethasone sodium phosphate utilized for reduction of pain and inflammation, applied today to the dorsal wrist. ASSESSMENT: Korin Posada presents today with functional limitations due to left wrist pain. She reports that the stretches feel good and appear to be helping. She also reports that she hasn't really noticed any pain with splint in place, but she is only wearing it during the day as needed with activity. I recieved a referral for iontophoresis from her MD and applied this today with one small water blister. She may benefit from ultrasound for heat and soft tissue work as her tenderness decreases.Korin Posada is able to demonstrate home exercises with written instructions provided. Korin Valadez has excellent potential for gains with therapy with identified needs for skilled therapy for t reatment of left wrist pain. Vehicle And Equipment Cleaner Goals (to be met by discharge): Date [...] exercise program with 100% compliance. Goal Status: Korin Posada will gain 10 degrees of wrist flexion to be able to drive at 8/10. Goal Status: Korin Posada will have decreased pain with activity to 3/10 to be able to complete yoga at 3/10. Goal Status: PLAN: Korin Posada will attempt to find a place closer to home. If not, she will benefit from therapy 2 x week to address goals listed above. Modalities to include: Ultrasound, Iontophoresis, Iontopatch, Electrical Stimulation and Combination Ultra/estim (X) Korin Posada participated in the evaluation, collaborated on treatment goals, and agrees to the treatment plan . documented in this encounter Plan of Treatment Upcoming Encounters Date Type Specialty Care Team Description 02/06/2023 Hospital Encounter Gastroenterology Cony Tavera MD [facility] GASTROENTEROLOGY DEPT. [place], [place] [address] (Wo rk) Scheduled Procedures Name Priority Associated Diagnoses Date/Time COLONOSCOPY, DIAGNOSTIC 10 yr surv documented as of this encounter Visit Diagnoses Diagnosis Pain in left wrist Pain in joint, forearm documented in this encounter Care Teams Capital Project Engineer Relationship Specialty Start Date End Date Melanie Abrams MD PCP - General 05/12/10 [facility] [address] [facility] [place] [address] documented as of this encounter
--- OUTSIDE RECORDS SUMMARY | 2022-02-06 14:13 | XMS_ITS | Encounter Summary ---
:1960 Author Organization [place] [address] Care Team Providers Name Role Phone Melanie Abrams MD Primary Care Provider Reason for Visit Reason Onset Date Comments Results 12/06/2013 Encounter Details Date Type Department Care Team Description 12/06/2013 Telephone Neurology at [facility] Danii Isidro APRN Results [facility] [place] [address] NEUROLOGY DEPT. [phone] [place], [place] [address] (Wo rk) Social History Tobacco [...] this encounter Miscellaneous Notes Addendum Note - Leah Kennedy LPN - 12/10/2013 3:08 PM EDT Addended by: LEAH KENNEDY on: 12/10/2013 03:08 PM Modules accepted: Orders Telephone Encounter - Danii Isidro APRN - 12/10/2013 9:46 AM EDT Dx= Hypokalemia Just K level please Telephone Encounter - Leah Kennedy LPN - 12/10/2013 9:10 AM EDT Spoke to patient on the phone about the below information per Danii Isidro APRN. She verbalized understanding and does not have any questions at this time. Patient will call administrative secretary to schedule 6month follow-up. Telephone Encounter - Danii Isidro APRN - 12/06/2013 4:00 PM EDT Slightly low K level= 3.4 P: 1. Increase K rich foods 2. Check K level at next follow up. documented in this encounter Plan of Treatment Upcoming Encounters Date Type Specialty Care Team Description 02/06/2023 Hospital Encounter Gastroenterology Cony Tavera MD [facility] ER GASTROENTEROLOGY DEPT. [place], [place] [address] (Wo rk) Scheduled Procedures Name Priority Associated Diagnoses Date/Time COLONOSCOPY, DIAGNOSTIC 10 yr surv documented as of this encounter Results Potassium (12/31/2013 3:12 PM EDT) athologist Signature Potassium 3.8 3.5 - 5.0 CERNER mmol/L MILLENNIUM Comment: Please note: ??Patients with WBC >100,00 0 may have falsely elevated Potassium levels. ??For accurate Potassium quantif ication in these patients send serum separator tube (gold top) for subsequent determinations. ??Contact the Clinical Chemistry Laboratory if there are any qu estions. Specimen Anatomical Collection Method Collection Time Receive d Time (Source) Location / / Volume Laterality Blood specimen 12/31/2013 3:12 PM 014 5:57 (specimen) EDT PM EDT Resulting Agency Comment Spec In Lab Ramírez Lagos MD CHEMISTRY ORDERABLES Performing Organization Address City/State/[place] [address] CERNER MILLENNIUM documented in this encounter Visit Diagnoses Diagnosis Hypokalemia - Primary Hypopotassemia documented in this encounter Care Teams [id number] Consultant Relationship Specialty Start Date End Date Melanie Abrams MD PCP - General 05/12/[address] [facility] [address] [facility] [place] [address] documented as of this encounter
--- OUTSIDE RECORDS SUMMARY | 2022-02-06 14:13 | XMS_ITS | Encounter Summary ---
:1960 Author Organization [facility] [place] [address] Care Team Providers Name Role Phone Melanie Abrams MD Primary Care Provider Reason for Visit Reason Comments Medication Refill Encounter Details Date Type Department Care Team Description 08/19/2014 Refill Neurology at [facility] Danii Isidro APRN [facility] [place] [id number] NEUROLOGY DEPT. [phone] [place], [place] [address] (Wo rk) Social History Tobacco [...] 02/06/2023 Hospital Encounter Gastroenterology Cony Tavera MD [facility] ER GASTROENTEROLOGY DEPT. [place], [place] [address] (Wo rk) Scheduled Procedures Name Priority Associated Diagnoses Date/Time COLONOSCOPY, DIAGNOSTIC 10 yr surv documented as of this encounter Visit Diagnoses Not on filedocumented in this encounter Care Teams Radiographer Angiogram Relationship Specialty Start Date End Date Melanie Abrams MD PCP - General 05/12/10 [facility] [address] [facility] [place] [address] documented as of this encounter
--- OUTSIDE RECORDS SUMMARY | 2022-02-06 14:13 | XMS_ITS | Encounter Summary ---
:1960 Author Organization [facility] [place] [address] Care Team Providers Name Role Phone Melanie Abrams MD Primary Care Provider Reason for Visit Reason Comments Medication Refill Encounter Details Date Type Department Care Team Description 11/16/2013 Refill Neurology at [facility] Danii Isidro APRN [facility] [place] [id number] NEUROLOGY DEPT. [phone] [place], [place] [address] (Wo rk) Social History Tobacco [...] Tavera MD [facility] ER GASTROENTEROLOGY DEPT. [place], [place] [address] (Wo rk) Scheduled Procedures Name Priority Associated Diagnoses Date/Time COLONOSCOPY, DIAGNOSTIC 10 yr surv documented as of this encounter Visit Diagnoses Not on filedocumented in this encounter Care Teams Tiller Worker Relationship Specialty Start Date End Date Melanie Abrams MD PCP - General 05/12/10 [facility] DR [place] [place] [address] documented as of this encounter
--- OUTSIDE RECORDS SUMMARY | 2022-02-06 14:13 | XMS_ITS | Encounter Summary ---
:1960 Author Organization [facility] [place] [address] Care Team Providers Name Role Phone Melanie Abrams MD Primary Care Provider Encounter Details Date Type Department Care Team Description 10/16/2014 Follow-Up Occupational Therapy at Concepcion Alejandre, OT Pain in left wrist [address] [facility] [address] [place] [address] PHYSICAL MEDICINE & [phone] [place] [address] Social History Tobacco Use Types Packs/Day Years [...] documented as of this encounter Progress Notes Abebe Alejandre, OT - 10/16/2014 4:32 PM EDT OCCUPATIONAL THERAPY PROGRESS NOTE VISIT NUMBER: 3 EVALUATION PERFORMED: 10.07.14 REFERRAL SOURCE: Dr. Aliza MD DIAGNOSIS: 1. 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 HAND DOMINANCE: Right PAIN: At Rest: 0/10 With Activity: 2-3/10 sharp TREATMENT TODAY: Therapeutic exercise 16 minutes: Active and active assisted wrist motion in all planes Reviewed HEP and symptoms Iontophoresis (08854): Skin prepped with alcohol swab, applied Iontophoresis 40 mA/min @ 4.0 mA with2.0 cc of 0.4% dexamethasone sodium phosphate utilized for reduction of pain and inflammation, applied today to the dorsal wrist. ASSESSMENT: Korin Posada presents today with functional limitations due to left wrist pain. She reports that the stretches feel good and appear to be helping slowly. She has capsular tightness at the wrist without reinaldo laxity of the DRUJ, TFCC tenderness, signs of acute inflammation, or acute injury. She also reports minimal response to iontophoresis thus far. She may benefit from ultrasound forheat and soft tissue work as her tenderness decreases. Korin Posada is able to demonstrate home exercises with written instructions provided. Korin Posada has excellent potential for gains withtherapy with identified needs for skilled therapy for treatment of left wrist pain. Snf Goals (to be met by discharge): Date [...] Electrical Stimulation and Combination Ultra/estim (X) Korin J [place] participated in the evaluation, collaborated on treatment goals, and agrees to the treatment plan . documented in this encounter Plan of Treatment Upcoming Encounters Date Type Specialty Care Team Description 02/06/2023 Hospital Encounter Gastroenterology Cony Tavera MD [facility] DR GASTROENTEROLOGY DEPT. [place] [address] (Wo rk) Scheduled Procedures Name Priority Associated Diagnoses Date/Time COLONOSCOPY, DIAGNOSTIC 10 yr surv documented as of this encounter Visit Diagnoses Diagnosis Pain in left wrist Pain in joint, forearm documented in this encounter Care Teams Janitor Caretaker Relationship Specialty Start Date End Date Melanie Abrams MD PCP - General 05/12/[address] [facility] [address] [facility] [place] [address] documented as of this encounter
--- OUTSIDE RECORDS SUMMARY | 2022-02-06 14:13 | XMS_ITS | Encounter Summary ---
:1960 Author Organization [facility] [place] [address] Care Team Providers Name Role Phone Melanie Abrams MD Primary Care Provider Encounter Details Date Type Department Care Team Description 10/07/2014 Office Visit Occupational Therapy at [facility], DR MAU hilliard in left wrist [facility] Melanie Abrams MD [facility] [place] [address] [address] Viki Covarrubias, OT [facility] PHYSICAL MEDICINE & REHABILITATION [address] [phone] Social History Tobacco Use Types Packs/Day [...] encounter Progress Notes Viki Wang, OT - 10/07/2014 12:52 PM EDT OCCUPATIONAL THERAPY INITIAL UPPER EXTREMITY EVALUATION VISIT NUMBER: 1 EVALUATION PERFORMED: 10.07.14 REFERRAL SOURCE: Dr. Aliza MD DIAGNOSIS: 1. 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 HAND DOMINANCE: Right PAIN: At Rest: 0/10 With Activity: 2-5/10 sharp ACTIVE RANGE OF MOTION: Measured in degrees of active motion with goniometer Right Left Wrist Extension/Flexion 71/75 39/25 Ulnar/Radial Deviation 25/20 18/16 Pronation/Supination 90/88 88/88 Composite Extension/Flexion 65/40 39/22 STRENGTH: Law Tutor Testing with Dynamometer setting #2 Pinch Testing with Pinch Gauge Right Left Law Tutor setting 2 55.5, 61.5, 67.6 42.4, 57.7, 66.2 Law Tutor Average 61.5 lbs 55.4 lbs Perez 13 13 3 Pt 15 6* (8) Tip 9 4* FUNCTIONAL LIMITATIONS: Korin Posada identifies difficulty with the following functional activities using the Patient Specific Functional Scale (PSFS): 0/10 (unable to perform) to 10/10 (Able to perform without difficulty) Activity At Evaluation 1.) House cleaning 5 2.) Yoga 1 3.) Opening a jar 3 4.) Driving 6 5.) Blow drying hair 7 DISABILITIES OF THE ARM, HAND, AND SHOULDER (DASH) DASH Score: 20.8 % Standardized measurement of functional limitation related to an upper extremity disability, using 0-100 scale indicating percent of perceived functional impairment. TREATMENT TODAY: Evaluation (59585) Educated patient in etiology and biomechanics as related to patient's symptoms Instructed patient in: joint protection strategies, proper posture and positioning and appropriate pacing and how to safely return to normal activities Fabricated dorsal wrist cock up splint Instructed in splint wear and care, to be worn at night and as needed with activity ASSESSMENT: Korin Posada presents today with functional limitations due to left wrist pain. Her symptoms are consistent with soft tissue injury over the dorsal compartments of the wrist. She will benefit from gentle ROM to tolerance as well as continuing to rest the tissues with use of the splint.I discussed with her that she may also benefit from iontophoresis using dexamethasone sodium phosphate to decrease swelling over the wrist. I informed her that I would request a referral for this. She mentioned that she is trying to find a place closer to home and if she cannot, she will continue therapy here. Korin Posada is able to demonstrate home exercises with written instructions provided. Korin Posada has excellent potential for gains with therapy with identified needs for skilled therapy for treatment of left wrist pain. Exceptional Student Education Aide Goals (to be met by discharge): Date [...] Iontopatch, Electrical Stimulation and Combination Ultra/estim (X) oKrin Posada participated in the evaluation, collaborated on treatment goals, and agrees to the treatment plan . documented in this encounter Plan of Treatment Upcoming Encounters Date Type Specialty Care Team Description 02/06/2023 Hospital Encounter Gastroenterology Cony Tavera MD [facility] ER GASTROENTEROLOGY DEPT. [place] [address] (Wo rk) Scheduled Procedures Name Priority Associated Diagnoses Date/Time COLONOSCOPY, DIAGNOSTIC 10 yr surv documented as of this encounter Visit Diagnoses Diagnosis Pain in left wrist Pain in joint, forearm documented in this encounter Care Teams Sales Service Assistant Relationship Specialty Start Date End Date Melanie Abrams MD PCP - General 05/12/[address] [facility] [address] [place] [address] documented as of this encounter
--- OUTSIDE RECORDS SUMMARY | 2022-02-06 14:13 | XMS_ITS | Encounter Summary ---
:1960 Author Organization [facility] [place] [address] Care Team Providers Name Role Phone Keren Finley MD Primary Care Provider Encounter Details Date Type Department Care Team Description 11/07/2015 Hospital Encounter XRay at [facility] [place] Keren Finley Chronic pain in [address] [facility] [address] Judd MD right shoulder [facility] [id number] [place] [phone] [facility] PRIMARY CARE [place], [place] [address] Social History Tobacco Use Types [...] documented as of this encounter Progress Notes [place] Tatiana Jareth, SPEECH LANGUAGE PATHOLOGY ASSISTANT - 11/05/2015 9:39 AM EDT PRE-PROCEDURE NOTE FOR JOINT INJECTION UNDER FLUOROSCOPY Date of : 1960 Age: 55 y.o. PCP: KEREN FINLEY MD Referring Physician (if different): Dr. Finley Indication: Chronic pain in right shoulder Planned Procedure: Right glenohumeral joint steroid injection with local anesthetic under fluoroscopy Chief Complaint/Diagnosis: Right shoulder pain Pertinent Past Medical/Surgical History: 55 yo female with history of chronic right shoulder pain. Dr. Finley requests fluoro-guided steroid injection of the right glenohumeral joint. Dr. Finley suspects pain is r/t biceps tendon and Injection into the joint proper should get at the biceps tendon sheath per office note from 10/22/15. Patient Active Problem List Diagnosis Code ??? Major depressive disorder, recurrent episode, unspecified F33.9 ??? CIS - GERD ??? Migraine without aura, without mention of intractable migraine without mention of status migrainosus G43.009 ??? HTN (hypertension) I10 ??? Anxiety F41.9 ??? Hypothyroidism E03.9 ??? Pain in left wrist M25.532 Past Medical History Diagnosis Date ??? Arthritis ??? Depression ??? Hiatal hernia ??? Insomnia ??? Uterine fibroid Past Surgical History Procedure Laterality Date ??? Created by interface cholecystectomy Procedure Date: 1996 ??? Created by interface [email or web address],ROBOT ASSIST / WIRA Procedure Date: 11/18/2009 ??? Pro colonoscopy, diagnostic 02/06/2013 COLONOSCOPY, DIAGNOSTIC performed by Ashanti Tavera MD at [facility] ENDOSCOPY Allergies Allergen Reactions ??? Sumatriptan Hives, Diarrhea and Nausea Only STAT PEN ONLY! Pt had a reaction at the site of injection. ??? Penicillins Hives ??? Vecuronium [place] Took a really long time to come out of the anesthesia. ??? Zolmitriptan Diarrhea and Nausea And Vomiting Current Outpatient Prescriptions on File Prior to Encounter Medication Sig Dispense Refill ??? riboflavin, vitamin B2, 100 mg Tablet Take by mouth. ??? venlafaxine (EFFEXOR-XR) 37.5 mg Capsule, Sust. Release 24 hr Take 1 capsule by mouth daily. Take with Effexor XR 75 mg for a total dose of 112.5 mg. 90 capsule 3 ??? venlafaxine (EFFEXOR-XR) 75 mg Capsule, Sust. Release 24 hr Take 1 capsule by mouth daily. Take with Effexor XR 37.5 mg for a total daily dose of 112.5 mg. 90 capsule 3 ??? traZODone (DESYREL) 100 mg Tablet Take 1 tablet by mouth nightly. 90 tablet 3 ??? levothyroxine (SYNTHROID) 50 mcg Tablet Take 1 tablet by mouth daily. Patient needs labs drawn before next refill. 90 tablet 3 ??? SUMAtriptan (IMITREX) 100 mg Tablet Take 1 tablet by mouth 2 times daily as needed for Migraine.12 tablet 11 ??? lansoprazole (PREVACID SOLUTAB) 15 mg Tablet,Rapid Dissolve, DR Take 1 tablet by mouth daily. 90tablet 3 ??? magnesium oxide (MAG-OX) 400 mg tablet Take 400 mg by mouth daily. No current facility-administered medications on file prior to encounter. Pertinent ROS: as per HPI Pertinent Family History: non contributory Social History: n/a Labs: Lab Results Component Value Date WBC 4.9 07/17/2013 HCT 43.8 07/17/2013 PLATELET 240 07/17/2013 BUN 12 09/18/2014 Lab Results Component Value Date ALKPHOS 66 07/17/2013 AST 16 07/17/2013 ALBUMIN 4.3 07/17/2013 BILIDIR 0.1 07/17/2013 BILITOT 0.2 07/17/2013 ALT 16 07/17/2013 Assessment / Plan: Chronic pain in right shoulder Planned Procedure: Right glenohumeral joint steroid injection with local anesthetic under fluoroscopy Medications to discontinue: None Prophylactic antibiotic: None Planned access site / position: Right glenohumeral joint documented in this encounter Plan of Treatment Upcoming Encounters Date Type Specialty Care Team Description 02/06/2023 Hospital Encounter Gastroenterology Cony Tavera MD [facility] ER GASTROENTEROLOGY DEPT. [place], [place] [address] (Wo rk) Scheduled Procedures Name Priority Associated Diagnoses Date/Time COLONOSCOPY, DIAGNOSTIC 10 yr surv documented as of this encounter Procedures Procedure Name Priority Date/Time Associated Diagnosis Comme nts XR FLUORO INJECTION Routine 11/07/2015 4:04 PM Chronic pain in Results for this DRAINAGE JOINT LG EDT right shoulder procedur e are in RIGHT the results section. documented in this encounter Results XR Fluoro Injection Drainage Joint Lg Right (11/07/2015 4:04 PM EDT) Anatomical Region Laterality Modality Right Radio Fluoroscopy Specimen (Source) Anatomical Location Collection Method / Collectio n Time Received Time / Laterality Volume Impressions 11/07/2015 4:13 PM EDT Uneventful right shoulder injection under fluoroscopy. Procedure performed by Judd Otoole Resident/Fellow: None present Attending: Dr. Caceres was not present fo r the procedure, but was immediately available Narrative 11/07/2015 4:13 PM EDT HISTORY: lido/ steroid injection RIGHT SHOULDER Right shoulder INJECTION UNDER FLUOROSCO PY TECHNIQUE: After an extensive conversati on with the patient regarding risks and benefits, oral and written consent were obtained. ??A pre- procedural time-out was performed as per [facility] [place] [place] protocol. The patient was placed supine on the flu oroscopic table. ??The right shoulder was prepped and draped in the usual aseptic manner. 1% Lidocaine was used to achieve local anesthesia. Under fluoroscopic tony dance, 22-gauge needle was advanced into the joint space. ??Small amount of air w as injected to document needle placement. A mixture of Ropivacaine and triamcinol one acetonide was injected. All needles removed at end of procedure. FINDINGS: 1. ??Small amount of injected air in the right glenohumeral joint space. 2. ??PAIN SCORE: ??Before: 1/10 ??After: 0/10 3. Fluoroscopy time: 5 sec 4. Medications: ??Lidocaine 1% - <5 ml, for subcutaneou s anesthesia ??Ropivacaine HCL ??0.5% - 3 ml ??Triamcinolone Acetonide ??- 40 mg COMPLICATIONS: ??None immediate. POST-PROCEDURE CARE: Information regardi ng monitor of infection, post- procedural pain and management of steroi d flare were reviewed with patient. Procedure Note Tatiana Ivey, SPEECH LANGUAGE PATHOLOGY ASSISTANT - 11/07/2015Form atting of this note might be different from the original. HISTORY: lido/ steroid injection RIGHT S HOULDER Right shoulder INJECTION UNDER FLUOROSCO PY TECHNIQUE: After an extensive conversati on with the patient regarding risks and benefits, oral and written consent were obtained. A pre- procedural time-out was performed as per [facility] [place] [place] protocol. The patient was placed supine on the flu oroscopic table. The right shoulder was prepped and draped in the usual aseptic manner. 1% Lidocaine was used to achieve local anesthesia. Under fluoroscopic tony dance, 22-gauge needle was advanced into the joint space. Small amount of air was injected to document needle placement. A mixture of Ropivacaine and triamcinol one acetonide was injected. All needles removed at end of procedure. FINDINGS: 1. Small amount of injected air in the r ight glenohumeral joint space. 2. PAIN SCORE: Before: 1/10 After: 0/10 3. Fluoroscopy time: 5 sec 4. Medications: Lidocaine 1% - <5 ml, for subcutaneous anesthesia Ropivacaine HCL 0.5% - 3 ml Triamcinolone Acetonide - 40 mg COMPLICATIONS: None immediate. POST-PROCEDURE CARE: Information regardi ng monitor of infection, post- procedural pain and management of steroi d flare were reviewed with patient. IMPRESSION Uneventful right shoulder injection unde r fluoroscopy. Procedure performed by Judd Otoole PRN Resident/Fellow: None present Attending: Dr. Caceres was not present fo r the procedure, but was immediately available Keren Finley MD [facility] [place] FLUORO ORDERABLES documented in this encounter Visit Diagnoses Diagnosis Chronic pain in right shoulder Pain in joint, shoulder region documented in this encounter Administered Medications Inactive Administered Medications - up to 3 most recent administrations Medication Order MAR Action Action Date Dose Rate Site ROpivacaine (PF) 5 mg/mL (0.5 %) 4 Given 11/07/2015 3:59 PM EDT mL with triamcinolone acetonide 40 mg injection Intra-articular, ONCE, 1 dose, On Tue11/07/15 at 1615 documented in this encounter Care Teams Bag Shop Worker Relationship Specialty Start Date End Date Keren Finley MD PCP - General 05/12/[address] [facility] [address] [facility] [place] [address] documented as of this encounter
--- OUTSIDE RECORDS SUMMARY | 2022-02-06 14:13 | XMS_ITS | Encounter Summary ---
:1960 Author Organization [facility] [address] Care Team Providers Name Role Phone Melanie Abrams MD Primary Care Provider Encounter Details Date Type Department Care Team Description 12/31/2013 Hospital Encounter Laboratory [place], Ramírez Amor MD Hypokalemia [facility] [place] [address] NEUROLOGY DEPT. [phone] [place] [id number] (Wo rk) Social History Tobacco Use Types [...] Sig Dispensed Refills Start Date End Date levothyroxine (SYNTHROID) Take 1 tablet by 90 tablet 4 06/201303/17/2015 50 mcg tabletIndications: mouth daily. Hypothyroidism venlafaxine (EFFEXOR) 75 Take 75 mg by 0 08/21/2014 mg tablet mouth 2 times daily. venlafaxine (EFFEXOR) Take 37.5 mg by 0 08/21/2014 37.5 mg tablet mouth daily. traZODone (DESYREL) 100 Take 100 mg by 0 09/05/2015 mg tablet mouth nightly. SUMAtriptan (IMITREX) 100 Take 100 mg by 0 01/13/2015 mg tablet mouth as needed. zonisamide (ZONEGRAN) 100 Take 3-4 capsules 120 capsule 11 08/19/2014 mg capsuleIndications: by mouth daily. Migraine naproxen sodium (ANAPROX) take 1 tablet by 60 tablet 1 11/201209/18/2014 550 mg tablet mouth twice a day if needed DOCOSAHEXANOIC ACID/EPA Take 1 capsule by 0 12/2809/05/2015 (FISH OIL ORAL) mouth daily. magnesium oxide (MAG-OX) Take 400 mg by 0 05/04/2017 400 mg tablet mouth daily. Reported on 12/08/2016 documented as of this encounter Plan of Treatment Upcoming Encounters Date Type Specialty Care Team Description 02/06/2023 Hospital Encounter Gastroenterology Cony Tavera MD [facility] ER GASTROENTEROLOGY DEPT. [place], [place] [address] (Wo rk) Scheduled Procedures Name Priority Associated Diagnoses Date/Time COLONOSCOPY, DIAGNOSTIC 10 yr surv documented as of this encounter Procedures Procedure Name Priority Date/Time Associated Diagnosis Comme nts POTASSIUM Routine 12/31/2013 3:12 PM Hypokalemia Results f or this EDT procedure are i n the results section . documented in this encounter Results Potassium (12/31/2013 3:12 PM [...] Organization Address City/State/[place] [address] CERNER MILLENNIUM documented in this encounter Visit Diagnoses Diagnosis Hypokalemia Hypopotassemia documented in this encounter Care Teams Utility Locator Relationship Specialty Start Date End Date Melanie Abrams MD PCP - General 05/12/[address] [facility] [address] [facility] [place] [address] documented as of this encounter
--- OUTSIDE RECORDS SUMMARY | 2022-02-06 14:13 | XMS_ITS | Encounter Summary ---
:1960 Author Organization [facility] [address] Care Team Providers Name Role Phone Melanie Abrams MD Primary Care Provider Reason for Visit Reason Onset Date Comments Other 07/02/2013 Encounter Details Date Type Department Care Team Description 07/02/2013 Telephone Neurology at [facility] [place] Danii Isidro APRN Other [facility] [place] [address] NEUROLOGY DEPT. [phone] [place], [place] [address] (Wo rk) Social History Tobacco [...] this encounter Miscellaneous Notes Telephone Encounter - Desire Cobian RN - 07/06/2013 8:42 AM EST I have informed Korin of the medication recommendations per Christopher Isidro, and I have ordered the valium at [facility] in [place], [place]. 07/06/13 0830 I spoke with Korin this morning to confirm that she received the telephone message with medication instructions and she did , she reports that she did not take the Imitrex, Naproxen and Valium last night because she felt better last evening . She did awake with another headache this morning ans she plans to take the medication mixture tonight when she gest home from work. Telephone Encounter - Danii Isidro APRN - 07/05/2013 4:34 PM EST Tonight: Imitrex 100mg + Naproxen sodium 550mg + (Add: Valium 5mg 1 tab po tonight #5 with no refills, to abort headache by sleep) Telephone Encounter - Desire Cobian RN - 07/05/2013 3:54 PM EST Route to Christopher Isidro Telephone Encounter - Desire Cobian RN - 07/03/2013 3:00 PM EST I spoke with Korin again today as she calls back to report on her status . She states that after taking naproxen last evening, she woke up in the middle of the night with a bad headache and then tooksumatriptan , but she still has the headache today . I have advised her to take another naproxen sodium 550 mg to catch the head ache early and hopefully beak the cycle . Also consult with Christopher Isidro for other suggestions . Korin wants to schedule another appt with JOYCE, she will call tomorrow when she has her calendar. Last appt - 10/02/12 Next appt - Nothing pending Telephone Encounter - Desire Cobian RN - 07/02/2013 4:19 PM EST I spoke with Korin to discuss her headache that she has been having since 06/27/13. The WOOD started out mild and by 06/29/13 it was severe . She took a sumatriptan on 06/30/13 but it did not take the headache away entirely , it did reduce it down to a moderate level. She states that she has not had a headache of this severity for quite a long time . She is asking what medications she should take and we discussed her available medications - naproxen sodium 550 mg and sumatriptan 100 mg are her rescue medications. She informs me that she is afraid that she will take too much medication. I instructed herthat Naproxen sodium is for the mild to moderate headaches and she can take this twice daily. The sumatriptan is limited to 2 tablets in 24 hours and limited d to 2 days per week. She voiced a better understanding now , and she will start with one naproxen sodium 550 mg tablets , then if needed later tonight or tomorrow morning , she will take a sumatriptan since her last one was on 06/30/13. She states that she is not experiencing any nausea and she sleeps well because she takes a sleeping pill. Shewill call tomorrow if needed. Telephone Encounter - Karen Beltran - 07/02/2013 12:57 PM EST Patient called in to report she has had a migraine since Tuesday. She states her medication has not been working. Please call her back to discuss. documented in this encounter Plan of Treatment Upcoming Encounters Date Type Specialty Care Team Description 02/06/2023 Hospital Encounter Gastroenterology Cony Tavera MD [facility] ER GASTROENTEROLOGY DEPT. [place], [place] [address] (Wo rk) Scheduled Procedures Name Priority Associated Diagnoses Date/Time COLONOSCOPY, DIAGNOSTIC 10 yr surv documented as of this encounter Visit Diagnoses Not on filedocumented in this encounter Care Teams Fagot Maker Relationship Specialty Start Date End Date Melanie Abrams MD PCP - General 05/12/[address] [facility] [address] [facility] [place] [address] documented as of this encounter
--- OUTSIDE RECORDS SUMMARY | 2022-02-06 14:13 | XMS_ITS | Encounter Summary ---
:1960 Author Organization [facility] [place] [address] Care Team Providers Name Role Phone Melanie Abrams MD Primary Care Provider Encounter Details Date Type Department Care Team Description 09/18/2014 Orders Only [place] [facility] [place] MD [facility] [place] [address] [place] [address] [place] [address] (Wo rk) Social History Tobacco Use Types [...] Gastroenterology Cony Tavera MD [facility] GASTROENTEROLOGY DEPT. [place], [place] [address] (Wo rk) Scheduled Procedures Name Priority Associated Diagnoses Date/Time COLONOSCOPY, DIAGNOSTIC 10 yr surv documented as of this encounter Visit Diagnoses Not on filedocumented in this encounter Care Teams Vpk Teacher Relationship Specialty Start Date End Date Melanie Abrams MD PCP - General 05/12/10 [facility] [address] [facility] [place], [place] [id number] documented as of this encounter
--- OUTSIDE RECORDS SUMMARY | 2022-02-06 14:13 | XMS_ITS | Encounter Summary ---
:1960 Author Organization [facility] [place] [address] Care Team Providers Name Role Phone Melanie Abrams MD Primary Care Provider Encounter Details Date Type Department Care Team Description 11/06/2014 Follow-Up Occupational Therapy at Viki Wang OT Pain in left wrist [address] [facility] [address] [place] [address] PHYSICAL MEDICINE & [phone] [place] [address] Social History Tobacco Use Types Packs/Day Years [...] encounter Progress Notes Viki Wang, OT - 11/06/2014 3:00 PM EDT OCCUPATIONAL THERAPY PROGRESS NOTE VISIT NUMBER: 4 EVALUATION PERFORMED: 10.07.14 REFERRAL SOURCE: Dr. Aliza MD DIAGNOSIS: 1. 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 HAND DOMINANCE: Right PAIN: At Rest: 0/10 With Activity: 1/10 2/10 aching, stiffness ACTIVE RANGE OF MOTION: Measured in degrees of active motion with goniometer Right Left Left 5.21.15 Wrist Extension/Flexion 71/75 39/25 61/49 Ulnar/Radial Deviation 25/20 18/16 18/25 Pronation/Supination 90/88 88/88 90/88 Composite Extension/Flexion 65/40 39/22 52/37 TREATMENT TODAY: Ultrasound (97148) (100%, 3.3 MHz, .6 W/cm2, 7 minutes) with additional 2 minutes of set-up time, used for soft tissue preparation prior to treatment activities applied today to the dorsal wrist. Soft tissue massage, retrograde massage Therapeutic exercise 15 minutes: Active and active assisted wrist motion in all planes Reviewed HEP and symptoms ASSESSMENT: Korin Posada presents today with functional limitations due to left wrist pain. Her pain is decreasing and she is beginning to focus on ROM of the joint. She does have some pain with stretching but is able to achieve a therapeutic level of stretch with exercises. She will trial some heat and gentle stretching at home for next two weeks and return for follow-up to monitor progress and update HEP as needed. Koirn Posada is able to demonstrate home exercises with written instructions provided. Korin Posada has excellent potential for gains with therapy with identified needs forskilled therapy for treatment of left wrist pain. Skilled Nursing Goals (to be met by discharge): Date [...] drive at 8/10. Goal Status: met Korin Posada will have decreased pain with activity to 3/10 to be able to complete yoga at 3/10. Goal Status: met PLAN: Korin Posada will be seen for follow up in 2 weeks as she progresses to HEP Ultrasound, Iontophoresis, Iontopatch, Electrical Stimulation and Combination Ultra/estim (X) Korin Posada participated in the evaluation, collaborated on treatment goals, and agrees to the treatment plan . documented in this encounter Plan of Treatment Upcoming Encounters Date Type Specialty Care Team Description 02/06/2023 Hospital Encounter Gastroenterology Cony Tavera MD [facility] ER DR GASTROENTEROLOGY DEPT. [place], [place] [address] (Wo rk) Scheduled Procedures Name Priority Associated Diagnoses Date/Time COLONOSCOPY, DIAGNOSTIC 10 yr surv documented as of this encounter Visit Diagnoses Diagnosis Pain in left wrist Pain in joint, forearm documented in this encounter Care Teams Deputy Prosecuting Attorney Relationship Specialty Start Date End Date Melanie Abrams MD PCP - General 05/12/[address] [facility] [address] RAHEL [facility] [address] documented as of this encounter
--- OUTSIDE RECORDS SUMMARY | 2022-02-06 14:13 | XMS_ITS | Encounter Summary ---
:1960 Author Organization [facility] [place] [address] Care Team Providers Name Role Phone Melanie Abrams MD Primary Care Provider Encounter Details Date Type Department Care Team Description 08/15/2013 Follow-Up Neurology at [facility] Danii Isidro, Migraine without aura [facility] [employer] APPLIANCE TECH and without status Drive [facility] [place], [place] [address] [address] villagomez (Primary [phone] NEUROLOGY DEPT. Dx) [place] [address] (Wo rk) Social History Tobacco Use Types [...] Sign Reading Time Taken Comments Blood Pressure 143/92 08/15/2013 12:44 PM EST Pulse 98 08/15/2013 12:44 PM EST Temperature - - Respiratory Rate - - Oxygen Saturation - - Inhaled Oxygen Concentration - - Weight - - Height 170.2 cm (5' 7) 08/15/2013 12:44 PM EST Body Mass Index - - documented in this encounter Progress Notes Danii Isirdo, RUSSEL - 08/15/2013 12:56 PM EST Headache History: Korin has had bitemporal and [...] accurate. Current Problem: Migraine without aura. S: Zonegran is making patient feel tired. She had 8 WOOD days in the last month. She increased the Zonegran No changes in lifestyle or health. No head or neck injuries reported. No new sx or presentation. No vertigo. ROS: Non contributory. O: Alert and Oriented to person, place and time, not ataxic or dysarthric A: Vertigo - resolved Migraine without aura P: 1.)Continue Zonegran 100mg 3 caps at bedtime. 2.)Reduce Trazodone 100mg at bedtime or even further. - discuss with licensed clinical psychologist 3.)Keep WOOD calender 4.)Follow up in 2-3 months, call sooner prn if sx increase or new sx. documented in this encounter Plan of Treatment Upcoming Encounters Date Type Specialty Care Team Description 02/06/2023 Hospital Encounter Gastroenterology Cony Tavera MD [facility] DR GASTROENTEROLOGY DEPT. [place], [place] [address] (Wo rk) Scheduled Procedures Name Priority Associated Diagnoses Date/Time COLONOSCOPY, DIAGNOSTIC 10 yr surv documented as of this encounter Visit Diagnoses Diagnosis Migraine without aura and without status migrainosus, not intractable - Primary Migraine without aura, without mention o f intractable migraine without mention of status migrainosus documented in this encounter Care Teams Pipeline Welder Relationship Specialty Start Date End Date Melanie Abrams MD PCP - General 05/12/[address] [facility] [address] [place] [address] documented as of this encounter
--- OUTSIDE RECORDS SUMMARY | 2022-02-06 14:13 | XMS_ITS | Encounter Summary ---
:1960 Author Organization [facility] [place] [address] Care Team Providers Name Role Phone Melanie Abrams MD Primary Care Provider Encounter Details Date Type Department Care Team Description 01/08/2013 Hospital Encounter Laboratory Melanie Abrams Annual physical exam [facility] MD Judd [facility] [address] [phone] PRIMARY CARE [place], [place] [address] Social History Tobacco Use Types [...] place to sleep or slept in a snf (including now)? Sex Assigned at Date Recorded Female 08/01/2020 8:27 AM EST documented as of this encounter Medications at Time of Discharge Medication Sig Dispensed Refills Start Date End Date levothyroxine (SYNTHROID) Take 1 tablet by 90 tablet 4 09/1812/18/2013 50 mcg tabletIndications: mouth daily. Hypothyroidism famotidine (PEPCID AC) 20 Take 20 mg by 0 12/05/2013 mg tablet mouth every morning. zonisamide (ZONEGRAN) 100 Take 2 capsules by 60 capsule 11 07/17/2013 mg capsuleIndications: mouth daily. Migraine SUMAtriptan (IMITREX) 100 Take 1 tablet by 12 tablet 11 09/1811/16/2013 mg tablet mouth daily as needed. naproxen sodium (ANAPROX) take 1 tablet by 60 tablet 1 11/201209/18/2014 550 mg tablet mouth twice a day if needed venlafaxine (EFFEXOR-XR) Take 3 capsules by 270 capsule 1 12/05/2013 75 mg 24 hr capsule mouth daily. traZODone (DESYREL) 100 Take 1.5 tablets 135 tablet 1 201112/05/2013 mg tablet by mouth nightly. DOCOSAHEXANOIC ACID/EPA Take 1 capsule by 0 12/2809/05/2015 (FISH OIL ORAL) mouth daily. multivitamin with Take 1 tablet by 0 0 07/17/2013 minerals (THERA-M) 9-0.4 mouth daily. mg tablet magnesium oxide (MAG-OX) Take 400 mg by 0 05/04/2017 400 mg tablet mouth daily. Reported on 12/08/2016 documented as of this encounter Plan of Treatment Upcoming Encounters Date Type Specialty Care Team Description 02/06/2023 Hospital Encounter Gastroenterology Cony Tavera MD [facility] ER DR GASTROENTEROLOGY DEPT. [place], [place] [address] (Wo rk) Scheduled Procedures Name Priority Associated Diagnoses Date/Time COLONOSCOPY, DIAGNOSTIC 10 yr surv documented as of this encounter Procedures Procedure Name Priority Date/Time Associated Comments Diagnosis FECAL OCCULT BLOOD, Routine 01/08/2013 4:56 PM Annual physical Results for this IMMUNOASSAY EDT exam procedure are i n the results section. documented in this encounter Results (ABNORMAL) Fecal Occult Blood, Immunoassay (01/08/2013 4:56 PM EDT) [facility] gist Method Time Signature Fecal Occult Positive (A) Negative CERNER Blood, MILLENNIUM Immunoassay Specimen Anatomical Collection Method Collection Time Receive d Time (Source) Location / / Volume Laterality Stool specimen 01/08/2013 4:56 PM 013 4:56 (specimen) EDT PM EDT Resulting Agency Comment Spec In Lab Melanie Abrams MD BODY FLUIDS AND STOOLS ORDER ILDEFONSO Performing Organization Address City/State/[place] [address] CERNER MILLENNIUM documented in this encounter Visit Diagnoses Diagnosis Annual physical exam Routine general medical examination at a health care facility documented in this encounter Care Teams Melting Furnace Skimmer Relationship Specialty Start Date End Date Melanie Abrams MD PCP - General 05/12/10 [facility] [address] RAHEL [place] [address] documented as of this encounter
--- OUTSIDE RECORDS SUMMARY | 2022-02-06 14:13 | XMS_ITS | Encounter Summary ---
:1960 Author Organization [facility] [place] [address] Care Team Providers Name Role Phone Melanie Abrams MD Primary Care Provider Encounter Details Date Type Department Care Team Description 07/17/2013 Follow-Up Neurology at [facility] Danii Isidro, Migraine without aura and wi thout status migrainosus, not intractable (Primary Dx); [facility] [address] [place] [address] NEUROLOGY DEPT. [place] [id number] (Wo rk) Social History Tobacco Use Types [...] Sign Reading Time Taken Comments Blood Pressure 130/86 07/17/2013 9:01 AM EST Pulse 92 07/17/2013 9:01 AM EST Temperature - - Respiratory Rate - - Oxygen Saturation - - Inhaled Oxygen Concentration - - Weight - - Height 168.9 cm (5' 6.5) 07/17/2013 9:01 AM EST Body Mass Index - - documented in this encounter Progress Notes Danii Isidro APRN - 07/17/2013 9:13 AM EST Headache History: Korin has had bitemporal [...] alone; good supports History Reviewed and updated, eD list may not be accurate. Current Problem: Migraine without aura. S: Patient is having more headaches. She had 12 headaches in Jun, in May 28 WOOD, in Apr 28 WOOD. No changes in lifestyle or health. No head or neck injuries reported. No new sx or presentation. No vertigo. ROS: Non contributory. O: Alert and Oriented to person, place and time, not ataxic or dysarthric A: Vertigo - resolved Migraine without aura P: 1.) Increase Zonegran 100mg 3 caps at bedtime, if no improvement, increase to 400mg at bedtime in 1 week. 2.)Call with update in 2 weeks. 3.)Check: CMP, CBC 4.) Consider further work up if no improvement by follow up. 5.)Follow up in 4-6 weeks, sooner prn if sx increase or new sx. documented in this encounter Miscellaneous Notes Addendum Note - Yolanda Rutledge - 07/17/2013 9:53 AM EST Addended by: YOLANDA RUTLEDGE on: 07/17/2013 09:53 AM Modules accepted: Orders documented in this encounter Plan of Treatment Upcoming Encounters Date Type Specialty Care Team Description 02/06/2023 Hospital Encounter Gastroenterology Cony Tavera MD [facility] GASTROENTEROLOGY DEPT. [place], [place] [address] (Wo rk) Scheduled Procedures Name Priority Associated Diagnoses Date/Time COLONOSCOPY, DIAGNOSTIC 10 yr surv documented as of this encounter Procedures Procedure Name Priority Date/Time Associated Comments Diagnosis DIFFERENTIAL, Routine 07/17/2013 10:03 Results fo r this AUTOMATED AM EST procedure are i n the results section. CBC (WITH DIFF) Routine 07/17/2013 10:03 Migraine without Resu lts for this AM EST aura and without procedure a re in status migrainosus, the resu lts not intractable section. COMPREHENSIVE Routine 07/17/2013 10:03 Migraine without Result s for this METABOLIC PANEL AM EST aura and without procedur e are in (NON-FASTING) status migrainosus, the res ults not intractable section. documented in this encounter Results Differential, Automated (07/17/2013 10:03 AM EST) P athologist Signature Neutrophils % 68.4 34.0 - CERNER 71.0 % MILLENNIUM Neutr Abs (ANC) 3.34 1.50 - CERNER 6.30 MILLENNIUM x10(3)/mcL Lymphocytes % 21.3 19.0 - CERNER 53.0 % MILLENNIUM Lymphocytes Abs 1.0 1.0 - 3.6 CERNER x10(3)/mcL MILLENNIUM Monocytes % 6.6 4.0 - 13.0 CERNER % MILLENNIUM Monocyte Abs 0.3 0.2 - 1.0 CERNER x10(3)/mcL MILLENNIUM Eosinophils % 3.1 0.0 - 7.0 CERNER % MILLENNIUM Eosinophils Abs 0.2 0.0 - 0.5 CERNER x10(3)/mcL MILLENNIUM Basophils % 0.4 0.0 - 2.0 CERNER % MILLENNIUM Basophils Abs 0.0 0.0 - 0.2 CERNER x10(3)/mcL MILLENNIUM Immature Gran % 0.20 0.00 - CERNER 0.66 % MILLENNIUM Comment: Immature granulocytes(IG's)percentage an d absolute count will include metamyelocytes, myelocytes, and promyelo cytes. Blood smears from CBCs yielding IG's will be scanned manually for concor dance. If this scan disagrees with the automated IG or if promyelocytes are not ed, a manual differential will be performed. Aleksandra Gran Abs 0.01 0.00 - 0.05 x10(3)/mcL CER NER MILLENNIUM Specimen Anatomical Collection Method Collection Time Receive d Time (Source) Location / / Volume Laterality Blood specimen 07/17/2013 10:03 4 (specimen) AM EST 10:11 AM EST Ramírez Lagos MD HEMATOLOGY ORDERABLES Performing Organization Address City/[facility]/[place] [address] [facility] (ABNORMAL) CBC (with Diff) (07/17/2013 10:03 AM EST) athologist Signature WBC 4.9 4.0 - 10.0 CERNER x10(3)/mcL MILLENNIUM RBC 4.71 3.93 - CERNER 5.22 MILLENNIUM x10(6)/mcL Hemoglobin 14.6 11.2 - CERNER 15.7 gm/dL MILLENNIUM Hematocrit 43.8 34.0 - CERNER 45.0 % MILLENNIUM MCV 93.0 79.0 - CERNER 94.0 fL MILLENNIUM MCH 31.0 26.6 - CERNER 32.2 pg MILLENNIUM MCHC 33.3 32.0 - CERNER 36.5 gm/dL MILLENNIUM Platelets 240 145 - 370 CERNER x10(3)/mcL MILLENNIUM RDWSD 46.4 (H) 35.0 - CERNER 46.0 fL MILLENNIUM RDWCV 13.6 10.9 - CERNER 14.4 % MILLENNIUM MPV 10.2 9.0 - 12.0 CERNER fL MILLENNIUM Specimen Anatomical Collection Method Collection Time Receive d Time (Source) Location / / Volume Laterality Blood specimen 07/17/2013 10:03 4 (specimen) AM EST 10:11 AM EST Resulting Agency Comment Spec In Lab Ramírez Lagos MD HEMATOLOGY ORDERABLES Performing Organization Address City/[facility]/[place] [address] [facility] Comprehensive metabolic panel (non-fasting) (07/17/2013 10:03 AM EST) P athologist Signature Glucose Lvl 101 60 - 199 CERNER mg/dL [facility] Comment: Diabetes: >=200 mg/dL plus symp toms BUN 12 8 - 18 mg/dL CERNER MILLENNIUM Creatinine 0.90 0.70 - 1.20 mg/dL CERNER MILL ENNIUM Comment: Please note that the pediatric reference intervals supplied above were not validated at [facility]. Results from pediatri c patients should be interpreted in conjunction to the patient's age, height and muscle mass. Sodium 138 135 - 145 mmol/L CERNER BERLIN NIUM Potassium 4.1 3.5 - 5.0 mmol/L CERNER BERLIN NIUM Comment: Please note: ??Patients with WBC >100,00 0 may have falsely elevated Potassium levels. ??For accurate Potassium quantif ication in these patients send serum separator tube (gold top) for subsequent determinations. ??Contact the Clinical Chemistry Laboratory if there are any qu estions. Chloride 102 98 - 107 mmol/L CERNER MILLENN IUM CO2 26 22 - 31 mmol/L CERNER MILLENNI UM Anion Gap 10 5 - 15 mmol/L CERNER MILLENNIU M Calcium 9.5 8.5 - 10.5 mg/dL CERNER BER[place] NIUM Total Protein 6.9 6.4 - 8.3 gm/dL CERNER MIL LENNIUM Albumin 4.3 3.2 - 5.2 gm/dL CERNER MILLENN IUM AST 16 0 - 30 unit/L CERNER MILLENNIU M ALT 16 0 - 30 unit/L CERNER MILLENNIU M Alk Phos 66 40 - 104 unit/L CERNER MILLENN IUM Total Bilirubin 0.2 0.2 - 1.3 mg/dL CERNER M ILLENNIUM Bili, Direct 0.1 0.0 - 0.3 mg/dL CERNER MILL ENNIUM Estimated GFR >60 >=60 CERNER MILLENNIU M [...] the following links into your internet browser. http://www.nkdep.nih.gov/lab-evaluation. shtml http://www.kidney.org/professionals/ Specimen Anatomical Collection Method Collection Time Receive d Time (Source) Location / / Volume Laterality Blood specimen 07/17/2013 10:03 4 (specimen) AM EST 10:11 AM EST Resulting Agency Comment Spec In Lab Ramírez Lagos MD CHEMISTRY ORDERABLES Performing Organization Address City/State/[place] [address] [facility] documented in this encounter Visit Diagnoses Diagnosis Migraine without aura and without status migrainosus, not intractable - Primary Migraine without aura, without mention o f intractable migraine without mention of status migrainosus Migraine Migraine, unspecified, without mention o f intractable migraine without mention of status migrainosus documented in this encounter Care Teams Public Address System Operator Relationship Specialty Start Date End Date Melanie Abrams MD PCP - General 05/12/10 [facility] DR [place]HEL [place] [address] documented as of this encounter
--- OUTSIDE RECORDS SUMMARY | 2022-02-06 14:13 | XMS_ITS | Encounter Summary ---
:1960 Author Organization [facility] [place] [address] Care Team Providers Name Role Phone Melanie Abrams MD Primary Care Provider Encounter Details Date Type Department Care Team Description 12/06/2014 Hospital Encounter Mammography at [facility], DR LEÓN [facility] Melanie Abrams [facility] [place] [address] [place] [address] Social History Tobacco Use Types Packs/Day [...] Sig Dispensed Refills Start Date End Date SUMAtriptan (IMITREX Inject 0.5 mLs 1 each 0 09/18/2014 04/30/2015 STATDOSE PEN) 6 mg/0.5 subcutaneously 2 mL Pen times daily as needed InjectorIndications: for Migraine. Migraine without aura and without status migrainosus, not intractable SUMAtriptan Succinate Inject 0.5 mLs 2 kit 3 09/18/2014 04/30/2015 (IMITREX STATDOSE KIT subcutaneously 2 REFILL) 6 mg/0.5 mL times daily as CartridgeIndications: needed. Migraine without aura and without status migrainosus, not intractable naproxen sodium Take 1 tablet by 60 tablet 1 09/18/2014 (ANAPROX) 550 mg mouth 2 times daily TabletIndications: as needed. Migraine without aura and without status migrainosus, not intractable lansoprazole (PREVACID Take 1 tablet by 90 tablet 3 015 09/11/2018 SOLUTAB) 15 mg mouth daily. Tablet,Rapid Dissolve, venlafaxine (EFFEXOR) Take 50 mg by mouth 2 0 10/22/2015 50 mg Tablet times daily. zonisamide (ZONEGRAN) take 3 to 4 capsules 120 capsule 11 07/201409/05/2015 100 mg Capsule by mouth once daily levothyroxine Take 1 tablet by 90 tablet 4 12/18/201303/17 (SYNTHROID) 50 mcg mouth daily. tabletIndications: Hypothyroidism traZODone (DESYREL) Take 100 mg by mouth 0 09/05/2015 100 mg tablet nightly. SUMAtriptan (IMITREX) Take 100 mg by mouth 0 01/13/2015 100 mg tablet as needed. DOCOSAHEXANOIC Take 1 capsule by 0 12/28/2010 ACID/EPA (FISH OIL mouth daily. ORAL) magnesium oxide Take 400 mg by mouth 0 05/04/2017 (MAG-OX) 400 mg tablet daily. Reported on 12/08/2016 documented as of this encounter Plan of Treatment Upcoming Encounters Date Type Specialty Care Team Description 02/06/2023 Hospital Encounter Gastroenterology Cony Tavera MD [facility] GASTROENTEROLOGY DEPT. [place], [place] [address] (Wo rk) Scheduled Procedures Name Priority Associated Diagnoses Date/Time COLONOSCOPY, DIAGNOSTIC 10 yr surv documented as of this encounter Procedures Procedure Name Priority Date/Time Associated Diagnosis Comme nts MAMMO 2D DIGITAL Routine 12/06/2014 10:13 AM Resu lts for this SCREEN TAM EDT procedure are i n BILATERAL the results section. documented in this encounter Results Mammography Screen Tam 2D Bilateral (12/06/2014 10:13 AM EDT) Anatomical Region Laterality Modality Breast Bilateral Mammography Specimen (Source) Anatomical Collection Method Collection Time Re ceived Time Location / / Volume Laterality 12/06/2014 10:13 AM EDT Narrative 12/08/2014 9:31 AM EDT Reason for Exam: Screening ?? Technique: Craniocaudal (CC) and Medio-l ateral Oblique (MLO) views of both breasts obtained with direct digital cap ture. In addition to routine 2-D imaging, this exam was also performed wi 3-D Tomographic Imaging (MLO and CC). ?? The exam was evaluated by CAD version 8. 3.17. ?? Findings: ?? This is a negative mammogram (ACR Catego ry 1). There is a stable fibroglandular pattern without significant change from prior studies. There is no mammographic evidence of can cer. The breasts are heterogeneously dense which limits mammographic sensitiv ity for the detection of malignancy. ?? CONCLUSION: This is a NEGATIVE mammogram (ACR Catego ry 1). ?? Routine screening mammography is recomme nded with the frequency dependent upon the patients age and breast cancer risk factors. A letter has been sent to this patient b y the breast imaging [facility]. ?? Procedure Note Emily Biggs MD - 5 Reason for Exam: Screening Technique: Craniocaudal (CC) and Medio-l ateral Oblique (MLO) views of both breasts obtained with direct digital cap ture. In addition to routine 2-D imaging, this exam was also performed wi th 3-D Tomographic Imaging (MLO and CC). The exam was evaluated by CAD version 8. 3.17. Findings: This is a negative mammogram (ACR Catego ry 1). There is a stable fibroglandular pattern without significant change from prior studies. There is no mammographic evidence of can cer. The breasts are heterogeneously dense which limits mammographic sensitiv ity for the detection of malignancy. CONCLUSION: This is a NEGATIVE mammogram (ACR Catego ry 1). Routine screening mammography is recomme nded with the frequency dependent upon the patients age and breast cancer risk factors. A letter has been sent to this patient b y the breast imaging [facility]. Melanie Abrams MD IMG MAMMO ORDERABLES documented in this encounter Visit Diagnoses Not on filedocumented in this encounter Care Teams Deployment Manager Relationship Specialty Start Date End Date Melanie Abrams MD PCP - General 05/12/[address] [facility] [address] [facility] [place] [address] documented as of this encounter
--- OUTSIDE RECORDS SUMMARY | 2022-02-06 14:13 | XMS_ITS | Encounter Summary ---
:1960 Author Organization [facility] [place] [address] Care Team Providers Name Role Phone Keren Finley MD Primary Care Provider Reason for Visit Reason Comments Other Encounter Details Date Type Department Care Team Description 01/24/2013 Telephone Family Medicine at [facility] June Connolly LPN [address] [place] [address] Social History Tobacco Use Types Packs/Day [...] this encounter Miscellaneous Notes Telephone Encounter - Phylicia Díaz - 01/25/2013 8:33 AM EDT Patient is aware-she will take twice a day for 7 days and call with results. Phylicia Membreno Telephone Encounter - June Doshi LPN - 01/24/2013 4:33 PM EDT Left message to return call to clinic. Telephone Encounter - June Doshi LPN - 01/24/2013 4:33 PM EDT Message copied by JUNE DOSHI on TueJan 24, 2013 4:33 PM ------ Message from: KEREN FINLEY Created: TueJan 23, 2013 11:19 AM Please remind pt that we need some BP readings (see my last note) so we can decide about whether she requires treatment (based on last measurement, she does). documented in this encounter Plan of Treatment Upcoming Encounters Date Type Specialty Care Team Description 02/06/2023 Hospital Encounter Gastroenterology Cony Tavera MD [facility] GASTROENTEROLOGY DEPT. [place], [place] [address] (Wo rk) Scheduled Procedures Name Priority Associated Diagnoses Date/Time COLONOSCOPY, DIAGNOSTIC 10 yr surv documented as of this encounter Visit Diagnoses Not on filedocumented in this encounter Care Teams [employer] Teacher Relationship Specialty Start Date End Date Keren Finley MD PCP - General 05/12/10 [facility] [address] [facility] [place] [address] documented as of this encounter
--- OUTSIDE RECORDS SUMMARY | 2022-02-06 14:13 | XMS_ITS | Encounter Summary ---
:1960 Author Organization [facility] Address [facility] [address] [place] [address] Care Team Providers Name Role Phone Melanie Abrams MD Primary Care Provider Encounter Details Date Type Department Care Team Description 09/23/2014 Hospital Encounter MRI at [facility], CONV Wrist injuries, [facility] Melanie Abrams MD [facility] [place] [address] left, [place] [id number] Social History Tobacco Use Types Packs/Day Years [...] Encounter Gastroenterology Cony Tavera MD [facility] GASTROENTEROLOGY DEPT. [place], [place] [address] (Wo rk) Scheduled Procedures Name Priority Associated Diagnoses Date/Time COLONOSCOPY, DIAGNOSTIC 10 yr surv documented as of this encounter Procedures Procedure Name Priority Date/Time Associated Diagnosis Comme nts MRI WRIST WO Routine 09/23/2014 10:32 AM Wrist injuries, Resul ts for this CONTRAST EDT left, subsequent procedure a re in encounter the results section. documented in this encounter Results MRI wrist WO contrast (09/23/2014 10:32 AM EDT) Anatomical Region Laterality Modality Wrist Magnetic Resonance Specimen (Source) Anatomical Collection Method Collection Time Re ceived Time Location / / Volume Laterality 09/23/2014 10:32 AM EDT Impressions 09/23/2014 1:25 PM EDT IMPRESSION: No fracture or obvious ligament injury i s identified. There is diffuse edema adjacent to the c arpus consistent with soft tissue injury. Narrative 09/23/2014 1:25 PM EDT EXAMINATION: MR Wrist WO Gigi/LEFT CLINICAL HISTORY: persistent pain since FO08/10 pain at scapholunate films are neg x 2 (first at [facility]) COMPARISON: 09/23/2014 TECHNIQUE: Noncontrast MRI of the Left w rist was performed. The study is compromised by motion artif act. FINDINGS: At the wrist no fracture is identified. There is a small focus of abnormal bone marrow signal intensity within the proximal third of the fifth metacarpal a s seen on sagittal image #4 series 10 and axial image #32 of series 3. This is not associated with a fracture line or an obvious decrease in signal intensity on T1-weighted images. The significance is uncertain. I do not believe this repr esents a fracture though it could represent marrow edema related to prior injury. No large effusion is seen at the wrist. There is soft tissue edema at the dorsal aspect of the carpus as well as in the bone or an ulnar aspect of the wrist. Th e appearance is consistent with capsular injury. I do not see an obvious injury to the ex trinsic ligaments of the wrist. At the intrinsic ligaments appear to be intact. Carpal alignment is normal. I do not see a tear of the triangular fi brocartilage complex. A small amount of peritendinous fluid is seen at the level of the extensor tendons but no tendon tear or tendinopat hy is identified. There is no obvious tendon displacement. The median nerve and the ulnar nerve are normal in appearance. Procedure Note Chang Villatoro MD - 09/23/2014Forma tting of this note might be different from the original. EXAMINATION: MR Wrist WO Gigi/LEFT CLINICAL HISTORY: persistent pain since [facility] 08/10 pain at scapholunate films are neg x 2 (first at [facility]) COMPARISON: 09/23/2014 TECHNIQUE: Noncontrast MRI of the Left w rist was performed. The study is compromised by motion artif act. FINDINGS: At the wrist no fracture is identified. There is a small focus of abnormal bone marrow signal intensity within the proximal third of the fifth metacarpal a s seen on sagittal image #4 series 10 and axial image #32 of series 3. This is not associated with a fracture line or an obvious decrease in signal intensity on T1-weighted images. The significance is uncertain. I do not believe this repr esents a fracture though it could represent marrow edema related to prior injury. No large effusion is seen at the wrist. There is soft tissue edema at the dorsal aspect of the carpus as well as in the bone or an ulnar aspect of the wrist. Th e appearance is consistent with capsular injury. I do not see an obvious injury to the ex trinsic ligaments of the wrist. At the intrinsic ligaments appear to be intact. Carpal alignment is normal. I do not see a tear of the triangular fi brocartilage complex. A small amount of peritendinous fluid is seen at the level of the extensor tendons but no tendon tear or tendinopat hy is identified. There is no obvious tendon displacement. The median nerve and the ulnar nerve are normal in appearance. IMPRESSION IMPRESSION: No fracture or obvious ligament injury i s identified. There is diffuse edema adjacent to the c arpus consistent with soft tissue injury. Melanie Abrams MD IMG MRI ORDERABLES documented in this encounter Visit Diagnoses Diagnosis Wrist injuries, left, subsequent encount er documented in this encounter Care Teams Concrete Mixing Plant Laborer Relationship Specialty Start Date End Date Melanie Abrams MD PCP - General 05/12/[address] [facility] [address] [facility] [place] [address] documented as of this encounter
--- OUTSIDE RECORDS SUMMARY | 2022-02-06 14:13 | XMS_ITS | Encounter Summary ---
:1960 Author Organization [place] [address] Care Team Providers Name Role Phone Melanie Abrams MD Primary Care Provider Encounter Details Date Type Department Care Team Description 02/06/2013 Surgery Gastroenterology at [facility] Ashanti Tavera, COLONOSCOPY, [facility] Vanessa [place] [address] [facility] [phone] GASTROENTEROLOGY DEPT. [place], [place] [address] Social History Tobacco Use Types [...] Sign Reading Time Taken Comments Blood Pressure 130/82 02/06/2013 11:15 AM EDT Pulse 75 02/06/2013 11:15 AM EDT Temperature 36.8 ??C (98.2 ??F) 02/06/2013 9:26 AM EDT Respiratory Rate 20 02/06/2013 11:05 AM EDT Oxygen Saturation 100% 02/06/2013 11:15 AM EDT Inhaled Oxygen Concentration - - Weight - - Height - - Body Mass Index - - documented in this encounter Discharge Instructions Discharge InstructionsSusana Saucedo RN - 02/06/2013 11:16 AM EDT Please call [phone], before 5pm with problems, questions or concerns, after 5pm call the Hospital at [phone] and ask to speak to the Oil Heater Operator home demonstrator and the plunger scoop operator will contact that person for you. Discharge instructions reviewed with patient who expresses understanding. You may have received medications before and/or [...] foul drainage occurs, please contact your Doctor. Patient InstructionsButterAshanti witt MD - 02/06/2013 11:12 AM EDT Please see Recommendations in the Provation procedure report which is documented in the procedural note in [facility]. AttachmentsThe following attachments cannot be sent through Care Everywhere. COLONOSCOPY: WHAT TO EXPECT AT HOME (BELGIAN)documented in this encounter Medications at Time of [...] on 12/08/2016 documented as of this encounter H&P Notes Ashanti Tavera MD - 02/06/2013 10:06 AM EDT Gastroenterology and Hepatology Pre-Procedure History and Physical Exam Procedure: Colonoscopy: Indication: screening Patient Active Problem List Diagnosis Code ??? Major depressive disorder, recurrent episode, unspecified 296.30 ??? CIS - GERD T999.0 ??? Mgrn wo aura wo intrc mgr 346.10 ??? HTN (hypertension) 401.9 ??? Anxiety 300.00 ??? Hypothyroidism 244.9 ??? Fatigue 780.79 EXAM: HEENT: Airway examined, oropharynx clear LUNGS: Clear to auscultation HEART: Regular rate and rhythm, normal S1, S2 ABDOMEN: Normal bowel sounds, soft, non tender, non distended, A/P Proceed with the planned endoscopic procedure. Risks and benefits of the procedure explained to the patient. Consent signed. documented in this encounter Miscellaneous Notes Miscellaneous - Provider, Scanning - 02/06/2013 4:48 PM EDT Op Note - Ashanti Tavera MD - 02/06/2013 11:12 AM EDT [facility] Operative Note Patient Name: Korin Posada : [id number] MR#: [id number] Case Date: 02/06/2013 Surgeon: Surgeon(s) and Role: * Ashanti Tavera MD - Primary Preoperative diagnosis: screening Full procedure note is documented under the Procedure section of eD. documented in this encounter Plan of Treatment Upcoming Encounters Date Type Specialty Care Team Description 02/06/2023 Hospital Encounter Gastroenterology Cony Tavera MD [facility] GASTRO[facility]Y DEPT. [place], [place] [address] (Wo rk) Scheduled Procedures Name Priority Associated Diagnoses Date/Time COLONOSCOPY, DIAGNOSTIC 10 yr surv documented as of this encounter Procedures Procedure Name Priority Date/Time Associated Comments Diagnosis COLONOSCOPY, 02/06/2013 10:08 screening DIAGNOSTIC AM EDT COLONOSCOPY Routine 02/06/2013 9:53 AM Results f or this EDT procedure are i n the results section. documented in this encounter Results COLONOSCOPY (02/06/2013 9:53 AM EDT) Component Value Ref Test Analysis Performed At [facility] Method Time Signature COLONOSCOPY [facility] Endoscopy Patient Name: Korin Posada ? Procedure Date: 02/06/2013 9:53 AM ? Date of : 1960 ? Age: 52 ? Order #: [id number] ? Procedure: ? Colonoscopy Indications: ? Screening for colorectal malignant ? neoplasm Patient Profile: ? hbp, hx major depression, gerd, ? hypothyroidism, s/p hysterect shu, s/p ? cholecystectomy Providers: ? Ashanti Tavera MD, Chastity mauro, ? RN, Jeannie Rasmussen, Claudia hnician Referring MD: ?Melanie Abrams MD Medicines: ? Midazolam 6.5 mg IV, Fentanyl 200 ? micrograms IV. This resulted in the ? patient being awake but appro priately ? sedated and comfortable for t he exam, ? which she tolerated extremely well Complications: ? No immediate complications. Procedure: ? [...] informed consent was obta ined. ? - Airway Examination: normal ? oropharyngeal airway and neck ? mobility. ? - Respiratory Examination: cl ear to ? auscultation. ? - CV Examination: normal. ? - ASA Grade Assessment: II - A ? patient with mild systemic di sease. ? - After reviewing the risks a nd ? benefits, the patient was mendy med in ? satisfactory condition to und ergo the ? procedure. ? - The anesthesia plan was to use ? moderate sedation/analgesia ? (conscious sedation). ? - Immediately prior to admini stration ? of medications, the patient w as ? re-assessed for adequacy to r eceive ? sedatives. ? - The heart rate, respiratory rate, ? oxygen saturations, blood pre ssure, ? adequacy of pulmonary ventila tion, ? and response to care were mon itored ? throughout the procedure. ? - The physical status of the patient ? was re-assessed after the pro cedure. ? The procedure, indications, b enefits, ? risks and alternatives were e xplained ? to the patient. Specifically ? discussed were potential ? complications including, but not ? limited to, bleeding, perfora tion, ? infection, missing a cancer, and ? adverse medication reactions. The ? patient was placed in the lef t ? lateral decubitus position, a nd a ? digital rectal exam was perfo rmed. ? The Colonoscope was inserted in the ? anus and under direct visuali zation, ? advanced to the terminal ileu m, with ? identification of the appendi ceal ? orifice and IC valve. Careful ? inspection was made as the ? colonoscope was withdrawn. Th e ? quality of the bowel preparat ion was ? good, after extensive washing and ? clearing of liquid stool and food ? debris, including repeatedly clearing ? suction which became blocked with ? seeds, to allow good visualiz ation ? throughout. ? Findings: ? The entire examined colon appeared normal. ? Impression: ?- The entire examined colon is nor mal. Recommendation: ?- Current recommendations for averag e ? risk individuals is to repeat ? colonoscopy in 10 years for s creening ? purposes. She will f/u with h er PCP ? - Return to primary care phys ician. ? Ashanti Tavera MD 02/06/2013 11:17 AM This report has been signed electronically. Number of Addenda: 0 Note Initiated On: 02/06/2013 9:53 AM Specimen (Source) Anatomical Collection Method Collection Time Re ceived Time Location / / Volume Laterality 02/06/2013 9:53 AM EDT Melanie Abrams MD GENERAL SURGICAL ORDERABLES Performing Organization Address City/State/ZIP Code Phon e Number PROVATION documented in this encounter Visit Diagnoses Not on filedocumented in this encounter Administered Medications Inactive Administered Medications - up to 3 most recent administrations Medication Order MAR Action Action Date Dose Rate Site fentaNYL 50mcg/mL injection Given 02/06/2013 10:35 AM EDT 25 mcg Righ t Arm ONCE PRN, Starting on Tue02/06/13 at 1008, Until Tue02/06/13 at 1555, Pain, Intra-Operative (Intra-Procedure), Routine Given 02/06/2013 10:29 AM EDT 25 mcg Righ t Arm Given 02/06/2013 10:24 AM EDT 25 mcg Righ t Arm midazolam (VERSED) injection Given 02/06/2013 10:48 AM EDT 0.5 mg Righ t Arm ONCE PRN, Starting on Tue02/06/13 at 1008, Until Tue02/06/13 at 1555, Sleep, Intra-Operative (Intra-Procedure), Routine Given 02/06/2013 10:35 AM EDT 0.5 mg Righ t Arm Given 02/06/2013 10:28 AM EDT 1 mg Righ t Arm documented in this encounter Active and Recently Administered Medications Times are shown in EDT. PRN Medication Order 02/04/2013 02/05/2013 02/06/2013 fentaNYL 50mcg/mL injection (CANCELED) 1008 (Given - Provider: Chastity Vivar RN - Comment: starting sedation)1011 (Given - Provider: Chastity Vivar RN - Comment: continuing sedation)1021 (Given - Provider: Chastity Vivar RN - Comment: continuing sedation) ONCE PRN, Starting Tue02/06/13 at 1008, Until Tue02/06/13 at 1555, Pain, Intra- Operative (Intra-Procedure), Routine 102 4 (Given - Provider: Chastity Vivar RN - Comment: continuing sedation)1029 (Given - Provider: Chastity Vivar RN - Comment: pt uncomfortable- that's crampy)1035 (Given - Provider: Chastity Vivar RN - Comment: pt grimacing) midazolam (VERSED) injection (CANCELED) 1008 (Given - Provider: Chastity Vivar RN - Comment: starting sedation)1011 (Given - Provider: Chastity Vivar RN - Comment: continuing sedation)1015 (Given - Provider: Chastity Vivar RN - Comment: continuing sedation) ONCE PRN, Starting 02/06/13 at 1008, Until 02/06/13 at 1555, Sleep, Intra- Operative (Intra-Procedure), Routine 102 1 (Given - Provider: Chastity Vivar RN - Comment: continuing sedation)1024 (Given - Provider: Chastity Vivar RN - Comment: continuing sedation)1028 (Given - Provider: Chastity Vivar RN - Comment: pt uncomfortable) 1035 (Given - Pr ovider: Chastity Vivar RN - Comment: pt grimacing)1048 (Given - Provider: Chastity Vivar RN - Comment: pt waking) documented in this encounter Care Teams Cadastral Engineer Relationship Specialty Start Date End Date Melanie Abrams MD PCP - General 05/12/10 [facility] [address] documented as of this encounter
--- OUTSIDE RECORDS SUMMARY | 2022-02-06 14:13 | XMS_ITS | Encounter Summary ---
:1960 Author Organization [facility] [place] [address] Care Team Providers Name Role Phone Melanie Abrams MD Primary Care Provider Reason for Referral Physical Therapy (Routine) - Closed Specialty Diagnoses / Procedures Referred By Contact Refer red To Contact Diagnoses Chronic right SI joint pain Shoulder impingement, right Melanie Abrams MD Unknown [facility] D R None [facility] [place] [address] Referral ID Status Reason Start Date Expiration Date Visits V isits Requested Authorized [id number] Closed Evaluate and 04/30/2015 10/27/2015 12 12 Treat Reason for Visit Reason Comments Annual Exam Encounter Details Date Type Department Care Team Description 04/30/2015 Office Visit Family Medicine at Melanie Abrams physical exam; Rahel Whaley MD Hypothyroidism, unspecified hypothyroidi sm type; [address] [facility] Chronic right SI joint pain; [place], [place] Shoulder impingement, right; [id number] [facility] Acquired hypothyroidism [phone] [place] [address] Social History Tobacco Use Types Packs/Day Years [...] Sign Reading Time Taken Comments Blood Pressure 138/88 04/30/2015 7:55 AM EST Pulse 88 04/30/2015 7:55 AM EST Temperature 36.6 ??C (97.8 ??F) 04/30/2015 7:55 AM EST Respiratory Rate 20 04/30/2015 7:55 AM EST Oxygen Saturation 100% 04/30/2015 7:55 AM EST Inhaled Oxygen Concentration - - Weight 73.1 kg (161 lb 3.2 oz) 04/30/2015 7:55 AM EST Height 169.3 cm (5' 6.65) 04/30/2015 7:55 AM EST Body Mass Index 25.51 04/30/2015 7:55 AM EST documented in this encounter Progress Notes Melanie Abrams MD - 04/30/2015 9:51 AM EST The patient presents for annual health review but has a number of issues. OT helped her left wrist, but it still lacks full extension. She says she is not particularly worried about that right now. Her primary concern is that of her right posterior hip, which now is bothering her laterally. This radiates to the right lateral leg, especially when she is trying to go to sleep at night. She has been doing the piriformis stretch which was recommended last year, but is not convinced that it helps. She is also doing some spine stretching. She takes a couple of ibuprofen sometime earlier in the day but not in the evening. Frustrated that this has not improved. She is interested in seeing PT. Her right shoulder continues to bother her as well. Her computer workstation at work has the keyboard and mouse on the desktop. She does not feel this is alterable. She would like to see PT for that as well. She continues to be seen in the headache clinic. She is also seen for her anxiety by a nurse practitioner who is trying to taper down her Effexor. She also takes Prevacid for GE reflux, which works well. Problem list, surgeries, family and social history, medications, and allergies are reviewed and updated in her chart today as needed. Review of systems is otherwise negative. O: Vitals as per chart. Includes stable weight but up 10 pounds from last year. Blood pressure is normal. Skin: No suspicious lesions. HEENT: TMs, nose, and throat clear. Neck: No nodes or thyromegaly. Heart: Regular rate and rhythm. No murmurs. Lungs: Clear. Breasts: No masses, nipple discharge, or axillary nodes. Abdomen: Soft, nondistended, nontender. Cabinetmaker Supervisor: Deferred. Extremities: Within normal limits with the exception of the right shoulder has normal range of motion in all directions and normal strength but a positive impingement sign. She appears to have a leg length discrepancy with the right being longer. She can stabilize herself nicely in single-leg stance, however. There is some tenderness to palpation laterally in the right hip. Her hip range of motion, however, is normal. Piriformis flexibility is also normal. A/P: 1. Health maintenance. Tdap given today. Otherwise up to date on health screening. A nonfasting cholesterol panel is done for a work-related health initiative. Had a glucose in September, which was normal. 2. SI joint-related pain. We again discussed that she may benefit from SI joint injection. Would like to consider a course of PT first with some attention to the possibility of leg length discrepancy being addressed. Continue to stretch piriformis. She will follow up or call if she is not making progress in PT. 3. Shoulder rotator cuff tendinitis. We discussed computer workstation changes that could be made. Refer to PT for this as well. All other issues are relatively stable. Check TSH. Other meds have been refilled in the recent past. Followup is one year or p.r.n. documented in this encounter Plan of Treatment Upcoming Encounters Date Type Specialty Care Team Description 02/06/2023 Hospital Encounter Gastroenterology Cony Tavera MD [facility] GASTROENTEROLOGY DEPT. [place], [place] [address] (Wo rk) Scheduled Procedures Name Priority Associated Diagnoses Date/Time COLONOSCOPY, DIAGNOSTIC 10 yr surv Scheduled Referrals Name Type Priority Associated Diagnoses Order S chedule Referral to Outpatient Referral Routine Chronic right SI Orde red: Physical Therapy joint pain 04/30/2015 Shoulder impingement, right documented as of this encounter Procedures Procedure Name Priority Date/Time Associated Diagnosis Comme nts TSH Routine 04/30/2015 9:11 AM Hypothyroidism, Result s for this EST unspecified procedure are i n hypothyroidism type the resu lts section. HDL/CHOL PROFILE Routine 04/30/2015 9:11 AM Annual physical ex am Results for this EST procedure are i n the results section. documented in this encounter Results HDL/Cholesterol Profile (04/30/2015 9:11 AM EST) P athologist Signature Chol, Total 176 <=199 mg/dL CERNER MILLENNIUM Comment: Recommendations of the NCEP Adult Treatm ent Panel for the following risk cutoff thresholds for the [place] populatio n: Desirable: <200 mg/dL Borderline High: 200-239 mg/dL High: > or = 240 mg/dL HDL 66 >=40 mg/dL CERNER MILLENNIUM Comment: Reference range: ??Low HDL: ?? < 40 mg/dL ??Normal: ?40-60 mg/dL ??Desirable: > 60 mg/dL TINO 2001; 285(19):3055-7368 Chol/HDL Ratio 2.7 ratio CERNER MILLENNI UM Comment: A Cholesterol to HDL ratio below 4:1 is desirable. ??Studies suggest that increased CAD risk occurs at ratios abov e 5 for females and above 6 for men. ? [place] Heart Association ??(htt p://www.americanheart.org) ? Romi Int Med, 1994; 121:641 ? AM J Med, 1998; 105(1A):48S Specimen Anatomical Collection Method Collection Time Receive d Time (Source) Location / / Volume Laterality Blood specimen 04/30/2015 9:11 AM 015 (specimen) EST 12:34 PM EST Resulting Agency Comment Spec In Lab Melanie Abrams MD CHEMISTRY ORDERABLES Performing Organization Address City/[facility]/ZIP Code Phon e Number [address] [facility] TSH (04/30/2015 9:11 AM EST) P athologist Signature TSH 2.41 0.27 - 4.20 CERNER mcIU/mL [facility] Specimen Anatomical Collection Method Collection Time Receive d Time (Source) Location / / Volume Laterality Blood specimen 04/30/2015 9:11 AM 015 (specimen) EST 12:34 PM EST Resulting Agency Comment Spec In Lab Melanie Abrams MD CHEMISTRY ORDERABLES Performing Organization Address City/[facility]/ZIP Code Phon e Number [address] [facility] documented in this encounter Visit Diagnoses Diagnosis Annual physical exam Routine general medical examination at a health care facility Hypothyroidism, unspecified hypothyroidi sm type Chronic right SI joint pain Disorders of sacrum Shoulder impingement, right Acquired hypothyroidism Unspecified hypothyroidism documented in this encounter Care Teams Recharger Relationship Specialty Start Date End Date Melanie Abrams MD PCP - General 05/12/10 [facility] DR RAHEL [place] [address] documented as of this encounter
--- OUTSIDE RECORDS SUMMARY | 2022-02-06 14:13 | XMS_ITS | Encounter Summary ---
:1960 Author Organization [place] [address] Care Team Providers Name Role Phone Melanie Abrams MD Primary Care Provider Reason for Visit Reason Comments Left Wrist Pain DOI: 08/10/14 Encounter Details Date Type Department Care Team Description 09/18/2014 Office Visit Orthopaedics at [facility] Melanie Abrams Wrist injuries, left, [facility] [place] [address] [facility] PRIMARY CARE [place] [address] Social History Tobacco Use Types Packs/Day Years [...] Sign Reading Time Taken Comments Blood Pressure 142/82 09/18/2014 1:25 PM EDT Pulse 93 09/18/2014 1:25 PM EDT Temperature - - Respiratory Rate - - Oxygen Saturation - - Inhaled Oxygen Concentration - - Weight 73.7 kg (162 lb 6.4 09/18/2014 1:25 PM fully devon thed oz) EDT Height 168.9 cm (5' 6.5) 09/18/2014 1:25 PM verbal EDT Body Mass Index 25.82 09/18/2014 1:25 PM EDT documented in this encounter Progress Notes Melanie Abrams MD - 09/18/2014 1:58 PM EDT The patient presents for ongoing pain in her left wrist. She fell while ice skating on 08/10 and had initial films done in [facility]. On 08/26 she had repeat films, including a scaphoid view done here, which were negative. She continues to have pain in the left wrist. She had one other fall onto an outstretched hand after the 08/26 films, but her pain really preceded that fall. This is her nondominant side. It bothers her to push but not pull. She has trouble with supinating. She also lacks full extension and flexion. Her pain she localizes to what appears to be the scapholunate region. O: Appears well. Her left wrist has normal supination and pronation, but nowhere near close to normal flexion and extension. There is tenderness primarily at the scapholunate region. She does not have tenderness at her scaphoid specifically. X-rays were reviewed. They fail to show bony abnormality. There was no widening of the scapholunate joint space, but these were not stress views. A/P: Ongoing wrist pain, six weeks out now and with two sets of normal films. I think we need to proceed to MRI, looking for a subtle fracture but also looking for a ligamentous disruption, such as in the scapholunate. If this is negative, she will see OT. If positive, plans will depend on the findings. Followup, therefore, is post MRI. documented in this encounter Plan of Treatment Upcoming Encounters Date Type Specialty Care Team Description 02/06/2023 Hospital Encounter Gastroenterology Cony Tavera MD [facility] GASTROENTEROLOGY DEPT. [place], [place] [address] (Wo rk) Scheduled Procedures Name Priority Associated Diagnoses Date/Time COLONOSCOPY, DIAGNOSTIC 10 yr surv documented as of this encounter Results MRI wrist WO contrast [...] WO Gigi/LEFT CLINICAL HISTORY: persistent pain since 08/10 pain at scapholunate films are neg [...] WO Gigi/LEFT CLINICAL HISTORY: persistent pain since [facility] 08/10 pain at scapholunate films are neg [...] Diagnosis Wrist injuries, left, subsequent encount er Wrist injuries, left, subsequent encount er documented in this encounter Care Teams Bag Shop Worker Relationship Specialty Start Date End Date Melanie Abrams MD PCP - General 05/12/[address] [facility] [address] [place] [address] documented as of this encounter
--- OUTSIDE RECORDS SUMMARY | 2022-02-06 14:13 | XMS_ITS | Encounter Summary ---
:1960 Author Organization [place] [address] Care Team Providers Name Role Phone Melanie Abrams MD Primary Care Provider Reason for Visit Reason Comments Other Medication review. Encounter Details Date Type Department Care Team Description 09/05/2015 Office Visit Family Medicine at Melanie Abrams ntashley hypertension; Rahel Whaley MD Anxiety [address] [place] [address] [facility] PRIMARY [phone] [place] [address] (Wo rk) Social History Tobacco Use Types [...] Sign Reading Time Taken Comments Blood Pressure 141/91 09/05/2015 3:55 PM EDT Pulse 75 09/05/2015 3:55 PM EDT Temperature 36.7 ??C (98 ??F) 09/05/2015 3:55 PM EDT Respiratory Rate 16 09/05/2015 3:55 PM EDT Oxygen Saturation 99% 09/05/2015 3:55 PM EDT Inhaled Oxygen Concentration - - Weight 75.2 kg (165 lb 12.8 oz) 09/05/2015 3:55 PM EDT Height 170.9 cm (5' 7.28) 09/05/2015 3:55 PM EDT Body Mass Index 25.75 09/05/2015 3:55 PM EDT documented in this encounter Progress Notes Melanie Abrams MD - 09/05/2015 4:12 PM EDT CC: medication, f/u HTN HPI: (1) Anxiety/Depression - Has been taking effexor and trazodone for over 20 years for depression, anxiety, and an eating disorder. Her symptoms have been well controlled throughout this time and she is slowly weaning off of her effexor by decreasing her doses every 6 months. Her psychiatrist is leavingher practice, and she would like to transfer her care here. Denies any changes in mood, appetite, orsleep. (2) HTN - She was previously treated for HTN with lisinopril but has been off of medication since 2012. She had elevated BP readings at last few office visits, and a school nurse recorded her BPs this past week. They ranged 120-160/80-100, with the majority being >140/90. She denies any chest pain or shortness of breath. She exercises regularly, doing yoga, elliptical workouts, and walking. She stopped 10mg of lisinopril in 2012 because she developed dizziness and headaches. PE: Filed Vitals: 09/05/15 1555 BP: 141/91 Pulse: 75 Temp: 36.7 ??C (98 ??F) Resp: 16 Gen: Well appearing woman CV: RRR, norm S1/S2. -m/r/g Resp: CTAB A/P (1) Anxiety/Depression - Will prescribe her effexor and trazodone given that her symptoms have been well controlled for so long. Discussed that if should would like to continue to wean off of her effexor, then she should do so slowly and with supervision/ feedback from a trusted friend. She will contact the office with the correct dose of her effexor. (2) HTN - Given that her blood pressure readings have been elevated recently, will start her on medical management. She would prefer to start at a low dose of lisinopril as opposed to HCTZ, as she feels that she urinates frequently already. She will continue to record her blood pressures with the nurse at school, and if they remain >140/>90, she can increase her lisinopril by 5mg. - Lisinopril 5mg F/u in 1 year or prn documented in this encounter Plan of Treatment Upcoming Encounters Date Type Specialty Care Team Description 02/06/2023 Hospital Encounter Gastroenterology Cony Tavera MD [facility] GASTROENTEROLOGY DEPT. [place], [place] [address] (Wo rk) Scheduled Procedures Name Priority Associated Diagnoses Date/Time COLONOSCOPY, DIAGNOSTIC 10 yr surv documented as of this encounter Visit Diagnoses Diagnosis Essential hypertension Unspecified essential hypertension Anxiety Anxiety state, unspecified documented in this encounter Care Teams Prison Teacher Relationship Specialty Start Date End Date Melanie Abrams MD PCP - General 05/12/[address] [facility] [address] RAHEL [place] [address] documented as of this encounter
--- OUTSIDE RECORDS SUMMARY | 2022-02-06 14:13 | XMS_ITS | Encounter Summary ---
:1960 Author Organization [facility] [place] [address] Care Team Providers Name Role Phone Melanie Abrams MD Primary Care Provider Encounter Details Date Type Department Care Team Description 02/06/2013 Hospital Encounter Gastroenterology at [facility] Jessica Carwford MD [facility] [place] [address] [facility] Ashanti Mobley MD [facility] [place] [address] [place] [address] Social History Tobacco Use Types Packs/Day [...] minutes do you engage in exercise at [facility] 40 min 05/25/2021 level? Financial Resource Strain [...] - 02/06/2013 11:16 AM EDT Please call [phone], before 5pm with problems, questions or concerns, after 5pm call the Hospital at [phone] and ask to speak to the Material Disposition Inspector injection machine operator and the sewage treatment plant operator will contact that person for you. [...] Everywhere. COLONOSCOPY: WHAT TO EXPECT AT HOME (SLOVENIAN)documented in this encounter Medications at Time of [...] take 1 tablet by 60 tablet 1 /11/201209/18/2014 550 mg tablet mouth twice a day [...] Tavera MD - 02/06/2013 11:12 AM EDT [facility] Operative Note Patient Name: Korin Posada : [id number] MR#: [id number] Case Date: 02/06/2013 Surgeon: Surgeon(s) and Role: * Butterly, Ashanti F, MD - Primary Preoperative diagnosis: screening Full procedure note is documented under the Procedure section of eDH. documented in this encounter Plan of Treatment Upcoming Encounters Date Type Specialty Care Team Description 02/06/2023 Hospital Encounter Gastroenterology Cony Tavera MD [facility] [address] GASTROENTEROLOGY DEPT. [place], [place] [address] (Wo rk) [...] Component Value Ref Test Analysis Performed At [facility] Range Method Time Signature COLONOSCOPY [facility] Endoscopy Patient Name: Korin Posada ? Procedure Date: 02/06/2013 9:53 AM ? N: [id number] ? Date of : 1960 ? Age: 52 ? Order #: [id number] ? Procedure: ? Colonoscopy Indications: ? Screening [...] Diagnoses Not on filedocumented in this encounter Active and Recently Administered [...] 02/06/13 at 1008, Until 02/06/13 at 1555, Pain, Intra- Operative (Intra-Procedure), Routine [...] waking) documented in this encounter Care Teams Mover Relationship Specialty Start Date End Date Melanie Abrams MD PCP - General 05/12/[address] [facility] [place] [address] documented as of this encounter
--- OUTSIDE RECORDS SUMMARY | 2022-02-06 14:13 | XMS_ITS | Encounter Summary ---
:1960 Author Organization [facility] [place] [address] Care Team Providers Name Role Phone Melanie Abrams MD Primary Care Provider Reason for Visit Reason Comments Right Shoulder Pain S/p yoga injury 2 years prio r Consultation (Routine) - Closed Specialty Diagnoses / Procedures Referred By Contact Refer red To Contact Orthopaedics Diagnoses r shoulder pain s/p injury yoga injury 2 years prior Self Melanie Abrams MD Procedures mail [facility] [address] [place] [facility] [place], [place] [address] Phone: Fax: Referral ID Status Reason Start Date Expiration Date Visits Requ ested Visits Authorized [id number] Closed 10/21/2015 10/20/2016 1 1 Encounter Details Date Type Department Care Team Description 10/22/2015 Office Visit Orthopaedics at [facility] Melanie Abrams Chronic pain in right [facility] [place] [address] [facility] PRIMARY CARE [place] [address] Social History Tobacco Use Types Packs/Day Years [...] Sign Reading Time Taken Comments Blood Pressure 136/91 10/22/2015 3:48 PM EDT Pulse 97 10/22/2015 3:48 PM EDT Temperature - - Respiratory Rate - - Oxygen Saturation - - Inhaled Oxygen Concentration - - Weight 74.8 kg (165 lb) 10/22/2015 3:48 PM EDT verbal Height 170.9 cm (5' 7.28) 10/22/2015 3:48 PM EDT verba l Body Mass Index 25.63 10/22/2015 3:48 PM EDT documented in this encounter Progress Notes Melanie Abrams MD - 10/22/2015 4:22 PM EDT The patient returns regarding her right dominant shoulder. This has been bothering her for a long time now. This started in lowering herself from a plank position repeatedly in yoga. She has been seeing PT but is failing to make progress. She is bothered by persistent anterior pain, and PT has suggested that this is her biceps, which may be amenable to surgical intervention or injection. She is not having any trouble with nights or activities of daily living but is having trouble with any weightbearing posturing yoga, which she finds quite bothersome. O: Appears at her baseline. Range of motion of this right shoulder is normal in all directions. She has a slight decrease in strength in external rotation, but otherwise her strength is symmetric to the contralateral side. She is more bothered in long head of the biceps tendon testing that in impingement. There is some slight tenderness at the supraspinatus tendon, but this appears to be more tender at the bicipital groove. A/P: Shoulder pain. Discussed in detail. This appears to be more biceps than rotator cuff. We discussed that surgery is not where she would start with this nor is imaging, such as MRI or MR arthrogram. I think she should start with injection. Injection into the joint proper should get at the biceps tendon sheath. If this is only partially successful, she could be a surgical candidate for something such as biceps tenodesis. Would certainly hold off on that pending on seeing how she does with this first injection. Rotator cuff injection could also be considered, but I think right now that would be a second choice. Followup is based on symptoms, progress, or p.r.n. documented in this encounter Plan of Treatment Upcoming Encounters Date Type Specialty Care Team Description 02/06/2023 Hospital Encounter Gastroenterology Cony Tavera MD [facility] GASTROENTEROLOGY DEPT. [place], [place] [address] (Wo rk) Scheduled Procedures Name Priority Associated Diagnoses Date/Time COLONOSCOPY, DIAGNOSTIC 10 yr surv documented as of this encounter Results XR Fluoro Injection Drainage [...] pre- procedural time-out was performed as per [facility] protocol. The patient was placed supine on [...] were reviewed with patient. Procedure Note Tatiana Ivey APRN - 11/07/2015Form atting of this note might be different from the original. HISTORY: lido/ steroid injection RIGHT S HOULDER Right shoulder INJECTION UNDER FLUOROSCO PY TECHNIQUE: After an extensive conversati on with the patient regarding risks and benefits, oral and written consent were obtained. A pre- procedural time-out was performed as per [facility] protocol. The patient was placed supine on [...] r fluoroscopy. Procedure performed by Judd Otoole Resident/Fellow: None present Attending: Dr. Caceres was not present fo r the procedure, but was immediately available Melanie Abrams MD IMG FLUORO ORDERABLES documented in this encounter Visit Diagnoses Diagnosis Chronic pain in right shoulder Pain in joint, shoulder region Chronic pain in right shoulder Pain in joint, shoulder region documented in this encounter Care Teams Miller Distillery Relationship Specialty Start Date End Date Melanie Abrams MD PCP - General 05/12/[address] [facility] [address] RAHEL MORELOS [facility] [place] [address] documented as of this encounter
--- OUTSIDE RECORDS SUMMARY | 2022-02-06 14:13 | XMS_ITS | Encounter Summary ---
:1960 Author Organization [facility] [place] [address] Care Team Providers Name Role Phone Melanie Abrams MD Primary Care Provider Encounter Details Date Type Department Care Team Description 03/06/2013 Hospital Encounter Mammography [place] [facility] DR LEÓN [facility] An Jackson MD [facility] OBSTETRICS & [place] [address] [place] [address] Social History Tobacco Use Types Packs/Day [...] MD [facility] GA[facility] DEPT. [place], [place] [address] (Wo rk) Scheduled Procedures Name Priority Associated Diagnoses Date/Time COLONOSCOPY, DIAGNOSTIC 10 yr surv documented as of this encounter Procedures Procedure Name Priority Date/Time Associated Diagnosis Comme nts MAMMO SCREENING CAD Routine 03/06/2013 4:35 PM Re sults for this BILATERAL EDT procedure are i n the results section. documented in this encounter Results Mammo digital bilateral Screening with CAD (03/06/2013 4:35 PM EDT) Anatomical Region Laterality Modality Breast Bilateral Mammography Specimen (Source) Anatomical Collection Method Collection Time Re ceived Time Location / / Volume Laterality 03/06/2013 4:35 PM EDT Narrative 03/07/2013 12:48 PM EDT BILATERAL MAMMOGRAPHY ?? REASON FOR EXAM: Screening ?? TECHNIQUE: Cranio-caudal (CC) and mediol ateral oblique (MLO) views of both breasts obtained with direct digital cap ture. The exam was evaluated by CAD Version 8.3.17. In addition to the routi ne 2D imaging this exam was also performed with 3D tomographic imaging in MLO and CC projections. ?? FINDINGS: This is a negative mammogram ( ACR Category 1). There is a stable fibroglandular pattern without significa nt change as compared to prior studies. There is no mammographic evidence of can cer. ? The breasts are heterogeneously dense wh ich may limit mammographic sensitivity for the detection of malignancy. ? A biopsy marker clip is present in the R ight breast. ? CONCLUSION ?? This is a NEGATIVE mammogram (ACR Catego ry 1). Routine screening mammography is recommended with the frequency dependent on the patient's age and breast cancer risk factors. ?? A letter has been sent to this patient [facility]. Procedure Note Lilo Lopez MD - 03/07/2013 BILATERAL MAMMOGRAPHY REASON FOR EXAM: Screening TECHNIQUE: Cranio-caudal (CC) and mediol ateral oblique (MLO) views of both breasts obtained with direct digital cap ture. The exam was evaluated by CAD Version 8.3.17. In addition to the routi ne 2D imaging this exam was also performed with 3D tomographic imaging in MLO and CC projections. FINDINGS: This is a negative mammogram ( ACR Category 1). There is a stable fibroglandular pattern without significa nt change as compared to prior studies. There is no mammographic evidence of can cer. The breasts are heterogeneously dense wh ich may limit mammographic sensitivity for the detection of malignancy. A biopsy marker clip is present in the R ight breast. CONCLUSION This is a NEGATIVE mammogram (ACR Catego ry 1). Routine screening mammography is recommended with the frequency dependent on the patient's age and breast cancer risk factors. A letter has been sent to this patient b [facility]. Gina Kenny APRN IMG MAMMO ORDERABLES documented in this encounter Visit Diagnoses Not on filedocumented in this encounter Care Teams Stamp Presser Relationship Specialty Start Date End Date Melanie Abrams MD PCP - General 05/12/10 [facility] [address] [facility] [place] [address] documented as of this encounter
--- OUTSIDE RECORDS SUMMARY | 2022-02-06 14:13 | XMS_ITS | Encounter Summary ---
:1960 Author Organization [facility] [place] [address] Care Team Providers Name Role Phone Melanie Abrams MD Primary Care Provider Encounter Details Date Type Department Care Team Description 08/26/2014 Hospital Encounter XRay at [facility], [place] Pain in left wrist 1 [facility] Sylvia Browne MD [facility] [address] [place] [address] [place] [address] Social History Tobacco Use Types Packs/Day Years [...] Dispensed Refills Start Date End Date venlafaxine (EFFEXOR) 50 Take 50 mg by 0 10/22/2015 mg Tablet mouth 2 times daily. zonisamide (ZONEGRAN) 100 take 3 to 4 120 capsule 11 08/20/19 15 09/05/2015 mg Capsule capsules by mouth once daily levothyroxine (SYNTHROID) Take 1 tablet by 90 tablet 4 06/201303/17/2015 50 mcg tabletIndications: mouth daily. Hypothyroidism traZODone (DESYREL) 100 Take 100 mg by 0 09/05/2015 mg tablet mouth nightly. SUMAtriptan (IMITREX) 100 Take 100 mg by 0 01/13/2015 mg tablet mouth as needed. naproxen sodium (ANAPROX) take 1 tablet by 60 tablet 1 03/11/201209/18/2014 550 mg tablet mouth twice a day [...] Encounter Gastroenterology Cony Tavera MD [facility] ER GASTROENTEROLOGY DEPT. [place], [place] [address] (Wo rk) Scheduled Procedures Name Priority Associated Diagnoses Date/Time COLONOSCOPY, DIAGNOSTIC 10 yr surv documented as of this encounter Procedures Procedure Name Priority Date/Time Associated Diagnosis Comme nts XR WRIST COMPLETE Routine 09/23/2014 8:32 AM Resu lts for this MINIMUM 3 VIEWS EDT procedure ar e in the results section. XR WRIST COMPLETE Routine 08/26/2014 8:32 AM Resu lts for this MINIMUM 3 VIEWS EDT procedure ar e in the results section. documented in this encounter Results XR wrist complete minimum 3 views (09/23/2014 8:32 AM EDT) Anatomical Region Laterality Modality N/A Radiographic Imaging Specimen (Source) Anatomical Collection Method Collection Time Re ceived Time Location / / Volume Laterality 09/23/2014 8:32 AM EDT Impressions 09/23/2014 10:45 AM EDT IMPRESSION: Normal left wrist radiograph This report was reviewed by Fatemeh lincoln at 09/23/2014 10:40 AM Film and interpretation reviewed by the attending Narrative 09/23/2014 10:45 AM EDT EXAMINATION: WRIST COMPLETE MINIMUM 3 VIEWS/LEFT CLINICAL HISTORY: YONG x 2 with localized pain and swelling TECHNIQUE: Three views of the left wrist COMPARISON: Radiograph 08/26/2014 FINDINGS: No fracture or dislocation. Joint spaces are maintained. No soft tissue abnormalities. Procedure Note Fatemeh Caceres MD - 09/23/2014Formatt ing of this note might be different from the original. EXAMINATION: WRIST COMPLETE MINIMUM 3 EWS/LEFT CLINICAL HISTORY: YONG x 2 with localized pain and swelling TECHNIQUE: Three views of the left wrist COMPARISON: Radiograph 08/26/2014 FINDINGS: No fracture or dislocation. Joint spaces are maintained. No soft tissue abnormalities. IMPRESSION IMPRESSION: Normal left wrist radiograph This report was reviewed by Fatemeh lincoln at 09/23/2014 10:40 AM Film and interpretation reviewed by the attending Kellen YOUNG IMG DX ORDERABLES XR wrist complete minimum 3 views (08/26/2014 8:32 AM EDT) Anatomical Region Laterality Modality N/A Radiographic Imaging Specimen (Source) Anatomical Collection Method Collection Time Re ceived Time Location / / Volume Laterality 08/26/2014 8:32 AM EDT Impressions 08/26/2014 10:38 AM EDT IMPRESSION: No fracture. Narrative 08/26/2014 10:38 AM EDT EXAMINATION: WRIST COMPLETE MINIMUM 3 VIEWS/LEFT CLINICAL HISTORY: YONG x 2 with localized pain and swelling TECHNIQUE: PA, oblique, lateral and scap hoid of the left wrist COMPARISON: None FINDINGS: No fracture or dislocation is seen. The visualized joint spaces are intact. Incidental note is made of ulna positive variance. Procedure Note Dinesh Oro MD - 08/26/2014 EXAMINATION: WRIST COMPLETE MINIMUM 3 EWS/LEFT CLINICAL HISTORY: YONG x 2 with localized pain and swelling TECHNIQUE: PA, oblique, lateral and scap hoid of the left wrist COMPARISON: None FINDINGS: No fracture or dislocation is seen. The visualized joint spaces are intact. Incidental note is made of ulna positive variance. IMPRESSION IMPRESSION: No fracture. Sylvia Cleveland MD IMG DX ORDERABLES documented in this encounter Visit Diagnoses Diagnosis Pain in left wrist Pain in joint, forearm documented in this encounter Care Teams Financial Reporting Advisor Relationship Specialty Start Date End Date Melanie Abrams MD PCP - General 05/12/[address] [facility] [address] RAHEL MOREL[facility] [place] [address] documented as of this encounter
--- OUTSIDE RECORDS SUMMARY | 2022-02-06 14:13 | XMS_ITS | Encounter Summary ---
:1960 Author Organization [facility] [place] [address] Care Team Providers Name Role Phone Melanie Abrams MD Primary Care Provider Reason for Visit Reason Onset Date Comments Medication Refill 03/17/2015 Encounter Details Date Type Department Care Team Description 03/17/2015 Refill Family Medicine at [place], Juancho Coyle quired [facility] [address] [place] [address] Social History Tobacco Use Types Packs/Day [...] Cony Tavera MD [facility] ER GASTROENTEROLOGY DEPT. [place], [place] [address] (Wo rk) Scheduled Procedures Name Priority Associated Diagnoses Date/Time COLONOSCOPY, DIAGNOSTIC 10 yr surv documented as of this encounter Visit Diagnoses Diagnosis Acquired hypothyroidism Unspecified hypothyroidism documented in this encounter Care Teams Clinical Research Assistant Relationship Specialty Start Date End Date Melanie Abrams MD PCP - General 05/12/10 [facility] DR RAHEL [place] [address] documented as of this encounter
--- OUTSIDE RECORDS SUMMARY | 2022-02-06 14:13 | XMS_ITS | Encounter Summary ---
:1960 Author Organization [facility] [place] [address] Care Team Providers Name Role Phone Melanie Abrams MD Primary Care Provider Reason for Visit Reason Onset Date Comments Medication Refill 10/02/2012 Encounter Details Date Type Department Care Team Description 10/02/2012 Refill Family Medicine at Melanie Abrams H ypothyroidism (Primary [facility] Dx) [address] [place] [address] [facility] CARE [place] [address] (Wo rk) Social History Tobacco Use Types [...] this encounter Miscellaneous Notes Telephone Encounter - Miles Espinoza - 10/02/2012 3:36 PM EDT Please check pt's recent labs to see if levels changed or if dosage of med needs to be changed. Thanks Miles Escalante documented in this encounter Plan of Treatment Upcoming Encounters Date Type Specialty Care Team Description 02/06/2023 Hospital Encounter Gastroenterology Cony Tavera MD [facility] ER GASTROENTEROLOGY DEPT. [place], [place] [address] (Wo rk) Scheduled Procedures Name Priority Associated Diagnoses Date/Time COLONOSCOPY, DIAGNOSTIC 10 yr surv documented as of this encounter Visit Diagnoses Diagnosis Hypothyroidism - Primary Unspecified hypothyroidism documented in this encounter Care Teams Patent Examiner Relationship Specialty Start Date End Date Melanie Abrams MD PCP - General 05/12/[address] [facility] [address] [facility]HEL [place] [address] documented as of this encounter
--- OUTSIDE RECORDS SUMMARY | 2022-02-06 14:13 | XMS_ITS | Encounter Summary ---
:1960 Author Organization [facility] [place] [address] Care Team Providers Name Role Phone Melanie Abrams MD Primary Care Provider Reason for Visit Reason Comments Injections cortisone Encounter Details Date Type Department Care Team Description 03/25/2014 Office Visit Family Medicine at Melanie Abrams tor cuff tendonitis, right (Primary Dx); Rahel Whaley MD Piriformis syndrome, right [address] [place] [address] [facility] PRIMARY [phone] CARE [place] [address] (Wo rk) Social History Tobacco Use Types [...] Sign Reading Time Taken Comments Blood Pressure 140/88 03/25/2014 10:44 AM left arm/sit ting EDT Pulse 83 03/25/2014 10:44 AM EDT Temperature 36.7 ??C (98.1 ??F) 03/25/2014 10:44 AM EDT Respiratory Rate 15 03/25/2014 10:44 AM EDT Oxygen Saturation 100% 03/25/2014 10:44 AM room air EDT Inhaled Oxygen Concentration - - Weight 68.5 kg (151 lb) 03/25/2014 10:44 AM EDT Height 169.5 cm (5' 6.75) 03/25/2014 10:44 AM EDT Body Mass Index 23.83 03/25/2014 10:44 AM EDT documented in this encounter Patient Instructions Patient InstructionsMelanie Abrams MD - 03/25/2014 11:08 AM EDT Piriformis stretch - figure 4 position, push down on knee with hand or elbow, stabilizing ankle, hold for 10 secs every hour. documented in this encounter Progress Notes Melanie Abrams MD - 03/25/2014 12:36 PM EDT Patient presents again for her right shoulder. She has been seen in PT since December and has been discharged from their care. She did a home exercise program, dexamethasone, iontophoresis and stretching. She says that she is better in terms of nights and in terms of her functional activities. However she is still having pain with yoga. She says she does this 2 days a week and can have pain after class that lasts into the next day. She is frustrated with that and her inability to do weightbearing upper extremity exercises in yoga. She comes in requesting injection. Her PT was in the practice of Tavares Coburn in [facility]. Her other complaint today is that of low back pain in the SI joint region for about a year. Her chiropractor recently gave her some hip exercises because he is not convinced that this is the SI joint. O: Appears well. Shoulders have completely normal range of motion and strength, very symmetric bilaterally. There is no impingement sign on either side. At her low back, she has tenderness to palpation in the piriformis muscle and points to the SI joint as her area of greatest pain. A/P: 1. Rotator cuff tendinitis. After a rather lengthy discussion, we decided not to proceed with injection as it appears as though she really needs muscle strength and endurance at this point for her weightbearing exercises. We decided to have her start by doing planks and trying to work up her functional ability there. I am not completely opposed to the idea of injection, but I do not think it will help her at this point. She is agreeable to that plan. 2. Probable piriformis syndrome. She was shown how to do a piriformis stretch which she will start doing on a regular basis. Follow up if failing to improve. Could consider SI joint injection done by Radiology. documented in this encounter Plan of Treatment Upcoming Encounters Date Type Specialty Care Team Description 02/06/2023 Hospital Encounter Gastroenterology Cony Tavera MD [facility] ER GASTROENTEROLOGY DEPT. [place], [place] [address] (Wo rk) Scheduled Procedures Name Priority Associated Diagnoses Date/Time COLONOSCOPY, DIAGNOSTIC 10 yr surv documented as of this encounter Visit Diagnoses Diagnosis Rotator cuff tendonitis, right - Primary Piriformis syndrome, right documented in this encounter Care Teams Baby Nurse Relationship Specialty Start Date End Date Melanie Abrams MD PCP - General 05/12/10 [facility] [address] [place] [address] documented as of this encounter
--- OUTSIDE RECORDS SUMMARY | 2022-02-06 14:13 | XMS_ITS | Encounter Summary ---
:1960 Author Organization [facility] [place] [address] Care Team Providers Name Role Phone Melanie Abrams MD Primary Care Provider Encounter Details Date Type Department Care Team Description 12/18/2013 Refill Family Medicine at Melanie Abrams H ypothyroidism (Primary [facility] Road MD Dx) [address] [place] [address] [facility] PRIMARY CARE [place], [place] [address] (Wo rk) Social History Tobacco [...] Encounter Gastroenterology Cony Tavera MD [facility] GASTROENTEROLOGY DEPT. [place], [place] [address] (Wo rk) Scheduled Procedures Name Priority Associated Diagnoses Date/Time COLONOSCOPY, DIAGNOSTIC 10 yr surv documented as of this encounter Visit Diagnoses Diagnosis Hypothyroidism - Primary Unspecified hypothyroidism documented in this encounter Care Teams Digital Account Executive Relationship Specialty Start Date End Date Melanie Abrams MD PCP - General 05/12/10 [facility] DR [place] [place] [address] documented as of this encounter
--- OUTSIDE RECORDS SUMMARY | 2022-02-06 14:13 | XMS_ITS | Encounter Summary ---
:1960 Author Organization [facility] [place] [address] Care Team Providers Name Role Phone Melanie Abrams MD Primary Care Provider Encounter Details Date Type Department Care Team Description 10/23/2014 Follow-Up Occupational Therapy at [facility] OT Pain in left wrist [address] [facility] [address] [place] [address] PHYSICAL MEDICINE & [phone] [place] [address] Social History Tobacco Use Types Packs/Day Years [...] encounter Progress Notes Viki Wang, OT - 10/23/2014 4:04 PM EDT OCCUPATIONAL THERAPY PROGRESS NOTE VISIT NUMBER: 3 EVALUATION PERFORMED: 10.07.14 REFERRAL SOURCE: Dr. Aliza MD DIAGNOSIS: 1. 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 HAND DOMINANCE: Right PAIN: At Rest: 0/10 With Activity: 1-2/10 4/10 at worst, quick and sharp TREATMENT TODAY: Ultrasound (26262) (100%, 3.3 MHz, .6 W/cm2, 7 minutes) with additional 2 minutes of set-up time, used for soft tissue preparation prior to treatment activities applied today to the dorsal wrist. Soft tissue massage, retrograde massage Therapeutic exercise 15 minutes: Active and active assisted wrist motion in all planes Reviewed HEP and symptoms Iontophoresis (50419): Skin prepped with alcohol swab, applied Iontophoresis 40 mA/min @ 4.0 mA with2.0 cc of 0.4% dexamethasone sodium phosphate utilized for reduction of pain and inflammation, applied today to the dorsal wrist. ASSESSMENT: Korin Posada presents today with functional limitations due to left wrist pain. Her wrist is improving, she was able to tolerate soft tissue work again today and has visibly less swelling. She still has soft tissue tightness, slowly improving with stretching. Korin Posada is able to demonstrate home exercises with written instructions provided. Korin Posada has excellent potential for gains with therapy with identified needs for skilled therapy for treatment of left wrist pain. Assisted Goals (to be met by discharge): Date [...] 02/06/2023 Hospital Encounter Gastroenterology Cony Tavera MD [facility] ER DR GASTROENTEROLOGY DEPT. [place], [place] [address] (Wo rk) Scheduled Procedures Name Priority Associated Diagnoses Date/Time COLONOSCOPY, DIAGNOSTIC 10 yr surv documented as of this encounter Visit Diagnoses Diagnosis Pain in left wrist Pain in joint, forearm documented in this encounter Care Teams Field Kiln Burner Relationship Specialty Start Date End Date Melanie Abrams MD PCP - General 05/12/10 [facility] [address] RAHEL [place] [address] documented as of this encounter
--- OUTSIDE RECORDS SUMMARY | 2022-02-06 14:13 | XMS_ITS | Encounter Summary ---
:1960 Author Organization [facility] [place] [address] Care Team Providers Name Role Phone Melanie Abrams MD Primary Care Provider Encounter Details Date Type Department Care Team Description 10/31/2014 Follow-Up Occupational Therapy at [facility] OT Pain in left wrist [address] [facility] [address] [place] [address] PHYSICAL MEDICINE & [phone] [place] [address] Social History Tobacco Use Types Packs/Day Years [...] encounter Progress Notes Viki Wang, OT - 10/31/2014 3:01 PM EDT OCCUPATIONAL THERAPY PROGRESS NOTE VISIT [...] 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 HAND DOMINANCE: Right PAIN: At Rest: 0/10 With Activity: 1/10 2/10 at worst, quick and sharp TREATMENT TODAY: Ultrasound (61041) (100%, 3.3 MHz, .6 W/cm2, 7 minutes) with additional 2 minutes of set-up time, used for soft tissue preparation prior to treatment activities applied today to the dorsal wrist. Soft tissue massage, retrograde massage Therapeutic exercise 15 minutes: Active and active assisted wrist motion in all planes Reviewed HEP and symptoms Iontophoresis (54671): Skin prepped with alcohol swab, applied Iontophoresis 40 mA/min @ 4.0 mA with2.0 cc of 0.4% dexamethasone sodium phosphate utilized for reduction of pain and inflammation, applied today to the dorsal wrist. ASSESSMENT: Korin Posada presents today with functional limitations due to left wrist pain. Her pain levels have decreased and she reports that her wrist no longer has a sharp pain but rather an ache. Overall, she is doing well and will decrease to 1 x week as she transitions to HEP. Korin Posada is able to demonstrate home exercises with written instructions provided. Korin Posada has excellent potential for gains with therapy with identified needs for skilled therapy for treatment ofleft wrist pain. Retirement Goals (to be met by discharge): Date [...] Cony Tavera MD [facility] ER GASTROENTEROLOGY DEPT. [place], [place] [address] (Wo rk) Scheduled Procedures Name Priority Associated Diagnoses Date/Time COLONOSCOPY, DIAGNOSTIC 10 yr surv documented as of this encounter Visit Diagnoses Diagnosis Pain in left wrist Pain in joint, forearm documented in this encounter Care Teams Hse Coordinator Relationship Specialty Start Date End Date Melanie Abrams MD PCP - General 05/12/10 [facility] [address] RHAEL MORELOS [place] [address] documented as of this encounter
--- OUTSIDE RECORDS SUMMARY | 2022-02-06 14:14 | XMS_ITS | Encounter Summary ---
:1960 Author Organization [facility] [place] [address] Care Team Providers Name Role Phone Melanie Abrams MD Primary Care Provider Reason for Visit Reason Comments Medication Refill Encounter Details Date Type Department Care Team Description 03/22/2011 Refill [place]rology [place] [facility] Danii Isidro APRN [facility] [place] [address] NEUROLOGY DEPT. [phone] [place] [id number] (Wo rk) Social History Tobacco Use Types [...] [facility] ER GASTROENTEROLOGY DEPT. [place], [place] [address] (Wo rk) Scheduled Procedures Name Priority Associated Diagnoses Date/Time COLONOSCOPY, DIAGNOSTIC 10 yr surv documented as of this encounter Visit Diagnoses Not on filedocumented in this encounter Care Teams Community Fundraiser Relationship Specialty Start Date End Date Melanie Abrams MD PCP - General 05/12/10 [facility] [address] RAHEL M[facility]EL[facility] PRIMARY C[facility] [place], [place] [id number] documented as of this encounter
--- OUTSIDE RECORDS SUMMARY | 2022-02-06 14:14 | XMS_ITS | Encounter Summary ---
:1960 Author Organization [facility] [place] [address] Care Team Providers Name Role Phone Melanie Abrams MD Primary Care Provider Encounter Details Date Type Department Care Team Description 06/08/2011 Telephone Family Medicine Melanie Abrams MD [facility] D r. [facility] [place] [address] [facility] PRIMARY CARE [phone] [place] [address] (Wo rk) Social History Tobacco Use Types [...] this encounter Miscellaneous Notes Telephone Encounter - June Doshi LPN - 06/08/2011 4:00 PM EST Left pt a message on private voicemail with instructions on atb use and to call clinic if no better,feeling worse or any questions. Telephone Encounter - June Doshi LPN - 06/08/2011 1:14 PM EST Informed pt that urine was negative. Pt reports that her cough and sinus pressure are worse than when she was seen on Tuesday. Still no fever. Informed pt that I would let Chad know. Telephone Encounter - June Doshi LPN - 06/08/2011 1:11 PM EST Left message for pt to call clinic and let her know urine culture was neg. Telephone Encounter - June Doshi LPN - 06/08/2011 1:08 PM EST Message copied by JUNE DOSHI on TueJun 08, 2011 1:08 PM ------ Message from: CHAD JOSE Created: TueJun 08, 2011 1:02 PM Please call patient - let her know urine culture neg - no treatment needed. Thanks. ----- Message ----- From: Lab In [facility] Ramesh Sent: 06/05/2011 7:49 AM To: Chad Jose APRN documented in this encounter Plan of Treatment Upcoming Encounters Date Type Specialty Care Team Description 02/06/2023 Hospital Encounter Gastroenterology Cony Tavera MD [facility] GASTROENTEROLOGY DEPT. [place], [place] [address] (Wo rk) Scheduled Procedures Name Priority Associated Diagnoses Date/Time COLONOSCOPY, DIAGNOSTIC 10 yr surv documented as of this encounter Visit Diagnoses Not on filedocumented in this encounter Care Teams Mirror Installer Relationship Specialty Start Date End Date Melanie Abrams MD PCP - General 05/12/10 [facility] [address] [facility] [place] [address] documented as of this encounter
--- OUTSIDE RECORDS SUMMARY | 2022-02-06 14:14 | XMS_ITS | Encounter Summary ---
:1960 Author Organization [facility] [place] [address] Care Team Providers Name Role Phone Melanie Abrams MD Primary Care Provider Reason for Visit Reason Comments Depression Encounter Details Date Type Department Care Team Description 01/12/2011 Office Visit Psychiatry and Robbin Mccarthy MD Major depressive Behavioral Health at [facility] robin diallo [facility] [place] [place] [address] episode, unspecified [facility] PSYCHIATRY DE PT. (Primary Dx) [place] [address] [place], [place] [phone] [address] (Work) [phone] Social History Tobacco Use Types Packs/Day Years [...] documented as of this encounter Progress Notes Robbin Mccarthy MD - 01/12/2011 8:41 AM EDT Pharmacologic Management Office Visit (CPT 17558/JOHN 2009) (* = required item) *Length of Service: 20 minutes *Interval Hx (including sx): Sleep study did not show JUANA. Has reduced trazodone to 150 mg, so far sleeping OK. Hard to assess the whole picture because in the summer less busy, has times for nap (often 1 1-hour nap/day). Quite a bit less sleepy during summer. Also much less stressed during the summer. Doesn't think depression has been that bad. Interested in weaning off Effexor, concern re effectiveness, HTN. Recently 07/30 (10 high). No current therapist. *Pertinent Med SE: none. Psychotherapeutic Interventions (if any): *MSE: Appearance/Behavior: Casually dressed middle-aged WF sitting comfortably in chair. Mood/Affect: Looks fairly relaxed, although still some tiredness to eyes. Thoughts (including *Suicidal/Homicidal Thoughts/Plans): No SI/HI. Other Pertinent Exam: *A (including Diagnosis): 50 y.o. female with MDD-R, PTSD, fatigue, social anxiety. P: *1) Medication Change(s) (Current meds continued if no med changes listed): Decrease Effexor to 187.5 mg/day, monitor depression, anxiety, PTSD, fatigue. Pt. warned re risk of SI. 2) We discussed whether seeing a therapist focused on dealing with work stress (hasn't done this before) might help. Pt. will consider. Follow-Up Appt: 3 mo. *Coordination of Care: Pt. requests that no notes to Melanie Abrams MD (PCP) (aware she can read them in eD-H) (pt. understands that this will continue until/less s/he requests otherwise) documented in this encounter Plan of Treatment Upcoming Encounters Date Type Specialty Care Team Description 02/06/2023 Hospital Encounter Gastroenterology Cony Tavera MD [facility] DR GASTROENTEROLOGY DEPT. [place], [place] [address] (Wo rk) Scheduled Procedures Name Priority Associated Diagnoses Date/Time COLONOSCOPY, DIAGNOSTIC 10 yr surv documented as of this encounter Visit Diagnoses Diagnosis Major depressive disorder, recurrent epi sode, unspecified - Primary documented in this encounter Care Teams Manager Market Relationship Specialty Start Date End Date Melanie Abrams MD PCP - General 05/12/[address] [facility] [address] [facility] [place] [address] documented as of this encounter
--- OUTSIDE RECORDS SUMMARY | 2022-02-06 14:14 | XMS_ITS | Encounter Summary ---
:1960 Author Organization [facility] [place] [address] Care Team Providers Name Role Phone Keren Finley MD Primary Care Provider Encounter Details Date Type Department Care Team Description 07/23/2011 Office Visit Psychiatry and Robbin Mccarthy MD Major depressive Behavioral Health at [facility] robin diallo [facility] [address] episode, unspecified [facility] PSYCHIATRY DE PT. (Primary Dx) [place] [address] [place], [place] [phone] [phone] (Work) [phone] Social History Tobacco Use Types Packs/Day Years [...] Sign Reading Time Taken Comments Blood Pressure 146/89 07/23/2011 3:34 PM EST Pulse - - Temperature - - Respiratory Rate - - Oxygen Saturation - - Inhaled Oxygen Concentration - - Weight 59 kg (130 lb) 07/23/2011 3:34 PM EST Height 170.2 cm (5' 7) 07/23/2011 3:34 PM EST Body Mass Index 20.36 07/23/2011 3:34 PM EST documented in this encounter Progress Notes Robbin Mccarthy MD - 07/23/2011 3:46 PM EST Pharmacologic Management Office Visit (CPT 16583/JOHN 2009) (* = required item) *Length of Service: 20 minutes *Interval Hx (including sx): I've been much better. Shortly after last appointment. Weird because actually has life stress. Back to where she was before decrease in Effexor. Dithered about seeing therapist, has not started seeing one. No big news since last appointment. Doesn't feel depressed. Biggest issue is still fatigue (thinks it's both fatigue and sleepiness). Also notes that her sleep clock didn''t change easily with the time change this past fall (first time this has happened). Doesn't snore, has had sleep study. Was still fatigued when didn't take the trazodone for one night. *Pertinent Med SE: none. Psychotherapeutic Interventions (if any): *MSE: Appearance/Behavior: Casually dressed middle-aged WF sitting quietly in chair. Mood/Affect: Reasonably toned, some sense of tension. Thoughts (including *Suicidal/Homicidal Thoughts/Plans): No SI/HI. Other Pertinent Exam: *A (including Diagnosis): 51 y.o. female with MDD-R, PTSD, fatigue, social anxiety. Seems like current dose of Effexor helpful. P: *1) Medication Change(s) (Current meds continued if no med changes listed): We discussed stimulant. Pt. prefers not right now. 2) Could try lower dose of trazodone, Effexor in the a.m. to see if it affects fatigue. Follow-Up Appt: 6 mo. *Coordination of Care: Pt. requests no notes be sent to KEREN FINLEY MD (PCP) (pt. understands that this will continue until/less s/he requests otherwise) documented in this encounter Plan of Treatment Upcoming Encounters Date Type Specialty Care Team Description 02/06/2023 Hospital Encounter Gastroenterology Cony Tavera MD [facility] GASTROENTEROLOGY DEPT. [place], [place] [address] (Wo rk) Scheduled Procedures Name Priority Associated Diagnoses Date/Time COLONOSCOPY, DIAGNOSTIC 10 yr surv documented as of this encounter Visit Diagnoses Diagnosis Major depressive disorder, recurrent epi sode, unspecified - Primary documented in this encounter Care Teams Meter Attendant Relationship Specialty Start Date End Date Keren Finley MD PCP - General 05/12/[address] [facility] [address] [facility] [place] [address] documented as of this encounter
--- OUTSIDE RECORDS SUMMARY | 2022-02-06 14:14 | XMS_ITS | Encounter Summary ---
:1960 Author Organization [facility] [place] [address] Care Team Providers Name Role Phone Melanie Abrams MD Primary Care Provider Encounter Details Date Type Department Care Team Description 10/02/2012 Hospital Encounter Laboratory Elan Delarosa, Jessica [facility] An Templeton MD [facility] [place] [address] OBSTETRICS & [phone] GYNECOLOGY [place], [place] [address] (Wo rk) Social History Tobacco [...] mg tablet mouth daily. Reported on 12/08/2016 lisinopril Take 10 mg by 0 01/01/2013 (PRINIVIL;ZESTRIL) 10 mg mouth daily. tablet documented as of this encounter Plan of Treatment Upcoming Encounters Date Type Specialty Care Team Description 02/06/2023 Hospital Encounter Gastroenterology Cony Tavera MD [facility] GASTROENTEROLOGY DEPT. [place], [place] [address] (Wo rk) Scheduled Procedures Name Priority Associated Diagnoses Date/Time COLONOSCOPY, DIAGNOSTIC 10 yr surv documented as of this encounter Procedures Procedure Name Priority Date/Time Associated Diagnosis Comme nts TSH Routine 10/02/2012 7:06 AM Screening Results f or this EDT procedure are i n the results section. GLUCOSE, FASTING Routine 10/02/2012 7:06 AM Screening Resul ts for this EDT procedure are i n the results section. LIPID PANEL (REFLEX Routine 10/02/2012 7:06 AM Screening Re sults for this DIRECT LDL) EDT procedure are i n the results section. documented in this encounter Results Glucose, fasting (10/02/2012 7:06 AM EDT) athologist Signature Glucose 93 65 - 99 CERNER Fasting mg/dL MILLENNIUM Comment: ?Fasting* Glucose Interpretive C riteria Normal ?65-99 mg/dL Impaired Fasting glucose ?100-125 mg/dL Consistent with Diabetes Mellitus ? >or= 126 mg/dL *Fasting is defined as no caloric intake for at least 8 hours In the absence of unequivocal hypergly cemia a plasma glucose value of >or= 126 mg/dL should be repeated on a subseq u day. Diagnosis and Classification of Diabetes Mellitus, Position Statement from the [place] Diabetes Association. ??Diabete s Care, Volume 33, Supplement 1, Jun 2009 Specimen Anatomical Collection Method Collection Time Receive d Time (Source) Location / / Volume Laterality Blood specimen 10/02/2012 7:06 AM 013 7:16 (specimen) EDT AM EDT Resulting Agency Comment Spec In Lab An Delarosa MD CHEMISTRY ORDERABLES Performing Organization Address City/Va Hospital/ZIP [facility] Phon e Number [address] CERNER MILLENNIUM TSH (10/02/2012 7:06 AM EDT) athologist Signature TSH 2.43 0.27 - 4.20 CERNER mcIU/mL MILLENNIUM Specimen Anatomical Collection Method Collection Time Receive d Time (Source) Location / / Volume Laterality Blood specimen 10/02/2012 7:06 AM 013 7:16 (specimen) EDT AM EDT Resulting Agency Comment Spec In Lab An Delarosa MD CHEMISTRY ORDERABLES Performing Organization Address City/Va Hospital/[facility] Phon e Number [address] CERNER MILLENNIUM Lipid panel (fasting) (10/02/2012 7:06 AM EDT) P athologist Signature Chol, Total 160 <=199 mg/dL CERNER MILLENNIUM Comment: Recommendations of the NCEP Adult Treatm ent Panel for the following risk cutoff thresholds for the [place] populatio n: Desirable: <200 mg/dL Borderline High: 200-239 mg/dL High: > or = 240 mg/dL Triglycerides 61 <=149 mg/dL CERNER MILLENN IUM Comment: Reference Range: Normal triglycerides: ??<150 mg/dL Borderline high: ??150-199 mg/dL High: ??200-499 mg/dL Very high: ??>as=596 mg/dL TINO 2001; 285(19):0722-5705 HDL 70 >=40 mg/dL CERNER MILLENNIUM Comment: Reference range: ??Low HDL: ?? < 40 mg/dL ??Normal: ?40-60 mg/dL ??Desirable: > 60 mg/dL TINO 2001; 285(19):3624-5970 LDL Cholesterol 78 <=99 mg/dL MIKE MARTINEZ Comment: Reference range: ?? Optimal: ?<100 mg/dL ?? Near Optimal/Above Optimal: ?? 100-1 29 mg/dL ?? Borderline high: ?130-159 mg/dL ?? High: ? 160-189 mg/dL ?? Very high: ?>mf=872 mg/dL TINO 2001: 285(19):2282-2404 Chol/HDL Ratio 2.3 ratio MIKE MOISE UM Comment: A Cholesterol to HDL ratio below 4:1 is desirable. ??Studies suggest that increased CAD risk occurs at ratios abov e 5 for females and above 6 for men. ? [place] Heart Association ??(htt p://www.americanheart.org) ? Romi Int Med, 1994; 121:641 ? AM J Med, 1998; 105(1A):48S Specimen Anatomical Collection Method Collection Time Receive d Time (Source) Location / / Volume Laterality Blood specimen 10/02/2012 7:06 AM 013 7:16 (specimen) EDT AM EDT Resulting Agency Comment Spec In Lab An Delarosa MD CHEMISTRY ORDERABLES Performing Organization Address City/State/[place] [address] MIKE MARTINEZ documented in this encounter Visit Diagnoses Diagnosis Screening Screening for unspecified condition documented in this encounter Care Teams Scissors Sharpener Relationship Specialty Start Date End Date Melanie Abrams MD PCP - General 05/12/[address] [facility] [address] RAHEL MOREL[facility] PRIMARY CARE [place] [phone] documented as of this encounter
--- OUTSIDE RECORDS SUMMARY | 2022-02-06 14:14 | XMS_ITS | Encounter Summary ---
:1960 Author Organization [facility] [place] [address] Care Team Providers Name Role Phone Melanie Abrams MD Primary Care Provider Reason for Visit Reason Onset Date Comments Other 08/16/2011 Encounter Details Date Type Department Care Team Description 08/16/2011 Telephone Neurology at [facility] Danii Isidro APRN Other [facility] [place] [address] NEUROLOGY DEPT. [phone] [place], [place] [address] (Wo rk) Social History Tobacco [...] this encounter Miscellaneous Notes Telephone Encounter - Danii Isidro APRN - 08/16/2011 11:49 AM EST Okay- Noted that patient cannot tolerate Zonegran 300mg due to fatigue. Please advise patient that with increased hydration and over time, sometimes the fatigue will pass. Telephone Encounter - Elizabeth Velazquez LPN - 08/16/2011 11:28 AM EST Will forward this note to Danii Isidro for review. Telephone Encounter - Kendy Marcos - 08/16/2011 11:25 AM EST Patient stated that her dosage of zonegran was increased to 3 capsuls. Patient stated she is going to go back to 2 capsuls instead, the 3 capsules are making her to tired documented in this encounter Plan of Treatment Upcoming Encounters Date Type Specialty Care Team Description 02/06/2023 Hospital Encounter Gastroenterology Cony Tavera MD [facility] DR GASTROENTEROLOGY DEPT. [place], [place] [address] (Wo rk) Scheduled Procedures Name Priority Associated Diagnoses Date/Time COLONOSCOPY, DIAGNOSTIC 10 yr surv documented as of this encounter Visit Diagnoses Not on filedocumented in this encounter Care Teams Vessel Captain Relationship Specialty Start Date End Date Melanie Abrams MD PCP - General 05/12/10 [facility] [address] [facility] [place] [address] documented as of this encounter
--- OUTSIDE RECORDS SUMMARY | 2022-02-06 14:14 | XMS_ITS | Encounter Summary ---
:1960 Author Organization [facility] [place] [address] Care Team Providers Name Role Phone Melanie Abrams MD Primary Care Provider Encounter Details Date Type Department Care Team Description 06/08/2010 Orders Only Lab [facility] Rosalee Gruber MD [address] [address] [place] [address] [phone] Social History Tobacco Use Types Packs/Day Years Used Date Never Assessed Physical Activity Answer Date Recorded On average, [...] Encounter Gastroenterology Cony Tavera MD [facility] GASTROENTEROLOGY DEPT. [place], [place] [address] (Wo rk) Scheduled Procedures Name Priority Associated Diagnoses Date/Time COLONOSCOPY, DIAGNOSTIC 10 yr surv documented as of this encounter Procedures Procedure Name Priority Date/Time Associated Diagnosis Comme nts DIFFERENTIAL, Routine 06/08/2010 4:26 PM Results for this AUTOMATED EST procedure are i n the results section. CBC (WITH DIFF) Routine 06/08/2010 4:26 PM Result s for this EST procedure are i n the results section. TSH Routine 06/08/2010 4:26 PM Results f or this EST procedure are i n the results section. documented in this encounter Results (ABNORMAL) TSH (06/08/2010 4:26 PM EST) P athologist Signature TSH 5.38 (H) 0.27 - 4.20 CERNER mcIU/mL MILLENNIUM Comment: Cord Blood Reference Range: ??0. 35 23.00 uIU/mL Specimen Anatomical Collection Method Collection Time Receive d Time (Source) Location / / Volume Laterality Blood specimen 06/08/2010 4:26 PM 010 6:12 (specimen) EST PM EST Rosalee Mancia MD CHEMISTRY ORDERABLES Performing Organization Address City/State/ZIP Code Phon e Number [place] [phone] CERNER MILLENNIUM REFLEX LAB-A-DIFF (06/08/2010 4:26 PM EST) P athologist Signature Neutrophils % 49.4 34.0 - CERNER 71.0 % MILLENNIUM Neutr Abs (ANC) 2.91 1.50 - CERNER 6.30 MILLENNIUM x10(3)/mcL Lymphocytes % 36.9 19.0 - CERNER 53.0 % MILLENNIUM Lymphocytes Abs 2.2 1.0 - 3.6 CERNER x10(3)/mcL MILLENNIUM Monocytes % 8.5 4.0 - 13.0 CERNER % MILLENNIUM Monocyte Abs 0.5 0.2 - 1.0 CERNER x10(3)/mcL MILLENNIUM Eosinophils % 4.7 0.0 - 7.0 CERNER % MILLENNIUM Eosinophils Abs 0.3 0.0 - 0.5 CERNER x10(3)/mcL MILLENNIUM Basophils % 0.3 0.0 - 2.0 CERNER % MILLENNIUM Basophils Abs 0.0 0.0 - 0.2 CERNER x10(3)/mcL MILLENNIUM Immature Gran % 0.20 0.00 - CERNER 0.66 % MILLENNIUM Comment: Immature granulocytes(IG's)percentage an d absolute count will include metamyelocytes, myelocytes, and promyelo cytes. Blood smears from CBC's yielding IG's will be scanned manually for concor dance. If this scan disagrees with the automated IG or if promyelocytes are not ed, a manual differential will be performed. Aleksandra Gran Abs 0.01 0.00 - 0.05 x10(3)/mcL CER NER MILLENNIUM Specimen Anatomical Collection Method Collection Time Receive d Time (Source) Location / / Volume Laterality Blood specimen 06/08/2010 4:26 PM 010 6:12 (specimen) EST PM EST Rosalee Mancia MD HEMATOLOGY ORDERABLES Performing Organization Address City/State/ZIP Code Phon e Number [place] [phone] [facility]OS[address]ITAL LAB[address] CERNER MILLENNIUM CBC (06/08/2010 4:26 PM EST) P athologist Signature WBC 5.9 4.0 - 10.0 CERNER x10(3)/mcL MILLENNIUM RBC 4.80 3.93 - 5.22 CERNER x10(6)/mcL MILLENNIUM Hemoglobin 14.8 11.2 - 15.7 CERNER gm/dL MILLENNIUM Hematocrit 43.8 34.0 - 45.0 CERNER % MILLENNIUM MCV 91.3 79.0 - 94.0 CERNER fL MILLENNIUM MCH 30.8 26.6 - 32.2 CERNER pg MILLENNIUM MCHC 33.8 32.0 - 36.5 CERNER gm/dL MILLENNIUM Platelets 305 145 - 370 CERNER x10(3)/mcL MILLENNIUM RDWSD 44.1 35.0 - 46.0 CERNER fL MILLENNIUM RDWCV 13.3 10.9 - 14.4 CERNER % MILLENNIUM MPV 10.7 9.0 - 12.0 CERNER fL MILLENNIUM Specimen Anatomical Collection Method Collection Time Receive d Time (Source) Location / / Volume Laterality Blood specimen 06/08/2010 4:26 PM 010 6:12 (specimen) EST PM EST Rosalee Mancia MD HEMATOLOGY ORDERABLES Performing Organization Address City/State/ZIP Code Phon e Number [place] [phone] HOSPITAL LAB[address] Drive [facility] documented in this encounter Visit Diagnoses Not on filedocumented in this encounter Care Teams Commercial Lender Relationship Specialty Start Date End Date Melanie Abrams MD PCP - General 05/12/10 [facility] [address] [place] [place] [address] documented as of this encounter
--- OUTSIDE RECORDS SUMMARY | 2022-02-06 14:14 | XMS_ITS | Encounter Summary ---
:1960 Author Organization [facility] [place] [address] Care Team Providers Name Role Phone Melanie Abrams MD Primary Care Provider Reason for Visit Reason Onset Date Comments Medication Refill 01/03/2012 Encounter Details Date Type Department Care Team Description 01/03/2012 Refill Psychiatry and Behavioral Babak Mccarthy MD [facility] Vanessa begum [place] [address] [place] [address] [phone] (Wo rk) Social History Tobacco Use Types [...] Tavera MD [facility] GASTROENTEROLOGY DEPT. [place], [place] [address] (Wo rk) Scheduled Procedures Name Priority Associated Diagnoses Date/Time COLONOSCOPY, DIAGNOSTIC 10 yr surv documented as of this encounter Visit Diagnoses Not on filedocumented in this encounter Care Teams Bar Pilot Relationship Specialty Start Date End Date Melanie Abrams MD PCP - General 05/12/[address] [facility] [address] [place] [place] [address] documented as of this encounter
--- OUTSIDE RECORDS SUMMARY | 2022-02-06 14:14 | XMS_ITS | Encounter Summary ---
:1960 Author Organization [place] [address] Care Team Providers Name Role Phone Melanie Abrams MD Primary Care Provider Reason for Visit Reason Comments Medication Refill Encounter Details Date Type Department Care Team Description 10/27/2011 Refill Psychiatry and Behavioral Babak Mccarthy MD [facility] Vanessa begum [place] [address] [place] [address] [phone] (Wo rk) Social History Tobacco Use Types [...] Gastroenterology Cony Tavera MD [facility] GASTROENTEROLOGY DEPT. [place], [place] [address] (Wo rk) Scheduled Procedures Name Priority Associated Diagnoses Date/Time COLONOSCOPY, DIAGNOSTIC 10 yr surv documented as of this encounter Visit Diagnoses Not on filedocumented in this encounter Care Teams Councilman Relationship Specialty Start Date End Date Melanie Abrams MD PCP - General 05/12/[address] [facility] [address] [facility] [place] [address] documented as of this encounter
--- OUTSIDE RECORDS SUMMARY | 2022-02-06 14:14 | XMS_ITS | Encounter Summary ---
:1960 Author Organization [facility] [place] [address] Care Team Providers Name Role Phone Melanie Abrams MD Primary Care Provider Encounter Details Date Type Department Care Team Description 07/17/2010 Orders Only Lab [facility] Rosalee Gruber MD [address] [address] [place] [address] [phone] Social History Tobacco Use Types Packs/Day Years [...] Tavera MD [facility] GASTROENTEROLOGY DEPT. [place], [place] [address] (Wo rk) Scheduled Procedures Name Priority Associated Diagnoses Date/Time COLONOSCOPY, DIAGNOSTIC 10 yr surv documented as of this encounter Procedures Procedure Name Priority Date/Time Associated Diagnosis Comme nts TSH Routine 07/17/2010 3:04 PM Results f or this EST procedure are i n the results section . documented in this encounter Results TSH (07/17/2010 3:04 PM EST) P athologist Signature TSH 4.03 0.27 - 4.20 CERNER mcIU/mL MILLENNIUM Comment: Cord Blood Reference Range: ??0. 35 23.00 uIU/mL Specimen Anatomical Collection Method Collection Time Receive d Time (Source) Location / / Volume Laterality Blood specimen 07/17/2010 3:04 PM 011 6:12 (specimen) EST PM EST Rosalee Mancia MD CHEMISTRY ORDERABLES Performing Organization Address City/State/[place] [address] CERNER MILLENNIUM documented in this encounter Visit Diagnoses Not on filedocumented in this encounter Care Teams Steward/Stewardess Bath Relationship Specialty Start Date End Date Melanie Abrams MD PCP - General 05/12/[address] [facility] [address] [facility] [place] [address] documented as of this encounter
--- OUTSIDE RECORDS SUMMARY | 2022-02-06 14:14 | XMS_ITS | Encounter Summary ---
:1960 Author Organization [facility] Address [address] [place] [address] Care Team Providers Name Role Phone Melanie Abrams MD Primary Care Provider Reason for Visit Reason Onset Date Comments Other 10/21/2010 she is leaving work and left home number Encounter Details Date Type Department Care Team Description 10/21/2010 Telephone Neurology at [facility] Danii Isidro, Alena (she is leaving [facility] work and left home Drive [facility] number) [place] [address] NEUROLOGY DEPT. [place], [place] [address] (Wo rk) Social History Tobacco Use Types Packs/Day Years Used Date Never Smoker Alcohol Use Standard Drinks/Week Comments No 0 [...] this encounter Miscellaneous Notes Telephone Encounter - Corie Hurtado - 11/30/2010 3:23 PM EDT Done! documented in this encounter Plan of Treatment Upcoming Encounters Date Type Specialty Care Team Description 02/06/2023 Hospital Encounter Gastroenterology Cony Tavera MD [facility] ER DR GASTROENTEROLOGY DEPT. [place], [place] [address] (Wo rk) Scheduled Procedures Name Priority Associated Diagnoses Date/Time COLONOSCOPY, DIAGNOSTIC 10 yr surv documented as of this encounter Visit Diagnoses Not on filedocumented in this encounter Care Teams Spinneret Person Relationship Specialty Start Date End Date Melanie Abrams MD PCP - General 05/12/10 [facility] DR [facility]HEL [place] [address] documented as of this encounter
--- OUTSIDE RECORDS SUMMARY | 2022-02-06 14:14 | XMS_ITS | Encounter Summary ---
:1960 Author Organization [facility] [place] [address] Care Team Providers Name Role Phone Melanie Abrams MD Primary Care Provider Encounter Details Date Type Department Care Team Description 10/06/2010 Orders Only Neurology at [facility] Danii Isidro, Vision changes; [facility] Vanessa begum [place] [address] [facility] [phone] NEUROLOGY DEPT. [place], [place] [address] (Wo rk) Social History Tobacco [...] Gastroenterology Cony Tavera MD [facility] GASTROENTEROLOGY DEPT. [place], [place] [address] (Wo rk) Scheduled Procedures Name Priority Associated Diagnoses Date/Time COLONOSCOPY, DIAGNOSTIC 10 yr surv documented as of this encounter Visit Diagnoses Diagnosis Vision changes Unspecified visual disturbance Chronic headaches Headache documented in this encounter Care Teams Office Machinery Or Equipment Installer Relationship Specialty Start Date End Date Melanie Abrams MD PCP - General 05/12/[address] [facility] [address] [facility] [place], [place] [id number] documented as of this encounter
--- OUTSIDE RECORDS SUMMARY | 2022-02-06 14:14 | XMS_ITS | Encounter Summary ---
:1960 Author Organization [facility] [place] [address] Care Team Providers Name Role Phone Melanie Abrams MD Primary Care Provider Reason for Visit Reason Onset Date Comments Medication Refill 07/14/2011 Encounter Details Date Type Department Care Team Description 07/14/2011 Refill Psychiatry and Behavioral Babak Mccarthy MD [facility] Vanessa begum [place] [address] [place] [id number] [phone] (Wo rk) Social History Tobacco Use Types [...] MD [facility] GASTROENTEROLOGY DEPT. [place], [place] [address] (Wo rk) Scheduled Procedures Name Priority Associated Diagnoses Date/Time COLONOSCOPY, DIAGNOSTIC 10 yr surv documented as of this encounter Visit Diagnoses Not on filedocumented in this encounter Care Teams Unix Consultant Relationship Specialty Start Date End Date Melanie Abrams MD PCP - General 05/12/[address] [facility] [address] [facility]HEL [facility] [place], [place] [id number] documented as of this encounter
--- OUTSIDE RECORDS SUMMARY | 2022-02-06 14:14 | XMS_ITS | Encounter Summary ---
:1960 Author Organization [facility] [place] [address] Care Team Providers Name Role Phone Melanie Abrams MD Primary Care Provider Reason for Visit Reason Comments Gynecologic Exam Encounter Details Date Type Department Care Team Description 03/03/2012 Office Visit Obstetrics and Gina Kenny, Routine general medical examination at a health care facility (Primary Dx); Gynecology at [facility] PHYSICIAN Screening [facility] [address] [place] VASCULAR SURGERY [address] [place] [address] [phone] (Wo rk) Social History Tobacco Use Types [...] Sign Reading Time Taken Comments Blood Pressure 134/82 03/03/2012 11:54 AM EDT Pulse - - Temperature - - Respiratory Rate - - Oxygen Saturation - - Inhaled Oxygen Concentration - - Weight 67 kg (147 lb 9.6 oz) 03/03/2012 11:54 AM EDT Height 167.6 cm (5' 6) 03/03/2012 11:54 AM EDT Body Mass Index 23.82 03/03/2012 11:54 AM EDT documented in this encounter Progress Notes Gina Kenny, CLINIC PHYSICIAN - 03/03/2012 12:27 PM EDT Patient Active Problem List Diagnoses Code ??? Major depressive disorder, recurrent episode, unspecified 296.30 ??? CIS - eating disorder 84917 ??? CIS - GERD ??? Mgrn wo aura wo intrc mgr 346.10 ??? HTN (hypertension) 401.9AF ??? Anxiety 300.00E ??? Hypothyroidism 244.9AP ??? Fatigue 780.79B S: Korin is a 51 year old patient, had robotic assisted hysterectomy by Dr. Delarosa in 2009, returned to clinic with spotting and had subsequent removal of granulation tissue. She has noted rare spotting since then, last episode about 9 months ago. Has no reports analysis manager concerns, no vasomotor s/s, no vaginal dryness, no discharge or irritation. Last pap was 2009 normal and negative HPV. Last Mammogram 2008. Past Surgical History Procedure Date ??? Created by interface cholecystectomy Procedure Date: 1996 ??? Created by interface LAPAROSCOPY,TOT.HYST,UTERUS>[email or web address],ROBOT ASSIST / WIRA Procedure Date: 11/18/2009 Allergies Allergen Reactions ??? Zolmitriptan Diarrhea and Nausea And Vomiting ??? Penicillins Hives ??? Vecuronium [place] Current outpatient prescriptions ordered prior to encounter Medication Sig Dispense Refill ??? venlafaxine (EFFEXOR-XR) 75 mg 24 hr capsule Take 3 capsules by mouth daily. 270 capsule 1 ??? traZODone (DESYREL) 100 mg tablet Take 1.5 tablets by mouth nightly. 135 tablet 1 ??? zonisamide (ZONEGRAN) 100 mg capsule Take 2 capsules by mouth daily. 60 capsule 4 ??? SUMAtriptan (IMITREX) 100 mg tablet Take 1 tablet by mouth daily as needed. 12 tablet 6 ??? levothyroxine (SYNTHROID) 50 mcg tablet Take 1 tablet by mouth daily. 90 tablet 4 ??? naproxen sodium (ANAPROX) 550 mg tablet Take 1 tablet by mouth 2 times daily as needed. 60 tablet 1 ??? DOCOSAHEXANOIC ACID/EPA (FISH OIL ORAL) Take 1 capsule by mouth daily. ??? multivitamin with minerals (THERA-M) 9-0.4 mg tablet Take 1 tablet by mouth daily. ??? magnesium oxide (MAG-OX) 400 mg tablet Take 400 mg by mouth daily. ??? Famotidine (PEPCID AC) 20 mg Chew Take 20 mg by mouth daily. ??? TKTBXMG-[id number]-PWZN ORAL Take by mouth daily. ??? lisinopril (PRINIVIL;ZESTRIL) 10 mg tablet Take 10 mg by mouth daily. History Social History ??? Marital Status: Single Spouse Name: N/A Number of Children: N/A ??? Years of Education: N/A Occupational History ??? Not on file. Social History Main Topics ??? Smoking status: Never Smoker ??? Smokeless tobacco: Never Used ??? Alcohol Use: No Rare ??? Drug Use: No ??? Sexually Active: Deferred Other Topics Concern ??? Not on file Social History Narrative ??? No narrative on file O: Recent Review Flowsheet Data View Complete Flowsheet Oncology Vitals 03/03/2012 Weight 66.951 kg Height 167.6 cm BSA (Calculated - sq m) 1.77 BMI (Calculated) 23.9 Temp - Temp src - Pulse - Resp - BP 134/82 SpO2 - Oncology Vitals 03/03/2012 Height (cm) - Weight (kg) - BSA (m2) - BREAST: no dominant mass, no nipple discharge, no retraction ABD: soft, NT, no mass, no guarding, no reobund PARA MACHINE OPERATOR: external genitalia architecturally normal, vagina pink rugated, Cuff site without granulation tissue noted BM: surgically absent, Adnexa without mass or tenderness bilat A: normal exam P: Will have mammogram today. Order placed for fasting lab work and TSH. Had vitamin D level 2010 with normal value. Continue supplementation of calcium /D. Reviewed perimenopausal transition signs, symptoms. See back in one year and PRN. documented in this encounter Plan of Treatment Upcoming Encounters Date Type Specialty Care Team Description 02/06/2023 Hospital Encounter Gastroenterology Cony Tavera MD [facility] GASTROENTEROLOGY DEPT. [place], [place] [address] (Wo rk) Scheduled Procedures Name Priority Associated Diagnoses Date/Time COLONOSCOPY, DIAGNOSTIC 10 yr surv documented as of this encounter Results Glucose, fasting (10/02/2012 7:06 [...] mg/dL should be repeated on a subseq uent day. Diagnosis and Classification of Diabetes Mellitus, Position Statement from the Stateless Diabetes Association. ??Diabete s Care, Volume 33, Supplement 1, Jun 2009 Specimen Anatomical Collection Method Collection Time Receive d Time (Source) Location / / Volume Laterality Blood specimen 10/02/2012 7:06 AM 013 7:16 (specimen) EDT AM EDT Resulting Agency Comment Spec In Lab An Delarosa MD CHEMISTRY ORDERABLES Performing Organization Address [facility]/ZIP Code Phon e Number [address] CERNER MILLENNIUM TSH (10/02/2012 7:06 AM EDT) P athologist Signature TSH 2.43 0.27 - 4.20 CERNER mcIU/mL MILLENNIUM Specimen Anatomical Collection Method Collection Time Receive d Time (Source) Location / / Volume Laterality Blood specimen 10/02/2012 7:06 AM 013 7:16 (specimen) EDT AM EDT Resulting Agency Comment Spec In Lab An Delarosa MD CHEMISTRY ORDERABLES Performing Organization Address City/[facility]/ZIP [facility] [place] [address] CERNER MILLENNIUM Lipid panel (fasting) (10/02/2012 7:06 AM EDT) P athologist Signature Chol, Total 160 <=199 mg/dL CERNER MILLENNIUM Comment: Recommendations of the NCEP Adult Treatm ent Panel for the following risk cutoff thresholds for the [place] Stateless populatio n: Desirable: <200 mg/dL Borderline High: 200-239 mg/dL High: > or = 240 mg/dL Triglycerides 61 <=149 mg/dL MIKE CALLEJAS IUM Comment: Reference Range: Normal triglycerides: ??<150 mg/dL Borderline high: ??150-199 mg/dL High: ??200-499 mg/dL Very high: ??>vz=825 mg/dL TINO 2001; 285(19):1201-8942 HDL 70 >=40 mg/dL MIKE CALLEJASIUM Comment: Reference range: ??Low HDL: ?? < 40 mg/dL ??Normal: ?40-60 mg/dL ??Desirable: > 60 mg/dL TINO 2001; 285(19):4817-8263 LDL Cholesterol 78 <=99 mg/dL MIKE SLADE NIUM Comment: Reference range: ?? Optimal: ?<100 mg/dL ?? Near Optimal/Above Optimal: ?? 100-1 29 mg/dL ?? Borderline high: ?130-159 mg/dL ?? High: ? 160-189 mg/dL ?? Very high: ?>jh=697 mg/dL TINO 2001: 285(19):5121-7915 Chol/HDL Ratio 2.3 ratio MIKE CALLEJASI UM Comment: A Cholesterol to HDL ratio below 4:1 is desirable. ??Studies suggest that increased CAD risk occurs at ratios abov e 5 for females and above 6 for men. ? Stateless Heart Association ??(htt p://www.americanheart.org) ? Romi Int Med, 1994; 121:641 ? AM J Med, 1998; 105(1A):48S Specimen Anatomical Collection Method Collection Time Receive d Time (Source) Location / / Volume Laterality Blood specimen 10/02/2012 7:06 AM 013 7:16 (specimen) EDT AM EDT Resulting Agency Comment Spec In Lab An Delarosa MD CHEMISTRY ORDERABLES Performing Organization Address City/State/ZIP Code [place] [address] [facility] documented in this encounter Visit Diagnoses Diagnosis Routine general medical examination at a health care facility - Primary Screening Screening for unspecified condition documented in this encounter Care Teams Rn Occupational Health Relationship Specialty Start Date End Date Melanie Abrams MD PCP - General 05/12/10 [facility] [address] [facility]HEL [place] [address] documented as of this encounter
--- OUTSIDE RECORDS SUMMARY | 2022-02-06 14:14 | XMS_ITS | Encounter Summary ---
:1960 Author Organization [facility] [place] [address] Care Team Providers Name Role Phone Melanie Abrams MD Primary Care Provider Encounter Details Date Type Department Care Team Description 10/02/2012 Follow-Up Neurology at [facility] Danii Isidro, Cinthia (Primary Dx) [place] [address] NEUROLOGY DEPT. [place] [id number] (Wo rk) Social History Tobacco Use Types [...] Sign Reading Time Taken Comments Blood Pressure 125/79 10/02/2012 8:27 AM EDT Pulse 97 10/02/2012 8:27 AM EDT Temperature - - Respiratory Rate - - Oxygen Saturation - - Inhaled Oxygen Concentration - - Weight 69.4 kg (152 lb 14.4 oz) 10/02/2012 8:27 AM EDT Height 167.6 cm (5' 6) 10/02/2012 8:27 AM EDT Body Mass Index 24.68 10/02/2012 8:27 AM EDT documented in this encounter Progress Notes Danii Isidro APRN - 10/02/2012 8:33 AM EDT Headache History: Korin has had [...] Problem: Migraine without aura. S: Patient is taking Zonegran 200mg per day. Most headaches are mild to mod and average 3-4 per month. She has only had 2 severe headaches since our last visit 10 months ago. No new sx or presentation.No vertigo. ROS: Non contributory. O: Alert and Oriented to person, place and time, not ataxic or dysarthric A: Vertigo - resolved Migraine without aura P: 1.) Total time- 15 min. >50% counseling. documented in this encounter Miscellaneous Notes Addendum Note - Juan F Cornell - 10/02/2012 8:43 AM EDT Addended by: JUAN F CORNELL on: 10/02/2012 08:43 AM Modules accepted: Orders documented in this encounter Plan of Treatment Upcoming Encounters Date Type Specialty Care Team Description 02/06/2023 Hospital Encounter Gastroenterology Cony Tavera MD [facility] GASTROENTEROLOGY DEPT. [place], [place] [address] (Wo rk) Scheduled Procedures Name Priority Associated Diagnoses Date/Time COLONOSCOPY, DIAGNOSTIC 10 yr surv documented as of this encounter Procedures Procedure Name Priority Date/Time Associated Comments Diagnosis COMPREHENSIVE Routine 10/02/2012 8:48 AM Migraine Results for this METABOLIC PANEL EDT procedure ar e in (NON-FASTING) the results section. documented in this encounter Results (ABNORMAL) Comprehensive metabolic panel (non-fasting) (10/02/2012 8:48 AM EDT) P athologist Signature Glucose Lvl 92 60 - 199 CERNER mg/dL MILLENNIUM Comment: Diabetes: >=200 mg/dL plus symp toms BUN 14 8 - 18 mg/dL CERNER MILLENNIUM Creatinine 1.03 0.70 - 1.20 mg/dL CERNER MILL ENNIUM Comment: Please note that the pediatric reference intervals supplied above were not validated at [facility]. Results from pediatri c patients should be interpreted in conjunction to the patient's age, height and muscle mass. Sodium 139 135 - 145 mmol/L CERNER BERLIN NIUM Potassium 4.1 3.5 - 5.0 mmol/L CERNER BERLIN NIUM Comment: Please note: ??Patients with WBC >100,00 0 may have falsely elevated Potassium levels. ??For accurate Potassium quantif ication in these patients send serum separator tube (gold top) for subsequent determinations. ??Contact the Clinical Chemistry Laboratory if there are any qu estions. Chloride 106 98 - 107 mmol/L CERNER MILLENN IUM CO2 26 22 - 31 mmol/L CERNER MILLENNI UM Anion Gap 7 5 - 15 mmol/L CERNER MILLENNIU M Calcium 9.4 8.5 - 10.5 mg/dL CERNER BERLIN NIUM Total Protein 6.9 6.4 - 8.3 gm/dL CERNER MIL LENNIUM Albumin 4.2 3.2 - 5.2 gm/dL CERNER MILLENN IUM AST 19 0 - 30 unit/L CERNER MILLENNIU M ALT 22 0 - 30 unit/L CERNER MILLENNIU M Alk Phos 64 40 - 104 unit/L CERNER MILLENN IUM Total Bilirubin 0.3 0.2 - 1.3 mg/dL CERNER M ILLENNIUM Bili, Direct 0.1 0.0 - 0.3 mg/dL CERNER MILL ENNIUM Estimated GFR 57 (L) >=60 CERNER MILLENNIU M Comment: The National Kidney Disease Education Pr ogram (NKDEP) has recommended all laboratories report estimated GFR (eGFR) along with plasma creatinine measurements to assist you with recognit ion of early kidney disease. Caveats: ??Plasma creatinine should be a t steady-state (unchanged within the past week). For patient s multiply eGFR by 1.2. The MDRD equation was developed using patients be tween the ages of 18 and 70 years. ?? The MDRD equation has not been validated for patients < 18 years of age and should not be used to assess renal function in the pediatric population. ??The MDRD eGFR equation will also overestimate the true GFR of patients above the age of 70. ??This overestimation is variable bu t increases with age. At present, NKDEP does NOT recommend usi ng the MDRD equation for drug dosing purposes and pharmacists should continue to use their current dosing methods. In addition, numerical eGFR values great er than 60 ml/min/1.73 square meters should be treated as > 60, and not an ex act number due to greater inaccuracies at these higher values. Per NKDEP, they classify normal renal function as any GFR >60ml/min/1.73 square meters; chronic kidney disease wh en GFR <60, and renal failure when GFR <15. ??This calculation may not be valid for patients with atypical muscle mass (very lean or obese), acute renal failur e, and in patients with diabetic kidney disease. References: http://nkdep.nih.gov/resources/NKDEP_Sug gestn4Labs_0606_508.pdf http://www.kidney.org/professionals/kls/ pdf/faq_gfr.pdf Melly K, Mana NA, Hari AK, Miki TS, Bautista AD, Micki KIM. Relative performance of the MDRD and CKD-EPI equa tions for estimating glomerular filtration rate among patients with vari ed clinical presentations. Clin J Am Soc Nephrol;6:1963-72. Specimen Anatomical Collection Method Collection Time Receive d Time (Source) Location / / Volume Laterality Blood specimen 10/02/2012 8:48 AM 013 8:50 (specimen) EDT AM EDT Resulting Agency Comment Spec In Lab Ramírez Lagos MD CHEMISTRY ORDERABLES Performing Organization Address City/State/ZIP Code Phon e Number [place] [phone] LAB[address] [facility] documented in this encounter Visit Diagnoses Diagnosis Migraine - Primary Migraine, unspecified, without mention o f intractable migraine without mention of status migrainosus documented in this encounter Care Teams Biomass Boiler Operator Relationship Specialty Start Date End Date Melanie Abrams MD PCP - General 05/12/[address] [facility] [address] [facility] [place] [address] documented as of this encounter
--- OUTSIDE RECORDS SUMMARY | 2022-02-06 14:14 | XMS_ITS | Encounter Summary ---
:1960 Author Organization [facility] [place] [address] Care Team Providers Name Role Phone Melanie Abrams MD Primary Care Provider Reason for Visit Reason Comments Fatigue Encounter Details Date Type Department Care Team Description 11/30/2010 Office Visit Sleep Medicine Vicki Blackwood MD Obstructive sleep apnea (adult) (pediatr ic) (Primary Dx); [facility] cadian rhythm sleep disorder, advanced [place] [address] SLEEP DISORDERS [phone] [place] [id number] (Wo rk) Social History Tobacco Use Types [...] documented as of this encounter Progress Notes Vicki Blackwood MD - 11/30/2010 2:41 PM EDT Sleep Medicine Consultation Note HPI: Korin Posada is a 50 y.o. female seen at the request of Dr. Mccarthy for advice regarding fatigueand sleepiness. States has had symptoms a really long time as long a I can remember. Thinks more of a problem as an adult, cannot recall problems necessarily in childhood or during school years. Pastfew years has noticed that wakes up as tired as when she went to bed. Has had this worked up medically and no underlying issue identified. Feels like sleeps fine (although takes trazodone). Has been on trazodone for approx 15 yrs. Started in the context of insomnia which occurred during repeated hospitalizations for an eating disorder andwasn't sleeping at all. Goes to bed very early - has been for a while, but cannot say how long. Sleep Pattern: Bed/Recliner/Wedge: bed; flat Bedtime: 7-7:30 Lights out: reads approx 20min Latency: immed Awakenings: usually a couple; can be more if worried about something Duration: minutes Reason: bathroom, stress Wake time: 4-4:30 Rise time: 4:30 Respiratory: Snoring: no bed partner and no one observes sleep; does not think she snore Observed Apneas: no Mouth Breathing: doesn't know Dry Mouth: sometimes Nocturnal Gasping: no Nasal Obstruction: not usually Daytime Symptoms: [place]: 9 Upon Awakening: exhausted Naps: goes back to bed after waking up on weekends; usually for an hour; Occasionally naps in afternoon on weekends, as well.Non-refreshing. Involuntary Dozing: if relaxing and reading or watching TV at home alone Driving: no Close calls related to sleepiness no Accidents related to sleepiness no Other Associates Sleep Symptoms: Parasomnias: Sleep Walking: thinks may have had some episodes of sleep walking because has woken up and found some things in different places than she remembers leaving them (and thinks she may moved things during sleep). May have had a couple isolated episodes of SW as a child Dream Enactment: no Motor: RLS: occasional, mild PLMS: no Narcolepsy: Hallucinations: no Paralysis: no Cataplexy: no Family History: Family history of sleep disorders: father snored very loudly and was always tired ROS: CON: weight change: has gained some weight; definitely at highest weight but doesn't weight herself ENT: nasal obstruction: rare PUL: occasional MUELLER CV: chest pain: no Palpitations: yes (not at night) LE edema: no GI: GERD: controlled with meds : Nocturia: 2-3x MSK: Pain: no NEURO: sleep related headaches: rare, recent problems with vertigo ENDO: no menses since hysterectomy (though ovaries intact); no sx menopause PSY: Depression: thinks that is doing better anxiety: present but manegable Past Medical History: Patient Active Problem List Diagnoses Code ??? Major depressive disorder, recurrent episode, unspecified 296.30 ??? CIS - eating disorder ??? CIS - GERD ??? Mgrn wo aura wo intrc mgr 346.10 ??? HTN (hypertension) 401.9AF ??? Anxiety 300.00E ??? S/p hysterectomy V88.01M ??? S/p cholecystectomy V45.79D ??? Hypothyroidism 244.9AP Medications: Outpatient prescriptions marked as taking for the 11/30/10 encounter (Office Visit) with VICKI BLACKWOOD Medication Sig Dispense Refill ??? multivitamin with minerals (THERA-M) 9-0.4 mg tablet Take 1 tablet by mouth daily. ??? magnesium oxide (MAG-OX) 400 mg tablet Take 400 mg by mouth daily. ??? lisinopril (PRINIVIL;ZESTRIL) 10 mg tablet Take 10 mg by mouth daily. ??? levothyroxine (SYNTHROID) 50 mcg tablet Take 50 mcg by mouth daily. ??? Famotidine (PEPCID AC) 20 mg Chew Take 20 mg by mouth daily. ??? IZUNFLC-RPDPLNOJP-NYTJ ORAL Take by mouth daily. ??? traZODone (DESYREL) 100 mg tablet Take 2 tablets by mouth nightly. 60 tablet 5 ??? zonisamide (ZONEGRAN) 100 mg capsule Take 2 capsules by mouth nightly. 60 capsule 6 ??? SUMAtriptan (IMITREX) 100 mg tablet Take 1 tablet by mouth daily as needed. 12 tablet 11 ??? venlafaxine (EFFEXOR XR) 75 mg 24 hr capsule Take 3 capsules by mouth daily. 90 capsule 5 Social History: Living situation: lives alone, [place] Employment: [employer] Alcohol: rare Smoking: no Caffeine: decaf william, 1 soda, hot chocolate with some coffee Other drugs: denies PE: Height: 67in Weight: patient prefers not to be weighed General: pleasant, distress Eyes: PERRL, conjunctiva clear ENT: oropharynx MP: MP2-3 , clear Crowded: no Dentition: normal Mandibular structure and position: normal NECK: Submental fat present: no MSE: Alert and appropriate: yes Oriented to person, place and time: yes Affect: full range Assessment: Korin Posada is a 50 y.o. female with a history of EDS. There may be multiple factors causing her symptoms. She does have evidence of an advanced sleep phase, which may contribute to tiredness later in the day. We discussed that the trazodone may be contributing the feeling of unrefreshed sleep upon awakening. She does not have a bed partner or regular observer of sleep, which makes it difficult to assess for JUANA, however there are some risk factors/symptoms that raise suspicion (weight gain, hypertension, h/o morning headaches). It would be worthwhile to assess for and treat any sleep-disordered breathing, as this can certainly contribute to daytime symptoms. The diagnosis of obstructive sleep apnea was reviewed in detail with the patient at this time. Potential consequences of untreated obstructive sleep apnea reviewed. Treatment options reviewed in detail. Questions regarding diagnosis and management answered at this time. Diagnostic Codes: 327.23; Obstructive sleep apnea 327.32; Advanced Sleep Phase Time spent face to face: 60min Time spent devoted to counseling and discussion: 40min Recommendations: 1. Overnight PSG 2. Discussed delaying sleep onset time by 15-30min a day for a few weeks for a goal of a bedtime of9-10pm/wake time 6-7am 3. Patient will start to wean trazodone; she is going to try to cut down to 150mg at bedtime documented in this encounter Plan of Treatment Upcoming Encounters Date Type Specialty Care Team Description 02/06/2023 Hospital Encounter Gastroenterology Cony Tavera MD [facility] DR GASTROENTEROLOGY DEPT. [place], [place] [address] (Wo rk) Scheduled Procedures Name Priority Associated Diagnoses Date/Time COLONOSCOPY, DIAGNOSTIC 10 yr surv documented as of this encounter Visit Diagnoses Diagnosis Obstructive sleep apnea (adult) (pediatr ic) - Primary Circadian rhythm sleep disorder, advance d sleep phase type documented in this encounter Care Teams Middle [employer] Resource Teacher Relationship Specialty Start Date End Date Melanie Abrams MD PCP - General 05/12/[address] [facility] [address] [facility] [place] [address] documented as of this encounter
--- OUTSIDE RECORDS SUMMARY | 2022-02-06 14:14 | XMS_ITS | Encounter Summary ---
:1960 Author Organization [facility] [place] [address] Care Team Providers Name Role Phone Melanie Abrams MD Primary Care Provider Encounter Details Date Type Department Care Team Description 10/14/2010 Abstract Neurology at [facility] Danii Isidro APRN [facility] [place] [address] NEUROLOGY DEPT. [phone] [place], [place] [address] (Wo rk) Social History Tobacco [...] MD [facility] GASTROENTEROLOGY DEPT. [place] [id number] (Wo rk) Scheduled Procedures Name Priority Associated Diagnoses Date/Time COLONOSCOPY, DIAGNOSTIC 10 yr surv documented as of this encounter Visit Diagnoses Not on filedocumented in this encounter Care Teams Child Care Provider Relationship Specialty Start Date End Date Melanie Abrams MD PCP - General 05/12/[address] [facility] [address] [facility] [place], [place] [id number] documented as of this encounter
--- OUTSIDE RECORDS SUMMARY | 2022-02-06 14:14 | XMS_ITS | Encounter Summary ---
:1960 Author Organization [facility] [place] [address] Care Team Providers Name Role Phone Melanie Abrams MD Primary Care Provider Reason for Visit Reason Onset Date Comments Other 03/12/2011 Encounter Details Date Type Department Care Team Description 03/12/2011 Telephone Family Medicine at [facility] Melanie Abrams MD [facility] [place] [place] [address] [place] [address] [phone] (Wo rk) Social History Tobacco Use Types [...] encounter Miscellaneous Notes Telephone Encounter - Tana Tabares - 03/16/2011 2:24 PM EDT Left a message for her at home. Asked to do some more readings and let us know. Mentioned the 130 and above, to call and may need to restart the lisinopril. Left me name and number for her to call. Kalani Telephone Encounter - Melanie Abrams MD - 03/16/2011 8:49 AM EDT I presume these are by the school nurse, and are off the lisinopril as we had discussed at her visit. They are OK but borderline. I'd like them to continue to measure BP every 2-4 weeks, and call if they are seeing BP in the 130's or higher all the time, then we'll have to restart the lisinopril at a lower dose. Telephone Encounter - Tana Tabares - 03/12/2011 11:30 AM EDT No dates or times... Telephone Encounter - Gely Stearns - 03/12/2011 9:41 AM EDT BP RESULTS, 140/80, 122/82, 138/82 AND 124/82 documented in this encounter Plan of Treatment Upcoming Encounters Date Type Specialty Care Team Description 02/06/2023 Hospital Encounter Gastroenterology Cony Tavera MD [facility] ER GASTROENTEROLOGY DEPT. [place], [place] [address] (Wo rk) Scheduled Procedures Name Priority Associated Diagnoses Date/Time COLONOSCOPY, DIAGNOSTIC 10 yr surv documented as of this encounter Visit Diagnoses Not on filedocumented in this encounter Care Teams Wire Frame Lamp Shade Maker Relationship Specialty Start Date End Date Melanie Abrams MD PCP - General 05/12/[address] [facility] [address] [facility] [place] [address] documented as of this encounter
--- OUTSIDE RECORDS SUMMARY | 2022-02-06 14:14 | XMS_ITS | Encounter Summary ---
:1960 Author Organization [facility] [place] [address] Care Team Providers Name Role Phone Melanie Abrams MD Primary Care Provider Reason for Visit Reason Comments Fatigue Encounter Details Date Type Department Care Team Description 12/16/2010 Follow-Up Sleep Medicine Mily Blackwood MD [facility] sleep [facility] safety attendant merlin (adult) Loc [facility] (pediatric) ([place] [address] SLEEP DISORDERS Dx) [phone] [place] [address] (Wo rk) Social History Tobacco Use Types [...] Sign Reading Time Taken Comments Blood Pressure 111/78 12/16/2010 9:00 AM EDT Pulse 91 12/16/2010 9:00 AM EDT Temperature - - Respiratory Rate - - Oxygen Saturation - - Inhaled Oxygen Concentration - - Weight - - Height - - Body Mass Index - - documented in this encounter Progress Notes Mily Blackwood MD - 12/16/2010 3:47 PM EDT Sleep Medicine Follow-Up Note (postPSG) HPI: Korin Posada is a 50 y.o. female seen at for follow-up the morning after their polysomnogram. I saw Ms. Posada for consultation on 11/30/10. We had discussed trying to cut back on the nighttimetrazodone dose as well as try to delay her sleep phase. Ms. Posada reports that she has tried to implement some of these changes. She has cut her trazodone back from 200mg qhs to 150mg qhs. She has tried to delay her bedtime, as well, although she still goes to bed between 8-8:30pm. She has not noted any difference in any nocturnal or daytime symptoms with the decrease in trazodone. She also notes that she continues to awaken around 4:30am. Interestingly, Ms. Posada did get to sleep later for the sleep study (around 9pm) and was able to sleep until 5:30am. PE: See record for VS General: Alert, no distress Assessment: Korin Posada is a 50 y.o. female who is seen for follow-up after PSG to assess for obstructive sleep apnea. The study indicated minimal JUANA and this is not likely to be a significant contributor to her current symptoms. We discussed that her fatigue/tiredness may be multifactorial and can be related to medications, underlying depression or medical issues or can be related to primary hypersomnia. There was nothing in her history to suggest narcolepsy. Idiopathic hypersomnia remains a possibility, although is less likely than fatigue related to other issues. At this point we discussed continuing to wean the trazodone as much as can tolerate. We also discussed working on continuing to delay sleep onset to a goal bedtime of 9pm. If she finds that she still has the same level of sleepiness/fatigue with the above interventions, we discussed the possibility of pursuing MSLT to more objectively assess for hypersomnolence. We also reviewed that the management of hypersomnia with stimulant medication. Ms. Posada notes that Dr. Mccarthy has mentioned stimulants, as well in the context of managing her depression. Diagnostic Codes: JUANA 327.23 Time spent face to face: 20min Time spent devoted to counseling and discussion: 15min Reccomendations: 1. Decrease trazodone as much as possible. 2. Delay bedtime to goal of 9pm 3. F/U 3 months to reevaluate. Can consider MSLT if still sleepy despite above interventions. .agree documented in this encounter Plan of Treatment Upcoming Encounters Date Type Specialty Care Team Description 02/06/2023 Hospital Encounter Gastroenterology Cony Tavera MD [facility]ICAL [facility] ER GASTROENTEROLOGY DEPT. [place], [place] [address] (Wo rk) Scheduled Procedures Name Priority Associated Diagnoses Date/Time COLONOSCOPY, DIAGNOSTIC 10 yr surv documented as of this encounter Visit Diagnoses Diagnosis Obstructive sleep apnea (adult) (pediatr ic) - Primary documented in this encounter Care Teams Certified Addiction Counselor Relationship Specialty Start Date End Date Melanie Abrams MD PCP - General 05/12/10 [facility] [address] [facility] [address] documented as of this encounter
--- OUTSIDE RECORDS SUMMARY | 2022-02-06 14:14 | XMS_ITS | Encounter Summary ---
:1960 Author Organization [place] [address] Care Team Providers Name Role Phone Melanie Abrams MD Primary Care Provider Encounter Details Date Type Department Care Team Description 11/30/2011 Follow-Up Neurology at [facility] Danii Isidro, Cinthia (Primary Dx) [place] [address] [address] [place] [address] (Wo rk) Social History Tobacco Use Types [...] Sign Reading Time Taken Comments Blood Pressure 136/83 11/30/2011 9:29 AM EDT Pulse 80 11/30/2011 9:29 AM EDT Temperature - - Respiratory Rate - - Oxygen Saturation - - Inhaled Oxygen Concentration - - Weight 69.9 kg (154 lb) 11/30/2011 9:29 AM EDT Height 170.2 cm (5' 7) 11/30/2011 9:29 AM EDT Body Mass Index 24.12 11/30/2011 9:29 AM EDT documented in this encounter Progress Notes Danii Isidro, RUSSEL - 11/30/2011 10:01 AM EDT Headache History: Korin has had [...] Current Problem: Migraine without aura. S: She has not had any severe headaches. She was fatigued at Zonegran 300mg and reduced to 200mg. Nonew sx or presentation. No vertigo. ROS: Non contributory. O: Alert and Oriented to person, place and time, not ataxic or dysarthric A: Vertigo - resolved Migraine without aura P: 1.)Patient is planning on reducing the Zonegran to 100mg at bedtime. 2.)Increase hydration, warning:photosensitivity. 3.)Follow up in 4 months, sooner prn. Total time- 15 min. >50% counseling. documented in this encounter Plan of Treatment Upcoming Encounters Date Type Specialty Care Team Description 02/06/2023 Hospital Encounter Gastroenterology Cony Tavera MD [facility] DR GASTROENTEROLOGY DEPT. [place], [place] [address] (Wo rk) Scheduled Procedures Name Priority Associated Diagnoses Date/Time COLONOSCOPY, DIAGNOSTIC 10 yr surv documented as of this encounter Visit Diagnoses Diagnosis Migraine - Primary Migraine, unspecified, without mention o f intractable migraine without mention of status migrainosus documented in this encounter Care Teams Oil Rag Washer Relationship Specialty Start Date End Date Melanie Abrams MD PCP - General 05/12/[address] [facility] [address] [facility] [place] [address] documented as of this encounter
--- OUTSIDE RECORDS SUMMARY | 2022-02-06 14:14 | XMS_ITS | Encounter Summary ---
:1960 Author Organization [facility] [place] [address] Care Team Providers Name Role Phone Melanie Abrams MD Primary Care Provider Reason for Visit Reason Comments Sinus Problem Headache Encounter Details Date Type Department Care Team Description 06/18/2011 [facility] ([facility] Dx[facility] [place] [address] [place] [address] [facility] [phone] PRIMARY CARE [place] [address] Social History Tobacco Use Types Packs/Day Years [...] Sign Reading Time Taken Comments Blood Pressure 135/93 06/18/2011 10:14 recheck from 14 AM EST Pulse 87 06/18/2011 10:14 AM EST Temperature 36.9 ??C (98.4 ??F) 06/18/2011 10:14 AM EST Respiratory Rate 18 06/18/2011 10:14 AM EST Oxygen Saturation 100% 06/18/2011 10:14 AM EST Inhaled Oxygen - - Concentration Weight 70.7 kg (155 lb 12.8 06/18/2011 10:14 oz) AM EST Height 170.2 cm (5' 7) 06/18/2011 10:14 AM EST Body Mass Index 24.4 06/18/2011 10:14 AM EST documented in this encounter Patient Instructions Patient InstructionsRosy Burnett - 06/18/2011 11:01 AM EST Welcome to [facility], your secure online access to your electronic medical record at [facility]. Using [facility] you will be able to send messages to your providers, view your test results, renew prescriptions, schedule appointments, and much more. Follow these instructions to enter your personal [facility] account for the first time: 1. Start your internet browser. Go to [email or web address] and click on the myD-H link. 2. Click SIGN UP NOW to go to the NEW MEMBER SIGN UP page. 3. Enter your myD-H Access Code exactly as it appears below. (You will not need this access code after you have completed the sign-up process.) ?? Your [facility] Access Code: [email or web address] ?? Expires: 07/19/11 08:49 AM ?? IMPORTANT: This Access Code will on the above mentioned date. If you do not sign up beforethis date, you will need to request a new Access Code number. 4. Enter your Date of (mm/dd/yyyy) and zip code click SUBMIT to go to the next page. 5. Create a myD-H identification (ID). This will be your myD-H login ID and cannot be changed, so think of one that is secure and easy to remember. 6. Create a password which you can change at any time. Your password must contain six (6) letters and two (2) numbers. 7. Enter your Password Reset Question and Answer. This will be used if you forget your password. 8. Enter your e-mail address. This is used to let you know when new information is available in myD-H. 9. Click SIGN UP to complete the process. You can now view your electronic medical record. If you have any questions about myD-H or your Access Code, please call for [place], for [place] or for [place]. If you need technical support, please e-mail . Remember, myD-H is NOT for urgent needs! Always dial 911 for medical emergencies. documented in this encounter Progress Notes Radha Jose, RUSSEL - 06/18/2011 10:54 AM EST HPI: 50 y.o. female presents with worsening s/s since starting antiobiotics on 06/08, now with s/s about one month. Initially noted worsening sinus pain and teeth pain when started antibiotics, then did improve some but not resolve, then worsened last few days. Notes sinus pain mostly left side, not as much jaw pain this time, green nasal discharge, no fever/chills, no sore throat. Has cough r/t PND, denies SOB difficulty breathing. Overall body aches are restarting. History Smoking status ??? Never Smoker Smokeless tobacco ??? Never Used ROS: see HPI above Patient Active Problem List Diagnoses Code ??? Major depressive disorder, recurrent episode, unspecified 296.30 ??? CIS - eating disorder ??? CIS - GERD ??? Mgrn wo aura wo intrc mgr 346.10 ??? HTN (hypertension) 401.9AF ??? Anxiety 300.00E ??? Hypothyroidism 244.9AP ??? Fatigue 780.79B Current outpatient prescriptions ordered prior to encounter Medication Sig Dispense Refill ??? zonisamide (ZONEGRAN) 100 mg capsule Take 2 capsules by mouth nightly. 60 capsule 3 ??? venlafaxine (EFFEXOR-XR) 75 mg 24 hr capsule Take 3 capsules by mouth daily. Pt. is returning to225 mg daily. 90 capsule 5 ??? traZODone (DESYREL) 100 mg tablet Take 1.5 tablets by mouth nightly. 135 tablet 1 ??? DOCOSAHEXANOIC ACID/EPA (FISH OIL ORAL) Take 1 capsule by mouth daily. ??? multivitamin with minerals (THERA-M) 9-0.4 mg tablet Take 1 tablet by mouth daily. ??? magnesium oxide (MAG-OX) 400 mg tablet Take 400 mg by mouth daily. ??? levothyroxine (SYNTHROID) 50 mcg tablet Take 50 mcg by mouth daily. ??? Famotidine (PEPCID AC) 20 mg Chew Take 20 mg by mouth daily. ??? [id number]-FBAB ORAL Take by mouth daily. ??? SUMAtriptan (IMITREX) 100 mg tablet Take 1 tablet by mouth daily as needed. 12 tablet 11 ??? lisinopril (PRINIVIL;ZESTRIL) 10 mg tablet Take 10 mg by mouth daily. Allergies Allergen Reactions ??? Zolmitriptan Diarrhea and Nausea And Vomiting ??? Penicillins Urticaria ??? Vecuronium Nimitz Physical Exam: Filed Vitals: 06/18/11 1014 BP: 135/93 Pulse: 87 Temp: 36.9 ??C (98.4 ??F) TempSrc: Oral Resp: 18 Height: 170.2 cm (5' 7) Weight: 70.67 kg (155 lb 12.8 oz) SpO2: 100% General: alert, oriented, no acute distress ENT: TMs normal. Left maxillay sinus tenderness, less left frontal. Nasal mucosa pink and moist, mild edema. Pharynx without erythema, exudate, enlarged tonsils. NECK: soft and supple, no lymphadenopathy. LUNGS: CTA bilat, no crackles or wheezes Assessment/Plan: Sinusitis, recurring worsening: bactrim ds BID 14 days, reviewed rationale for use. Fluids, rest otcmeds. Follow up if not improving or worsening. documented in this encounter Plan of Treatment Upcoming Encounters Date Type Specialty Care Team Description 02/06/2023 Hospital Encounter Gastroenterology Cony Tavera MD [facility] GASTROENTEROLOGY DEPT. [place], [place] [address] (Wo rk) Scheduled Procedures Name Priority Associated Diagnoses Date/Time COLONOSCOPY, DIAGNOSTIC 10 yr surv documented as of this encounter Visit Diagnoses Diagnosis Sinusitis - Primary Unspecified sinusitis (chronic) documented in this encounter Care Teams Quality Manager Relationship Specialty Start Date End Date Melanie Abrams MD PCP - General 05/12/[address] [facility] [address] [place] [address] documented as of this encounter
--- OUTSIDE RECORDS SUMMARY | 2022-02-06 14:14 | XMS_ITS | Encounter Summary ---
:1960 Author Organization [facility] [place] [address] Care Team Providers Name Role Phone Melanie Abrams MD Primary Care Provider Reason for Visit Reason Onset Date Comments Other 05/24/2011 med refill Encounter Details Date Type Department Care Team Description 05/24/2011 Telephone Neurology at [facility] Danii Isidro Other (med refill) [facility] [place] [address] [facility] [phone] NEUROLOGY DEPT. [place], [place] [address] (Wo rk) Social History Tobacco [...] this encounter Miscellaneous Notes Telephone Encounter - Kendy Marcos - 05/24/2011 8:57 AM EST Name of Med: zonagran Strength of Pills: Dosing Directions: 2 tablets a day Pharmacy: [facility] Patient is all out documented in this encounter Plan of Treatment Upcoming Encounters Date Type Specialty Care Team Description 02/06/2023 Hospital Encounter Gastroenterology Cony Tavera MD [facility] ER GASTROENTEROLOGY DEPT. [place], [place] [address] (Wo rk) Scheduled Procedures Name Priority Associated Diagnoses Date/Time COLONOSCOPY, DIAGNOSTIC 10 yr surv documented as of this encounter Visit Diagnoses Not on filedocumented in this encounter Care Teams Brick Layer Relationship Specialty Start Date End Date Melanie Abrams MD PCP - General 05/12/[address] [facility] [address] [facility] [place] [address] documented as of this encounter
--- OUTSIDE RECORDS SUMMARY | 2022-02-06 14:14 | XMS_ITS | Encounter Summary ---
:1960 Author Organization [facility] [place] [address] Care Team Providers Name Role Phone Keren Finley MD Primary Care Provider Encounter Details Date Type Department Care Team Description 03/30/2011 Office Visit Psychiatry and Robbin Mccarthy MD Major depressive Behavioral Health at [facility] robin diallo [facility] episode, unspecified [facility] PSYCHIATRY DE PT. (Primary Dx) [place] [address] [place] [phone] (Work) [phone] Social History Tobacco Use Types Packs/Day Years [...] Sign Reading Time Taken Comments Blood Pressure 135/98 03/30/2011 4:01 PM EDT Pulse 96 03/30/2011 4:01 PM EDT Temperature - - Respiratory Rate - - Oxygen Saturation - - Inhaled Oxygen Concentration - - Weight - - Height 170.2 cm (5' 7) 03/30/2011 4:01 PM EDT Body Mass Index - - documented in this encounter Progress Notes Robbin Mccarthy MD - 03/30/2011 4:24 PM EDT Pharmacologic Management Office Visit (CPT 25527/JOHN 2009) (* = required item) *Length of Service: 20 minutes *Interval Hx (including sx): Still feeling more irritable than before attempted decrease in Effexor.Hasn't felt depressed in past couple of weeks -- anxious and irritable. Has been tearful, feels weary. Skin crawling sensation went away very soon after reincreasing Effexor. School has been stressful, starting before classes actually started (week of February 04). Even beforethat didn't feel as good as before we decreased Effexor. Work has been more stressful for the last 2-3 mo. Stopped her BP medication about a month ago. No other med changes since our last appointment. Still fatigued. Didn't notice any change with decreased Effexor. Hasn't done anything about finding therapist. *Pertinent Med SE: none. Psychotherapeutic Interventions (if any): We discussed possible benefit of seeing therapist. *MSE: Appearance/Behavior: Sitting quietly in chair. Some sense of tension. Mood/Affect: Tense, well-toned. Thoughts (including *Suicidal/Homicidal Thoughts/Plans): No SI/HI. Other Pertinent Exam: *A (including Diagnosis): 50 y.o. female with MDD-R, PTSD, fatigue, social anxiety. Increase in sx since brief slight decrease in Effexor. Doesn't seem likely to me that this is still result of decreased Effexor, but no clear explanation. P: *1) Medication Change(s) (Current meds continued if no med changes listed): We discussed trying increase in Effexor, adding stimulant. Pt. prefers no med change right now, will explore seeing therapist. Follow-Up Appt: 3 mo. *Coordination of Care: Pt. requests no notes be sent to KEREN FINLEY MD (PCP) (pt. understands that this will continue until/less s/he requests otherwise) documented in this encounter Plan of Treatment Upcoming Encounters Date Type Specialty Care Team Description 02/06/2023 Hospital Encounter Gastroenterology Cony Tavera MD [facility] GASTROENTEROLOGY DEPT. [place], [place] [address] (Wo rk) Scheduled Procedures Name Priority Associated Diagnoses Date/Time COLONOSCOPY, DIAGNOSTIC 10 yr surv documented as of this encounter Visit Diagnoses Diagnosis Major depressive disorder, recurrent epi sode, unspecified - Primary documented in this encounter Care Teams Equipment Maintenance Technician Relationship Specialty Start Date End Date Keren Finley MD PCP - General 05/12/10 [facility] [address] [place] [place] [address] documented as of this encounter
--- OUTSIDE RECORDS SUMMARY | 2022-02-06 14:14 | XMS_ITS | Encounter Summary ---
:1960 Author Organization [facility] [place] [address] Care Team Providers Name Role Phone Melanie Abrams MD Primary Care Provider Reason for Visit Reason Onset Date Comments Medication Refill 05/24/2011 Encounter Details Date Type Department Care Team Description 05/24/2011 Refill Neurology at [facility] Danii Isidro, Migraine without aura [facility] [place] [address] [facility] [phone] NEUROLOGY DEPT. [place], [place] [address] (Wo rk) Social History Tobacco [...] Cony Tavera MD [facility] ER GASTROENTEROLOGY DEPT. [place], [place] [address] (Wo rk) Scheduled Procedures Name Priority Associated Diagnoses Date/Time COLONOSCOPY, DIAGNOSTIC 10 yr surv documented as of this encounter Visit Diagnoses Diagnosis Migraine without aura Migraine without aura, without mention o f intractable migraine without mention of status migrainosus documented in this encounter Care Teams Certified Financial Planner Relationship Specialty Start Date End Date Melanie Abrams MD PCP - General 05/12/[address] [facility] [address] [place] [address] documented as of this encounter
--- OUTSIDE RECORDS SUMMARY | 2022-02-06 14:14 | XMS_ITS | Encounter Summary ---
:1960 Author Organization [facility] [place] [address] Care Team Providers Name Role Phone Melanie Abrams MD Primary Care Provider Reason for Visit Reason Onset Date Comments Other 02/01/2012 Follow-Up Encounter Details Date Type Department Care Team Description 02/01/2012 Telephone Psychiatry and Behavioral HuBabak MD Other (Follow-Up) Health at [facility] Vanessa beg[place] [address] [place] [id number] [phone] (Wo rk) Social History Tobacco Use Types [...] this encounter Miscellaneous Notes Telephone Encounter - Kimberli Beasley MD - 02/01/2012 5:03 PM EDT Message copied by KIMBERLI BEASLEY on TueFeb 01, 2012 5:03 PM ------ Message from: KAYDEN MARTINEZ Created: TueFeb 01, 2012 4:28 PM Regarding: PHONE MESSAGE Contact: KORIN SANDERSON DR. PHONED TO LET YOU KNOW THAT SHE HAS AN APPT WITH [facility] IN . IF YOU HAVE ANY QUESTIONS KORIN CAN BE REACHED AT [phone]. ANA MARIA, ESE documented in this encounter Plan of Treatment Upcoming Encounters Date Type Specialty Care Team Description 02/06/2023 Hospital Encounter Gastroenterology Cony Tavera MD [facility] ER GASTROENTEROLOGY DEPT. [place], [place] [address] (Wo rk) Scheduled Procedures Name Priority Associated Diagnoses Date/Time COLONOSCOPY, DIAGNOSTIC 10 yr surv documented as of this encounter Visit Diagnoses Not on filedocumented in this encounter Care Teams Lubrication Technician Relationship Specialty Start Date End Date Melanie Abrams MD PCP - General 05/12/[address] [facility] [address] [facility] [place], [place] [phone] documented as of this encounter
--- OUTSIDE RECORDS SUMMARY | 2022-02-06 14:14 | XMS_ITS | Encounter Summary ---
:1960 Author Organization [facility] [place] [address] Care Team Providers Name Role Phone Melanie Abrams MD Primary Care Provider Reason for Visit Reason Comments Headache Encounter Details Date Type Department Care Team Description 03/22/2011 Follow-Up [place]rology [place] [facility] Danii Isidro, Migraine (Primary Dx) [facility] [place] [address] NEUROLOGY DEPT. [place] [phone] (Wo rk) Social History Tobacco Use Types [...] Sign Reading Time Taken Comments Blood Pressure 141/85 03/22/2011 3:44 PM EDT Pulse 90 03/22/2011 3:44 PM EDT Temperature - - Respiratory Rate - - Oxygen Saturation - - Inhaled Oxygen Concentration - - Weight - - Height 170.2 cm (5' 7) 03/22/2011 3:44 PM EDT Body Mass Index - - documented in this encounter Progress Notes Danii Isidro, RUSSEL - 03/22/2011 4:24 PM EDT CC: Vertigo, New visual change, Migraine without aura S: Dr. Abrams stopped a BP med and this has not changed her fatigue. It is constant. No other sx orpresentation. Another med. during the day for headaches with good effect, this avoids drowsiness. Imitrex causes drowsiness and so she only uses it at bedtime. She is aware to avoid using the two within 24 hours. Stress triggered the headaches. She tells me that the fatigue pre dates her Zonegran. Aug- 4 WOOD Sept-6 WOOD ROS: Fatigue. Psych: Sleep- (sleep study was WNL); fragmented sleep (nocturia 2-3 times per night) falls immediately backto sleep. Mood- Stable Energy- poor, fatigued. O: Patient appears well, fatigued.... A: Vertigo Migraine without aura Vision change- one time (seems to be aura) P: 1.)Follow up in 6 months, sooner prn if sx increase or new sx. 2.)Increase hydration and call if new health issues or symptoms. Total time- 15 min. >50% counseling. documented in this encounter Plan of Treatment Upcoming Encounters Date Type Specialty Care Team Description 02/06/2023 Hospital Encounter Gastroenterology Cony Tavera MD [facility] DR GASTROENTEROLOGY DEPT. [place], [place] [address] (Wo rk) Scheduled Procedures Name Priority Associated Diagnoses Date/Time COLONOSCOPY, DIAGNOSTIC 10 yr surv documented as of this encounter Visit Diagnoses Diagnosis Migraine - Primary Migraine, unspecified, without mention o f intractable migraine without mention of status migrainosus documented in this encounter Care Teams Grain Miller Helper Relationship Specialty Start Date End Date Melanie Abrams MD PCP - General 05/12/10 [facility] DR [facility] [place] [address] documented as of this encounter
--- OUTSIDE RECORDS SUMMARY | 2022-02-06 14:14 | XMS_ITS | Encounter Summary ---
:1960 Author Organization [facility] [place] [address] Care Team Providers Name Role Phone Melanie Abrams MD Primary Care Provider Reason for Visit Reason Onset Date Comments Medication Refill 09/20/2011 Encounter Details Date Type Department Care Team Description 09/20/2011 Refill Family Medicine Melanie Abrams MD [facility] [place] [address] [facility]IMARY [facility] [phone] [place] [address] (Wo rk) Social History Tobacco Use Types [...] Notes Telephone Encounter - Phylicia Díaz - 09/20/2011 11:18 AM EDT Please dispense 3 month supply with refills. Phylicia Membreno documented in this encounter Plan of Treatment Upcoming Encounters Date Type Specialty Care Team Description 02/06/2023 Hospital Encounter Gastroenterology Cony Tavera MD [facility] GASTROENTEROLOGY DEPT. [place], [place] [address] (Wo rk) Scheduled Procedures Name Priority Associated Diagnoses Date/Time COLONOSCOPY, DIAGNOSTIC 10 yr surv documented as of this encounter Visit Diagnoses Diagnosis Hypothyroidism Unspecified hypothyroidism documented in this encounter Care Teams Weight Loss Consultant Relationship Specialty Start Date End Date Melanie Abrams MD PCP - General 05/12/[address] [facility] [address] [facility] [place] [address] documented as of this encounter
--- OUTSIDE RECORDS SUMMARY | 2022-02-06 14:14 | XMS_ITS | Encounter Summary ---
:1960 Author Organization [facility] [place] [address] Care Team Providers Name Role Phone Melanie Abrams MD Primary Care Provider Reason for Visit Reason Onset Date Comments Hypertension 04/16/2011 calls with BP readin radha Encounter Details Date Type Department Care Team Description 04/16/2011 Telephone Family Medicine at Melanie Abrams rtension (calls [facility] Yasmine Whaley MD with BP readings) [facility] [place] [address] [facility] PRIMARY CARE [place] [address] (Wo rk) Social History Tobacco Use Types [...] Sign Reading Time Taken Comments Blood Pressure 142/96 04/16/2011 10:21 AM EDT Pulse - - Temperature - - Respiratory Rate - - Oxygen Saturation - - Inhaled Oxygen Concentration - - Weight - - Height - - Body Mass Index - - documented in this encounter Miscellaneous Notes Telephone Encounter - Kiley Santoyo LPN - 04/16/2011 12:04 PM EDT Call to patient with message from Dr. Abrams re: blood pressure readings. Patient will continue to check BP's and record. Telephone Encounter - Melanie Abrams MD - 04/16/2011 11:48 AM EDT Those BP's are Ok but borderline. Let's have her stay off the lisinopril with BP measured once a week or so. If most all measurements are in the 140's systolic she will need to resume. Telephone Encounter - Kiley Santoyo LPN - 04/16/2011 10:20 AM EDT Patient calls with home BP readings of: 128/90; 142/96; 138/90; 141/85. documented in this encounter Plan of Treatment Upcoming Encounters Date Type Specialty Care Team Description 02/06/2023 Hospital Encounter Gastroenterology Cony Tavera MD [facility] DR GASTROENTEROLOGY DEPT. [place], [place] [address] (Wo rk) Scheduled Procedures Name Priority Associated Diagnoses Date/Time COLONOSCOPY, DIAGNOSTIC 10 yr surv documented as of this encounter Visit Diagnoses Not on filedocumented in this encounter Care Teams Research Study Assistant Relationship Specialty Start Date End Date Melanie Abrams MD PCP - General 05/12/10 [facility] DR [place] [address] documented as of this encounter
--- OUTSIDE RECORDS SUMMARY | 2022-02-06 14:14 | XMS_ITS | Encounter Summary ---
:1960 Author Organization [facility] [place] [address] Care Team Providers Name Role Phone Melanie Abrams MD Primary Care Provider Encounter Details Date Type Department Care Team Description 06/08/2010 Office Visit Family Medicine at [facility] JanessaRosalee rodriguez MD [address] [place] [address] [place] [address] [phone] Social History Tobacco Use Types Packs/Day Years [...] 02/06/2023 Hospital Encounter Gastroenterology Cony Tavera MD [facility] GASTROENTEROLOGY DEPT. [place], [place] [address] (Wo rk) Scheduled Procedures Name Priority Associated Diagnoses Date/Time COLONOSCOPY, DIAGNOSTIC 10 yr surv documented as of this encounter Visit Diagnoses Not on filedocumented in this encounter Care Teams Quality Assurance Qa Lab Technician Relationship Specialty Start Date End Date Melanie Abrams MD PCP - General 05/12/[address] [facility] [address] [place] [place] [address] documented as of this encounter
--- OUTSIDE RECORDS SUMMARY | 2022-02-06 14:14 | XMS_ITS | Encounter Summary ---
:1960 Author Organization [facility] [place] [address] Care Team Providers Name Role Phone Melanie Abrams MD Primary Care Provider Reason for Visit Reason Onset Date Comments Medication Refill 09/30/2010 Encounter Details Date Type Department Care Team Description 09/30/2010 Refill Psychiatry and Behavioral Babak Mccarthy MD [facility] Vanessa begum [place] [address] [place] [address] [phone] (Wo rk) Social History Tobacco Use Types [...] [facility] GASTROENTEROLOGY DEPT. [place], [place] [address] (Wo rk) Scheduled Procedures Name Priority Associated Diagnoses Date/Time COLONOSCOPY, DIAGNOSTIC 10 yr surv documented as of this encounter Visit Diagnoses Not on filedocumented in this encounter Care Teams Machine Rope Maker Relationship Specialty Start Date End Date Melanie Abrams MD PCP - General 05/12/10 [facility] [address] [facility] [place], [place] [id number] documented as of this encounter
--- OUTSIDE RECORDS SUMMARY | 2022-02-06 14:14 | XMS_ITS | Encounter Summary ---
:1960 Author Organization [facility] [place] [address] Care Team Providers Name Role Phone Melanie Abrams MD Primary Care Provider Reason for Visit Reason Onset Date Comments Medication Refill 06/01/2012 Encounter Details Date Type Department Care Team Description 06/01/2012 Refill [place] [facility] Danii Isidro, Migraine (Primary Dx) [facility] [place] [address] [facility] [phone] NEUROLOGY DEPT. [place], [place] [address] (Wo rk) Social History Tobacco [...] this encounter Miscellaneous Notes Telephone Encounter - Viki Russo - 06/01/2012 12:48 PM EST zonisamide (ZONEGRAN) 100 mg capsule 60 capsule 4 11/30/2011 Sig - Route: Take 2 capsules by mouth daily. - Oral Pharmacy: [facility]-[phone] documented in this encounter Plan of Treatment Upcoming Encounters Date Type Specialty Care Team Description 02/06/2023 Hospital Encounter Gastroenterology Cony Tavera MD [facility] GASTROENTEROLOGY DEPT. [place], [place] [address] (Wo rk) Scheduled Procedures Name Priority Associated Diagnoses Date/Time COLONOSCOPY, DIAGNOSTIC 10 yr surv documented as of this encounter Visit Diagnoses Diagnosis Migraine - Primary Migraine, unspecified, without mention o f intractable migraine without mention of status migrainosus documented in this encounter Care Teams Senior Caregiver Relationship Specialty Start Date End Date Melanie Abrams MD PCP - General 05/12/[address] [facility] [place] [address] documented as of this encounter
--- OUTSIDE RECORDS SUMMARY | 2022-02-06 14:14 | XMS_ITS | Encounter Summary ---
:1960 Author Organization [facility] [place] [address] Care Team Providers Name Role Phone Melanie Abrams MD Primary Care Provider Encounter Details Date Type Department Care Team Description 03/03/2012 Hospital Encounter Mammography at [facility] Gina Kenny, [place] [address] VASCULAR SURGERY [place] [address] (Wo rk) Social History Tobacco Use Types [...] Start Date End Date venlafaxine (EFFEXOR-XR) Take 3 capsules by 270 capsule 1 12/05/2013 75 mg 24 hr capsule mouth daily. traZODone (DESYREL) 100 Take 1.5 tablets 135 tablet 1 201112/05/2013 mg tablet by mouth nightly. zonisamide (ZONEGRAN) 100 Take 2 capsules by 60 capsule 4 06/01/2012 mg capsuleIndications: mouth daily. Migraine SUMAtriptan (IMITREX) 100 Take 1 tablet by 12 tablet 6 09/1810/02/2012 mg tablet mouth daily as needed. levothyroxine (SYNTHROID) Take 1 tablet by 90 tablet 4 07/201110/02/2012 50 mcg tabletIndications: mouth daily. Hypothyroidism naproxen sodium (ANAPROX) Take 1 tablet by 60 tablet 1 07/2208/23/2012 550 mg tabletIndications: mouth 2 times Migraine, Migraine daily as needed. without aura DOCOSAHEXANOIC ACID/EPA Take 1 capsule by 0 12/2809/05/2015 (FISH OIL ORAL) mouth daily. multivitamin with Take 1 tablet by 0 0 07/17/2013 minerals (THERA-M) 9-0.4 mouth daily. mg tablet magnesium oxide (MAG-OX) Take 400 mg by 0 05/04/2017 400 mg tablet mouth daily. Reported on 12/08/2016 lisinopril Take 10 mg by 0 01/01/2013 (PRINIVIL;ZESTRIL) 10 mg mouth daily. tablet UPILVCP-BZKEIVKPV-MXMH Take by mouth 0 10/14/2010 10/02/2012 ORAL daily. documented as of this encounter Plan of Treatment Upcoming Encounters Date Type Specialty Care Team Description 02/06/2023 Hospital Encounter Gastroenterology Cony Tavera MD [facility] GASTROENTEROLOGY DEPT. [place], [place] [address] (Wo rk) Scheduled Procedures Name Priority Associated Diagnoses Date/Time COLONOSCOPY, DIAGNOSTIC 10 yr surv documented as of this encounter Procedures Procedure Name Priority Date/Time Associated Diagnosis Comme nts MAMMO SCREENING CAD Routine 03/03/2012 1:31 PM Re sults for this BILATERAL EDT procedure are i n the results section. documented in this encounter Results MAMMO DIGITAL BILATERAL SCREENING WITH CAD (03/03/2012 1:31 PM EDT) Anatomical Region Laterality Modality Breast Bilateral Mammography Specimen (Source) Anatomical Collection Method Collection Time Re ceived Time Location / / Volume Laterality 03/03/2012 1:31 PM EDT Narrative 03/07/2012 11:57 AM EDT BILATERAL MAMMOGRAPHY ?? REASON FOR EXAM: [...] sensitivity for the detection of malignancy. ? CONCLUSION ?? This is a NEGATIVE mammogram (ACR Catego ry 1). Routine screening mammography is recommended with the frequency dependent on the patient's age and breast cancer risk factors. ?? A letter has been [facility] to this patient [facility]. Procedure Note Emily Biggs MD - 2 BILATERAL MAMMOGRAPHY REASON FOR EXAM: Screening TECHNIQUE: [...] mammographic sensitivity for the detection of malignancy. CONCLUSION This is a NEGATIVE mammogram (ACR Catego ry 1). Routine screening mammography is recommended with the frequency dependent on the patient's age and breast cancer risk factors. A letter has been sent to this patient b [facility]. Gina Kenny APRN IMMelissa MAMMO ORDERABLES documented in this encounter Visit Diagnoses Not on filedocumented in this encounter Care Teams Fixture Relamper Relationship Specialty Start Date End Date Melanie Abrams MD PCP - General 05/12/10 [facility] [address] [place] [place] [address] documented as of this encounter
--- OUTSIDE RECORDS SUMMARY | 2022-02-06 14:14 | XMS_ITS | Encounter Summary ---
:1960 Author Organization [facility] [place] [address] Care Team Providers Name Role Phone Melanie Abrams MD Primary Care Provider Reason for Visit Reason Onset Date Comments Other 06/15/2011 Encounter Details Date Type Department Care Team Description 06/15/2011 Telephone Family Medicine at [facility] Melanie Abrams MD [facility] [place] [address] [place] [address] [phone] (Wo rk) Social History Tobacco Use Types [...] this encounter Miscellaneous Notes Telephone Encounter - Jyoti León RN - 06/15/2011 10:28 AM EST Korin calls to report that she continues to have sx of sinus infection. States that her z pack wasfinished on Tuesday. Symptoms have improved but still has green/yellow nasal discharge and slight headache. Explained that john medication will continue to work for additional five days and that if she is not feeling well by she should call the office. Denies shortness of breath, fever - new symptoms. Telephone Encounter - Gely Stearns - 06/15/2011 8:39 AM EST Requesting to speak with a nurse regarding ongoing symptoms Please call [phone] documented in this encounter Plan of Treatment Upcoming Encounters Date Type Specialty Care Team Description 02/06/2023 Hospital Encounter Gastroenterology Cony Tavera MD [facility] GASTROENTEROLOGY DEPT. [place], [place] [address] (Wo rk) Scheduled Procedures Name Priority Associated Diagnoses Date/Time COLONOSCOPY, DIAGNOSTIC 10 yr surv documented as of this encounter Visit Diagnoses Not on filedocumented in this encounter Care Teams Research Staff Member Relationship Specialty Start Date End Date Melanie Abrams MD PCP - General 05/12/[address] [facility] [address] [facility]HEL [place] [address] documented as of this encounter
--- OUTSIDE RECORDS SUMMARY | 2022-02-06 14:14 | XMS_ITS | Encounter Summary ---
:1960 Author Organization [facility] [place] [address] Care Team Providers Name Role Phone Melanie Abrams MD Primary Care Provider Reason for Visit Reason Comments Obstructive Sleep Apnea Encounter Details Date Type Department Care Team Description 12/15/2010 Procedure visit Sleep Medicine Mily Blackwood MD Obstructive sleep [facility] currency examiner merlin (adult) Loc [facility] (pediatric) ([place] [address] SLEEP DISORDERS Dx) [phone] [place] [address] Social History Tobacco Use Types Packs/Day Years [...] Sign Reading Time Taken Comments Blood Pressure 113/80 12/15/2010 8:00 PM EDT Pulse 100 12/15/2010 8:00 PM EDT Temperature - - Respiratory Rate - - Oxygen Saturation 97% 12/15/2010 8:00 PM EDT Inhaled Oxygen Concentration - - Weight 70.8 kg (156 lb) 12/15/2010 8:00 PM EDT Height 170.2 cm (5' 7) 12/15/2010 8:00 PM EDT Body Mass Index 24.43 12/15/2010 8:00 PM EDT documented in this encounter Progress Notes Mily Blackwood MD - 12/16/2010 3:08 PM EDT REPORT OF DIAGNOTIC POLYSOMNOGRAM History Of Present Illness: Korin Posada is a 50 y.o. female who presents for a polysomnogram. Polysomnography: The patient's sleep was [facility] Sleep was monitored in accordance with recommended AASM guidelines. The recording also included oral/nasal airflow, chest and abdominal respiratory effort, nasal pressure, single channel EKG, intercostal EMG, bilateral tibialis EMG, and oxygen saturation (by pulse oximeter). Comment: - Sleep/EEG: Sleep efficiency: normal Sleep architecture: normal REM observed: yes Supine sleep observed: yes - Respiratory: Snoring: occasional mild Obstructive respiratory events observed: minimal AHI: 5 Baseline SaO2: 95% Minimum SaO2: 90% - EKG: Normal sinus rhythm. - EMG: Unremarkable. Assessment: .Korin Posada is a 50 y.o. female whose polysomnogram reveals minimal obstructive sleep apnea. There were periods of occasional RERAs and mild hypopneas, although no evidence of significant obstructive sleep apnea. Sleep architecture was grossly normal and no motor disorder identified.Study results relayed to patient in wybb-[id number] visit. ICSD diagnosis (code) 327.23 Provisional: Final: Obstructive sleep apnea. Recommendations: 1. See separate follow up report for full recommendations. Patient Name Korin Alex Study Date: 12/15/2010 Sex: Female Subject Code: [id number] Date of : 1960 Referring Physician Melanie Abrams M.D. Age: 50 Sleep Specialist: Mily Blackwood M.D. Height: 67.0 Techs: IRAIS /Mili Weight: 155.7 Project: PSG B.M.I: 24.4 Ectopy: None Noted EKG: NSR Sleep Architecture Start Time: Lights Off: 9:01:35 PM End Time: Lights On: 5:31:25 AM Total Recording Time (TRT): 509.8 Total Sleep Period (TSP): 499.6 Total Sleep Time (TST): 447.0 Sleep Efficiency: 87.7% Sleep Onset: 10.2 Total Stage Shifts: 116 WASO: 52.6 Total Awakenings: 20 REM Periods: 3 REM Latency: 177.5 REM Latency (minus Wake time): 165.5 Stage Results Time (min.) % TST Latency (min.) Wake (after sleep onset): 52.6 - - Stage N1: 45.0 10.1% 0.0 Stage N2: 333.5 74.6% 3.0 Stage N3: 18.5 4.1% 21.0 REM: 50.0 11.2% 177.5 Respiratory Events Central Obstructive Mixed Total Apnea Apnea Apnea Apneas RERA Count: 1 0 0 1 3 Index (events/hr.): 0.1 0.0 0.0 0.1 0.4 Mean Duration (sec.): 27.1 N/A N/A 27.1 9.8 Longest Event (sec.): 27.1 N/A N/A 27.1 10.2 REM Count: 1 0 0 1 1 NREM Count: 0 0 0 0 2 REM Index: 1.2 0.0 0.0 1.2 1.2 NREM Index: 0.0 0.0 0.0 0.0 0.3 Respiratory Events (cont) Hypopneas Hypopneas Apneas + OD 4% OD 3%/AR Hypopneas Count: 2 34 37 Index (events/hr.): 0.3 4.6 5.0 Mean Duration (sec.): 23.5 17.4 18.0 Longest Event (sec.): 25.7 31.4 31.4 REM Count: 2 0 3 NREM Count: 0 34 34 REM Index: 2.4 0.0 3.6 NREM Index: 0.0 5.1 5.1 Respiratory Body Position Supine Supine Prone Prone Left Body Position Count Index Count Index Count Duration: 0:50:44 0:00:00 4:00:30 Obstructive Apneas: 0 0.0 N/A N/A 0 Central Apneas: 0 0.0 N/A N/A 1 Mixed Apneas: 0 0.0 N/A N/A 0 Hypopnea OD 4%: 0 0.0 N/A N/A 2 Hypopnea OD 3%: 10 11.8 N/A N/A 18 RERA???s: 0 0.0 N/A N/A 2 Total: 10 11.8 N/A N/A 23 Respiratory Events Events Left Right Right Upright Upright Body Position (cont) Index Count Index Count Index Duration: 2:35:46 0:00:00 Obstructive Apneas: 0.0 0 0.0 N/A N/A Central Apneas: 0.2 0 0.0 N/A N/A Mixed Apneas: 0.0 0 0.0 N/A N/A Hypopnea OD 4%: 0.5 0 0.0 N/A N/A Hypopnea OD 3%: 4.5 6 2.3 N/A N/A RERA???s: 0.5 1 0.4 N/A N/A Total: 5.7 7 2.7 N/A N/A Body Position Supine Prone Left Right Upright Duration (Min): 50.7 0.0 240.5 155.8 0.0 % TST: 11.4% 0.0% 53.8% 34.8% 0.0% Respiratory Arousals Total NREM REM Respiratory Count: 40 36 4 Respiratory Index (events/hr): 5.4 5.4 4.8 Spontaneous Count: 250 240 10 Spontaneous Index (events/hr): 33.6 36.3 12.0 Total Count: 290 276 14 Total Index (events/hr): 38.9 41.7 16.8 Limb Movements LMs w Arousals LMs w/o Arousals Total LMs (by Sleep Stages) Count Index Count Index Count Index Total Sleep: 0 0.0 0 0.0 0 0.0 N1: 0 0.0 0 0.0 0 0.0 N2: 0 0.0 0 0.0 0 0.0 N3: 0 0.0 0 0.0 0 0.0 REM: 0 0.0 0 0.0 0 0.0 Oxygen Desaturation Count Index Total Sleep Time: 5 0.7 Wake (after sleep onset): 1 1.1 Non-REM: 3 0.5 REM: 2 0.5 Total Recording Time: 6 0.7 Oxygen Saturation Wake NREM REM TST TIB Mean SaO2%: 96.3 95.3 97.0 95.5 95.6 Min. SaO2%: 87.0 81.0 92.0 81.0 81.0 Max. SaO2%: 100.0 99.0 100.0 100.0 100.0 SaO2 < 89% (min): 0.0 0.2 0.0 0.2 0.2 SaO2 < 88% (min): 0.0 0.1 0.0 0.1 0.1 % Time of SaO2 in range 90 - 100%: 94.1% 99.9% 100.0% 99.9% 99.2% 80 - 90%: 0.1% 0.1% 0.0% 0.1% 0.1% 70 - 80%: 0.0% 0.0% 0.0% 0.0% 0.0% 60 - 70%: 0.0% 0.0% 0.0% 0.0% 0.0% 50 - 60%: 0.0% 0.0% 0.0% 0.0% 0.0% ? 50%: 0.0% 0.0% 0.0% 0.0% 0.0% % Artifact / Bad Data: 5.8% 0.0% 0.0% 0.0% 0.7% ETCO2 Wake NREM REM TST TIB Mean ETCO2: N/A N/A N/A N/A N/A Min. ETCO2: N/A N/A N/A N/A N/A Max. ETCO2: N/A N/A N/A N/A N/A % Time of ETCO2 in range > 80 (mmHg): 0.0% 0.0% 0.0% 0.0% 0.0% 70 - 80 (mmHg): 0.0% 0.0% 0.0% 0.0% 0.0% 60 - 69 (mmHg): 0.0% 0.0% 0.0% 0.0% 0.0% 55 - 59 (mmHg): 0.0% 0.0% 0.0% 0.0% 0.0% 50 - 54 (mmHg): 0.0% 0.0% 0.0% 0.0% 0.0% 45 - 49 (mmHg): 0.0% 0.0% 0.0% 0.0% 0.0% 40 - 44 (mmHg): 0.0% 0.0% 0.0% 0.0% 0.0% 35 - 39 (mmHg): 0.0% 0.0% 0.0% 0.0% 0.0% 30 - 34 (mmHg): 0.0% 0.0% 0.0% 0.0% 0.0% 20 - 29 (mmHg): 0.0% 0.0% 0.0% 0.0% 0.0% 0 - 20 (mmHg): 0.0% 0.0% 0.0% 0.0% 0.0% % Artifact / Bad Data: 100.0% 100.0% 100.0% 100.0% 100.0% Heart Rate Wake NREM REM TST TIB Mean HR (bpm): 98.9 96.2 90.4 95.6 95.9 Min. HR (bpm): 29.0 75.0 77.0 75.0 29.0 Max. HR (bpm): 119.0 115.0 105.0 115.0 119.0 % Time in range > 100 (bpm): 33.8% 8.8% 0.4% 7.8% 11.0% 90 - 100 (bpm): 54.1% 85.3% 48.6% 81.2% 77.9% 80 - 90 (bpm): 5.9% 5.9% 49.9% 10.8% 10.2% 70 - 80 (bpm): 0.0% 0.1% 1.1% 0.2% 0.2% 60 - 70 (bpm): 0.0% 0.0% 0.0% 0.0% 0.0% 50 - 60 (bpm): 0.0% 0.0% 0.0% 0.0% 0.0% ? 50 (bpm): 0.3% 0.0% 0.0% 0.0% 0.0% % Artifact / Bad Data: 5.7% 0.0% 0.0% 0.0% 0.7% documented in this encounter Plan of Treatment Upcoming Encounters Date Type Specialty Care Team Description 02/06/2023 Hospital Encounter Gastroenterology Cony Tavera MD [facility] GASTROENTEROLOGY DEPT. [place], [place] [address] (Wo rk) Scheduled Procedures Name Priority Associated Diagnoses Date/Time COLONOSCOPY, DIAGNOSTIC 10 yr surv documented as of this encounter Visit Diagnoses Diagnosis Obstructive sleep apnea (adult) (pediatr ic) - Primary documented in this encounter Care Teams Cook Mess Relationship Specialty Start Date End Date Melanie Abrams MD PCP - General 05/12/[address] [facility] [address] [facility] [place], [place] [id number] documented as of this encounter
--- OUTSIDE RECORDS SUMMARY | 2022-02-06 14:14 | XMS_ITS | Encounter Summary ---
:1960 Author Organization [facility] [address] Care Team Providers Name Role Phone Melanie Abrams MD Primary Care Provider Reason for Visit Reason Onset Date Comments Other 01/07/2011 Encounter Details Date Type Department Care Team Description 01/07/2011 Telephone [place] [facility] Isidro APRN Other [facility] Vanessa [facility] [place] [address] NEUROLOGY DEPT. [phone] [place] [id number] (Wo rk) Social History Tobacco Use Types [...] Telephone Encounter - Kimberli Beasley MD - 01/18/2011 4:21 PM EDT Decreased Effexor 01/12 (takes it at night). Noticed a difference on 01/15. Similar to sx she had whenshe tried to decrease Effexor in past, not sure if this is similar to sx she had before meds. Yesterday had a feeling of skin crawling. Increased Effexor last night, today feels better. No SI/HI. ASS: Hard to know how much of sx are withdrawal vs. loss of effective medication. PLAN: Continue Effexor 225 for now. Discuss at next appointment in 3 months. === Message copied by KIMBERLI BEASLEY on TueJan 18, 2011 4:21 PM ------ Message from: LAWANDA MARTINEZ Created: TueJan 18, 2011 9:54 AM Regarding: Phone Message/Questions Contact: Good Morning Dr. Beasley, Pt Korin Posada called. She is having a hard time with the dosage change on her Effexor; she states she is experiencing mood swings, crying, anger and a lot of anxiety. She believes these to be sideeffects of the medication change and can be reached at [phone]. She would greatly appreciate a call. Thanks, Lawanda Telephone Encounter - Kendy Marcos - 01/07/2011 4:17 PM EDT Need appointment with JAB in 1 month documented in this encounter Plan of Treatment Upcoming Encounters Date Type Specialty Care Team Description 02/06/2023 Hospital Encounter Gastroenterology Cony Tavera MD [facility] DR GASTROENTEROLOGY DEPT. [place], [place] [address] (Wo rk) Scheduled Procedures Name Priority Associated Diagnoses Date/Time COLONOSCOPY, DIAGNOSTIC 10 yr surv documented as of this encounter Visit Diagnoses Not on filedocumented in this encounter Care Teams Application Software Developer Relationship Specialty Start Date End Date Melanie Abrams MD PCP - General 05/12/[address] [facility] [address] [place] [address] documented as of this encounter
--- OUTSIDE RECORDS SUMMARY | 2022-02-06 14:14 | XMS_ITS | Encounter Summary ---
:1960 Author Organization [facility] [address] Care Team Providers Name Role Phone Melanie Abrams MD Primary Care Provider Reason for Visit Reason Comments Skin Check Dizziness Follow-up thyroid medication Encounter Details Date Type Department Care Team Description 02/04/2011 Follow-Up Family Medicine at Melanie Peter, Hypothyroidism; Yasmine NESBITT HTN (hypertension); [facility] [place] [address] [facility] [place] [address] (Wo rk) Social History Tobacco Use Types [...] Sign Reading Time Taken Comments Blood Pressure 108/70 02/04/2011 10:50 AM EDT Pulse 74 02/04/2011 10:50 AM EDT Temperature - - Respiratory Rate 16 02/04/2011 10:50 AM EDT Oxygen Saturation - - Inhaled Oxygen Concentration - - Weight 71.2 kg (157 lb) 02/04/2011 10:50 AM EDT Height 170.2 cm (5' 7) 02/04/2011 10:50 AM EDT Body Mass Index 24.59 02/04/2011 10:50 AM EDT documented in this encounter Patient Instructions Patient InstructionsMelanie Abrams MD - 02/04/2011 11:38 AM EDT Blood pressure goal is <130/ <85. OK to stop lisinopril as an experiment to see if dizziness resolves. documented in this encounter Progress Notes Melanie Abrams MD - 02/04/2011 1:56 PM EDT Chief Complaint: The patient presents for two primary complaints. History of Present Illness: The first is that of fatigue. She has been fatigued for quite some time. Investigation so far has involved referral to the [facility], which has not come up with much in the way of sleep apnea. She takes trazodone. She also has been evaluated and continues to be under the care of Dr. Mccarthy in Psychiatry. A number of months ago, we identified her as having hypothyroidism. Unfortunately, she does not feel significantly better with treatment for that. She wishes to review that all in detail. Her other complaint is that of intermittent dizziness. This happens when she stands up from a seated position or stands from a squat. She has noticed it on occasion with looking up for prolonged periods of time. Physical Examination: Appears well. Vitals as per chart include a fairly low blood pressure. Skin is examined at her request and shows solar lentigos and a couple of seborrheic keratoses. No further examination. Assessment and Plan: 1. Fatigue. This was discussed in some detail. She is on an appropriate dose of Synthroid and her numbers were reviewed with her in detail. However, this has not improved her symptoms. Her symptoms therefore are likely multifactorial. We have investigated this in a number of ways. The other thing she could consider doing is trying to add more exercise. Follow up otherwise p.r.n. 2. Hypertension. Blood pressure is better controlled than it needs to be and that may be the origin for her dizziness, which sounds to be orthostatic in nature. We decided to hold her lisinopril and have the school nurse take some blood pressures. We may need to restart it at 5 mg. This is unlikely to be the cause of her fatigue, however. Plan follow up otherwise p.r.n. documented in this encounter Plan of Treatment Upcoming Encounters Date Type Specialty Care Team Description 02/06/2023 Hospital Encounter Gastroenterology Cony Tavera MD [facility] GASTROENTEROLOGY DEPT. [place], [place] [address] (Wo rk) Scheduled Procedures Name Priority Associated Diagnoses Date/Time COLONOSCOPY, DIAGNOSTIC 10 yr surv documented as of this encounter Visit Diagnoses Diagnosis Hypothyroidism Unspecified hypothyroidism HTN (hypertension) Unspecified essential hypertension Fatigue Other malaise and fatigue documented in this encounter Care Teams Sterile Processing Technician Relationship Specialty Start Date End Date Melanie Abrams MD PCP - General 05/12/[address] [facility] [address] [facility] [place] [address] documented as of this encounter
--- OUTSIDE RECORDS SUMMARY | 2022-02-06 14:14 | XMS_ITS | Encounter Summary ---
:1960 Author Organization [facility] [place] [address] Care Team Providers Name Role Phone Melanie Abrams MD Primary Care Provider Encounter Details Date Type Department Care Team Description 04/08/2010 Orders Only Lab [facility] Danii Mendoza [facility] Vanessa begum [place] [address] [place] [address] [phone] (Wo rk) Social History Tobacco Use Types [...] Encounter Gastroenterology Cony Tavera MD [facility] GASTROENTEROLOGY DEPT. [place], [place] [address] (Wo rk) Scheduled Procedures Name Priority Associated Diagnoses Date/Time COLONOSCOPY, DIAGNOSTIC 10 yr surv documented as of this encounter Procedures Procedure Name Priority Date/Time Associated Comments Diagnosis COMPREHENSIVE Routine 04/08/2010 9:23 AM Results for this METABOLIC PANEL EDT procedure ar e in (NON-FASTING) the results section. documented in this encounter Results COMPREHENSIVE METABOLIC PANEL (NON-FASTING) (04/08/2010 9:23 AM EDT) P athologist Signature Glucose Lvl 69 <=199 mg/dL CERNER MILLENNIUM Comment: Diabetes: >=200 mg/dL plus symp toms BUN 10 8 - 18 mg/dL CERNER MILLENNIUM Creatinine 0.91 0.70 - 1.20 mg/dL CERNER MILL ENNIUM Sodium 139 135 - 145 mmol/L CERNER BERLIN NIUM Potassium 4.4 3.5 - 5.0 mmol/L CERNER [place] NIUM Comment: Please note: ??Patients with WBC >100,00 0 may have falsely elevated Potassium levels. ??For accurate Potassium quantif ication in these patients send serum separator tube (gold top) for subsequent determinations. ??Contact the Clinical Chemistry Laboratory if there are any qu estions. Chloride 104 98 - 107 mmol/L CERNER MILLENN IUM CO2 27 22 - 31 mmol/L CERNER MILLENNI UM Anion Gap 8 5 - 15 mmol/L CERNER MILLENNIU M Calcium 9.4 8.5 - 10.5 mg/dL CERNER [place]ER[place] NIUM Total Protein 7.0 6.4 - 8.3 gm/dL CERNER MIL LENNIUM Albumin 4.3 3.2 - 5.2 gm/dL CERNER MILLENN IUM AST 19 0 - 30 unit/L CERNER MILLENNIU M ALT 25 0 - 30 unit/L CERNER MILLENNIU M Alk Phos 57 40 - 104 unit/L CERNER MILLENN IUM Total Bilirubin 0.2 0.2 - 1.3 mg/dL CERNER M ILLENNIUM Bili, Direct <0.1 0.0 - 0.3 mg/dL CERNER MILL ENNIUM Estimated GFR >60 >=60 CERNER MILLENNIU M Comment: The National Kidney Disease Education Pr ogram (NKDEP) has recommended all laboratories report estimated GFR (eGFR) along with plasma creatinine measurements to assist you with recognit ion of early kidney disease. Caveats: ??Plasma creatinine should be a t steady-state (unchanged within the past week). ??Patient age > = 18 years, and for Americans multiply eGFR by 1.2. At present, NKDEP does NOT recommend usi [...] kidney disease. References: http://nkdep.nih.gov/resources/NKDEP_Sug gestn4Labs_0606_508.pdf http://www.kidney.org/professionals/kls/ pdf/faq_gfr.pdf Specimen Anatomical Collection Method Collection Time Receive d Time (Source) Location / / Volume Laterality Blood specimen 04/08/2010 9:23 AM 010 9:31 (specimen) EDT AM EDT Danii Isidro DESULFURIZER HAND CHEMISTRY ORDERABLES Performing Organization Address City/State/[place] [address] [facility] documented in this encounter Visit Diagnoses Not on filedocumented in this encounter Care Teams Technical Report Writer Relationship Specialty Start Date End Date Melanie Abrams MD PCP - General 05/12/[address] [facility] [address] [place] [place] [address] documented as of this encounter
--- OUTSIDE RECORDS SUMMARY | 2022-02-06 14:14 | XMS_ITS | Encounter Summary ---
:1960 Author Organization [facility] [place] [address] Care Team Providers Name Role Phone Melanie Abrams MD Primary Care Provider Encounter Details Date Type Department Care Team Description 04/09/2010 Orders Only Lab [facility] Robbin Mccarthy MD [facility] Vanessa begum [place] [address] [place] [address] [phone] (Wo rk) Social History Tobacco Use Types [...] Encounter Gastroenterology Cony Tavera MD [facility] GASTROENTEROLOGY DEPT. [place], [place] [address] (Wo rk) Scheduled Procedures Name Priority Associated Diagnoses Date/Time COLONOSCOPY, DIAGNOSTIC 10 yr surv documented as of this encounter Procedures Procedure Name Priority Date/Time Associated Diagnosis Comme nts VITAMIN D, Routine 04/09/2010 10:18 AM Results for this 25-HYDROXY EDT procedure are i n the results section. documented in this encounter Results VITAMIN D 25 HYDROXY (04/09/2010 10:18 AM EDT) athologist Signature 25-Hydroxy D2 6.5 ng/mL CERNER Jet Set GamesENNIUM Comment: Test Performed by: [email or web address] [address] Product Safety Specialist: Ashanti Juan, Ph. D. 25-Hydroxy D3 48 ng/mL MIKE Jet Set GamesROSEMARY Comment: Test Performed by: [email or web address] [address] Product Safety Specialist: Ashanti Juan, Ph. D. 25-OH Vit D Total 55 ng/mL [facility] [employer] GamesIman NNIUM Comment: -- REFERENCE VALUE -- 25-HYDROXY D TOTAL (D2+D3) Optimum levels in the normal population are 25-80 Test Performed by: [email or web address] [address] [address] Product Safety Specialist: Ashanti Juan, Ph. D. Specimen Anatomical Collection Method Collection Time Receive d Time (Source) Location / / Volume Laterality Blood specimen 04/09/2010 10:18 0 (specimen) AM EDT 12:21 PM EDT Robbin Mccarthy MD CHEMISTRY ORDERABLES Performing Organization Address City/State/[place] [address] [facility] documented in this encounter Visit Diagnoses Not on filedocumented in this encounter Care Teams Loss Prevention Leader Relationship Specialty Start Date End Date Melanie Abrams MD PCP - General 05/12/[address] [facility] [address] [place] [place] [address] documented as of this encounter
--- OUTSIDE RECORDS SUMMARY | 2022-02-06 14:14 | XMS_ITS | Encounter Summary ---
:1960 Author Organization [facility] [place] [address] Care Team Providers Name Role Phone Melanie Abrams MD Primary Care Provider Reason for Visit Reason Comments Depression Encounter Details Date Type Department Care Team Description 10/08/2010 Office Visit Psychiatry and Robbin Mccarthy MD Major depressive Behavioral Health at [facility] robin diallo [facility] [address] episode, unspecified [facility] PSYCHIATRY DE PT. (Primary Dx) [place] [address] [place], [place] [phone] (Work) [phone] Social History Tobacco Use Types Packs/Day Years [...] encounter Progress Notes Robbin Mccarthy MD - 10/08/2010 11:45 AM EDT Pharmacologic Management Office Visit (CPT 36212/JOHN 2009) (* = required item) *Length of Service: 30 minutes *Interval Hx (including sx): Found to be hypothyroid, started on thyroid about 3 months ago. Hasn't noticed any difference. Fatigue possibly worse than last appointment, not sure just when. Her biggest concern. Depression and anxiety have been OK. Now both tiredness and sleepiness. Got 8-9 hours of sleep last night, still sleepy now. No snoring that she knows of. A very quiet sleeper. Vitamin D level normal. Has had vertigo for 3 months. On meclizine trial. *Pertinent Med SE: none. Psychotherapeutic Interventions (if any): *MSE: Appearance/Behavior: Casually dressed middle-aged WF sitting quietly in chair. Mood/Affect: Well-toned, somewhat quiet. Thoughts (including *Suicidal/Homicidal Thoughts/Plans): No SI/HI. Other Pertinent Exam: *A (including Diagnosis): 50 y.o. female with MDD-R, PTSD, fatigue, social anxiety. P: *1) Medication Change(s) (Current meds continued if no med changes listed): 2) We discussed referral to Sleep Lab. If nothing pans out, could consider stimulant trial. Follow-Up Appt: TBA -- pt. will call after sleep eval *Coordination of Care: Pt. prefers no notes to Melanie Abrams MD (PCP) (aware she can read themin eD-H) (pt. understands that this will continue until/less s/he requests otherwise) documented in this encounter Plan of Treatment Upcoming Encounters Date Type Specialty Care Team Description 02/06/2023 Hospital Encounter Gastroenterology Cony Tavera MD [facility] DR GASTROENTEROLOGY DEPT. [place], [place] [address] (Wo rk) Scheduled Procedures Name Priority Associated Diagnoses Date/Time COLONOSCOPY, DIAGNOSTIC 10 yr surv documented as of this encounter Visit Diagnoses Diagnosis Major depressive disorder, recurrent epi sode, unspecified - Primary documented in this encounter Care Teams Counseling Services Director Relationship Specialty Start Date End Date Melanie Abrams MD PCP - General 05/12/[address] [facility] [address] [facility] [place] [address] documented as of this encounter
--- OUTSIDE RECORDS SUMMARY | 2022-02-06 14:14 | XMS_ITS | Encounter Summary ---
:1960 Author Organization [facility] [place] [address] Care Team Providers Name Role Phone Melanie Abrams MD Primary Care Provider Reason for Visit Reason Comments Headache Encounter Details Date Type Department Care Team Description 10/20/2010 Follow-Up Neurology at [facility] Danii Isidro, Migraine without aura; [facility] [employer] Vertigo; [facility] [place] [phone] NEUR[address]PT. [place] [address] Social History Tobacco Use Types Packs/Day Years [...] Sign Reading Time Taken Comments Blood Pressure 117/74 10/20/2010 2:29 PM EDT Pulse 87 10/20/2010 2:29 PM EDT Temperature - - Respiratory Rate - - Oxygen Saturation - - Inhaled Oxygen Concentration - - Weight - - Height - - Body Mass Index - - documented in this encounter Progress Notes Danii Isidro APRN - 10/20/2010 2:46 PM EDT CC: Vertigo, New visual change, Migraine without aura S: Patient continues to have vertigo daily. It occurs with walking or standing. No vision changes. No nausea. Patient has had some milder headaches. She is having these 2-3 days per week. ROS: Non contrib. Optho. Recently is said to be WNL. Sleep- (sleep study may be ordered); fragmented sleep (nocturia 2-3 times per night) falls immediately back to sleep. Mood- Stable, anxious with work Energy- poor, fatigued. O: Patient appears well, fatigued.... A: Vertigo Migraine without aura Vision change- one time (seems to be aura) P: 1. Consider Referral to ENT 2. Consider: Zofran, Cyproheptadine, Increasing Zonegran (pt. Prefers to avoid drowsiness meds), Klonopin. 3. Patient will call for MRI of brain and MRA results tomorrow. 4. Patient will try taking Meclizine 25mg qhs and will call with effect, prefers avoiding new meds and not increasing Zonegran. 5. Follow up in 1 month, sooner prn if sx increase or new sx. Total time- 25 min. F to F counseling- 15 min. Discussed therapeutic options. documented in this encounter Plan of Treatment Upcoming Encounters Date Type Specialty Care Team Description 02/06/2023 Hospital Encounter Gastroenterology Cony Tavera MD [facility] DR GASTROENTEROLOGY DEPT. [place], [place] [address] (Wo rk) Scheduled Procedures Name Priority Associated Diagnoses Date/Time COLONOSCOPY, DIAGNOSTIC 10 yr surv documented as of this encounter Procedures Procedure Name Priority Date/Time Associated Diagnosis Comme nts HEPATIC FUNCTION Routine 10/20/2010 3:34 PM Migraine wit hout aura Results for this PANEL EDT Vertigo procedure are in Vision abnormalities the res ults section. documented in this encounter Results (ABNORMAL) Hepatic function panel (10/20/2010 3:34 PM EDT) P athologist Signature Total Protein 7.1 6.4 - 8.3 CERNER gm/dL [place] Albumin 4.2 3.2 - 5.2 CERNER gm/dL [place] AST 27 0 - 30 [facility]ER unit/L [place] ALT 53 (H) 0 - 30 CERNER unit/L [place] Alk Phos 77 40 - 104 C[facility]ER unit/L [place] Total 0.1 (L) 0.2 - 1.3 C[facility]ER Bilirubin mg/dL [place] Bili, Direct 0.1 0.0 - 0.3 CERNER mg/dL [facility] Specimen Anatomical Collection Method Collection Time Receive d Time (Source) Location / / Volume Laterality Blood specimen 10/20/2010 3:34 PM 011 3:38 (specimen) EDT PM EDT Ramírez Lagos MD CHEMISTRY ORDERABLES Performing Organization Address City/State/ZIP Code [place] [address] [place] documented in this encounter Visit Diagnoses Diagnosis Migraine without aura Migraine without aura, without mention o f intractable migraine without mention of status migrainosus Vertigo Dizziness and giddiness Vision abnormalities Unspecified visual disturbance documented in this encounter Care Teams Mexican Food Cook Relationship Specialty Start Date End Date Melanie Abrams MD PCP - General 05/12/[address] [facility] [address] [facility] [place] [address] documented as of this encounter
== END 2022-02-06 14:04 | disposition home or self-care (01) ==
LOC: LBN 14:03
PROVIDERS: PCP Family Medicine; Visit Provider Physician Assistant Medical
DX: R35.0 Frequency of micturition (principal)
CPT/HCPCS: 87077; 87086; 87186

== ENCOUNTER 2022-06-10 20:18 | Emergency (ER) | payer BC, SELFPAY ==
[2022-06-10] VITALS (10 sets, daily range): BP systolic 71–132; BP diastolic 50–113; PULSE 71–110; RESP 20–34; O2SAT 95
--- NOTE | 2022-06-10 20:15 | DI.CT_ITS ---
Exam(s) CT HEAD CERVICAL SPINE WO EXAM: CT HEAD CERVICAL SPINE WO CLINICAL HISTORY: Trauma, left-sided pain. TECHNIQUE: Imaging Protocol: Axial computed tomography images with coronal and sagittal reformatted images were created and reviewed COMPARISON: No exams were available for comparison FINDINGS: CT Head: Ventricles and Extra axial spaces: Normal in size and morphology for the patient's age. Hemorrhage: None. Cerebral parenchyma: No acute territorial infarct. Midline shift: None. Brainstem/Cerebellum: Normal. Calvarium: Normal. Visualized Paranasal sinuses/Mastoids: Clear. Soft Tissues: Unremarkable. CT Cervical Spine: Bones: No acute fracture or subluxation. There are mild degenerative changes in the cervical spine. 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 Soft Tissues: Unremarkable. Lung Apices: Clear. IMPRESSION: 1. No acute intracranial process. 2. No acute fracture or subluxation in the cervical spine. RADIATION DOSE DELIVERED: 1,356.77mGy.cm Total DLP DATA REPOSITORY: All CT scans at this facility are submitted to the National Radiology Data Registry (NRDR) Dose Index Registry (DIR) with the [employer] (ACR). RADIATION OPTIMIZATION: All CT scans at this facility use at least one of these dose optimization te chniques: automated exposure control; mA and/or kV adjustment per patient size (includes targeted exa ms where dose is matched to clinical indication); or iterative reconstruction.
--- NOTE | 2022-06-10 20:28 | DI.CT_ITS ---
Exam(s) CT CHEST/ABD/PEL W CT THORACIC LUMBAR SPINE REC EXAM: CT CHEST/ABD/PEL W and CT thoracic and lumbar spine recons CLINICAL HISTORY: Fall, trauma, left-sided pain ribs and abdomen TECHNIQUE: Imaging Protocol: Axial computed tomography images with coronal and sagittal reformatted images were created and reviewed CONTRAST MATERIAL: Intravenous: Omnipaque 350 contrast volume:100 mL Oral: No COMPARISON: CT CT CHEST/ABD/PEL W from 03/24/2020 FINDINGS: CHEST: Tracheobronchial tree: Patent where visualized. There does appear to be bronchiectatic changes in the left lower lobe medially. Pulmonary parenchyma: There are bilateral basilar opacities in the lower lobes. There also infiltrat e seen in the right middle and left lingula. No architectural distortion. Visualized thyroid gland: Unremarkable. Mediastinum and Deborah: No dominant adenopathy or fluid collection. The esophagus is unremarkable. The re is a moderate size paraesophageal hernia. Pleura: No effusion or pneumothorax. Heart: The heart is not dilated. No coronary artery calcifications are seen. No pericardial effusion. Pulmonary arteries: The segmental and subsegmental pulmonary arteries are inadequately opacified for evaluation of pulmonary emboli. No large central pulmonary embolus is identified. Aorta: Thoracic aorta non-dilated. Mild atherosclerosis. No thoracic dissection. Lymph nodes: Within normal limits. Soft tissues: Unremarkable. Bones:There are acute fractures of the anterolateral aspects of the left 7th, 8th and 9th ribs. Ther e is mild displacement of the 7th and 8th ribs. Thoracic spine CT recons: There are mild degenerative changes seen in the thoracic spine. No acute f ractures or subluxations are present. ABDOMEN: Liver: There is fatty infiltration of the liver. No measurable mass. Portal, Superior Mesenteric, and Splenic Veins: Unremarkable. Gallbladder and Biliary Tract: Status post cholecystectomy. There is pneumobilia. This was present on the prior examination. Pancreas: Normal density, no abnormal calcifications or inflammatory process. Spleen: Normal. Adrenals: No masses seen. Kidneys: Normal size, contour and axis. No radiodense stones or obstructive uropathy. There are tiny hypodensities seen in both kidneys. They are too small for further characterization but likely refle ct small cysts. Abdominal Aorta: Abdominal portion non-dilated. Mild atherosclerosis. Bowel: No obstruction or bowel wall thickening. No evidence of appendicitis. There is a large amount of stool in the colon. Peritoneal Cavity: No ascites, collection or mesenteric inflammatory response. No free air. Lymph Nodes: Within normal limits. Bones: Within normal limits for the patient's age. Soft Tissues: There is mild edema in the soft tissues adjacent to the left thigh. No focal fluid col lection or radiopaque foreign body is identified. Lumbar spine CT recons: There is unilateral left spondylolysis at L5 but no spondylolisthesis. No ac leonel fracture or subluxation is seen. There is mild degenerative change seen in the lumbar spine. PELVIS: Bladder: Symmetric distention, no gross wall thickening. Reproductive Organs: Unremarkable as visualized. Lymph Nodes: Within normal limits. Bones: Within normal limits. IMPRESSION: 1. No acute fracture or subluxation in the thoracic or lumbar spine. 2. Acute fractures involving the anterolateral aspects of the left 7th, 8th and 9th ribs. The left 7 th and 8th ribs are mildly displaced. No pneumothorax or pleural effusion. 3. Bilateral basilar infiltrates which may represent atelectasis or pneumonia. Please correlate clin ically. 4. No acute abdominal or pelvic organ injury. RADIATION DOSE DELIVERED: 1209.24 mGy.cm Total DLP DATA REPOSITORY: All CT scans at this facility are submitted to the National Radiology Data Registry (NRDR) Dose Index Registry (DIR) with the [employer] (ACR). RADIATION OPTIMIZATION: All CT scans at this facility use at least one of these dose optimization te chniques: automated exposure control; mA and/or kV adjustment per patient size (includes targeted exa ms where dose is matched to clinical indication); or iterative reconstruction.
--- NOTE | 2022-06-10 20:31 | ED.GENADUL_ITS ---
Discharge Plan Disposition Patient Disposition: Home Condition: Improving Discharge Details Clinical Impression: Rib fracture Primary Care Provider: Melanie Abrams ED Provider: Elbert Murray Home Meds and New Rx's Prescriptions: New hydromorphone [Dilaudid] 2 mg tablet 2 mg PO Q6H PRN (Reason: pain) Qty: 7 0RF Continued venlafaxine 75 MG tablet 150 mg PO QAM trazodone 100 MG tablet 75 mg PO HS levothyroxine [Synthroid] 50 MCG tablet 50 mcg PO DAILY polyethylene glycol 3350 [Miralax] 17 gram/dose Powder 17 g PO DAILY PRN lidocaine 5 % adhesive patch,medicated 1 patch topical DAILY Qty: 15 0RF Rx Instructions: leave on most painful area for up to 12 hrs ibuprofen 600 mg tablet 600 mg PO Q8H PRNQty: 15 0RF vitamin B complex 1 EACH capsule 1 ea PO DAILY Discharge Instructions Instructions: Rib Fracture (ED) Additional Instructions: Home to rest. Incentive spirometer every 1-2 hours while awake. Tylenol and ibuprofen as needed for pain. Dilaudid as needed for severe or breakthrough pain. Return for any acute concern. Medical Decision Making 61-year-old female fell off her horse to her left side on Tuesday. She was diagnosed with fractured ribs by x-ray at an outlying institution. He has had increasing pain since that time and now presents for evaluation. Patient has a borderline high pulse of 90-100. She is tender along the left thorax. She also has evidence of trauma to the left mandible. Patient IV access established, given parenteral analgesia and referred for imaging study. CT head and cervical spine: No intracranial process or acute fracture. CT chest/abdomen/pelvis: Fractures of the left seventh rib fracture present, bibasilar atelectasis, otherwise unremarkable. CT thoracic and lumbar spine: No acute finding Patient counseled on use of incentive spirometer. She is consented for the use of narcotic for severe breakthrough pain. She is stable and improving, appropriate for discharge to home. HPI General Mode of arrival: EMS . Date/Time Provider Initiated Documentation: 06/10/22 20:18 . Limitations to Documentation: no limitations . Information obtained by: patient and EMS . History of Present Illness 61 year old F presents to the emergency department with the chief complaint of Left- sided pain after fall off horse, described as moderate, Quality is described as dull and constant, and is localized to the chest. Patient abdomen. Patient started experiencing this day(s) and it has been constant. Rest improves symptom(s), Movement worsens symptoms . Patient notes denies shortness of breath. Patient did receive the following treatments prior to arrival, none Related Data Home Medications Medication Instructions Recorded Confirmed levothyroxine 50 mcg tablet 50 mcg PO DAILY 08/17/14 06/10/22 (Synthroid) trazodone 100 mg tablet 75 mg PO HS 08/17/14 06/10/22 venlafaxine 75 mg tablet 150 mg PO QAM 08/17/14 06/10/22 vitamin B complex 1 ea PO DAILY 12/04/16 06/10/22 ibuprofen 600 mg tablet 600 mg PO Q8H PRN #15 tabs 03/24/20 06/10/22 lidocaine 5 % topical patch 1 patch topical DAILY #15 ea 03/24/20 06/10/22 polyethylene glycol 3350 17 17 g PO DAILY PRN 03/24/20 06/10/22 gram/dose oral powder (Miralax) hydromorphone 2 mg tablet 2 mg PO Q6H PRN pain #7 tabs 06/10/22 (Dilaudid) Previous Rx's Medication Instructions Recorded ibuprofen 600 mg tablet 600 mg PO Q8H PRN #15 tabs 03/24/20 lidocaine 5 % topical patch 1 patch topical DAILY #15 ea 03/24/20 hydromorphone 2 mg tablet 2 mg PO Q6H PRN pain #7 tabs 06/10/22 (Dilaudid) Allergies Allergy/AdvReac Type Severity Reaction Status Date / Time Penicillins Allergy Intermediate Skin Rash Unverified 03/24/20 06:02 anesthesia-general AdvReac hard to Uncoded 03/24/20 06:02 wake up General Stated Complaint: Chest/Rib TREVA: 3 Review of Systems Narrative: No weakness or numbness of the upper extremity. Denies neck pain to me. Some left-sided jaw pain. 8 systems reviewed and otherwise negative PFSH All Active Problems (Updated 06/10/22 @ 22:13 by Elbert Murray MD) Rib fracture (Acute) Migraine (Chronic) Hypothyroid (Chronic) GERD (gastroesophageal reflux disease) (Chronic) Medical History GERD (gastroesophageal reflux disease) Hypothyroid Migraine Surgical History S/P cholecystectomy S/P hysterectomy Social History Smoking/Tobacco Use Status: Never Smoking risk assessment performed?: Yes Drug use: Never Substance use type: does not use Do you feel safe at home: Yes Do you feel safe in your relationship?: Yes Exam Narrative Exam Narrative: GEN: awake, alert, oriented 3. Pleasant, well groomed, interactive. HEAD: Normocephalic, atraumatic ENT: Mucous membranes moist, oropharynx unremarkable, left mandible abrasion and tenderness, no loose teeth, external ear exam unremarkable EYES: PERRL, EOMI NECK: Full ROM, no midline tenderness, step-off or deformity CHEST/RESP: Left-sided chest wall tenderness, clear to auscultation bilateral, no wheeze/rhonchi/rales CARDIOVASCULAR: RRR, no murmur, rub j luis. 2+ Rad pulse bilateral ABDOMEN: Soft, left upper quadrant tenderness without rebound or guarding, no mass. +Bowel sounds Back: No midline tenderness, step-off or deformity EXT: Full ROM, no edema, no rash Neuro: Grossly normal neurologic exam, conversant, interactive. Psych: Speech fluent, thoughts congruent, affect normal Course Vital Signs Vital signs: Vital Signs Pulse 100 H 06/10/22 20:18 Respiratory Rate 22 06/10/22 20:18 Blood Pressure 132/113 H 06/10/22 20:18 Pulse Oximetry 95 06/10/22 20:18 Temperature Source Temporal Artery Scan 06/10/22 20:18 Pulse 100 H 06/10/22 20:18 Respiratory Rate 22 06/10/22 20:18 Blood Pressure 132/113 H 06/10/22 20:18 Blood Pressure Position Sitting 06/10/22 20:18 Pulse Oximetry 95 06/10/22 20:18 Oxygen Delivery Method Room Air 06/10/22 20:18 Oxygen Flow Rate 0 06/10/22 20:18 Pain Level 10 06/10/22 20:18
[2022-06-10] MEDS: ACETAMINOPHEN 1,000 MG/100 ML BTL 400 MG IVPB (20:45)
[2022-06-10 20:48] LABS: Abs Immature Grans 0.02 10^3/uL (0.0-0.06); Absolute Basophil Count 0.03 10^3/uL (0.0-0.2); Absolute Eosinophil Count 0.22 10^3/uL (0.0-0.7); Absolute Lymphocyte Count 1.12 10^3/uL (1.2-3.4); Absolute Monocyte Count 0.54 10^3/uL (0.1-0.8); Absolute Neutrophil Count 4.56 10^3/uL (1.2-6.7); Basophils % 0.5; Eosinophils % 3.4; HCT 46.7 % (36.0-46.0); HGB 15.1 g/dL (11.2-15.7); Immature Grans % 0.3; Lymphocytes % 17.3; MCH 29.3 pg (27.0-33.0); MCHC 32.3 % (32.0-36.0); MCV 91 fL (80-95); Monocytes % 8.3; Neutrophils % 70.2; Platelet Count 226 10^3/uL (130-400); RBC 5.16 10^6/uL (3.93-5.22); RDW 13.2 % (11.7-14.6); RDW-SD 43.8 fL; WBC 6.49 10^3/uL (4.4-10.8)
[2022-06-10] MEDS: HYDROmorphone 2 MG/ML SYR 0.5 MG IVP (21:10)
[2022-06-10 21:15] LABS: ALT 54 U/L (14-59); AST 30 U/L (15-37); Albumin 4.2 g/dL (3.4-5.0); Alkaline Phosphatase 124 U/L (46-116); Anion Gap 8.5 mmol/L (3-11); BUN 14 mg/dL (7-18); Bilirubin, Total 0.3 mg/dL (0.2-1.0); CO2 27.5 mmol/L (21.0-32.0); CREATININE 0.9 mg/dL (0.55-1.02); Calcium 9.6 mg/dL (8.5-10.1); Chloride 101 mmol/L (98-107); Estimated GFR 73.64 (mL/min/1.73m2); Glucose 136 mg/dL (74-106); Potassium 3.6 mmol/L (3.5-5.1); Sodium 137 mmol/L (136-145); Total Protein 8.1 g/dL (6.4-8.2)
[2022-06-10 21:18] LABS: INR 0.9 (0.9-1.1); PTT Activated 24.3 sec (21.0-27.5); Prothrombin Time 9.5 sec (9.3-11.0)
[2022-06-10] MEDS: Omnipaque 350 MG/ML 100 ML BTL IJ (21:38)
[2022-06-10] MEDS: Normal Saline - Diluent 50 ML VIAL IV (21:38)
--- NOTE | 2022-06-10 21:44 | DI.VRAD_ITS ---
PROCEDURE INFORMATION: Exam: CT Head Without Contrast Exam date and time: 06/10/2022 9:23 PM Age: 61 years old Clinical indication: Injury or trauma; Other: Fall from horse; Blunt trauma (contusions or hematomas) TECHNIQUE: Imaging protocol: Computed tomography of the head without contrast. COMPARISON: No relevant prior studies available. FINDINGS: Brain: Cerebral sulci show bilateral symmetry with no supratentorial mass or mass effect detected. Brainstem and cerebellum are unremarkable. There is no evidence of acute intracranial hemorrhage. Cerebral ventricles: Ventricular and cisternal spaces are normal in size and configuration and there is no midline shift or hydrocephalus seen. Paranasal sinuses: Grossly clear throughout. Mastoid air cells: Grossly clear bilaterally. Bones/joints: Bony calvarium and skull base are intact and no acute fractures are detected. Soft tissues: Unremarkable. IMPRESSION: Unremarkable noncontrast head CT with no evidence of recent intracranial hemorrhage or other acute intracranial process. PROCEDURE INFORMATION: Exam: CT Cervical Spine Without Contrast Exam date and time: 06/10/2022 9:23 PM Age: 61 years old Clinical indication: Injury or trauma; Other: Fall from horse; Blunt trauma (contusions or hematomas) TECHNIQUE: Imaging protocol: Computed tomography of the cervical spine without contrast. COMPARISON: CT CHEST/ABD/PEL W 03/24/2020 6:32 AM FINDINGS: Bones/joints: Craniocervical and atlantoaxial articulations are preserved and the odontoid process appears intact. 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 Vertebral body height is grossly preserved throughout cervical levels with no acute fractures or dislocations detected. Posterior elements appear grossly intact throughout cervical levels. Lungs: No pneumothorax or consolidation detected at the lung apices. Soft tissues: Unremarkable. IMPRESSION: No acute cervical fracture detected. Dictated and Authenticated by: Yash Currie MD. Ordering:TAMIA Boswell MD
--- NOTE | 2022-06-10 22:01 | DI.VRAD_ITS ---
PROCEDURE INFORMATION: Exam: CT Chest With Contrast; Diagnostic Exam date and time: 06/10/2022 9:29 PM Age: 61 years old Clinical indication: Injury or trauma; Fall and other: Fall, trauma, left-sided pain ribs and abdomen; Generalized; Blunt trauma (contusions or hematomas); Prior surgery; Surgery date: 6+ months; Surgery type: Hysterectomy, lap agata TECHNIQUE: Imaging protocol: Diagnostic computed tomography of the chest with contrast. Radiation optimization: All CT scans at this facility use at least one of these dose optimization techniques: automated exposure control; mA and/or kV adjustment per patient size (includes targeted exams where dose is matched to clinical indication); or iterative reconstruction. Contrast material: OMNI 350; Contrast volume: 100 ml; Contrast route: INTRAVENOUS (IV); COMPARISON: CT CHEST/ABD/PEL W 03/24/2020 6:32 AM FINDINGS: Lungs: There is coarse bibasilar atelectasis, left worse than right. Pleural spaces: Unremarkable. No pneumothorax. No pleural effusion. Heart: Unremarkable. No cardiomegaly. No pericardial effusion. Lymph nodes: Unremarkable. No enlarged lymph nodes. Vasculature: Unremarkable. No aortic aneurysm. Stomach and bowel: There appears to be a paraesophageal hernia, new since prior study. Bones/joints: There is a fracture of the left 7th rib. No additional fractures seen. Soft tissues: Unremarkable. IMPRESSION: 1. Left 7th rib fracture. 2. Concern for paraesophageal hernia. PROCEDURE INFORMATION: Exam: CT Abdomen And Pelvis With Contrast Exam date and time: 06/10/2022 9:29 PM Age: 61 years old Clinical indication: Injury or trauma; Fall and other: Fall, trauma, left-sided pain ribs and abdomen; Generalized; Blunt trauma (contusions or hematomas); Prior surgery; Surgery date: 6+ months; Surgery type: Hysterectomy, lap agata TECHNIQUE: Imaging protocol: Computed tomography of the abdomen and pelvis with contrast. Radiation optimization: All CT scans at this facility use at least one of these dose optimization techniques: automated exposure control; mA and/or kV adjustment per patient size (includes targeted exams where dose is matched to clinical indication); or iterative reconstruction. Contrast material: OMNI 350; Contrast volume: 100 ml; Contrast route: INTRAVENOUS (IV); COMPARISON: CT CHEST/ABD/PEL W 03/24/2020 6:32 AM FINDINGS: Liver: Normal. No mass. Gallbladder and bile ducts: There is pneumobilia, increased compared to previous exam. Status post cholecystectomy. Pancreas: Normal. No ductal dilation. Spleen: Normal. No splenomegaly. Adrenal glands: Normal. No mass. Kidneys and ureters: Normal. No hydronephrosis. Stomach and bowel: Unremarkable. No obstruction. No mucosal thickening. Appendix: No evidence of appendicitis. Intraperitoneal space: Unremarkable. No free air. No significant fluid collection. Vasculature: Mild atherosclerotic change seen in the vasculature. Lymph nodes: Unremarkable. No enlarged lymph nodes. Urinary bladder: Unremarkable as visualized. Reproductive: Status post hysterectomy. Bones/joints: Unremarkable. No acute fracture. Soft tissues: Unremarkable. Other findings: Moderate fecal retention pattern. IMPRESSION: No evidence for acute posttraumatic abnormality. Dictated and Authenticated by: Adriana Lancaster MD. Ordering:TAMIA Boswell MD
--- NOTE | 2022-06-10 22:06 | DI.VRAD_ITS ---
PROCEDURE INFORMATION: Exam: CT Thoracic Spine Without Contrast Exam date and time: 06/10/2022 9:29 PM Age: 61 years old Clinical indication: Injury or trauma; Blunt trauma (contusions or hematomas); Injury details: Fall, trauma, left-sided pain ribs and abdomen; Prior surgery; Surgery date: 6+ months; Surgery type: Hysterectomy, lap agata TECHNIQUE: Imaging protocol: Computed tomography of the thoracic spine without contrast. Radiation optimization: All CT scans at this facility use at least one of these dose optimization techniques: automated exposure control; mA and/or kV adjustment per patient size (includes targeted exams where dose is matched to clinical indication); or iterative reconstruction. COMPARISON: CT HEAD CERVICAL SPINE WO 06/10/2022 9:23 PM FINDINGS: Bones/joints: No acute fracture. Normal alignment. No significant disc protrusion. No severe spinal canal stenosis. Soft tissues: Unremarkable. IMPRESSION: Bibasilar atelectasis again noted. No definite acute posttraumatic abnormality seen. PROCEDURE INFORMATION: Exam: CT Lumbar Spine Without Contrast Exam date and time: 06/10/2022 9:29 PM Age: 61 years old Clinical indication: Injury or trauma; Blunt trauma (contusions or hematomas); Injury details: Fall, trauma, left-sided pain ribs and abdomen; Prior surgery; Surgery date: 6+ months; Surgery type: Hysterectomy, lap agata TECHNIQUE: Imaging protocol: Computed tomography of the lumbar spine without contrast. Radiation optimization: All CT scans at this facility use at least one of these dose optimization techniques: automated exposure control; mA and/or kV adjustment per patient size (includes targeted exams where dose is matched to clinical indication); or iterative reconstruction. COMPARISON: CT CHEST/ABD/PEL W 03/24/2020 6:32 AM FINDINGS: Bones/joints: No acute fracture. Normal alignment. There is spondylolysis at L5-S1 on the left. No significant disc protrusion. No severe spinal canal stenosis. Soft tissues: Unremarkable. IMPRESSION: No evidence for acute posttraumatic abnormality. Dictated and Authenticated by: Adriana Lancaster MD. Ordering:TAMIA Boswell MD
[2022-06-10] MEDS: Lidocaine 5% Patch 1 PATCH TP (22:30)
[2022-06-10] MEDS: Ketorolac 15 MG/ML VIAL IVP (22:31)
[2022-06-10] MEDS: HYDROmorphone 2 MG TAB 4 MG PO (22:45)
== END 2022-06-10 22:43 | disposition home or self-care (01) ==
PROVIDERS: Emergency Provider Emergency Medicine; PCP Family Medicine
DX: S22.32XA Fracture of one rib, left side, initial encounter for closed fracture (principal); E03.9 Hypothyroidism, unspecified; V80.010A Animal-rider injured by fall from or being thrown from horse in noncollision accident, initial encounter; Y93.52 Activity, horseback riding
CPT/HCPCS: 74177; 80053; 96361; 96374; 96375; 99285; 70450; 71260; 72125; 85025; 85610; 85730; 99284; J0131; J1170; J1885; J3490

== ENCOUNTER 2023-01-03 02:44 | Outpatient (CLI) | payer BC, SELFPAY ==
--- NOTE | 2023-01-03 | DI.RAD_ITS ---
Exam(s) XR LUMBAR SPINE AP, LAT EXAM: XR LUMBAR SPINE AP, LAT CLINICAL HISTORY: HIP WEAKNESS, ? SPINE ORIGIN,M25.551. TECHNIQUE: 2D digital imaging was performed. AP and lateral supine views. COMPARISON: CT CT THORACIC LUMBAR SPINE REC from 06/10/2022 FINDINGS: BONES: No acute fracture or destructive lesion. Vertebral body heights are maintained. Mild facet hy pertrophy identified L4-5 and L5-S1. Left-sided spondylolysis at L5. DISKS: Mild narrowing L4-5 disc space. ALIGNMENT: Lumbar spinal alignment is within normal limits. SOFT TISSUE: Normal. IMPRESSION: Mild degenerative changes at L4-5. L5 spondylolysis on the left, noted on prior CT. DATA REPOSITORY: RADIATION DOSE DELIVERED:
== END 2023-01-03 03:04 ==
LOC: DI 02:44
PROVIDERS: PCP Family Medicine; Visit Provider Family Medicine
DX: M47.816 Spondylosis without myelopathy or radiculopathy, lumbar region (principal); M25.551 Pain in right hip
CPT/HCPCS: 72100

== ENCOUNTER 2023-03-05 09:41 | Outpatient (REF) | payer BC, SELFPAY ==
[2023-03-05 16:30] LABS: Bacteria Rare HPF (Negative); C & S Indicated? C&S Done As Ordered; Crystals Negative HPF (Negative); Epithelial Cells Rare HPF (Negative); Mucus Trace (Negative)
== END 2023-03-05 09:42 | disposition home or self-care (01) ==
LOC: LBN 09:41
PROVIDERS: PCP Family Medicine; Visit Provider Physician Assistant Medical
DX: R30.0 Dysuria (principal); R82.998 Other abnormal findings in urine
CPT/HCPCS: 81015; 87086

== ENCOUNTER 2023-12-08 01:44 | Outpatient (CLI) | payer BC, SELFPAY ==
--- NOTE | 2023-12-26 12:57 | W.PFT ---
Date of service: 12/08/23 Time of Service: 08:02 Pulmonary Function Test Result Requesting Provider Melanie Abrams Indications: Dyspnea Interpretation Spirometry: Normal FEv1/FVC and FEV1 Lung Volumes: Normal lung volumes Diffusion Capacity: Normal diffusion Impression Normal spirometry, lung volumes, no air trapping and normal diffusion. Normal flow volume loop. Clinical Correlation therefore is recommended.
== END 2023-12-08 01:45 | disposition home or self-care (01) ==
LOC: RT 01:45
PROVIDERS: PCP Family Medicine; Visit Provider Family Medicine
DX: R06.09 Other forms of dyspnea (principal)
CPT/HCPCS: 00123; 94726; 94729; 94010

== ENCOUNTER 2025-03-18 07:26 | Outpatient (CLI) | payer BC, SELFPAY ==
[2025-03-18 14:17] LABS: Calculated LDL 93 mg/dL (<100); Cholesterol 182 mg/dL (<200); HDL Cholesterol 68 mg/dL (>or=50); TSH 2.38 uIU/mL (0.36-3.74); Triglyceride 106 mg/dL (<150)
== END 2025-03-18 07:27 | disposition home or self-care (01) ==
LOC: LBO 03-19 07:27
PROVIDERS: PCP Family Medicine; Visit Provider Family Medicine
DX: Z00.00 Encounter for general adult medical examination without abnormal findings (principal); E03.9 Hypothyroidism, unspecified
CPT/HCPCS: 36415; 80061; 84443